=== PATIENT | female | born 1950 | race African-American/Black ===

== ENCOUNTER 2016-05-02 10:22 | Inpatient (IN) | payer MEDICARE, OTHER ==
[~2016-05-02] VITALS: Ht 172.7 cm; Wt 83.5 kg
[~2016-05-02 10:22] MED LIST: ACET160L15 PO; ACID1TAB12 GT; ALBU2.5V38 IH; AMIN30LI4 GT; ARGI1POW13 GT; ASCO500S2 GT; BLOO-140 IN; CITR15SO GT; CLON0.5T GT; DIPH25CA6 GT; DOCU50LI GT; ESCI5TAB GT; FERR220S2 GT; FOLI0.8T23 GT; HEPA500013 SQ; HYDR-4076 GT; INSU100V3 SQ; IPRA0.2S9 IH; LEVE100S GT; MERO500P IV; METO25TA6 GT; OMEP40CA37 GT; TRAM50TA2 GT; VALP250S14 GT; ZINC220C6 GT
[2016-05-02 10:40] VITALS: BP 150/59
[2016-05-02] MEDS ORDERED: IV SET PRIMARY PUMP SET 1 EA INFUS.SET MC ONE ×2 (10:42→12:20)
[2016-05-02] MEDS ORDERED: IV NS 0.9% 1,000 ML ONE (10:42)
[2016-05-02] MEDS ORDERED: IV NS 0.9% 1,000 ML BAG IV ONE ×3 (11:00→22:00)
[2016-05-02 11:06] LABS: BASOPHILS # (AUTO) 0.1 /CMM (0.0-0.2); BASOPHILS % (AUTO) 0.3 % (0.0-2.0); DIFF TOTAL % 100 %; EOSINOPHILS # (AUTO) 0.1 /CMM (0.0-0.7); EOSINOPHILS % (AUTO) 0.4 % (0.0-6.0); HEMATOCRIT 41 % (33-45); HEMOGLOBIN 12.6 g/dL (11.5-14.8); LYMPHOCYTES # (AUTO) 2.6 /CMM (0.8-4.8); MEAN CORPUSCULAR HEMOGLOBIN 32 PG (26.0-33.0); MEAN CORPUSCULAR HGB CONC 31 g/dl (31.0-36.0); MEAN CORPUSCULAR VOLUME 104 fL (82-100); MONOCYTES # (AUTO) 3.5 /CMM (0.1-1.30); NEUTROPHILS # (AUTO) 22.8 /CMM (1.8-8.9); NEUTROPHILS % (AUTO) 78.3 % (43.0-81.0); PLATELET COUNT (AUTO) 209 /CMM (150-450); RED BLOOD CELL COUNT(AUTO) 3.93 MIL/uL (4.0-5.2)
[2016-05-02 11:15] LABS: KETONES,URINE Negative (NEGATIVE); LEUKOCYTE ESTERASE ,URINE Large (NEGATIVE)
[2016-05-02] MEDS ORDERED: VALP250S14 GT ×2 (11:17)
[2016-05-02] MEDS ORDERED: LEVE100S GT (11:17)
[2016-05-02] MEDS ORDERED: ACET160S3 GT (11:17)
[2016-05-02] MEDS ORDERED: CLON0.1T GT (11:17)
[2016-05-02 11:18] LABS: CALCIUM, SERUM 9.4 mg/dL (8.5-10.1); CREATININE 4.8 mg/dL (0.6-1.3); POTASSIUM 3.4 mmol/L (3.5-5.1)
[2016-05-02 11:19] LABS: ADD UA MICROSCOPIC YES
[2016-05-02 11:21] LABS: INR 1.14 (0.87-1.13)
[2016-05-02 11:23] LABS: ALBUMIN 1.8 g/dL (3.4-5.0); BILIRUBIN,DIRECT 0.3 mg/dL (0.0-0.2); BILIRUBIN,TOTAL 0.5 mg/dL (0.2-1.0); INDIRECT BILIRUBIN 0.2 mg/dL (0.0-1.1); TOTAL PROTEIN, SERUM 8.2 g/dL (6.4-8.2)
[2016-05-02 11:25] LABS: ADD URINE CULTURE YES; WBC,URINE 21-50 /HPF (0-3)
[2016-05-02 11:32] LABS: LACTIC ACID 1.5 mmol/L (0.4-2.0)
[2016-05-02 11:38] LABS: TROPONIN I 0.021 ng/mL (0.00-0.056)
[2016-05-02 11:44] LABS: BAND % (MANUAL) 5 % (0.0-5.0); EOSINOPHILS % (MANUAL) 1 % (0-4); LYMPHOCYTES % (MANUAL) 10 % (16-48); PLATELET ESTIMATE ADEQUATE
[2016-05-02] MEDS ORDERED: LEVOFLOXACIN 750 MG /D5W 150ML 150 ML IV ONE ×2 (12:00→12:20)
[2016-05-02] MEDS ORDERED: IV NS 0.9% 1,000 ML IV PRN (12:03)
[2016-05-02] MEDS ORDERED: IV NS 0.9% 2,000 ML ONE (12:28)
[2016-05-02] MEDS ORDERED: IV NS 0.9% 500 ML IV ONE (12:28)
[2016-05-02] MEDS ORDERED: IV SET PRIMARY 1 EA INFUS.SET MC ONE (12:28)
[2016-05-02] MEDS ORDERED: SECONDARY IV SET 1 EA INFUS.SET MC ONE ×2 (12:29→15:56)
[2016-05-02] MEDS ORDERED: ACETAMINOPHEN 650 MG/SUPP.RECT RC PRN (12:30)
[2016-05-02] MEDS ORDERED: Z GUARD REMEDY 2 OZ OINT TP PRN (12:30)
[2016-05-02] MEDS ORDERED: ONDANSETRON HCL/PF 4 MG/2 ML VIAL IVP PRN (12:30)
[2016-05-02 12:47] VITALS: BP 103/48
[2016-05-02 13:20] VITALS: BP 150/74
[2016-05-02] MEDS: MEROPENEM 500 MG in IV NS 0.9% 50 ML IV SCH (15:45)
[2016-05-02 16:00] VITALS: BP 146/42
[2016-05-02] MEDS ORDERED: CLONIDINE HCL 0.1 MG TABLET GT PRN (17:00)
[2016-05-02] MEDS ORDERED: DEXTROSE 50%-WATER 50 ML DISP.SYRIN IV PRN (17:00)
[2016-05-02] MEDS ORDERED: INSULIN REGULAR, HUMAN 100 UNIT/ML 3 ML VIAL SQ PRN (17:00)
[2016-05-02] MEDS: BLOOD SUGAR DIAGNOSTIC 1 EACH STRIP IN SCH (17:47)
[2016-05-02] MEDS: FERROUS SULFATE UDC 300 MG/5 ML UDC PO SCH (17:49)
[2016-05-02] MEDS: VALPROIC ACID 250 MG/5 ML UDC GT SCH (17:49)
[2016-05-02 20:00] VITALS: BP 101/44
[2016-05-02] MEDS: ALBUTEROL FS 2.5 MG/3 ML VIAL.NEB IH SCH (20:31)
[2016-05-02] MEDS: IPRATROPIUM NEB FS 0.5 MG/2.5 ML AMPUL.NEB IH SCH (20:31)
[2016-05-02] MEDS: LEVETIRACETAM SOL (5 ML) 100 MG/ML UDC GT SCH (21:33)
[2016-05-02] MEDS: DOCUSATE SODIUM LIQ 100 MG/10 ML UDC GT SCH (21:33)
[2016-05-03] VITALS (7 sets, daily range): BP systolic 95–143; BP diastolic 39–62
[2016-05-03] MEDS: VALPROIC ACID 250 MG/5 ML UDC GT SCH ×3 (00:13→17:10)
[2016-05-03] MEDS: MEROPENEM 500 MG in IV NS 0.9% 50 ML IV SCH ×3 (00:14→21:32)
[2016-05-03] MEDS ORDERED: IV D5/ 0.9% NACL 1,000 ML IV ONE (01:10)
[2016-05-03] MEDS: IV D5/ 0.9% NACL 1,000 ML IV PRN ×2 (01:15→16:33)
[2016-05-03] MEDS: ALBUTEROL FS 2.5 MG/3 ML VIAL.NEB IH SCH ×4 (01:29→20:00)
[2016-05-03] MEDS: IPRATROPIUM NEB FS 0.5 MG/2.5 ML AMPUL.NEB IH SCH ×4 (01:29→20:00)
[2016-05-03] MEDS: BLOOD SUGAR DIAGNOSTIC 1 EACH STRIP IN SCH ×4 (05:49→17:10)
[2016-05-03 06:54] LABS: BASOPHILS # (AUTO) 0.1 /CMM (0.0-0.2); BASOPHILS % (AUTO) 0.2 % (0.0-2.0); DIFF TOTAL % 100 %; EOSINOPHILS % (AUTO) 0.1 % (0.0-6.0); HEMATOCRIT 33 % (33-45); HEMOGLOBIN 10.5 g/dL (11.5-14.8); LYMPHOCYTES # (AUTO) 2.1 /CMM (0.8-4.8); LYMPHOCYTES % (AUTO) 9.6 % (20.0-44.0); MEAN CORPUSCULAR HEMOGLOBIN 33 PG (26.0-33.0); MEAN CORPUSCULAR HGB CONC 32 g/dl (31.0-36.0); MEAN CORPUSCULAR VOLUME 103 fL (82-100); MONOCYTES # (AUTO) 3.3 /CMM (0.1-1.30); MONOCYTES % (AUTO) 14.6 % (2.0-12.0); NEUTROPHILS # (AUTO) 16.9 /CMM (1.8-8.9); NEUTROPHILS % (AUTO) 75.5 % (43.0-81.0); PLATELET COUNT (AUTO) 181 /CMM (150-450); RED BLOOD CELL COUNT(AUTO) 3.19 MIL/uL (4.0-5.2); WHITE BLOOD COUNT (AUTO) 22.3 K/uL (4.3-11.0)
[2016-05-03 07:14] LABS: CALCIUM, SERUM 8.4 mg/dL (8.5-10.1); CREATININE 5.1 mg/dL (0.6-1.3); PHOSPHORUS 3.6 mg/dL (2.5-4.9); POTASSIUM 3.2 mmol/L (3.5-5.1)
[2016-05-03] MEDS: DOCUSATE SODIUM LIQ 100 MG/10 ML UDC GT SCH ×2 (08:18→21:31)
[2016-05-03] MEDS: LEVETIRACETAM SOL (5 ML) 100 MG/ML UDC GT SCH ×2 (08:18→21:31)
[2016-05-03] MEDS: FERROUS SULFATE UDC 300 MG/5 ML UDC PO SCH ×3 (08:18→17:10)
[2016-05-03] MEDS: PANTOPRAZOLE 40 MG VIAL IV SCH (08:19)
[2016-05-03] MEDS: ACETAMINOPHEN 650 MG/20.3 ML UDC GT PRN (08:29)
[2016-05-04] VITALS: BP 143/59
[2016-05-04] MEDS: VALPROIC ACID 250 MG/5 ML UDC GT SCH ×4 (00:21→23:03)
[2016-05-04] MEDS: BLOOD SUGAR DIAGNOSTIC 1 EACH STRIP IN SCH ×5 (00:26→23:03)
[2016-05-04] MEDS: ALBUTEROL FS 2.5 MG/3 ML VIAL.NEB IH SCH ×4 (01:40→19:42)
[2016-05-04] MEDS: IPRATROPIUM NEB FS 0.5 MG/2.5 ML AMPUL.NEB IH SCH ×3 (01:40→19:42)
[2016-05-04 04:00] VITALS: BP 143/56
[2016-05-04] MEDS: ACETAMINOPHEN 650 MG/20.3 ML UDC GT PRN (04:43)
[2016-05-04] MEDS ORDERED: IV SET PRIMARY PUMP SET 1 EA INFUS.SET MC ONE (05:02)
[2016-05-04 06:17] LABS: BASOPHILS % (AUTO) 0.1 % (0.0-2.0); DIFF TOTAL % 100 %; EOSINOPHILS % (AUTO) 0.3 % (0.0-6.0); HEMATOCRIT 31 % (33-45); HEMOGLOBIN 10.2 g/dL (11.5-14.8); LYMPHOCYTES # (AUTO) 2.1 /CMM (0.8-4.8); LYMPHOCYTES % (AUTO) 12.3 % (20.0-44.0); MEAN CORPUSCULAR HEMOGLOBIN 33 PG (26.0-33.0); MEAN CORPUSCULAR HGB CONC 33 g/dl (31.0-36.0); MEAN CORPUSCULAR VOLUME 102 fL (82-100); MONOCYTES # (AUTO) 2.2 /CMM (0.1-1.30); MONOCYTES % (AUTO) 12.7 % (2.0-12.0); NEUTROPHILS # (AUTO) 12.8 /CMM (1.8-8.9); NEUTROPHILS % (AUTO) 74.6 % (43.0-81.0); PLATELET COUNT (AUTO) 182 /CMM (150-450); RED BLOOD CELL COUNT(AUTO) 3.06 MIL/uL (4.0-5.2); WHITE BLOOD COUNT (AUTO) 17.2 K/uL (4.3-11.0)
[2016-05-04 06:39] LABS: CALCIUM, SERUM 8.8 mg/dL (8.5-10.1); CREATININE 4.9 mg/dL (0.6-1.3); PHOSPHORUS 3.4 mg/dL (2.5-4.9); POTASSIUM 3.1 mmol/L (3.5-5.1)
[2016-05-04 08:00] VITALS: BP 116/47
[2016-05-04] MEDS: FERROUS SULFATE UDC 300 MG/5 ML UDC PO SCH ×3 (09:11→18:06)
[2016-05-04] MEDS: MEROPENEM 500 MG in IV NS 0.9% 50 ML IV SCH ×2 (09:11→20:18)
[2016-05-04] MEDS: DOCUSATE SODIUM LIQ 100 MG/10 ML UDC GT SCH ×2 (09:11→20:18)
[2016-05-04] MEDS: PANTOPRAZOLE 40 MG VIAL IV SCH (09:11)
[2016-05-04] MEDS: LEVETIRACETAM SOL (5 ML) 100 MG/ML UDC GT SCH ×2 (09:12→20:18)
[2016-05-04 12:00] VITALS: BP 148/61
[2016-05-04 16:00] VITALS: BP 120/47
[2016-05-04] MEDS ORDERED: SECONDARY IV SET 1 EA INFUS.SET MC ONE (16:06)
[2016-05-04] MEDS: ACETAMINOPHEN 325 MG TABLET PO PRN (16:11)
[2016-05-04] MEDS: Magnesium 1GM/D5W 100ML PREMIX 100 ML IV SCH ×2 (16:30→18:13)
[2016-05-04 20:00] VITALS: BP 119/65
[2016-05-04] MEDS: IV D5/ 0.9% NACL 1,000 ML IV PRN (20:18)
[2016-05-05] VITALS: BP 154/59
[2016-05-05] MEDS: IPRATROPIUM NEB FS 0.5 MG/2.5 ML AMPUL.NEB IH SCH ×4 (00:48→19:28)
[2016-05-05] MEDS: ALBUTEROL FS 2.5 MG/3 ML VIAL.NEB IH SCH ×4 (00:48→19:28)
[2016-05-05] MEDS ORDERED: POTASSIUM CHLORIDE 20 MEQ POWDER PACKET ONE (03:48)
[2016-05-05 04:00] VITALS: BP 157/66
[2016-05-05] MEDS ORDERED: POTASSIUM CHLORIDE 20 MEQ POWDER PACKET GT ONE (04:00)
[2016-05-05] MEDS: VALPROIC ACID 250 MG/5 ML UDC GT SCH ×2 (06:09→17:23)
[2016-05-05] MEDS: BLOOD SUGAR DIAGNOSTIC 1 EACH STRIP IN SCH ×3 (06:09→18:28)
[2016-05-05 08:00] VITALS: BP 166/63
[2016-05-05 08:17] LABS: BASOPHILS % (AUTO) 0.3 % (0.0-2.0); DIFF TOTAL % 100 %; EOSINOPHILS # (AUTO) 0.1 /CMM (0.0-0.7); EOSINOPHILS % (AUTO) 0.8 % (0.0-6.0); HEMATOCRIT 36 % (33-45); HEMOGLOBIN 11.6 g/dL (11.5-14.8); LYMPHOCYTES # (AUTO) 2.8 /CMM (0.8-4.8); MEAN CORPUSCULAR HEMOGLOBIN 33 PG (26.0-33.0); MEAN CORPUSCULAR HGB CONC 32 g/dl (31.0-36.0); MEAN CORPUSCULAR VOLUME 102 fL (82-100); MONOCYTES # (AUTO) 1.5 /CMM (0.1-1.30); MONOCYTES % (AUTO) 10.3 % (2.0-12.0); NEUTROPHILS # (AUTO) 10.1 /CMM (1.8-8.9); NEUTROPHILS % (AUTO) 69.6 % (43.0-81.0); PLATELET COUNT (AUTO) 181 /CMM (150-450); RED BLOOD CELL COUNT(AUTO) 3.51 MIL/uL (4.0-5.2); WHITE BLOOD COUNT (AUTO) 14.5 K/uL (4.3-11.0)
[2016-05-05 08:35] LABS: ALBUMIN 1.6 g/dL (3.4-5.0); BILIRUBIN,TOTAL 0.4 mg/dL (0.2-1.0); CALCIUM, SERUM 9.2 mg/dL (8.5-10.1); CREATININE 5.8 mg/dL (0.6-1.3); POTASSIUM 4.8 mmol/L (3.5-5.1); TOTAL PROTEIN, SERUM 7.8 g/dL (6.4-8.2)
[2016-05-05] MEDS: PANTOPRAZOLE 40 MG VIAL IV SCH (08:46)
[2016-05-05] MEDS: MEROPENEM 500 MG in IV NS 0.9% 50 ML IV SCH ×2 (08:46→21:36)
[2016-05-05] MEDS: LEVETIRACETAM SOL (5 ML) 100 MG/ML UDC GT SCH ×2 (08:46→21:36)
[2016-05-05] MEDS: FERROUS SULFATE UDC 300 MG/5 ML UDC PO SCH ×3 (08:46→18:24)
[2016-05-05] MEDS: DOCUSATE SODIUM LIQ 100 MG/10 ML UDC GT SCH ×2 (08:47→21:36)
[2016-05-05] MEDS ORDERED: HYDROGEL DRESSING 90 GM TUBE TP PRN (11:00)
[2016-05-05] MEDS ORDERED: GLYTROL 1,000 ML BAG GT PRN (11:30)
[2016-05-05 12:00] VITALS: BP 173/81
[2016-05-05] MEDS: HYDROGEL DRESSING 90 GM TUBE TP SCH (12:39)
[2016-05-05 16:00] VITALS: BP 114/54
[2016-05-05] MEDS: METRONIDAZOLE 500 MG TABLET GT SCH (17:23)
[2016-05-05] MEDS: RENAL NOVASOURCE 1,000 ML BOTTLE GT PRN (18:15)
[2016-05-05] MEDS: IV D5/ 0.9% NACL 1,000 ML IV PRN (18:15)
[2016-05-05 20:00] VITALS: BP 121/68
[2016-05-06] VITALS (7 sets, daily range): BP systolic 96–155; BP diastolic 34–89
[2016-05-06] MEDS: ALBUTEROL FS 2.5 MG/3 ML VIAL.NEB IH SCH ×4 (01:19→20:26)
[2016-05-06] MEDS: IPRATROPIUM NEB FS 0.5 MG/2.5 ML AMPUL.NEB IH SCH ×4 (01:20→20:26)
[2016-05-06] MEDS: BLOOD SUGAR DIAGNOSTIC 1 EACH STRIP IN SCH ×5 (01:44→23:27)
[2016-05-06] MEDS: VALPROIC ACID 250 MG/5 ML UDC GT SCH ×4 (01:45→23:25)
[2016-05-06] MEDS: RENAL NOVASOURCE 1,000 ML BOTTLE GT PRN (05:59)
[2016-05-06] MEDS ORDERED: ALTEPLASE CATHFLO 2 MG/VIAL XX ONE (08:30)
[2016-05-06] MEDS ORDERED: SECONDARY IV SET 1 EA INFUS.SET MC ONE (08:51)
[2016-05-06] MEDS: METRONIDAZOLE 500 MG TABLET GT SCH ×3 (08:57→16:38)
[2016-05-06] MEDS: FERROUS SULFATE UDC 300 MG/5 ML UDC PO SCH ×3 (08:57→17:16)
[2016-05-06] MEDS: DOCUSATE SODIUM LIQ 100 MG/10 ML UDC GT SCH ×2 (08:57→20:33)
[2016-05-06] MEDS: LEVETIRACETAM SOL (5 ML) 100 MG/ML UDC GT SCH ×2 (08:57→20:33)
[2016-05-06] MEDS: PANTOPRAZOLE 40 MG VIAL IV SCH (08:57)
[2016-05-06] MEDS: HYDROGEL DRESSING 90 GM TUBE TP SCH (08:58)
[2016-05-06] MEDS: MEROPENEM 500 MG in IV NS 0.9% 50 ML IV SCH ×2 (08:58→20:34)
[2016-05-06] MEDS: ACETAMINOPHEN 325 MG TABLET PO PRN (16:37)
[2016-05-06] MEDS: IV D5/ 0.9% NACL 1,000 ML IV PRN (23:27)
[2016-05-07] VITALS: BP 112/45
[2016-05-07] MEDS: IPRATROPIUM NEB FS 0.5 MG/2.5 ML AMPUL.NEB IH SCH ×4 (01:30→19:49)
[2016-05-07] MEDS: ALBUTEROL FS 2.5 MG/3 ML VIAL.NEB IH SCH ×4 (01:30→19:49)
[2016-05-07 04:00] VITALS: BP 150/60
[2016-05-07] MEDS: VALPROIC ACID 250 MG/5 ML UDC GT SCH ×3 (05:04→23:22)
[2016-05-07] MEDS: BLOOD SUGAR DIAGNOSTIC 1 EACH STRIP IN SCH ×4 (05:27→23:22)
[2016-05-07 08:00] VITALS: BP 160/64
[2016-05-07] MEDS: FERROUS SULFATE UDC 300 MG/5 ML UDC PO SCH ×3 (08:56→17:00)
[2016-05-07] MEDS: DOCUSATE SODIUM LIQ 100 MG/10 ML UDC GT SCH ×2 (09:28→20:53)
[2016-05-07] MEDS: PANTOPRAZOLE 40 MG VIAL IV SCH (09:29)
[2016-05-07] MEDS: LEVETIRACETAM SOL (5 ML) 100 MG/ML UDC GT SCH ×2 (09:29→20:53)
[2016-05-07] MEDS: METRONIDAZOLE 500 MG TABLET GT SCH ×3 (09:29→16:27)
[2016-05-07] MEDS: HYDROGEL DRESSING 90 GM TUBE TP SCH (09:29)
[2016-05-07] MEDS: MEROPENEM 500 MG in IV NS 0.9% 50 ML IV SCH ×2 (09:35→20:54)
[2016-05-07 12:00] VITALS: BP 143/55
[2016-05-07 13:14] LABS: BASOPHILS # (AUTO) 0.1 /CMM (0.0-0.2); BASOPHILS % (AUTO) 0.9 % (0.0-2.0); DIFF TOTAL % 100 %; EOSINOPHILS # (AUTO) 0.1 /CMM (0.0-0.7); EOSINOPHILS % (AUTO) 1.5 % (0.0-6.0); HEMATOCRIT 31 % (33-45); HEMOGLOBIN 9.9 g/dL (11.5-14.8); LYMPHOCYTES # (AUTO) 1.8 /CMM (0.8-4.8); LYMPHOCYTES % (AUTO) 20.6 % (20.0-44.0); MEAN CORPUSCULAR HEMOGLOBIN 32 PG (26.0-33.0); MEAN CORPUSCULAR HGB CONC 32 g/dl (31.0-36.0); MEAN CORPUSCULAR VOLUME 102 fL (82-100); MONOCYTES # (AUTO) 1.3 /CMM (0.1-1.30); MONOCYTES % (AUTO) 15.7 % (2.0-12.0); NEUTROPHILS # (AUTO) 5.2 /CMM (1.8-8.9); NEUTROPHILS % (AUTO) 61.3 % (43.0-81.0); PLATELET COUNT (AUTO) 147 /CMM (150-450); RED BLOOD CELL COUNT(AUTO) 3.08 MIL/uL (4.0-5.2); WHITE BLOOD COUNT (AUTO) 8.5 K/uL (4.3-11.0)
[2016-05-07 16:00] VITALS: BP 115/51
[2016-05-07] MEDS: ACETAMINOPHEN 325 MG TABLET PO PRN (16:27)
[2016-05-07] MEDS: IV D5/ 0.9% NACL 1,000 ML IV PRN (16:30)
[2016-05-07 20:00] VITALS: BP 122/53
[2016-05-07] MEDS: RENAL NOVASOURCE 1,000 ML BOTTLE GT PRN (23:22)
[2016-05-08] VITALS (8 sets, daily range): BP systolic 92–165; BP diastolic 46–79
[2016-05-08] MEDS: IPRATROPIUM NEB FS 0.5 MG/2.5 ML AMPUL.NEB IH SCH ×4 (01:21→19:38)
[2016-05-08] MEDS: ALBUTEROL FS 2.5 MG/3 ML VIAL.NEB IH SCH ×4 (01:21→19:38)
[2016-05-08] MEDS: VALPROIC ACID 250 MG/5 ML UDC GT SCH ×2 (05:07→17:15)
[2016-05-08] MEDS: BLOOD SUGAR DIAGNOSTIC 1 EACH STRIP IN SCH ×3 (05:07→18:48)
[2016-05-08] MEDS: IV D5/ 0.9% NACL 1,000 ML IV PRN (05:07)
[2016-05-08 07:44] LABS: CALCIUM, SERUM 8.5 mg/dL (8.5-10.1); CREATININE 5.5 mg/dL (0.6-1.3); PHOSPHORUS 2.5 mg/dL (2.5-4.9); POTASSIUM 3.2 mmol/L (3.5-5.1)
[2016-05-08] MEDS: DOCUSATE SODIUM LIQ 100 MG/10 ML UDC GT SCH ×2 (08:48→20:34)
[2016-05-08] MEDS: PANTOPRAZOLE 40 MG VIAL IV SCH (08:48)
[2016-05-08] MEDS: FERROUS SULFATE UDC 300 MG/5 ML UDC PO SCH ×3 (08:48→17:15)
[2016-05-08] MEDS: LEVETIRACETAM SOL (5 ML) 100 MG/ML UDC GT SCH ×2 (08:48→20:34)
[2016-05-08] MEDS: METRONIDAZOLE 500 MG TABLET GT SCH ×3 (08:49→17:16)
[2016-05-08] MEDS: HYDROGEL DRESSING 90 GM TUBE TP SCH (09:00)
[2016-05-08] MEDS: MEROPENEM 500 MG in IV NS 0.9% 50 ML IV SCH ×2 (09:41→20:34)
[2016-05-08] MEDS ORDERED: IV NS 0.9% 250 ML IV ONE (20:18)
[2016-05-08] MEDS: RENAL NOVASOURCE 1,000 ML BOTTLE GT PRN (20:39)
[2016-05-09] VITALS: BP 126/59
[2016-05-09] MEDS: BLOOD SUGAR DIAGNOSTIC 1 EACH STRIP IN SCH ×5 (00:36→23:58)
[2016-05-09] MEDS: MORPHINE SULFATE INJ 2 MG/ML DISP.SYRIN IV PRN ×3 (00:38→10:57)
[2016-05-09] MEDS: VALPROIC ACID 250 MG/5 ML UDC GT SCH ×3 (00:38→17:05)
[2016-05-09] MEDS: ALBUTEROL FS 2.5 MG/3 ML VIAL.NEB IH SCH ×4 (01:28→19:16)
[2016-05-09] MEDS: IPRATROPIUM NEB FS 0.5 MG/2.5 ML AMPUL.NEB IH SCH ×4 (01:28→19:16)
[2016-05-09 04:00] VITALS: BP 135/79
[2016-05-09 07:50] LABS: BASOPHILS % (AUTO) 0.4 % (0.0-2.0); DIFF TOTAL % 100 %; EOSINOPHILS # (AUTO) 0.1 /CMM (0.0-0.7); EOSINOPHILS % (AUTO) 1.6 % (0.0-6.0); HEMATOCRIT 32 % (33-45); HEMOGLOBIN 10.3 g/dL (11.5-14.8); LYMPHOCYTES # (AUTO) 2.2 /CMM (0.8-4.8); LYMPHOCYTES % (AUTO) 25.1 % (20.0-44.0); MEAN CORPUSCULAR HEMOGLOBIN 33 PG (26.0-33.0); MEAN CORPUSCULAR HGB CONC 32 g/dl (31.0-36.0); MEAN CORPUSCULAR VOLUME 102 fL (82-100); MONOCYTES # (AUTO) 1.1 /CMM (0.1-1.30); MONOCYTES % (AUTO) 12.5 % (2.0-12.0); NEUTROPHILS # (AUTO) 5.2 /CMM (1.8-8.9); NEUTROPHILS % (AUTO) 60.4 % (43.0-81.0); PLATELET COUNT (AUTO) 146 /CMM (150-450); RED BLOOD CELL COUNT(AUTO) 3.11 MIL/uL (4.0-5.2); WHITE BLOOD COUNT (AUTO) 8.6 K/uL (4.3-11.0)
[2016-05-09 07:52] LABS: CALCIUM, SERUM 8.8 mg/dL (8.5-10.1); CREATININE 6.2 mg/dL (0.6-1.3); POTASSIUM 3.4 mmol/L (3.5-5.1)
[2016-05-09 08:00] VITALS: BP 171/81
[2016-05-09] MEDS: MEROPENEM 500 MG in IV NS 0.9% 50 ML IV SCH ×2 (08:47→20:48)
[2016-05-09] MEDS: PANTOPRAZOLE 40 MG VIAL IV SCH (08:48)
[2016-05-09] MEDS: METRONIDAZOLE 500 MG TABLET GT SCH ×3 (08:48→16:43)
[2016-05-09] MEDS: LEVETIRACETAM SOL (5 ML) 100 MG/ML UDC GT SCH ×2 (08:48→20:47)
[2016-05-09] MEDS: FERROUS SULFATE UDC 300 MG/5 ML UDC PO SCH ×3 (08:48→17:04)
[2016-05-09] MEDS: DOCUSATE SODIUM LIQ 100 MG/10 ML UDC GT SCH ×2 (08:49→20:47)
[2016-05-09] MEDS: HYDROGEL DRESSING 90 GM TUBE TP SCH (08:49)
[2016-05-09 12:00] VITALS: BP 115/76
[2016-05-09 16:00] VITALS: BP 115/51
[2016-05-09] MEDS: LACTOBACILLUS RHAMNOSUS GG 1 EACH CAP.SPRINK GT SCH (17:00)
[2016-05-09 20:00] VITALS: BP 100/52
[2016-05-09] MEDS: RENAL NOVASOURCE 1,000 ML BOTTLE GT PRN (23:58)
[2016-05-10] VITALS: BP 119/50
[2016-05-10] MEDS: VALPROIC ACID 250 MG/5 ML UDC GT SCH ×3 (00:07→17:17)
[2016-05-10] MEDS: IPRATROPIUM NEB FS 0.5 MG/2.5 ML AMPUL.NEB IH SCH ×4 (03:09→19:20)
[2016-05-10] MEDS: ALBUTEROL FS 2.5 MG/3 ML VIAL.NEB IH SCH ×4 (03:09→19:20)
[2016-05-10] MEDS: MORPHINE SULFATE INJ 2 MG/ML DISP.SYRIN IV PRN (03:24)
[2016-05-10 04:00] VITALS: BP 93/51
[2016-05-10] MEDS: BLOOD SUGAR DIAGNOSTIC 1 EACH STRIP IN SCH ×3 (06:03→17:36)
[2016-05-10 06:41] LABS: BASOPHILS % (AUTO) 0.3 % (0.0-2.0); DIFF TOTAL % 100 %; EOSINOPHILS # (AUTO) 0.2 /CMM (0.0-0.7); EOSINOPHILS % (AUTO) 2.1 % (0.0-6.0); HEMATOCRIT 29 % (33-45); HEMOGLOBIN 9.5 g/dL (11.5-14.8); LYMPHOCYTES # (AUTO) 2.5 /CMM (0.8-4.8); LYMPHOCYTES % (AUTO) 25.6 % (20.0-44.0); MEAN CORPUSCULAR HEMOGLOBIN 34 PG (26.0-33.0); MEAN CORPUSCULAR HGB CONC 33 g/dl (31.0-36.0); MEAN CORPUSCULAR VOLUME 101 fL (82-100); MONOCYTES # (AUTO) 1.3 /CMM (0.1-1.30); MONOCYTES % (AUTO) 13.6 % (2.0-12.0); NEUTROPHILS # (AUTO) 5.7 /CMM (1.8-8.9); NEUTROPHILS % (AUTO) 58.4 % (43.0-81.0); PLATELET COUNT (AUTO) 172 /CMM (150-450); RED BLOOD CELL COUNT(AUTO) 2.84 MIL/uL (4.0-5.2); WHITE BLOOD COUNT (AUTO) 9.7 K/uL (4.3-11.0)
[2016-05-10 06:53] LABS: CALCIUM, SERUM 8.5 mg/dL (8.5-10.1); CREATININE 5.3 mg/dL (0.6-1.3); POTASSIUM 3.6 mmol/L (3.5-5.1)
[2016-05-10 08:00] VITALS: BP 155/118
[2016-05-10] MEDS: DOCUSATE SODIUM LIQ 100 MG/10 ML UDC GT SCH ×2 (09:00→21:11)
[2016-05-10] MEDS: MEROPENEM 500 MG in IV NS 0.9% 50 ML IV SCH ×2 (09:03→21:12)
[2016-05-10] MEDS: PANTOPRAZOLE 40 MG VIAL IV SCH (09:03)
[2016-05-10] MEDS: FERROUS SULFATE UDC 300 MG/5 ML UDC PO SCH ×3 (09:04→17:17)
[2016-05-10] MEDS: LACTOBACILLUS RHAMNOSUS GG 1 EACH CAP.SPRINK GT SCH ×2 (09:04→17:17)
[2016-05-10] MEDS: LEVETIRACETAM SOL (5 ML) 100 MG/ML UDC GT SCH ×2 (09:04→21:11)
[2016-05-10] MEDS: METRONIDAZOLE 500 MG TABLET GT SCH ×3 (09:04→17:17)
[2016-05-10] MEDS: HYDROGEL DRESSING 90 GM TUBE TP SCH (09:05)
[2016-05-10 12:00] VITALS: BP 148/65
[2016-05-10 16:00] VITALS: BP 125/57
[2016-05-10] MEDS: RENAL NOVASOURCE 1,000 ML BOTTLE GT PRN (18:53)
[2016-05-10 20:00] VITALS: BP 152/64
[2016-05-10] MEDS: ACETAMINOPHEN 325 MG TABLET PO PRN (21:11)
[2016-05-11] VITALS: BP 105/54
[2016-05-11] MEDS: BLOOD SUGAR DIAGNOSTIC 1 EACH STRIP IN SCH ×4 (00:31→17:29)
[2016-05-11] MEDS: VALPROIC ACID 250 MG/5 ML UDC GT SCH ×3 (00:32→17:20)
[2016-05-11] MEDS: ALBUTEROL FS 2.5 MG/3 ML VIAL.NEB IH SCH ×4 (01:40→19:11)
[2016-05-11] MEDS: IPRATROPIUM NEB FS 0.5 MG/2.5 ML AMPUL.NEB IH SCH ×4 (01:40→19:11)
[2016-05-11 04:00] VITALS: BP 149/60
[2016-05-11 07:28] LABS: BASOPHILS % (AUTO) 0.3 % (0.0-2.0); DIFF TOTAL % 100 %; EOSINOPHILS # (AUTO) 0.2 /CMM (0.0-0.7); EOSINOPHILS % (AUTO) 2.9 % (0.0-6.0); HEMATOCRIT 28 % (33-45); HEMOGLOBIN 9.2 g/dL (11.5-14.8); LYMPHOCYTES # (AUTO) 2.3 /CMM (0.8-4.8); LYMPHOCYTES % (AUTO) 27.5 % (20.0-44.0); MEAN CORPUSCULAR HEMOGLOBIN 33 PG (26.0-33.0); MEAN CORPUSCULAR HGB CONC 33 g/dl (31.0-36.0); MEAN CORPUSCULAR VOLUME 101 fL (82-100); MONOCYTES % (AUTO) 11.2 % (2.0-12.0); NEUTROPHILS # (AUTO) 4.9 /CMM (1.8-8.9); NEUTROPHILS % (AUTO) 58.1 % (43.0-81.0); PLATELET COUNT (AUTO) 164 /CMM (150-450); RED BLOOD CELL COUNT(AUTO) 2.78 MIL/uL (4.0-5.2); WHITE BLOOD COUNT (AUTO) 8.5 K/uL (4.3-11.0)
[2016-05-11 07:46] LABS: CALCIUM, SERUM 8.6 mg/dL (8.5-10.1); CREATININE 6.1 mg/dL (0.6-1.3); POTASSIUM 3.4 mmol/L (3.5-5.1)
[2016-05-11 08:00] VITALS: BP 142/70
[2016-05-11] MEDS: MEROPENEM 500 MG in IV NS 0.9% 50 ML IV SCH ×2 (08:54→20:09)
[2016-05-11] MEDS: LEVETIRACETAM SOL (5 ML) 100 MG/ML UDC GT SCH ×2 (08:55→20:09)
[2016-05-11] MEDS: DOCUSATE SODIUM LIQ 100 MG/10 ML UDC GT SCH ×2 (08:55→20:09)
[2016-05-11] MEDS: LACTOBACILLUS RHAMNOSUS GG 1 EACH CAP.SPRINK GT SCH ×2 (08:55→17:20)
[2016-05-11] MEDS: FERROUS SULFATE UDC 300 MG/5 ML UDC PO SCH ×3 (08:55→17:20)
[2016-05-11] MEDS: METRONIDAZOLE 500 MG TABLET GT SCH ×3 (08:55→17:20)
[2016-05-11] MEDS: PANTOPRAZOLE 40 MG VIAL IV SCH (08:55)
[2016-05-11] MEDS: HYDROGEL DRESSING 90 GM TUBE TP SCH (08:56)
[2016-05-11] MEDS ORDERED: IV SET PRIMARY PUMP SET 1 EA INFUS.SET MC ONE (09:04)
[2016-05-11 12:00] VITALS: BP 155/83
[2016-05-11 16:00] VITALS: BP 138/56
[2016-05-11] MEDS: RENAL NOVASOURCE 1,000 ML BOTTLE GT PRN (17:19)
[2016-05-11 20:00] VITALS: BP 138/56
[2016-05-12] VITALS: BP 149/74
[2016-05-12] MEDS: VALPROIC ACID 250 MG/5 ML UDC GT SCH ×3 (00:39→17:22)
[2016-05-12] MEDS: BLOOD SUGAR DIAGNOSTIC 1 EACH STRIP IN SCH ×4 (00:40→18:38)
[2016-05-12] MEDS: IPRATROPIUM NEB FS 0.5 MG/2.5 ML AMPUL.NEB IH SCH ×4 (02:03→19:20)
[2016-05-12] MEDS: ALBUTEROL FS 2.5 MG/3 ML VIAL.NEB IH SCH ×4 (02:03→19:20)
[2016-05-12 04:00] VITALS: BP 121/67
[2016-05-12] MEDS: MORPHINE SULFATE INJ 2 MG/ML DISP.SYRIN IV PRN ×2 (04:00→21:53)
[2016-05-12 06:38] LABS: BASOPHILS % (AUTO) 0.3 % (0.0-2.0); DIFF TOTAL % 100 %; EOSINOPHILS # (AUTO) 0.2 /CMM (0.0-0.7); HEMATOCRIT 30 % (33-45); HEMOGLOBIN 9.6 g/dL (11.5-14.8); LYMPHOCYTES # (AUTO) 2.2 /CMM (0.8-4.8); LYMPHOCYTES % (AUTO) 27.1 % (20.0-44.0); MEAN CORPUSCULAR HEMOGLOBIN 33 PG (26.0-33.0); MEAN CORPUSCULAR HGB CONC 33 g/dl (31.0-36.0); MEAN CORPUSCULAR VOLUME 102 fL (82-100); MONOCYTES # (AUTO) 0.8 /CMM (0.1-1.30); NEUTROPHILS # (AUTO) 4.9 /CMM (1.8-8.9); NEUTROPHILS % (AUTO) 60.6 % (43.0-81.0); PLATELET COUNT (AUTO) 171 /CMM (150-450); RED BLOOD CELL COUNT(AUTO) 2.89 MIL/uL (4.0-5.2); WHITE BLOOD COUNT (AUTO) 8.1 K/uL (4.3-11.0)
[2016-05-12 06:48] LABS: CALCIUM, SERUM 8.5 mg/dL (8.5-10.1); CREATININE 5.1 mg/dL (0.6-1.3); POTASSIUM 4.1 mmol/L (3.5-5.1)
[2016-05-12] MEDS: ACETAMINOPHEN 650 MG/20.3 ML UDC GT PRN (07:00)
[2016-05-12 08:00] VITALS: BP 138/78
[2016-05-12] MEDS: METRONIDAZOLE 500 MG TABLET GT SCH ×3 (08:17→17:28)
[2016-05-12] MEDS: LACTOBACILLUS RHAMNOSUS GG 1 EACH CAP.SPRINK GT SCH ×2 (08:17→17:22)
[2016-05-12] MEDS: LEVETIRACETAM SOL (5 ML) 100 MG/ML UDC GT SCH ×2 (08:17→21:52)
[2016-05-12] MEDS: DOCUSATE SODIUM LIQ 100 MG/10 ML UDC GT SCH (08:17)
[2016-05-12] MEDS: PANTOPRAZOLE 40 MG VIAL IV SCH (08:17)
[2016-05-12] MEDS: FERROUS SULFATE UDC 300 MG/5 ML UDC PO SCH ×3 (08:17→17:22)
[2016-05-12] MEDS: HYDROGEL DRESSING 90 GM TUBE TP SCH (08:18)
[2016-05-12] MEDS: MEROPENEM 500 MG in IV NS 0.9% 50 ML IV SCH ×2 (08:31→21:52)
[2016-05-12 12:00] VITALS: BP 138/70
[2016-05-12] MEDS ORDERED: DIATR MEGLU/DIATRIZOATE SODIUM 30 ML BOTTLE (GASTROGRAPHIN) ONE (13:03)
[2016-05-12 16:00] VITALS: BP 135/64
[2016-05-12 20:00] VITALS: BP_SYST 113; BP_DIAS 33; BP_DIAS 52
[2016-05-12] MEDS: BACITRACIN ZINC OINT (15 GM) 15 GM TUBE TP SCH (21:52)
[2016-05-13] VITALS (7 sets, daily range): BP systolic 149–196; BP diastolic 49–97
[2016-05-13] MEDS: VALPROIC ACID 250 MG/5 ML UDC GT SCH ×3 (00:20→17:33)
[2016-05-13] MEDS: IPRATROPIUM NEB FS 0.5 MG/2.5 ML AMPUL.NEB IH SCH ×4 (01:25→20:26)
[2016-05-13] MEDS: ALBUTEROL FS 2.5 MG/3 ML VIAL.NEB IH SCH ×4 (01:25→20:26)
[2016-05-13] MEDS: MORPHINE SULFATE INJ 2 MG/ML DISP.SYRIN IV PRN ×2 (05:26→10:14)
[2016-05-13] MEDS: BLOOD SUGAR DIAGNOSTIC 1 EACH STRIP IN SCH ×4 (05:39→17:34)
[2016-05-13] MEDS: RENAL NOVASOURCE 1,000 ML BOTTLE GT PRN ×2 (06:21→20:34)
[2016-05-13 07:10] LABS: CALCIUM, SERUM 8.5 mg/dL (8.5-10.1); CREATININE 5.8 mg/dL (0.6-1.3); POTASSIUM 3.6 mmol/L (3.5-5.1)
[2016-05-13 07:39] LABS: BASOPHILS # (AUTO) 0.1 /CMM (0.0-0.2); BASOPHILS % (AUTO) 0.5 % (0.0-2.0); DIFF TOTAL % 100 %; EOSINOPHILS # (AUTO) 0.2 /CMM (0.0-0.7); EOSINOPHILS % (AUTO) 2.1 % (0.0-6.0); HEMATOCRIT 28 % (33-45); HEMOGLOBIN 9.3 g/dL (11.5-14.8); LYMPHOCYTES # (AUTO) 2.8 /CMM (0.8-4.8); LYMPHOCYTES % (AUTO) 26.6 % (20.0-44.0); MEAN CORPUSCULAR HEMOGLOBIN 34 PG (26.0-33.0); MEAN CORPUSCULAR HGB CONC 33 g/dl (31.0-36.0); MEAN CORPUSCULAR VOLUME 103 fL (82-100); MONOCYTES % (AUTO) 9.2 % (2.0-12.0); NEUTROPHILS # (AUTO) 6.4 /CMM (1.8-8.9); NEUTROPHILS % (AUTO) 61.6 % (43.0-81.0); PLATELET COUNT (AUTO) 200 /CMM (150-450); RED BLOOD CELL COUNT(AUTO) 2.77 MIL/uL (4.0-5.2); WHITE BLOOD COUNT (AUTO) 10.4 K/uL (4.3-11.0)
[2016-05-13] MEDS: FERROUS SULFATE UDC 300 MG/5 ML UDC PO SCH ×3 (08:29→17:33)
[2016-05-13] MEDS: LACTOBACILLUS RHAMNOSUS GG 1 EACH CAP.SPRINK GT SCH ×2 (08:29→17:33)
[2016-05-13] MEDS: PANTOPRAZOLE 40 MG VIAL IV SCH (08:29)
[2016-05-13] MEDS: MEROPENEM 500 MG in IV NS 0.9% 50 ML IV SCH ×2 (08:29→21:34)
[2016-05-13] MEDS: LEVETIRACETAM SOL (5 ML) 100 MG/ML UDC GT SCH ×2 (08:30→21:34)
[2016-05-13] MEDS: METRONIDAZOLE 500 MG TABLET GT SCH ×3 (08:30→17:33)
[2016-05-13] MEDS: BACITRACIN ZINC OINT (15 GM) 15 GM TUBE TP SCH ×2 (08:30→17:34)
[2016-05-13] MEDS: HYDROGEL DRESSING 90 GM TUBE TP SCH (09:00)
[2016-05-14] VITALS (7 sets, daily range): BP systolic 113–160; BP diastolic 51–75
[2016-05-14] MEDS: VALPROIC ACID 250 MG/5 ML UDC GT SCH ×3 (00:02→17:01)
[2016-05-14] MEDS: BLOOD SUGAR DIAGNOSTIC 1 EACH STRIP IN SCH ×4 (00:02→17:01)
[2016-05-14] MEDS: ALBUTEROL FS 2.5 MG/3 ML VIAL.NEB IH SCH ×4 (01:30→19:58)
[2016-05-14] MEDS: IPRATROPIUM NEB FS 0.5 MG/2.5 ML AMPUL.NEB IH SCH ×4 (01:30→19:58)
[2016-05-14 07:16] LABS: BASOPHILS % (AUTO) 0.3 % (0.0-2.0); DIFF TOTAL % 100 %; EOSINOPHILS # (AUTO) 0.4 /CMM (0.0-0.7); EOSINOPHILS % (AUTO) 2.8 % (0.0-6.0); HEMATOCRIT 32 % (33-45); HEMOGLOBIN 10.2 g/dL (11.5-14.8); LYMPHOCYTES # (AUTO) 3.1 /CMM (0.8-4.8); LYMPHOCYTES % (AUTO) 21.6 % (20.0-44.0); MEAN CORPUSCULAR HEMOGLOBIN 33 PG (26.0-33.0); MEAN CORPUSCULAR HGB CONC 32 g/dl (31.0-36.0); MEAN CORPUSCULAR VOLUME 103 fL (82-100); MONOCYTES # (AUTO) 1.1 /CMM (0.1-1.30); MONOCYTES % (AUTO) 7.6 % (2.0-12.0); NEUTROPHILS # (AUTO) 9.6 /CMM (1.8-8.9); NEUTROPHILS % (AUTO) 67.7 % (43.0-81.0); PLATELET COUNT (AUTO) 199 /CMM (150-450); RED BLOOD CELL COUNT(AUTO) 3.07 MIL/uL (4.0-5.2); WHITE BLOOD COUNT (AUTO) 14.2 K/uL (4.3-11.0)
[2016-05-14 07:41] LABS: CREATININE 5.2 mg/dL (0.6-1.3); PHOSPHORUS 2.5 mg/dL (2.5-4.9); POTASSIUM 4.2 mmol/L (3.5-5.1)
[2016-05-14] MEDS: FERROUS SULFATE UDC 300 MG/5 ML UDC PO SCH ×3 (08:48→17:01)
[2016-05-14] MEDS: LACTOBACILLUS RHAMNOSUS GG 1 EACH CAP.SPRINK GT SCH ×2 (08:48→16:36)
[2016-05-14] MEDS: METRONIDAZOLE 500 MG TABLET GT SCH ×3 (08:48→16:38)
[2016-05-14] MEDS: LEVETIRACETAM SOL (5 ML) 100 MG/ML UDC GT SCH ×2 (08:48→21:33)
[2016-05-14] MEDS: MEROPENEM 500 MG in IV NS 0.9% 50 ML IV SCH ×2 (08:50→21:33)
[2016-05-14] MEDS: PANTOPRAZOLE 40 MG VIAL IV SCH (08:50)
[2016-05-14] MEDS: BACITRACIN ZINC OINT (15 GM) 15 GM TUBE TP SCH ×2 (09:56→16:39)
[2016-05-14] MEDS: HYDROGEL DRESSING 90 GM TUBE TP SCH (09:56)
[2016-05-14] MEDS ORDERED: METR500T GT (12:46)
[2016-05-14] MEDS: MORPHINE SULFATE INJ 2 MG/ML DISP.SYRIN IV PRN (21:38)
[2016-05-14] MEDS ORDERED: diphenhydrAMINE HCL 25 MG CAPSULE ONE (21:54)
[2016-05-14] MEDS ORDERED: diphenhydrAMINE HCL ELIX 25 MG/10 ML UDC GT PRN (22:00)
[2016-05-15] VITALS (9 sets, daily range): BP systolic 121–166; BP diastolic 51–92
[2016-05-15] MEDS: VALPROIC ACID 250 MG/5 ML UDC GT SCH ×3 (00:34→18:31)
[2016-05-15] MEDS: BLOOD SUGAR DIAGNOSTIC 1 EACH STRIP IN SCH ×4 (00:35→18:31)
[2016-05-15] MEDS: IPRATROPIUM NEB FS 0.5 MG/2.5 ML AMPUL.NEB IH SCH ×4 (01:52→19:50)
[2016-05-15] MEDS: ALBUTEROL FS 2.5 MG/3 ML VIAL.NEB IH SCH ×4 (01:53→19:50)
[2016-05-15] MEDS: RENAL NOVASOURCE 1,000 ML BOTTLE GT PRN (04:46)
[2016-05-15] MEDS: MEROPENEM 500 MG in IV NS 0.9% 50 ML IV SCH ×2 (09:08→21:37)
[2016-05-15] MEDS: LEVETIRACETAM SOL (5 ML) 100 MG/ML UDC GT SCH ×2 (09:13→21:37)
[2016-05-15] MEDS: FERROUS SULFATE UDC 300 MG/5 ML UDC PO SCH ×3 (09:13→18:31)
[2016-05-15] MEDS: PANTOPRAZOLE 40 MG VIAL IV SCH (09:13)
[2016-05-15] MEDS: HYDROGEL DRESSING 90 GM TUBE TP SCH (09:14)
[2016-05-15] MEDS: LACTOBACILLUS RHAMNOSUS GG 1 EACH CAP.SPRINK GT SCH ×2 (09:14→18:29)
[2016-05-15] MEDS: METRONIDAZOLE 500 MG TABLET GT SCH ×3 (09:15→18:29)
[2016-05-15] MEDS: BACITRACIN ZINC OINT (15 GM) 15 GM TUBE TP SCH ×2 (09:15→18:32)
[2016-05-15] MEDS ORDERED: IV SET PRIMARY PUMP SET 1 EA INFUS.SET MC ONE (18:54)
[2016-05-16] VITALS (10 sets, daily range): BP systolic 127–168; BP diastolic 48–92
[2016-05-16] MEDS: VALPROIC ACID 250 MG/5 ML UDC GT SCH ×4 (00:31→23:47)
[2016-05-16] MEDS: BLOOD SUGAR DIAGNOSTIC 1 EACH STRIP IN SCH ×5 (00:40→23:47)
[2016-05-16] MEDS: IPRATROPIUM NEB FS 0.5 MG/2.5 ML AMPUL.NEB IH SCH ×4 (01:14→19:50)
[2016-05-16] MEDS: ALBUTEROL FS 2.5 MG/3 ML VIAL.NEB IH SCH ×4 (01:14→19:50)
[2016-05-16] MEDS: MORPHINE SULFATE INJ 2 MG/ML DISP.SYRIN IV PRN (04:20)
[2016-05-16 07:15] LABS: BASOPHILS # (AUTO) 0.1 /CMM (0.0-0.2); BASOPHILS % (AUTO) 0.5 % (0.0-2.0); DIFF TOTAL % 100 %; EOSINOPHILS # (AUTO) 0.3 /CMM (0.0-0.7); EOSINOPHILS % (AUTO) 2.4 % (0.0-6.0); HEMATOCRIT 26 % (33-45); HEMOGLOBIN 8.2 g/dL (11.5-14.8); LYMPHOCYTES # (AUTO) 3.7 /CMM (0.8-4.8); LYMPHOCYTES % (AUTO) 29.4 % (20.0-44.0); MEAN CORPUSCULAR HEMOGLOBIN 34 PG (26.0-33.0); MEAN CORPUSCULAR HGB CONC 32 g/dl (31.0-36.0); MEAN CORPUSCULAR VOLUME 104 fL (82-100); MONOCYTES # (AUTO) 0.7 /CMM (0.1-1.30); MONOCYTES % (AUTO) 5.9 % (2.0-12.0); NEUTROPHILS # (AUTO) 7.8 /CMM (1.8-8.9); NEUTROPHILS % (AUTO) 61.8 % (43.0-81.0); PLATELET COUNT (AUTO) 196 /CMM (150-450); RED BLOOD CELL COUNT(AUTO) 2.44 MIL/uL (4.0-5.2); WHITE BLOOD COUNT (AUTO) 12.6 K/uL (4.3-11.0)
[2016-05-16 07:44] LABS: CALCIUM, SERUM 8.5 mg/dL (8.5-10.1); CREATININE 5.7 mg/dL (0.6-1.3); PHOSPHORUS 2.4 mg/dL (2.5-4.9); POTASSIUM 3.9 mmol/L (3.5-5.1)
[2016-05-16] MEDS: PANTOPRAZOLE 40 MG VIAL IV SCH (09:31)
[2016-05-16] MEDS: LEVETIRACETAM SOL (5 ML) 100 MG/ML UDC GT SCH ×2 (09:31→21:34)
[2016-05-16] MEDS: FERROUS SULFATE UDC 300 MG/5 ML UDC PO SCH ×3 (09:31→18:06)
[2016-05-16] MEDS: LACTOBACILLUS RHAMNOSUS GG 1 EACH CAP.SPRINK GT SCH ×2 (09:31→17:49)
[2016-05-16] MEDS: METRONIDAZOLE 500 MG TABLET GT SCH ×3 (09:32→18:06)
[2016-05-16] MEDS: HYDROGEL DRESSING 90 GM TUBE TP SCH (09:37)
[2016-05-16] MEDS: BACITRACIN ZINC OINT (15 GM) 15 GM TUBE TP SCH ×2 (09:38→18:06)
[2016-05-16] MEDS: MEROPENEM 500 MG in IV NS 0.9% 50 ML IV SCH ×2 (10:10→21:33)
[2016-05-16] MEDS: RENAL NOVASOURCE 1,000 ML BOTTLE GT PRN (12:22)
[2016-05-16] MEDS ORDERED: NEUTRA PHOS 1 POWD.PACKET NG ONE (16:30)
[2016-05-17] VITALS (8 sets, daily range): BP systolic 107–171; BP diastolic 26–87
[2016-05-17] MEDS: IPRATROPIUM NEB FS 0.5 MG/2.5 ML AMPUL.NEB IH SCH ×4 (01:16→19:45)
[2016-05-17] MEDS: ALBUTEROL FS 2.5 MG/3 ML VIAL.NEB IH SCH ×4 (01:17→19:45)
[2016-05-17] MEDS: RENAL NOVASOURCE 1,000 ML BOTTLE GT PRN (05:24)
[2016-05-17] MEDS: VALPROIC ACID 250 MG/5 ML UDC GT SCH ×2 (05:24→17:52)
[2016-05-17] MEDS: BLOOD SUGAR DIAGNOSTIC 1 EACH STRIP IN SCH ×3 (05:27→17:52)
[2016-05-17 07:39] LABS: CALCIUM, SERUM 8.6 mg/dL (8.5-10.1); CREATININE 6.3 mg/dL (0.6-1.3); PHOSPHORUS 2.6 mg/dL (2.5-4.9); POTASSIUM 4.5 mmol/L (3.5-5.1)
[2016-05-17] MEDS: HYDROGEL DRESSING 90 GM TUBE TP SCH (09:00)
[2016-05-17] MEDS: FERROUS SULFATE UDC 300 MG/5 ML UDC PO SCH ×3 (09:03→17:52)
[2016-05-17] MEDS: LEVETIRACETAM SOL (5 ML) 100 MG/ML UDC GT SCH ×2 (09:03→21:36)
[2016-05-17] MEDS: MEROPENEM 500 MG in IV NS 0.9% 50 ML IV SCH ×2 (09:03→21:36)
[2016-05-17] MEDS: METRONIDAZOLE 500 MG TABLET GT SCH ×3 (09:04→17:52)
[2016-05-17] MEDS: BACITRACIN ZINC OINT (15 GM) 15 GM TUBE TP SCH ×2 (09:04→17:52)
[2016-05-17] MEDS: LACTOBACILLUS RHAMNOSUS GG 1 EACH CAP.SPRINK GT SCH ×2 (09:04→17:52)
[2016-05-17] MEDS: PANTOPRAZOLE 40 MG VIAL IV SCH (09:04)
[2016-05-17] MEDS: ACETAMINOPHEN 650 MG/20.3 ML UDC GT PRN (09:06)
[2016-05-17] MEDS ORDERED: IV SET PRIMARY 1 EA INFUS.SET MC ONE (14:59)
[2016-05-17] MEDS ORDERED: IV SET PRIMARY PUMP SET 1 EA INFUS.SET MC ONE (21:47)
[2016-05-18] VITALS (7 sets, daily range): BP systolic 102–150; BP diastolic 61–94
[2016-05-18] MEDS: VALPROIC ACID 250 MG/5 ML UDC GT SCH ×3 (00:27→18:09)
[2016-05-18] MEDS: BLOOD SUGAR DIAGNOSTIC 1 EACH STRIP IN SCH ×4 (00:27→18:13)
[2016-05-18] MEDS: IPRATROPIUM NEB FS 0.5 MG/2.5 ML AMPUL.NEB IH SCH ×4 (01:24→19:26)
[2016-05-18] MEDS: ALBUTEROL FS 2.5 MG/3 ML VIAL.NEB IH SCH ×4 (01:24→19:26)
[2016-05-18] MEDS: PANTOPRAZOLE 40 MG VIAL IV SCH (09:18)
[2016-05-18] MEDS: LACTOBACILLUS RHAMNOSUS GG 1 EACH CAP.SPRINK GT SCH ×2 (09:19→18:10)
[2016-05-18] MEDS: METRONIDAZOLE 500 MG TABLET GT SCH ×3 (09:19→18:09)
[2016-05-18] MEDS: FERROUS SULFATE UDC 300 MG/5 ML UDC PO SCH ×3 (09:19→18:09)
[2016-05-18] MEDS: LEVETIRACETAM SOL (5 ML) 100 MG/ML UDC GT SCH ×2 (09:19→21:43)
[2016-05-18] MEDS: MEROPENEM 500 MG in IV NS 0.9% 50 ML IV SCH (09:20)
[2016-05-18] MEDS: BACITRACIN ZINC OINT (15 GM) 15 GM TUBE TP SCH ×2 (09:21→18:10)
[2016-05-18] MEDS: HYDROGEL DRESSING 90 GM TUBE TP SCH (09:21)
[2016-05-18 11:14] LABS: BASOPHILS # (AUTO) 0.1 /CMM (0.0-0.2); BASOPHILS % (AUTO) 0.5 % (0.0-2.0); DIFF TOTAL % 100 %; EOSINOPHILS # (AUTO) 0.4 /CMM (0.0-0.7); EOSINOPHILS % (AUTO) 2.1 % (0.0-6.0); HEMATOCRIT 24 % (33-45); HEMOGLOBIN 7.6 g/dL (11.5-14.8); LYMPHOCYTES # (AUTO) 5.4 /CMM (0.8-4.8); LYMPHOCYTES % (AUTO) 30.3 % (20.0-44.0); MEAN CORPUSCULAR HEMOGLOBIN 33 PG (26.0-33.0); MEAN CORPUSCULAR HGB CONC 32 g/dl (31.0-36.0); MEAN CORPUSCULAR VOLUME 103 fL (82-100); MONOCYTES # (AUTO) 1.2 /CMM (0.1-1.30); MONOCYTES % (AUTO) 6.6 % (2.0-12.0); NEUTROPHILS # (AUTO) 10.8 /CMM (1.8-8.9); NEUTROPHILS % (AUTO) 60.5 % (43.0-81.0); PLATELET COUNT (AUTO) 244 /CMM (150-450); RED BLOOD CELL COUNT(AUTO) 2.28 MIL/uL (4.0-5.2); WHITE BLOOD COUNT (AUTO) 17.9 K/uL (4.3-11.0)
[2016-05-18 11:28] LABS: CALCIUM, SERUM 8.7 mg/dL (8.5-10.1); CREATININE 5.6 mg/dL (0.6-1.3); PHOSPHORUS 2.8 mg/dL (2.5-4.9); POTASSIUM 4.2 mmol/L (3.5-5.1)
[2016-05-19] VITALS (14 sets, daily range): BP systolic 115–156; BP diastolic 54–67
[2016-05-19] MEDS: VALPROIC ACID 250 MG/5 ML UDC GT SCH ×4 (01:02→23:02)
[2016-05-19] MEDS: ACETAMINOPHEN 650 MG/20.3 ML UDC GT PRN ×2 (01:02→10:44)
[2016-05-19] MEDS: ALBUTEROL FS 2.5 MG/3 ML VIAL.NEB IH SCH ×4 (01:28→19:18)
[2016-05-19] MEDS: IPRATROPIUM NEB FS 0.5 MG/2.5 ML AMPUL.NEB IH SCH ×4 (01:28→19:17)
[2016-05-19] MEDS: BLOOD SUGAR DIAGNOSTIC 1 EACH STRIP IN SCH ×6 (05:14→23:02)
[2016-05-19 07:07] LABS: BASOPHILS % (AUTO) 0.3 % (0.0-2.0); DIFF TOTAL % 100 %; EOSINOPHILS # (AUTO) 0.3 /CMM (0.0-0.7); EOSINOPHILS % (AUTO) 3.5 % (0.0-6.0); HEMATOCRIT 21 % (33-45); LYMPHOCYTES # (AUTO) 2.7 /CMM (0.8-4.8); LYMPHOCYTES % (AUTO) 29.1 % (20.0-44.0); MEAN CORPUSCULAR HEMOGLOBIN 33 PG (26.0-33.0); MEAN CORPUSCULAR HGB CONC 32 g/dl (31.0-36.0); MEAN CORPUSCULAR VOLUME 103 fL (82-100); MONOCYTES # (AUTO) 0.6 /CMM (0.1-1.30); MONOCYTES % (AUTO) 6.7 % (2.0-12.0); NEUTROPHILS # (AUTO) 5.7 /CMM (1.8-8.9); NEUTROPHILS % (AUTO) 60.4 % (43.0-81.0); PLATELET COUNT (AUTO) 175 /CMM (150-450); WHITE BLOOD COUNT (AUTO) 9.4 K/uL (4.3-11.0)
[2016-05-19 07:21] LABS: RED BLOOD CELL COUNT(AUTO) 1.98 MIL/uL (4.0-5.2)
[2016-05-19 07:22] LABS: HEMOGLOBIN 6.6 g/dL (11.5-14.8)
[2016-05-19 07:31] LABS: CALCIUM, SERUM 8.6 mg/dL (8.5-10.1); CREATININE 6.3 mg/dL (0.6-1.3); PHOSPHORUS 3.1 mg/dL (2.5-4.9)
[2016-05-19] MEDS: LACTOBACILLUS RHAMNOSUS GG 1 EACH CAP.SPRINK GT SCH ×2 (08:24→17:36)
[2016-05-19] MEDS: METRONIDAZOLE 500 MG TABLET GT SCH ×3 (08:24→17:36)
[2016-05-19] MEDS: FERROUS SULFATE UDC 300 MG/5 ML UDC PO SCH ×3 (08:24→17:36)
[2016-05-19] MEDS: PANTOPRAZOLE 40 MG VIAL IV SCH (08:24)
[2016-05-19] MEDS: HYDROGEL DRESSING 90 GM TUBE TP SCH (08:24)
[2016-05-19] MEDS: LEVETIRACETAM SOL (5 ML) 100 MG/ML UDC GT SCH ×2 (08:24→21:13)
[2016-05-19] MEDS: BACITRACIN ZINC OINT (15 GM) 15 GM TUBE TP SCH ×2 (08:26→17:36)
[2016-05-19 09:03] LABS: LYMPHOCYTES % (MANUAL) 24 % (16-48); PLATELET ESTIMATE ADEQUATE
[2016-05-19] MEDS: MORPHINE SULFATE INJ 2 MG/ML DISP.SYRIN IV PRN (10:44)
[2016-05-19] MEDS ORDERED: BLOOD IV SET 1 EA INFUS.SET MC ONE (13:05)
[2016-05-19] MEDS ORDERED: IV NS 0.9% 250 ML IV ONE (13:06)
[2016-05-19] MEDS: RENAL NOVASOURCE 1,000 ML BOTTLE GT PRN (22:35)
[2016-05-20] VITALS: BP 156/86
[2016-05-20] MEDS: ALBUTEROL FS 2.5 MG/3 ML VIAL.NEB IH SCH ×4 (01:28→19:17)
[2016-05-20] MEDS: IPRATROPIUM NEB FS 0.5 MG/2.5 ML AMPUL.NEB IH SCH ×4 (01:29→19:17)
[2016-05-20 04:00] VITALS: BP_SYST 147; BP_SYST 175; BP_DIAS 56; BP_DIAS 72
[2016-05-20] MEDS: VALPROIC ACID 250 MG/5 ML UDC GT SCH ×2 (05:21→17:13)
[2016-05-20] MEDS: BLOOD SUGAR DIAGNOSTIC 1 EACH STRIP IN SCH ×3 (05:21→17:14)
[2016-05-20 07:04] LABS: CREATININE 5.3 mg/dL (0.6-1.3); PHOSPHORUS 2.9 mg/dL (2.5-4.9); POTASSIUM 4.1 mmol/L (3.5-5.1)
[2016-05-20 07:10] LABS: BASOPHILS % (AUTO) 0.3 % (0.0-2.0); DIFF TOTAL % 100 %; EOSINOPHILS # (AUTO) 0.5 /CMM (0.0-0.7); EOSINOPHILS % (AUTO) 4.4 % (0.0-6.0); HEMATOCRIT 29 % (33-45); HEMOGLOBIN 9.5 g/dL (11.5-14.8); LYMPHOCYTES # (AUTO) 3.1 /CMM (0.8-4.8); LYMPHOCYTES % (AUTO) 29.8 % (20.0-44.0); MEAN CORPUSCULAR HEMOGLOBIN 33 PG (26.0-33.0); MEAN CORPUSCULAR HGB CONC 33 g/dl (31.0-36.0); MEAN CORPUSCULAR VOLUME 100 fL (82-100); MONOCYTES # (AUTO) 0.8 /CMM (0.1-1.30); MONOCYTES % (AUTO) 7.9 % (2.0-12.0); NEUTROPHILS % (AUTO) 57.6 % (43.0-81.0); PLATELET COUNT (AUTO) 179 /CMM (150-450); RED BLOOD CELL COUNT(AUTO) 2.91 MIL/uL (4.0-5.2); WHITE BLOOD COUNT (AUTO) 10.4 K/uL (4.3-11.0)
[2016-05-20 08:00] VITALS: BP 162/60
[2016-05-20] MEDS: LACTOBACILLUS RHAMNOSUS GG 1 EACH CAP.SPRINK GT SCH ×2 (08:26→17:13)
[2016-05-20] MEDS: LEVETIRACETAM SOL (5 ML) 100 MG/ML UDC GT SCH ×2 (08:26→21:00)
[2016-05-20] MEDS: METRONIDAZOLE 500 MG TABLET GT SCH ×3 (08:27→17:13)
[2016-05-20] MEDS: PANTOPRAZOLE 40 MG VIAL IV SCH (08:27)
[2016-05-20] MEDS: FERROUS SULFATE UDC 300 MG/5 ML UDC PO SCH ×3 (08:42→17:13)
[2016-05-20] MEDS: BACITRACIN ZINC OINT (15 GM) 15 GM TUBE TP SCH ×2 (09:11→17:17)
[2016-05-20] MEDS: HYDROGEL DRESSING 90 GM TUBE TP SCH (09:12)
[2016-05-20] MEDS: MORPHINE SULFATE INJ 2 MG/ML DISP.SYRIN IV PRN ×2 (09:57→17:47)
[2016-05-20 12:00] VITALS: BP 165/63
[2016-05-20 16:00] VITALS: BP 168/78
[2016-05-20 20:00] VITALS: BP 134/57
== END 2016-05-20 21:33 | DRG 870 ==
LOC: ER 10:26 → TELE-TD 12:35 → TELE1 05-03 19:45
PROC: 5A1955Z Respiratory Ventilation, Greater than 96 Consecutive Hours (ICD-10-PCS; principal; 2016-05-02)
PROC: 05H633Z Insertion of Infusion Device into Left Subclavian Vein, Percutaneous Approach (ICD-10-PCS; 2016-05-02)
PROC: 5A1D60Z (ICD-10-PCS; 2016-05-03)
PROC: 0D20XUZ Change Feeding Device in Upper Intestinal Tract, External Approach (ICD-10-PCS; 2016-05-12)
PROC: 05H533Z Insertion of Infusion Device into Right Subclavian Vein, Percutaneous Approach (ICD-10-PCS; 2016-05-13)
PROC: 30233N1 Transfusion of Nonautologous Red Blood Cells into Peripheral Vein, Percutaneous Approach (ICD-10-PCS; 2016-05-19)
DX: A41.9 Sepsis, unspecified organism (principal); E43 Unspecified severe protein-calorie malnutrition; R53.2 Functional quadriplegia; N18.6 End stage renal disease; G92 Toxic encephalopathy; J18.9 Pneumonia, unspecified organism; I50.32 Chronic diastolic (congestive) heart failure; J96.11 Chronic respiratory failure with hypoxia; N39.0 Urinary tract infection, site not specified; A04.7 Enterocolitis due to Clostridium difficile; E87.1 Hypo-osmolality and hyponatremia; Z99.11 Dependence on respirator [ventilator] status; E66.2 Morbid (severe) obesity with alveolar hypoventilation; K94.22 Gastrostomy infection; I13.2 Hypertensive heart and chronic kidney disease with heart failure and with stage 5 chronic kidney disease, or end stage renal disease; B96.20 Unspecified Escherichia coli [E. coli] as the cause of diseases classified elsewhere; E87.6 Hypokalemia; E11.22 Type 2 diabetes mellitus with diabetic chronic kidney disease; G40.909 Epilepsy, unspecified, not intractable, without status epilepticus; I25.10 Atherosclerotic heart disease of native coronary artery without angina pectoris; Z87.440 Personal history of urinary (tract) infections; Z99.2 Dependence on renal dialysis; Z16.12 Extended spectrum beta lactamase (ESBL) resistance; D63.8 Anemia in other chronic diseases classified elsewhere; R13.10 Dysphagia, unspecified; J44.9 Chronic obstructive pulmonary disease, unspecified; Z68.28 Body mass index [BMI] 28.0-28.9, adult; E83.42 Hypomagnesemia; E83.9 Disorder of mineral metabolism, unspecified; Y83.9 Surgical procedure, unspecified as the cause of abnormal reaction of the patient, or of later complication, without mention of misadventure at the time of the procedure; Y92.89 Other specified places as the place of occurrence of the external cause; Z88.8 Allergy status to other drugs, medicaments and biological substances; G89.29 Other chronic pain; Z86.14 Personal history of Methicillin resistant Staphylococcus aureus infection; R65.20 Severe sepsis without septic shock
CPT/HCPCS: 31720; 36415; 71010-TC; 74000-TC; 80048-TC; 80053-TC; 80076-TC; 81000-TC; 82962-TC; 83605-TC; 83735-TC; 84100-TC; 84484-TC; 85025-TC; 85730-TC; 86850-TC; 86901; 86921-TC; 87040-TC; 87081-TC; 87086-TC; 87186-TC; 90935-TC; 92611-TC; 94003-TC; A4216; A4606; A6248; A6253; A6403; C9113; J1815; J1953; J1956; J2185; J2270; J2405; J2997; J3475; J7030; J7040; J7042; J7050; P9016-BL; Q0163; Q9963; Z7610

== ENCOUNTER 2016-07-11 16:29 | Inpatient (IN) | payer MEDICARE, OTHER ==
[~2016-07-11] VITALS: Ht 175.3 cm; Wt 114.3 kg
[~2016-07-11 16:29] MED LIST changes: -ACET160L15 PO; +ACET650S26 GT; -ARGI1POW13 GT; -ASCO500S2 GT; -CITR15SO GT; +CLON0.1T GT; -CLON0.5T GT; -DIPH25CA6 GT; -HYDR-4076 GT; -MERO500P IV; +METR500T GT; -ZINC220C6 GT
--- NOTE | 2016-07-11 16:45 | NUR ---
TORIE FROM [facility] FOR ALTERED MENTAL STATUS S/P DIALYSIS. BS ON SITE 110. VSS. PT AWAKE, NON-VERBAL. GTUBE CLAMPLED. SEEN BY MD FOR EVAL. SAFETY AND COMFORT MEASURES PROVIDED. WILL MONITOR.
--- NOTE | 2016-07-11 16:50 | NUR ---
IV ACCESS STARTED.
--- NOTE | 2016-07-11 17:59 | NUR ---
FLEXO PRESS OPERATOR AT FOR BLOOD DRAW.
[2016-07-11 18:02] LABS: BASOPHILS % (AUTO) 0.4 % (0.0-2.0); EOSINOPHILS # (AUTO) 0.2 /CMM (0.0-0.7); EOSINOPHILS % (AUTO) 1.4 % (0.0-6.0); HEMATOCRIT 28 % (33-45); HEMOGLOBIN 9.5 g/dL (11.5-14.8); LYMPHOCYTES # (AUTO) 2.2 /CMM (0.8-4.8); LYMPHOCYTES % (AUTO) 18.3 % (20.0-44.0); MEAN CORPUSCULAR HEMOGLOBIN 35 PG (26.0-33.0); MEAN CORPUSCULAR HGB CONC 33 g/dl (31.0-36.0); MEAN CORPUSCULAR VOLUME 104 fL (82-100); MONOCYTES # (AUTO) 1.6 /CMM (0.1-1.30); MONOCYTES % (AUTO) 13.3 % (2.0-12.0); NEUTROPHILS # (AUTO) 8.1 /CMM (1.8-8.9); NEUTROPHILS % (AUTO) 66.6 % (43.0-81.0); PLATELET COUNT (AUTO) 198 /CMM (150-450); RDW COEFFICIENT OF VARIATION 20.1 (11.5-15.0); RED BLOOD CELL COUNT(AUTO) 2.71 MIL/uL (4.0-5.2); WHITE BLOOD COUNT (AUTO) 12.1 K/uL (4.3-11.0)
[2016-07-11 18:03] LABS: CARBON DIOXIDE 29 mmol/L (21-32); CHLORIDE 102 mmol/L (98-107); CREATININE 2.1 mg/dL (0.6-1.3); GFR 28 mL/min (>60); GLUCOSE 92 mg/dL (74-106); POTASSIUM 4.9 mmol/L (3.5-5.1); SODIUM SERUM 133 mmol/L (136-145); UREA NITROGEN, BLOOD 34 mg/dL (7-18)
[2016-07-11 18:08] LABS: ALANINE AMINOTRANSFERASE 16 U/L (12-78); ALBUMIN 2.2 g/dL (3.4-5.0); ALKALINE PHOSPHATASE 237 U/L (46-116); ASPARTATE AMINOTRANSFERASE 34 U/L (15-37); BILIRUBIN,DIRECT 0.1 mg/dL (0.0-0.2); BILIRUBIN,TOTAL 0.4 mg/dL (0.2-1.0); INR 1.04 (0.87-1.13); PROTHROMBIN TIME 10.8 SECS (9.5-12.7); TOTAL PROTEIN, SERUM 9.5 g/dL (6.4-8.2)
[2016-07-11 18:10] LABS: TROPONIN I < 0.017 ng/mL (0.00-0.056)
[2016-07-11 18:41] LABS: SERUM AMMONIA 16 umol/L (11-32)
--- NOTE | 2016-07-11 19:24 | NUR ---
[facility] PAGED, LABEL STITCHER
--- NOTE | 2016-07-11 19:49 | NUR ---
[facility] REPAGED
--- NOTE | 2016-07-11 20:06 | NUR ---
er md spoke to dr. calderón regarding pt admission. will call for report.
--- NOTE | 2016-07-11 20:17 | NUR ---
report called to television equipment operator joy. will transport pt via acls protocol.
--- NOTE | 2016-07-11 20:29 | NUR ---
pt transported to radiology for ct head.
[2016-07-11] MEDS ORDERED: ALBUTEROL FS 2.5 MG/3 ML VIAL.NEB IH PRN (20:30)
[2016-07-11] MEDS ORDERED: IPRATROPIUM NEB FS 0.5 MG/2.5 ML AMPUL.NEB IH PRN (20:30)
[2016-07-11] MEDS ORDERED: INSULIN REGULAR, HUMAN 100 UNIT/ML 3 ML VIAL SQ PRN (20:30)
[2016-07-11] MEDS ORDERED: MAGNESIUM HYDROXIDE 30 ML UDC PO PRN (21:00)
[2016-07-11] MEDS ORDERED: IV NS 0.9% 1,000 ML IV ONE (21:00)
[2016-07-11] MEDS ORDERED: MAG HYDROX/AL HYDROX/SIMETH 30 ML UDC PO PRN (21:00)
[2016-07-11] MEDS ORDERED: ACETAMINOPHEN 325 MG TABLET PO PRN (21:00)
[2016-07-11] MEDS ORDERED: ZOLPIDEM TARTRATE 5 MG TABLET PO PRN (21:00)
[2016-07-11] MEDS ORDERED: DEXTROSE 50%-WATER 50 ML DISP.SYRIN IV PRN (21:00)
[2016-07-11 21:15] VITALS: BP 162/90
--- NOTE | 2016-07-11 21:15 | NUR ---
SALVAGE ENGINEER INITIAL NOTES RECEIVED PATIENT VIA GURNEY FROM ER, REPORT RECEIVED FROM ER NURSE ED. RECEIVED PATIENT AWAKE, LETHARGIC, FOLLOWS COMMANDS AND MOUTH WORDS. DENIES PAIN OR DISCOMFORT AT THIS TIME. PATIENT VENT DEPENDENT WITH VENT SETTINGS AC 16, VT 600, PEEP 5, FIO2 35%. TRACH C/D/I. PATIENT WITH GT PATENT AND INTACT. WITH RH 20G PATENT AND INTACT. BODY ASSESSMENT DONE. NO RESPIRATORY DISTRESS NOTED. SKIN WARM AND DRY TO TOUCH. WITH F/C DRAINING MINIMALLY WITH HEMATURIA NOTED. HOB KEPT ELEVATED. SIDE RAILS UP AND LOCKED. BED KEPT AT LOWEST POSITION. CALL LIGHT KEPT WITHIN EASY REACH. WILL CONTINUE TO MONITOR. Addendum: 07/12/16 at 0749 by GRAYSON GIBBS RN ON TELE MONITOR SINUS RHYTHM 80.
[2016-07-11] MEDS ORDERED: IV SET PRIMARY PUMP SET 1 EA INFUS.SET MC ONE (22:20)
--- NOTE | 2016-07-11 22:30 | NUR ---
PATIENT C/O SACRAL PAIN, ADMINISTERED NORCO 5-325 VIA GTUBE ORDERED. MEDICATION WAS SCANNED BUT NOT SAVED. WITNESSED BY PRECEPTOR GRAYSON ADMINISTERING MEDICATION. WILL CONTINUE TO MONITOR.
[2016-07-11] MEDS: LEVETIRACETAM SOL (5 ML) 100 MG/ML UDC GT SCH (22:43)
[2016-07-11] MEDS: HEPARIN SODIUM, PORCINE 5000 UNITS/1 ML VIAL SQ SCH (22:44)
[2016-07-11] MEDS: ACIDOPHILUS/BULGARICUS 1 EACH TAB.CHEW GT SCH (22:44)
[2016-07-11] MEDS: DOCUSATE SODIUM LIQ 100 MG/10 ML UDC GT SCH (22:44)
[2016-07-11] MEDS: BLOOD SUGAR DIAGNOSTIC 1 EACH STRIP IN SCH (23:00)
--- NOTE | 2016-07-11 23:05 | NUR ---
BLOOD SUGAR NOTED TO BE 58, GAVE D50. WILL CONTINUE TO MONITOR.
--- NOTE | 2016-07-11 23:18 | NUR ---
PER DR. LOPEZ CONTINUE TUBE FEEDING ORDER FROM FACILITY.
--- NOTE | 2016-07-11 23:31 | NUR ---
BLOOD SUGAR RECHECKED 132. WILL CONTINUE TO MONITOR.
[2016-07-11] MEDS: VALPROIC ACID 250 MG/5 ML UDC GT SCH (23:53)
[2016-07-12] VITALS: BP 153/60
[2016-07-12] MEDS ORDERED: RENAL NOVASOURCE 1,000 ML BOTTLE GT PRN
[2016-07-12] MEDS: IPRATROPIUM NEB FS 0.5 MG/2.5 ML AMPUL.NEB IH SCH ×4 (01:34→20:03)
[2016-07-12] MEDS: ALBUTEROL FS 2.5 MG/3 ML VIAL.NEB IH SCH ×4 (01:34→20:03)
[2016-07-12 03:34] LABS: APPEARANCE,URINE CLOUDY (CLEAR); BILIRUBIN,URINE 1+ (NEGATIVE); BLOOD, URINE 3+ Ery/uL (NEGATIVE); COLOR,URINE YELLOW (YELLOW); KETONES,URINE NEGATIVE (NEGATIVE); LEUKOCYTE ESTERASE ,URINE 3+ (NEGATIVE); NITRITE, URINE NEGATIVE (NEGATIVE); PROTEIN,URINE 3+ mg/dl (NEGATIVE); UGLUCOSE NEGATIVE (NEGATIVE); UROBILINOGEN,URINE 0.2 EU/dL (0.2)
[2016-07-12 03:48] LABS: ADD URINE CULTURE YES; BACTERIA,URINE 4+ /HPF (None Seen); RBC,URINE 40-50 /HPF (0-2); SQUAMOUS EPITHELIAL CELL,UR None Seen /HPF (None Seen); WBC,URINE 50-60 /HPF (0-3)
[2016-07-12 04:00] VITALS: BP_SYST 126; BP_SYST 138; BP_DIAS 53; BP_DIAS 58
[2016-07-12] MEDS: VALPROIC ACID 250 MG/5 ML UDC GT SCH ×2 (06:01→17:48)
[2016-07-12] MEDS: ACIDOPHILUS/BULGARICUS 1 EACH TAB.CHEW GT SCH ×3 (06:02→20:51)
[2016-07-12] MEDS: HYDROCODONE/APAP 5/325MG 1 EACH TABLET PO PRN ×3 (06:02→18:50)
[2016-07-12] MEDS: BLOOD SUGAR DIAGNOSTIC 1 EACH STRIP IN SCH ×3 (06:02→17:48)
[2016-07-12] MEDS ORDERED: Medication Not On Formulary EA (Omeprazole 40 MG) GT SCH (06:30)
[2016-07-12] MEDS ORDERED: Medication Not On Formulary EA (Blood Sugar Diagnostic, Drum (Accu-Chek Compact) 1 EACH) IN SCH (06:30)
--- NOTE | 2016-07-12 07:34 | NUR ---
RN CLOSING NOTE: NO SIGNIFICANT CHANGES. PT TOLERATED VENT SETTINGS. PT ABLE TO MOUTH NEEDS, PT TOLERATED TUBE FEEDINGS. PAIN MANAGED NEEDED. KEPT CLEAN AND DRY, TURNED AND REPOSITIONED Q2H AND PRN. HOB KEPT ELEVATED, SIDE RAILS UP AND LOCKED. BED KEPT AT LOWEST POSITION. CALL LIGHT WITHIN EASY REACH. JEIMY ENDORSED TO AM NURSE.
[2016-07-12 08:00] VITALS: BP 131/55
--- NOTE | 2016-07-12 08:00 | NUR ---
RN NOTE: RECEIVED PATIENT ALERT TO SELF, FOLLOWS COMMANDS, ALERT WITH PERIODS OF CONFUSION, ABLE TO MOUTH WORDS AND MAKE NEEDS KNOWN ON VENT NOTED WITH MARCK 8XLT ON VENT AC 16 TV 600 FIO2 35% PEEP OF 5, NO DISTRESS NOTED, SUCTIONED AND ORAL CARE PROVIDED. SR ON MONITOR. GT PATENT AND INTACT RUNNING NOVASOURCE AT 65ML/HR NO RESIDUAL NOTED. LEFT THUMB 18G PATENT AND INTACT. PATIENT NOTED WITH GENERALIZED EDEMA. SKIN WARM AND DRY TO TOUCH. MULTIPLE SKIN ISSUES NOTED WITH EXCORIATIONS AND SACRAL WOUND. WITH F/C DRAINING MINIMALLY WITH HEMATURIA NOTED. HOB KEPT ELEVATED. PATIENT TURNED AND REPOSITIONED AND EXTREMITIES OFFLAODED. SIDE RAILS UP AND LOCKED. BED KEPT AT LOWEST POSITION. CALL LIGHT KEPT WITHIN EASY REACH. WILL CONTINUE TO MONITOR.
[2016-07-12 08:26] LABS: BASOPHILS % (AUTO) 0.3 % (0.0-2.0); EOSINOPHILS # (AUTO) 0.2 /CMM (0.0-0.7); EOSINOPHILS % (AUTO) 1.7 % (0.0-6.0); HEMATOCRIT 27 % (33-45); HEMOGLOBIN 8.9 g/dL (11.5-14.8); LYMPHOCYTES # (AUTO) 2.6 /CMM (0.8-4.8); MEAN CORPUSCULAR HEMOGLOBIN 34 PG (26.0-33.0); MEAN CORPUSCULAR HGB CONC 32 g/dl (31.0-36.0); MEAN CORPUSCULAR VOLUME 105 fL (82-100); MONOCYTES # (AUTO) 1.6 /CMM (0.1-1.30); MONOCYTES % (AUTO) 14.5 % (2.0-12.0); NEUTROPHILS # (AUTO) 6.8 /CMM (1.8-8.9); NEUTROPHILS % (AUTO) 60.5 % (43.0-81.0); PLATELET COUNT (AUTO) 205 /CMM (150-450); RDW COEFFICIENT OF VARIATION 21.6 (11.5-15.0); WHITE BLOOD COUNT (AUTO) 11.2 K/uL (4.3-11.0)
[2016-07-12] MEDS: FERROUS SULFATE UDC 300 MG/5 ML UDC GT SCH ×3 (08:26→17:48)
[2016-07-12] MEDS: ESCITALOPRAM OXALATE (10 MG) 10 MG TABLET GT SCH (08:26)
[2016-07-12] MEDS: DOCUSATE SODIUM LIQ 100 MG/10 ML UDC GT SCH ×2 (08:26→20:51)
[2016-07-12] MEDS: PROSOURCE / PROSTAT (PYXIS) 30 ML UDC GT SCH ×3 (08:26→17:48)
[2016-07-12] MEDS: VIT B CMPLX 3/FA/VIT C/BIOTIN 1 TAB TABLET GT SCH (08:26)
[2016-07-12] MEDS: LEVETIRACETAM SOL (5 ML) 100 MG/ML UDC GT SCH ×2 (08:26→20:51)
[2016-07-12] MEDS: TRAMADOL HCL 50 MG TABLET GT SCH (08:27)
[2016-07-12] MEDS: PANTOPRAZOLE 40 MG/PACK PACK GT SCH ×2 (08:27→20:51)
[2016-07-12] MEDS: METOPROLOL TARTRATE 25 MG TABLET GT SCH (08:28)
[2016-07-12] MEDS: HEPARIN SODIUM, PORCINE 5000 UNITS/1 ML VIAL SQ SCH ×2 (08:29→20:52)
[2016-07-12 08:31] LABS: CALCIUM, SERUM 8.5 mg/dL (8.5-10.1); CREATININE 2.8 mg/dL (0.6-1.3); PHOSPHORUS 2.7 mg/dL (2.5-4.9); POTASSIUM 5.1 mmol/L (3.5-5.1)
[2016-07-12 12:00] VITALS: BP_SYST 130; BP_DIAS 61; BP_DIAS 69
--- NOTE | 2016-07-12 12:00 | NUR ---
RN NOTE: 1ST STEP MATTRESS PLACED. BED BATH GIVEN, WOUND CARE RENDERED. PATIENT TURNED ADN REPOSITIONED, EXTREMITIES OFFLOADED. PATIENT SUCTIONED AND ORAL CARE PROVIDED. SAFETY MEASURES OBSERVED. ONGOING MONITORING
[2016-07-12] MEDS ORDERED: EPOETIN ALFA (10,000 UNIT) 10,000 UNIT/ML VIAL SQ ONE (14:00)
[2016-07-12 16:00] VITALS: BP 168/65
--- NOTE | 2016-07-12 16:00 | NUR ---
SHAREPOINT SPECIALIST NOTE: HD COMPLETE 2L OUT, PATIENT TOLERATED WELL. SBP NOTED TO BE ELEVATED. CLOSE MONITORING.
[2016-07-12] MEDS ORDERED: POLYVINYL ALCOHOL 15 ML BOTTLE EACHEYE PRN (17:30)
[2016-07-12] MEDS: RENAL NOVASOURCE 1,000 ML BOTTLE GT PRN (18:10)
--- NOTE | 2016-07-12 18:45 | NUR ---
RN NOTE: PATIENT NOTED WITH ELEVATED BP; SBP> 160, C/O PAIN, CLONIDINE ADMINISTERED ORDERED AND NORCO ADMINISTERED FOR PAIN. ONGOING MONITORING.
[2016-07-12] MEDS: CLONIDINE HCL 0.1 MG TABLET GT PRN (18:50)
--- NOTE | 2016-07-12 19:04 | NUR ---
RN NOTE: PATIENT RESTING COMFORTABLY IN BED, PATIENT TURNED AND REPOSITIONED AND EXTREMITIES OFFLOADED, SKIN CARE RENDERED, ALL NEEDS, MET, ALL MEDS GIVEN ORDERED. WILL ENDORSE FOR CONTINUITY OF CARE.
--- NOTE | 2016-07-12 19:30 | NUR ---
ADJUSTER LEADER INITIAL NOTE RECEIVED REPORT FROM MARC BACON. PT IN BED. AWAKE AND ALERT. CHRONIC VENT TRACH, TOLERATING CURRENT VENT SETTINGS. LUNG SOUNDS CLEAR AT UPPER BASES AND DIMINISHED AT LOWER BASES. BOWEL SOUNDS PRESENT. GT PATENT AND INTACT WITH 20CC OF RESIDUAL. PULSES PRESENT IN ALL EXTREMITIES. IV WILL BE REINSERTED, CURRENT IV INFILTRATED. BED IN LOW LOCKED POSITION. WILL CONTINUE TO MONITOR.
[2016-07-12] MEDS ORDERED: SECONDARY IV SET 1 EA INFUS.SET MC ONE (20:38)
[2016-07-12] MEDS ORDERED: IV NS 0.9% 250 ML IV ONE (20:38)
[2016-07-12] MEDS ORDERED: IV SET PRIMARY PUMP SET 1 EA INFUS.SET MC ONE (20:38)
[2016-07-12] MEDS: CEFTRIAXONE 1 G in IV D5W 50 ML IV SCH (20:50)
[2016-07-12 22:29] VITALS: BP 158/50
[2016-07-13] VITALS: BP 151/97
[2016-07-13] MEDS: VALPROIC ACID 250 MG/5 ML UDC GT SCH ×4 (00:26→23:39)
[2016-07-13] MEDS: BLOOD SUGAR DIAGNOSTIC 1 EACH STRIP IN SCH ×5 (00:26→23:37)
[2016-07-13] MEDS: IPRATROPIUM NEB FS 0.5 MG/2.5 ML AMPUL.NEB IH SCH ×4 (00:41→20:26)
[2016-07-13] MEDS: ALBUTEROL FS 2.5 MG/3 ML VIAL.NEB IH SCH ×4 (00:41→20:26)
[2016-07-13 04:00] VITALS: BP 157/69
[2016-07-13] MEDS: ACIDOPHILUS/BULGARICUS 1 EACH TAB.CHEW GT SCH ×3 (05:21→20:13)
[2016-07-13] MEDS: INSULIN REGULAR, HUMAN 100 UNIT/ML 3 ML VIAL SQ PRN ×3 (05:25→23:40)
[2016-07-13 07:37] LABS: CALCIUM, SERUM 8.6 mg/dL (8.5-10.1); CREATININE 2.8 mg/dL (0.6-1.3); PHOSPHORUS 2.1 mg/dL (2.5-4.9); POTASSIUM 4.3 mmol/L (3.5-5.1)
[2016-07-13 07:40] LABS: BASOPHILS % (AUTO) 0.1 % (0.0-2.0); EOSINOPHILS # (AUTO) 0.3 /CMM (0.0-0.7); EOSINOPHILS % (AUTO) 2.1 % (0.0-6.0); HEMATOCRIT 31 % (33-45); HEMOGLOBIN 9.8 g/dL (11.5-14.8); LYMPHOCYTES # (AUTO) 3.5 /CMM (0.8-4.8); LYMPHOCYTES % (AUTO) 25.2 % (20.0-44.0); MEAN CORPUSCULAR HEMOGLOBIN 34 PG (26.0-33.0); MEAN CORPUSCULAR HGB CONC 32 g/dl (31.0-36.0); MEAN CORPUSCULAR VOLUME 105 fL (82-100); MONOCYTES # (AUTO) 1.9 /CMM (0.1-1.30); MONOCYTES % (AUTO) 13.4 % (2.0-12.0); NEUTROPHILS # (AUTO) 8.2 /CMM (1.8-8.9); NEUTROPHILS % (AUTO) 59.2 % (43.0-81.0); PLATELET COUNT (AUTO) 240 /CMM (150-450); RDW COEFFICIENT OF VARIATION 21.7 (11.5-15.0); RED BLOOD CELL COUNT(AUTO) 2.94 MIL/uL (4.0-5.2); WHITE BLOOD COUNT (AUTO) 13.9 K/uL (4.3-11.0)
--- NOTE | 2016-07-13 07:56 | NUR ---
QUALITY CONTROL AUDITOR NOTE PATIENT IN BED, SEEN BT RT , TRACH SUCTION DONE , ON TELE MONITOR ST 128, WITH TRACH TO VENT SETTING ORDERED , AMBU BAG AT HOB, WITH F\C TO GRAVITY WITH NIA CLOUDY COLOR,, ON G TUBE FEEDING ORDERED KEEP HOB ELEVATED AT ALL TIME, TOLERATED WELL , HL ON LT THUMB INTACT, NO S\S INFECTION NOTED ,ON [employer] MATRES WILL WILL CONT TO MONITOR CLOSELY . BED IN LOWEST AND LOCKED POSITION ,
[2016-07-13 08:00] VITALS: BP 207/84
[2016-07-13] MEDS: DOCUSATE SODIUM LIQ 100 MG/10 ML UDC GT SCH ×2 (09:00→20:13)
[2016-07-13] MEDS: PROSOURCE / PROSTAT (PYXIS) 30 ML UDC GT SCH ×3 (09:25→16:34)
[2016-07-13] MEDS: LEVETIRACETAM SOL (5 ML) 100 MG/ML UDC GT SCH ×2 (09:25→20:13)
[2016-07-13] MEDS: FERROUS SULFATE UDC 300 MG/5 ML UDC GT SCH ×3 (09:25→17:27)
[2016-07-13] MEDS: VIT B CMPLX 3/FA/VIT C/BIOTIN 1 TAB TABLET GT SCH (09:25)
[2016-07-13] MEDS: PANTOPRAZOLE 40 MG/PACK PACK GT SCH ×2 (09:25→20:13)
[2016-07-13] MEDS: CLONIDINE HCL 0.1 MG TABLET GT PRN (09:26)
[2016-07-13] MEDS: TRAMADOL HCL 50 MG TABLET GT SCH (09:26)
[2016-07-13] MEDS: ESCITALOPRAM OXALATE (10 MG) 10 MG TABLET GT SCH (09:27)
[2016-07-13] MEDS: METOPROLOL TARTRATE 25 MG TABLET GT SCH (09:27)
[2016-07-13] MEDS: HEPARIN SODIUM, PORCINE 5000 UNITS/1 ML VIAL SQ SCH ×2 (09:28→20:18)
[2016-07-13] MEDS: ONDANSETRON HCL/PF 4 MG/2 ML VIAL IVP PRN (09:42)
--- NOTE | 2016-07-13 11:51 | NUR ---
GAMING CAGE CASHIER NOTE REPORT GIVEN TO KING BACON
[2016-07-13 12:00] VITALS: BP_SYST 169; BP_SYST 172; BP_DIAS 81; BP_DIAS 86
[2016-07-13] MEDS: RENAL NOVASOURCE 1,000 ML BOTTLE GT PRN (13:49)
[2016-07-13] MEDS ORDERED: NEUTRA PHOS 1 POWD.PACKET NG ONE (15:00)
[2016-07-13 16:00] VITALS: BP 111/53
--- NOTE | 2016-07-13 16:05 | NUR ---
RN NOTES PT TEMP NOTED 100.2, TYLENOL PRN GIVEN, COOLING MEASURES APPLIED. ICE PACKS PROVIDED.
[2016-07-13] MEDS: ACETAMINOPHEN 650 MG/20.3 ML UDC GT PRN (16:33)
--- NOTE | 2016-07-13 16:52 | NUR ---
RN NOTES PT TEMP NOTED 99.1, ORALLY. COOLING MEASURES MAINTAINED
--- NOTE | 2016-07-13 19:17 | NUR ---
RN NOTES PATIENT IN BED, LAYING COMFORTABLY, NO ACUTE CHANGE IN CONDITION NOTED. DEVIN VENT SETTINGS WELL. KEPT COMFORTABLE, REPOSITIONED AND EXTREMITIES OFFLOADED, ALL MEDS GIVEN ORDERED. ENDORSED TO BRIANNE BACON FOR CONTINUITY OF CARE
--- NOTE | 2016-07-13 19:30 | NUR ---
RN INITIAL NOTES RECEIVED PT AWAKE ON BED, NON-VERBAL, OPENS EYES ONLY. ON VENT SHILEY 8XLT, AC 16, TV 600, 35% FIO2, PEEP 5, NO S/S RESP DISTRESS. CURRENTLY ST ON THE MONITOR, HR 100'S. VASQUEZ CATH NOTED. ON GTUBE FEEDING OF NOVASOURCE @ 65MLS/HR, NO RESIDUALS, TOLERATING WELL. LEFT THUMB 22G SL, FLUSHED AND PATENT, NO S/S OF INFILTRATION/INFECTION, DRESSING CDI. RIGHT CHEST WALL HD CATH INTACT. BED LOW AND LOCKED, SIDERAILS UP, BED ALARM ON. WILL MONITOR
[2016-07-13 20:00] VITALS: BP 107/48
[2016-07-13] MEDS: CEFTRIAXONE 1 G in IV D5W 50 ML IV SCH (20:13)
[2016-07-13] MEDS: MUPIROCIN OINT 2% 22 GM TUBE SCH (20:13)
[2016-07-14] VITALS (7 sets, daily range): BP systolic 119–178; BP diastolic 44–85
[2016-07-14] MEDS: IPRATROPIUM NEB FS 0.5 MG/2.5 ML AMPUL.NEB IH SCH ×4 (02:22→20:19)
[2016-07-14] MEDS: ALBUTEROL FS 2.5 MG/3 ML VIAL.NEB IH SCH ×4 (02:22→20:19)
[2016-07-14] MEDS: ACETAMINOPHEN 650 MG/20.3 ML UDC GT PRN (02:58)
[2016-07-14] MEDS: VALPROIC ACID 250 MG/5 ML UDC GT SCH ×2 (05:02→17:34)
[2016-07-14] MEDS: BLOOD SUGAR DIAGNOSTIC 1 EACH STRIP IN SCH ×3 (05:02→17:33)
[2016-07-14] MEDS: ACIDOPHILUS/BULGARICUS 1 EACH TAB.CHEW GT SCH ×3 (05:02→20:42)
[2016-07-14] MEDS: INSULIN REGULAR, HUMAN 100 UNIT/ML 3 ML VIAL SQ PRN (05:03)
--- NOTE | 2016-07-14 06:30 | NUR ---
RN CLOSING NOTES PT REMAINS STABLE OF THE MOMENT. ALL DUE MEDS GIVEN. AM CARE PROVIDED. WILL ENDORSE TO AM RN
[2016-07-14] MEDS: LEVETIRACETAM SOL (5 ML) 100 MG/ML UDC GT SCH ×2 (08:48→20:42)
[2016-07-14] MEDS: ESCITALOPRAM OXALATE (10 MG) 10 MG TABLET GT SCH (08:48)
[2016-07-14] MEDS: FERROUS SULFATE UDC 300 MG/5 ML UDC GT SCH ×3 (08:48→17:34)
[2016-07-14] MEDS: PROSOURCE / PROSTAT (PYXIS) 30 ML UDC GT SCH ×3 (08:48→16:06)
[2016-07-14] MEDS: DOCUSATE SODIUM LIQ 100 MG/10 ML UDC GT SCH ×2 (08:48→20:42)
[2016-07-14] MEDS: TRAMADOL HCL 50 MG TABLET GT SCH (08:48)
[2016-07-14] MEDS: PANTOPRAZOLE 40 MG/PACK PACK GT SCH ×2 (08:48→20:42)
[2016-07-14] MEDS: VIT B CMPLX 3/FA/VIT C/BIOTIN 1 TAB TABLET GT SCH (08:48)
[2016-07-14] MEDS: MUPIROCIN OINT 2% 22 GM TUBE SCH ×2 (08:49→22:01)
[2016-07-14] MEDS: METOPROLOL TARTRATE 25 MG TABLET GT SCH (08:49)
[2016-07-14] MEDS: HEPARIN SODIUM, PORCINE 5000 UNITS/1 ML VIAL SQ SCH ×2 (08:51→20:47)
[2016-07-14 10:37] LABS: BASOPHILS # (AUTO) 0.1 /CMM (0.0-0.2); BASOPHILS % (AUTO) 0.3 % (0.0-2.0); EOSINOPHILS # (AUTO) 0.2 /CMM (0.0-0.7); EOSINOPHILS % (AUTO) 1.5 % (0.0-6.0); HEMATOCRIT 29 % (33-45); HEMOGLOBIN 9.1 g/dL (11.5-14.8); LYMPHOCYTES # (AUTO) 2.3 /CMM (0.8-4.8); LYMPHOCYTES % (AUTO) 13.8 % (20.0-44.0); MEAN CORPUSCULAR HEMOGLOBIN 33 PG (26.0-33.0); MEAN CORPUSCULAR HGB CONC 32 g/dl (31.0-36.0); MEAN CORPUSCULAR VOLUME 105 fL (82-100); MONOCYTES # (AUTO) 1.7 /CMM (0.1-1.30); NEUTROPHILS # (AUTO) 12.4 /CMM (1.8-8.9); NEUTROPHILS % (AUTO) 74.4 % (43.0-81.0); PLATELET COUNT (AUTO) 202 /CMM (150-450); RDW COEFFICIENT OF VARIATION 20.3 (11.5-15.0); RED BLOOD CELL COUNT(AUTO) 2.76 MIL/uL (4.0-5.2); WHITE BLOOD COUNT (AUTO) 16.7 K/uL (4.3-11.0)
[2016-07-14 10:51] LABS: CALCIUM, SERUM 8.7 mg/dL (8.5-10.1); CREATININE 3.4 mg/dL (0.6-1.3); PHOSPHORUS 1.8 mg/dL (2.5-4.9); POTASSIUM 4.1 mmol/L (3.5-5.1)
--- NOTE | 2016-07-14 11:16 | NUR ---
WOUND CARE CONSULT: PT NOT SEEN YET FOR SKIN ASSESSMENT DUE TO PT HAVING DIALYSIS AT THIS TIME. PT ON FIRST STEP MATTRESS. RECOMMENDATIONS MADE BASED ON PHOTOS. WILL SEE PT PT CONDITION PERMITS. DISCUSSED WITH NURSING STAFF.
[2016-07-14] MEDS ORDERED: ZOLPIDEM TARTRATE 5 MG TABLET GT PRN (13:47)
[2016-07-14] MEDS ORDERED: NEUTRA PHOS 1 POWD.PACKET NG ONE (14:00)
[2016-07-14] MEDS ORDERED: hydrALAZINE HCL 10 MG TABLET PO PRN (15:30)
[2016-07-14] MEDS ORDERED: SECONDARY IV SET 1 EA INFUS.SET MC ONE (16:01)
[2016-07-14] MEDS: MEROPENEM 1 G in IV NS 0.9% 100 ML IV SCH ×2 (16:05→20:42)
[2016-07-14] MEDS: RENAL NOVASOURCE 1,000 ML BOTTLE GT PRN (16:07)
[2016-07-14] MEDS: UREA 10% -AHA 4% CREAM 57 GM TUBE TP SCH (16:30)
--- NOTE | 2016-07-14 19:26 | NUR ---
RN NOTE: PT RESTING COMFORTABLY IN BED, TOLERATING CURRENT VENT SETTINGS. FC TO GRAVITY, NO URINE OUTPUT NOTED. CARE ENDORSED TO PM RN FOR JEIMY.
--- NOTE | 2016-07-14 20:00 | NUR ---
TELE NOTES RECEIVED PT ON VENT PER TRACH W/ FI02 OF 35%,SAT OF 100%.SUCTIONED BY RT.OPENS EYES WHEN NAME CALLED,DOES NOT TRACK,DOES NOT FOLLOW COMMANDS.RECEIVING TUBE FEEDING OF NOVASOURCE VIA G-TUBE AT 40 ML/HR,NO RESIDUAL OBTAINED.
[2016-07-14] MEDS ORDERED: MUPIROCIN OINT 2% 22 GM TUBE ONE (21:33)
[2016-07-15] VITALS: BP 115/39
[2016-07-15] MEDS: INSULIN REGULAR, HUMAN 100 UNIT/ML 3 ML VIAL SQ PRN ×4 (00:11→17:03)
[2016-07-15] MEDS: BLOOD SUGAR DIAGNOSTIC 1 EACH STRIP IN SCH ×5 (00:12→23:55)
--- NOTE | 2016-07-15 01:04 | NUR ---
TELE NOTES VASQUEZ CHANGED ASEPTICALLY W/ FR#16 W/OUT DIFFICULTY VASQUEZ OUT W/ BALLOON STILL INFLATED.INCONTINENT OF LARGE STOOL X2 FROM BLACKISH TO GREENISH SOFT STOOL.CLEANSED AND BED BATH GIVEN.
[2016-07-15] MEDS: IPRATROPIUM NEB FS 0.5 MG/2.5 ML AMPUL.NEB IH SCH ×4 (02:01→20:25)
[2016-07-15] MEDS: ALBUTEROL FS 2.5 MG/3 ML VIAL.NEB IH SCH ×4 (02:01→20:25)
[2016-07-15] MEDS ORDERED: IV NS 0.9% 250 ML IV ONE (03:07)
[2016-07-15] MEDS: IV NS 0.9% 250 ML IV PRN (03:16)
[2016-07-15 04:00] VITALS: BP 153/57
[2016-07-15] MEDS: ACIDOPHILUS/BULGARICUS 1 EACH TAB.CHEW GT SCH ×3 (05:07→20:19)
[2016-07-15] MEDS: MEROPENEM 1 G in IV NS 0.9% 100 ML IV SCH (05:10)
[2016-07-15] MEDS: VALPROIC ACID 250 MG/5 ML UDC GT SCH ×4 (05:30→23:55)
[2016-07-15] MEDS: HYDROCODONE/APAP 5/325MG 1 EACH TABLET PO PRN ×4 (05:38→23:56)
--- NOTE | 2016-07-15 05:48 | NUR ---
END NOTES VITAL SIGNS STABLE.MONITOR SHOWS SINUS TACH W/OUT ECTOPICS.MEDICATED FOR BACK PAIN 11/03 PER PT'S REQUEST.CONTINUES TO TOLERATE TUBE FEEDING W/ O-10ML RESIDUAL.
--- NOTE | 2016-07-15 07:15 | NUR ---
RN INITIAL NOTES: REC'D PT ON BED, HOB ELEVATED, NOT IN ANY DISTRESS. PT ON MV VIA TRACHE W/ FF SETTINGS: SHILEY 8, AC 16, TV 600, FIO2 35%, PEEP 5, SATURATING AT 99%. ON TELEMONITOR, SR W/ HR 93. HAS PEG PATENT & INTACT, ON CONT GT FEEDING NOVASOURCE AT 40 CC/HR, W/ 5 CC RESIDUAL UPON CHECKING. PT HAS FC PATENT & INTACT DRAINING TO ADEQUATE YELLOW URINE OUTPUT. PT'S R ARM AVF, CLEAN, DRY & INTACT. HAS L THUMB G22 TKO, FLUSHED, PATENT, C/D/I, NO SIGNS OF INFECTION/ INFILTRATION NOTED. WILL TURN & REPOSITION, OFFLOAD HEELS PROTOCOL. PROVIDED COMFORT & SAFETY MEASURES. BED KEPT LOW & IN LOCKED POSITION. CL PLACED W/IN REACHED. WILL CONTINUE TO MONITOR.
[2016-07-15 08:00] VITALS: BP 115/46
[2016-07-15] MEDS: PROSOURCE / PROSTAT (PYXIS) 30 ML UDC GT SCH ×3 (08:12→16:54)
[2016-07-15] MEDS: FERROUS SULFATE UDC 300 MG/5 ML UDC GT SCH ×3 (08:12→17:02)
[2016-07-15] MEDS: LEVETIRACETAM SOL (5 ML) 100 MG/ML UDC GT SCH ×2 (08:12→20:18)
[2016-07-15] MEDS: DOCUSATE SODIUM LIQ 100 MG/10 ML UDC GT SCH ×2 (08:12→20:18)
[2016-07-15] MEDS: PANTOPRAZOLE 40 MG/PACK PACK GT SCH ×2 (08:12→20:18)
[2016-07-15] MEDS: VIT B CMPLX 3/FA/VIT C/BIOTIN 1 TAB TABLET GT SCH (08:12)
[2016-07-15] MEDS: ESCITALOPRAM OXALATE (10 MG) 10 MG TABLET GT SCH (08:12)
[2016-07-15] MEDS: METOPROLOL TARTRATE 25 MG TABLET GT SCH (08:13)
[2016-07-15] MEDS: UREA 10% -AHA 4% CREAM 57 GM TUBE TP SCH (08:14)
[2016-07-15] MEDS: Z GUARD REMEDY 2 OZ OINT TP PRN (08:15)
[2016-07-15] MEDS: HYDROGEL DRESSING 90 GM TUBE TP PRN (08:15)
[2016-07-15] MEDS: MUPIROCIN OINT 2% 22 GM TUBE SCH ×2 (08:15→20:20)
[2016-07-15 08:16] LABS: EOSINOPHILS # (AUTO) 0.2 /CMM (0.0-0.7); EOSINOPHILS % (AUTO) 0.7 % (0.0-6.0); HEMATOCRIT 28 % (33-45); HEMOGLOBIN 9.1 g/dL (11.5-14.8); LYMPHOCYTES # (AUTO) 2.5 /CMM (0.8-4.8); LYMPHOCYTES % (AUTO) 11.1 % (20.0-44.0); MEAN CORPUSCULAR HEMOGLOBIN 33 PG (26.0-33.0); MEAN CORPUSCULAR HGB CONC 32 g/dl (31.0-36.0); MEAN CORPUSCULAR VOLUME 103 fL (82-100); MONOCYTES # (AUTO) 2.4 /CMM (0.1-1.30); MONOCYTES % (AUTO) 10.9 % (2.0-12.0); NEUTROPHILS # (AUTO) 17.2 /CMM (1.8-8.9); NEUTROPHILS % (AUTO) 77.3 % (43.0-81.0); PLATELET COUNT (AUTO) 211 /CMM (150-450); RDW COEFFICIENT OF VARIATION 19.2 (11.5-15.0); RED BLOOD CELL COUNT(AUTO) 2.75 MIL/uL (4.0-5.2); WHITE BLOOD COUNT (AUTO) 22.3 K/uL (4.3-11.0)
[2016-07-15 08:24] LABS: CALCIUM, SERUM 8.7 mg/dL (8.5-10.1); CREATININE 3.6 mg/dL (0.6-1.3); POTASSIUM 4.5 mmol/L (3.5-5.1)
[2016-07-15] MEDS: HEPARIN SODIUM, PORCINE 5000 UNITS/1 ML VIAL SQ SCH ×2 (08:27→20:20)
--- NOTE | 2016-07-15 09:55 | NUR ---
WOUND CARE CONSULT: PT REFUSED TO BE TURNED FOR SKIN ASSESSMENT. PT NOTED TO HAVE RASH/REDNESS TO AREA UNDER BREASTS AND TO ABDOMINAL FOLDS. RECOMMENDATIONS MADE AND DISCUSSED WITH NURSING STAFF. WILL SEE PT FOR FULL SKIN ASSESSMENT PT CONDITION PERMITS. MD IN AGREEMENT WITH PLAN OF CARE.
--- NOTE | 2016-07-15 10:21 | NUR ---
WOUND CARE CONSULT: PT ALLOWED SKIN/WOUND ASSESSMENT. PT NOTED TO HAVE STAGE III ULCER TO SACRAL AREA, PRESENT ON ADMISSION. ALL SKIN AND WOUND RECOMMENDATIONS DISCUSSED WITH NURSING STAFF. PT FOLLOWED BY DR GARCES AND DR VALDIVIA. WILL SEE PRIngrid RIDLEY IN AGREEMENT WITH PLAN OF CARE.
[2016-07-15] MEDS: CLOTRIMAZOLE 1% 15 GM TUBE TP SCH ×2 (11:44→16:56)
[2016-07-15 12:00] VITALS: BP 89/55
[2016-07-15 16:00] VITALS: BP 145/76
[2016-07-15] MEDS: MEROPENEM 500 MG in IV NS 0.9% 50 ML IV SCH (16:55)
--- NOTE | 2016-07-15 18:40 | NUR ---
RN CLOSING NOTES: NO ACUTE CHANGES NOTED W/IN SHIFT. TOLERATED MV SETTINGS PRESCRIBED, SATURATING AT 97%, SUCTIONED SECRETIONS. GT PATENT & INTACT, CONT GT FEEDING TOLERATED WELL, NO RESIDUAL. L THUMB G22, SL, PATENT & INTACT. R ARM AVF & R CW PERMACATH, C/D/I. WOUND CARE DONE. TURNED & REPOSITIONED, OFFLOADING OF HEELS DONE. ISOLATION PRECAUTION OBSERVED. SAFETY MAINTAINED. WILL ENDORSE TO PM RN FOR JEIMY.
--- NOTE | 2016-07-15 19:30 | NUR ---
RN INITIAL NOTES RECEIVED PT AWAKE ON BED, A/O X1, ABLE TO MOUTH WORDS. ON VENT SHILEY 8XLT, AC 16, TV 600, 35% FIO2, PEEP 5, NO S/S RESP DISTRESS. CURRENTLY SR ON THE MONITOR, HR 80'S. VASQUEZ CATH NOTED. ON GTUBE FEEDING OF NOVASOURCE @ 40MLS/HR, NO RESIDUALS, TOLERATING WELL. LEFT THUMB 22G SL, FLUSHED AND PATENT, NO S/S OF INFILTRATION/INFECTION, DRESSING CDI. RIGHT CHEST WALL HD CATH INTACT. BED LOW AND LOCKED, SIDERAILS UP, BED ALARM ON. WILL MONITOR
[2016-07-15 20:00] VITALS: BP 93/42
--- NOTE | 2016-07-15 21:47 | NUR ---
PT TRACH ON VENT. NO RESP DISTRESS NOTED. PT IS AWAKE AND ORIENTED AND TOLERATING VENT SETTINGS. SX'D FOR MOD AMT OF THICK PALE SECRETIONS. B/S RH COARSE BILAT. VENT ALARMS SET AND AUDIBLE. AMBU BAG AT [facility]. VENT PLUGGED INTO RED OUTLET. WILL CONTINUE TO MONITOR. Addendum: 07/15/16 at 2145 by ELADIO VALDOVINOS RT Amended: Links added.
[2016-07-16] VITALS: BP 109/43
[2016-07-16] MEDS: RENAL NOVASOURCE 1,000 ML BOTTLE GT PRN (00:30)
[2016-07-16] MEDS: ALBUTEROL FS 2.5 MG/3 ML VIAL.NEB IH SCH ×4 (01:29→19:45)
[2016-07-16] MEDS: IPRATROPIUM NEB FS 0.5 MG/2.5 ML AMPUL.NEB IH SCH ×4 (01:29→19:45)
[2016-07-16 04:00] VITALS: BP 130/72
[2016-07-16] MEDS: BLOOD SUGAR DIAGNOSTIC 1 EACH STRIP IN SCH ×3 (05:21→17:24)
[2016-07-16] MEDS: MEROPENEM 500 MG in IV NS 0.9% 50 ML IV SCH ×2 (05:22→16:01)
[2016-07-16] MEDS: ACIDOPHILUS/BULGARICUS 1 EACH TAB.CHEW GT SCH ×3 (05:22→20:45)
[2016-07-16] MEDS: VALPROIC ACID 250 MG/5 ML UDC GT SCH ×2 (05:22→17:21)
--- NOTE | 2016-07-16 06:30 | NUR ---
RN CLOSING NOTES PT REMAINS STABLE OF THE MOMENT. ALL DUE MEDS GIVEN, AM CARE PROVIDED. WILL ENDORSE CONTINUITY OF CARE TO AM RN
--- NOTE | 2016-07-16 07:00 | NUR ---
RN NOTES RECEIVED PT ON BED , A/Ox1. MOUTH WORDS. VENT DEPENDENT , TRACH CARE DONE, CODYLEY 8XLT, AC 16, TV 600, 35% FIO2, PEEP 5, TOLERATING CURRENT SETTING WELL, NO RESPIRATORY DISTRESS NOTED, ON TELE, HR IN 80'S. VASQUEZ CATH DARNING TO GRAVITY . G TUBE FEEDING OF NOVASOURCE @ 40MLS/HR, NO RESIDUALS, LEFT THUMB 22G SL SITE CDI, FLUSHED AND PATENT, RIGHT CHEST WALL HD CATH INTACT. PT CURRENTLY RECEIVING HD , BED LOW AND IN LOW POSITION , SIDE RAILS UP x3 , BED ALARM ON , CALL LIGHT WITHIN EASY REACH ,WILL CONTINUE TO MONITOR PT CLOSELY AND NOTIFY MD OR ANY SINGFINCAT CHANGES
[2016-07-16 07:35] LABS: BASOPHILS % (AUTO) 0.1 % (0.0-2.0); EOSINOPHILS # (AUTO) 0.4 /CMM (0.0-0.7); EOSINOPHILS % (AUTO) 2.5 % (0.0-6.0); HEMATOCRIT 25 % (33-45); HEMOGLOBIN 8.2 g/dL (11.5-14.8); LYMPHOCYTES # (AUTO) 2.3 /CMM (0.8-4.8); LYMPHOCYTES % (AUTO) 15.9 % (20.0-44.0); MEAN CORPUSCULAR HEMOGLOBIN 33 PG (26.0-33.0); MEAN CORPUSCULAR HGB CONC 32 g/dl (31.0-36.0); MEAN CORPUSCULAR VOLUME 103 fL (82-100); MONOCYTES # (AUTO) 1.4 /CMM (0.1-1.30); MONOCYTES % (AUTO) 9.9 % (2.0-12.0); NEUTROPHILS # (AUTO) 10.3 /CMM (1.8-8.9); NEUTROPHILS % (AUTO) 71.6 % (43.0-81.0); PLATELET COUNT (AUTO) 211 /CMM (150-450); RDW COEFFICIENT OF VARIATION 18.9 (11.5-15.0); RED BLOOD CELL COUNT(AUTO) 2.47 MIL/uL (4.0-5.2); WHITE BLOOD COUNT (AUTO) 14.4 K/uL (4.3-11.0)
[2016-07-16 07:57] LABS: CALCIUM, SERUM 8.9 mg/dL (8.5-10.1); CREATININE 4.5 mg/dL (0.6-1.3); POTASSIUM 4.4 mmol/L (3.5-5.1)
[2016-07-16 08:00] VITALS: BP 109/91
[2016-07-16] MEDS: PROSOURCE / PROSTAT (PYXIS) 30 ML UDC GT SCH ×3 (08:43→16:28)
[2016-07-16] MEDS: LEVETIRACETAM SOL (5 ML) 100 MG/ML UDC GT SCH ×2 (08:43→20:46)
[2016-07-16] MEDS: DOCUSATE SODIUM LIQ 100 MG/10 ML UDC GT SCH ×2 (08:43→20:45)
[2016-07-16] MEDS: VIT B CMPLX 3/FA/VIT C/BIOTIN 1 TAB TABLET GT SCH (08:43)
[2016-07-16] MEDS: FERROUS SULFATE UDC 300 MG/5 ML UDC GT SCH ×3 (08:43→17:21)
[2016-07-16] MEDS: PANTOPRAZOLE 40 MG/PACK PACK GT SCH ×2 (08:44→20:45)
[2016-07-16] MEDS: ESCITALOPRAM OXALATE (10 MG) 10 MG TABLET GT SCH (08:44)
[2016-07-16] MEDS: METOPROLOL TARTRATE 25 MG TABLET GT SCH (08:45)
[2016-07-16] MEDS: HEPARIN SODIUM, PORCINE 5000 UNITS/1 ML VIAL SQ SCH ×2 (08:46→20:48)
[2016-07-16] MEDS: UREA 10% -AHA 4% CREAM 57 GM TUBE TP SCH (08:49)
[2016-07-16] MEDS: HYDROGEL DRESSING 90 GM TUBE TP PRN (08:49)
[2016-07-16] MEDS: Z GUARD REMEDY 2 OZ OINT TP PRN (08:50)
[2016-07-16] MEDS: MUPIROCIN OINT 2% 22 GM TUBE SCH ×2 (08:51→20:49)
[2016-07-16] MEDS: CLOTRIMAZOLE 1% 15 GM TUBE TP SCH ×2 (08:52→16:28)
[2016-07-16] MEDS: HYDROCODONE/APAP 5/325MG 1 EACH TABLET PO PRN ×3 (09:05→20:45)
--- NOTE | 2016-07-16 10:52 | NUR ---
RN NOTES PT ENDORSED TO HORTENSIA BACON FOR CONTINUITY OF CARE .
[2016-07-16 12:00] VITALS: BP 105/51
--- NOTE | 2016-07-16 12:00 | NUR ---
CARPET CLEANING TECHNICIAN NOTE S/E by Rody ORR, will review patient's status. No significant changes noted at this time. made ENTRY LEVEL CIVIL ENGINEER aware HD done today with 1L out.
[2016-07-16] MEDS: INSULIN REGULAR, HUMAN 100 UNIT/ML 3 ML VIAL SQ PRN (12:16)
--- NOTE | 2016-07-16 15:18 | NUR ---
RT WAS NOT ABLE TO GIVE TX DUE TO CODE BLUE FOR ANOTHER PATIENT. WILL GIVE NEXT SCHEDULED DOSE.
--- NOTE | 2016-07-16 15:18 | NUR ---
RN NOTES PT RECEIVED FROM HORTENSIA BACON IN STABLE CONDITION , CONTINUE TO MONITOR PT CLOSELY .
[2016-07-16 16:00] VITALS: BP 98/51
--- NOTE | 2016-07-16 18:14 | NUR ---
RN NOTES TRACH CARE DONE , LEFT THUMB IV SITE INFILTRATED , IV SITE D/DICK , NURSING MICROBIOLOGY TEACHER NOTIFIED REGARDING MIDLINE INSERTION , PT STABLE, MEDICATED PER MD ORDER . TOLERATING TF WELL, NO RESIDUAL NOTED , SR UP x3, CALL LIGHT WITHIN EASY REACH , NO SIGNIFICANT CHANGES NOTED ON THIS SHIFT.
--- NOTE | 2016-07-16 19:30 | NUR ---
REFRACTORY WORKER: RECEIVED PT ALERT AND AWAKE, WATCHING TV. ABLE TO MOUTH WORDS. ON MECH VENT VIA TRACH WT NO ACUTE DISTRESS. C/O SACRAL WOUND PAIN (3/10). RELAXATION TECHNIQUE RENDERED AND REPOSITIONED FOR COMFORT WT GOOD EFFECT. WILL GIVE PAIN MED NEEDED. SR ON TELE MONITOR. TOLERATING GTF WT NO RESIDUAL. F/C PATENT AND INTACT DRAINING YELLOW URINE TO GRAVITY. SAFETY PRECAUTION NOTED. CALL LIGHT WITHIN REACH. WILL CONTINUE TO MONITOR.
[2016-07-16 20:00] VITALS: BP 152/69
--- NOTE | 2016-07-16 20:15 | NUR ---
CHEMISTRY PROFESSOR: GUERDA MID-LINE IV GAUGE #18 INSERTED BY ARLEEN ZACARIAS AND TOLERATED WELL. NO BLOOD RETURN NOTED.
[2016-07-16] MEDS ORDERED: IV SET PRIMARY PUMP SET 1 EA INFUS.SET MC ONE (21:18)
[2016-07-16] MEDS: IV NS 0.9% 250 ML IV PRN (21:27)
--- NOTE | 2016-07-16 22:41 | NUR ---
PT TRACH ON VENT. NO RESP DISTRESS NOTED. PT IS AWAKE AND ORIENTED AND TOLERATING VENT SETTINGS. SX'D FOR MOD AMT OF THICK PALE SECRETIONS. B/S RH COARSE BILAT. VENT ALARMS SET AND AUDIBLE. AMBU BAG AT [facility]. VENT PLUGGED INTO RED OUTLET. WILL CONTINUE TO MONITOR. Addendum: 07/16/16 at 2242 by ELADIO VALDOVINOS RT Amended: Links added.
[2016-07-17] VITALS: BP 151/76
[2016-07-17] MEDS: RENAL NOVASOURCE 1,000 ML BOTTLE GT PRN (00:17)
[2016-07-17] MEDS: VALPROIC ACID 250 MG/5 ML UDC GT SCH ×3 (00:18→17:02)
[2016-07-17] MEDS: BLOOD SUGAR DIAGNOSTIC 1 EACH STRIP IN SCH ×4 (00:21→17:04)
[2016-07-17] MEDS: ALBUTEROL FS 2.5 MG/3 ML VIAL.NEB IH SCH ×4 (01:20→20:32)
[2016-07-17] MEDS: IPRATROPIUM NEB FS 0.5 MG/2.5 ML AMPUL.NEB IH SCH ×4 (01:20→20:33)
--- NOTE | 2016-07-17 01:30 | NUR ---
MISSILE INSPECTOR: HAD MODERATE AMT. OF BROWNISH YELLOW LIQUID/MUCOID STOOL WT FOUL ODOR. STOOL FOR C. DIFF WAS AUTO-CANCELLED DUE TO NON-COLLECTION. REORDERED AND WILL SEND STOOL SAMPLE. BED BATH GIVEN AND TOLERATED FAIRLY.
[2016-07-17] MEDS: HYDROCODONE/APAP 5/325MG 1 EACH TABLET PO PRN ×3 (03:10→13:31)
[2016-07-17 04:00] VITALS: BP 138/59
[2016-07-17] MEDS: ACIDOPHILUS/BULGARICUS 1 EACH TAB.CHEW GT SCH ×3 (04:55→21:49)
[2016-07-17] MEDS: MEROPENEM 500 MG in IV NS 0.9% 50 ML IV SCH ×2 (04:55→16:40)
--- NOTE | 2016-07-17 06:00 | NUR ---
INTERLACER: UNABLE TO OBTAIN WEIGHT AT THIS TIME D/T BED SCALE IS NOT FUNCTIONING. Addendum: 07/17/16 at 0606 by EVGENY FRASER RN Amended: Links added.
--- NOTE | 2016-07-17 06:15 | NUR ---
GUEST SERVICE REPRESENTATIVE: REMAINED A/O X 2-3. SR ON TELE MONITOR. HAD TWO EPISODES OF MODERATE AMT. OF LOOSE/MUCOID YELLOW BROWN STOOLS WT SLIGHTLY FOUL ODOR. GOOD JAVY CARE RENDERED. VS WITHIN HER BASELINE.
--- NOTE | 2016-07-17 07:30 | NUR ---
RT PATIENT REC'D TRACHED ON [facility] VENT WITH SETTINGS SET PER MD DEVIN SIGALA. VENT ALARMS CHECKED + AUDIBLE. TRACH SECURE + IN PROPER POSITION. SX'D WITH MOD AMT PALE SEMITHICK SECRETIONS. PATIENT APPEARS COMFORTABLE AND IN NO DISTRESS. AMBU BAG AT HOB. Addendum: 07/17/16 at 1356 by KOLE COOK RT Amended: Links added.
[2016-07-17 07:35] LABS: CALCIUM, SERUM 8.9 mg/dL (8.5-10.1); CREATININE 3.9 mg/dL (0.6-1.3); POTASSIUM 4.4 mmol/L (3.5-5.1)
[2016-07-17 08:00] VITALS: BP 119/44
[2016-07-17] MEDS: VIT B CMPLX 3/FA/VIT C/BIOTIN 1 TAB TABLET GT SCH (09:00)
[2016-07-17] MEDS: ESCITALOPRAM OXALATE (10 MG) 10 MG TABLET GT SCH (09:00)
[2016-07-17] MEDS: DOCUSATE SODIUM LIQ 100 MG/10 ML UDC GT SCH ×2 (09:00→21:00)
[2016-07-17] MEDS: METOPROLOL TARTRATE 25 MG TABLET GT SCH (09:00)
[2016-07-17] MEDS: FERROUS SULFATE UDC 300 MG/5 ML UDC GT SCH ×3 (09:00→17:02)
[2016-07-17] MEDS: PROSOURCE / PROSTAT (PYXIS) 30 ML UDC GT SCH ×3 (09:00→16:44)
[2016-07-17] MEDS: PANTOPRAZOLE 40 MG/PACK PACK GT SCH ×2 (09:00→21:49)
[2016-07-17] MEDS: LEVETIRACETAM SOL (5 ML) 100 MG/ML UDC GT SCH ×2 (09:01→21:49)
[2016-07-17] MEDS: Z GUARD REMEDY 2 OZ OINT TP PRN (09:02)
[2016-07-17] MEDS: UREA 10% -AHA 4% CREAM 57 GM TUBE TP SCH (09:03)
[2016-07-17] MEDS: MUPIROCIN OINT 2% 22 GM TUBE SCH ×2 (09:03→21:50)
[2016-07-17] MEDS: CLOTRIMAZOLE 1% 15 GM TUBE TP SCH ×2 (09:03→17:03)
[2016-07-17] MEDS: HYDROGEL DRESSING 90 GM TUBE TP PRN (09:04)
[2016-07-17] MEDS: HEPARIN SODIUM, PORCINE 5000 UNITS/1 ML VIAL SQ SCH ×2 (09:21→21:51)
[2016-07-17 12:00] VITALS: BP 126/54
[2016-07-17] MEDS: INSULIN REGULAR, HUMAN 100 UNIT/ML 3 ML VIAL SQ PRN (13:36)
[2016-07-17 16:00] VITALS: BP 123/63
[2016-07-17] MEDS ORDERED: IV NS 0.9% 250 ML IV ONE (16:23)
[2016-07-17] MEDS: HYDROMORPHONE 1 MG/1 ML DISP.SYRIN IV PRN (16:31)
--- NOTE | 2016-07-17 18:47 | NUR ---
RN NOTE DC VASQUEZ CATHETER PER [facility].
--- NOTE | 2016-07-17 19:28 | NUR ---
RN ENDING NOTE PT A/O X2-3. PT STABLE THROUGHOUT SHIFT. PAIN 9/10 WELL CONTROLLED WITH NEW ORDER OD DILAUDID. IV R ARM AVF AND RCW PERMACATH, GUERDA MIDLINE 18G FLUSH AND PATENT. TOLERATING G-TUBE NO RESIDUAL AND PLACEMENT CK THROUGHOUT SHIFT.TELE SR 90'S. SAFETY MEASURES IN PLACE, ORDERS CARRIED OUT ALL MEDICATIONS GIVEN. PT KEPT WARM AND DRY. GONZALO VASQUEZ PER ORDER. GAVE REPORT TO PM NURSE FOR JEIMY
[2016-07-17 20:00] VITALS: BP 137/45
[2016-07-17] MEDS: IV NS 0.9% 250 ML IV PRN (22:09)
[2016-07-18] VITALS: BP 158/46
[2016-07-18] MEDS: VALPROIC ACID 250 MG/5 ML UDC GT SCH ×3 (00:46→17:50)
[2016-07-18] MEDS: RENAL NOVASOURCE 1,000 ML BOTTLE GT PRN ×2 (00:48→16:32)
[2016-07-18] MEDS: BLOOD SUGAR DIAGNOSTIC 1 EACH STRIP IN SCH ×4 (00:57→17:52)
[2016-07-18] MEDS: ALBUTEROL FS 2.5 MG/3 ML VIAL.NEB IH SCH ×4 (00:58→19:38)
[2016-07-18] MEDS: IPRATROPIUM NEB FS 0.5 MG/2.5 ML AMPUL.NEB IH SCH ×4 (00:58→19:38)
[2016-07-18 04:00] VITALS: BP_SYST 116; BP_DIAS 34; BP_DIAS 50
[2016-07-18] MEDS: ACIDOPHILUS/BULGARICUS 1 EACH TAB.CHEW GT SCH ×3 (05:10→20:16)
[2016-07-18] MEDS: MEROPENEM 500 MG in IV NS 0.9% 50 ML IV SCH ×2 (05:11→16:33)
--- NOTE | 2016-07-18 06:30 | NUR ---
EXTRACTOR TENDER RAW STOCK: REMAINED ALERT AND ORIENTED X 2-3. TOLERATING VENT SETTINGS ORDERED WT NO ACUTE DISTRESS. C/O OF SACRAL WOUND DISCOMFORT BUT NO MED WAS GIVEN DURING THE SHIFT SINCE REPOSITIONING, RELAXATION/DISTRACTION TECHNIQUE RENDERED AND WAS EFFECTIVE. NO EVIDENCE OF DISCOMFORT NOTED. GOOD SKIN CARE RENDERED. VS WITHIN HER BASELINE. SAFETY PRECAUTION NOTED.
--- NOTE | 2016-07-18 07:10 | NUR ---
RN INITIAL NOTES RECEIVED PT ASLEEP, EASILY AROUSABLE. ON MECH VENT. TRACH IN PLACE. NO RESPIRATORY DISTRESS NOTED. HOB ELEVATED. NO SIGNS OF PAIN NOTED. RIGHT CHESTWALL PERMACATH AND GUERDA MIDLINE IN PLACE. HAS RIGHT ARM AV FISTULA, BRUIT AND THRILL PRESENT. GT IN PLACE. TOLERATING GTF WELL. NO RESIDUAL NOTED. BLE ELEVATED. CALL LIGHT WITHIN REACH. WILL CONTINUE TO MONITOR.
[2016-07-18 07:28] LABS: BASOPHILS % (AUTO) 0.3 % (0.0-2.0); EOSINOPHILS # (AUTO) 0.3 /CMM (0.0-0.7); EOSINOPHILS % (AUTO) 3.4 % (0.0-6.0); HEMATOCRIT 27 % (33-45); HEMOGLOBIN 8.8 g/dL (11.5-14.8); LYMPHOCYTES % (AUTO) 29.8 % (20.0-44.0); MEAN CORPUSCULAR HEMOGLOBIN 34 PG (26.0-33.0); MEAN CORPUSCULAR HGB CONC 33 g/dl (31.0-36.0); MEAN CORPUSCULAR VOLUME 103 fL (82-100); MONOCYTES # (AUTO) 1.1 /CMM (0.1-1.30); MONOCYTES % (AUTO) 10.9 % (2.0-12.0); NEUTROPHILS # (AUTO) 5.6 /CMM (1.8-8.9); NEUTROPHILS % (AUTO) 55.6 % (43.0-81.0); PLATELET COUNT (AUTO) 202 /CMM (150-450); RED BLOOD CELL COUNT(AUTO) 2.61 MIL/uL (4.0-5.2); WHITE BLOOD COUNT (AUTO) 10.1 K/uL (4.3-11.0)
[2016-07-18 07:29] LABS: CALCIUM, SERUM 9.1 mg/dL (8.5-10.1); CREATININE 4.8 mg/dL (0.6-1.3); MAGNESIUM 2.3 mg/dL (1.8-2.4); PHOSPHORUS 4.1 mg/dL (2.5-4.9); POTASSIUM 4.2 mmol/L (3.5-5.1)
--- NOTE | 2016-07-18 07:34 | NUR ---
Received female alayna pt on mechanical vent. Pt alayna is secure. Vent is plugged into a red outlet, alarms are set and audible. BVM at bedside. Addendum: 07/18/16 at 0949 by SYLVIA AMBROCIO RT Amended: Links added.
[2016-07-18 08:00] VITALS: BP 152/64
[2016-07-18] MEDS: PROSOURCE / PROSTAT (PYXIS) 30 ML UDC GT SCH ×3 (08:15→16:33)
[2016-07-18] MEDS: METOPROLOL TARTRATE 25 MG TABLET GT SCH (08:15)
[2016-07-18] MEDS: ESCITALOPRAM OXALATE (10 MG) 10 MG TABLET GT SCH (08:15)
[2016-07-18] MEDS: VIT B CMPLX 3/FA/VIT C/BIOTIN 1 TAB TABLET GT SCH (08:15)
[2016-07-18] MEDS: DOCUSATE SODIUM LIQ 100 MG/10 ML UDC GT SCH ×2 (08:15→20:16)
[2016-07-18] MEDS: PANTOPRAZOLE 40 MG/PACK PACK GT SCH ×2 (08:15→20:53)
[2016-07-18] MEDS: FERROUS SULFATE UDC 300 MG/5 ML UDC GT SCH ×3 (08:15→17:49)
[2016-07-18] MEDS: LEVETIRACETAM SOL (5 ML) 100 MG/ML UDC GT SCH ×2 (08:15→20:16)
[2016-07-18] MEDS: CLOTRIMAZOLE 1% 15 GM TUBE TP SCH ×2 (08:16→16:33)
[2016-07-18] MEDS: MUPIROCIN OINT 2% 22 GM TUBE SCH ×2 (08:16→20:17)
[2016-07-18] MEDS: HEPARIN SODIUM, PORCINE 5000 UNITS/1 ML VIAL SQ SCH ×2 (08:24→20:12)
--- NOTE | 2016-07-18 08:30 | NUR ---
RN NOTES SEEN AND EXAMINED BY DR. FOSTER. AWARE OF CURRENT LAB RESULTS. ORDERED HD TODAY. NOTED AND CARRIED OUT.
[2016-07-18] MEDS: UREA 10% -AHA 4% CREAM 57 GM TUBE TP SCH (09:08)
[2016-07-18 12:00] VITALS: BP_SYST 111; BP_SYST 149; BP_DIAS 62; BP_DIAS 75
--- NOTE | 2016-07-18 13:35 | NUR ---
RN NOTES DIALYSIS STARTED. NO RESPIRATORY DISTRESS NOTED. NO SOB NOTED. NO SIGNS OF PAIN NOTED. WILL MONITOR.
--- NOTE | 2016-07-18 15:30 | NUR ---
RN NOTES DIALYSIS DONE. REMOVED 2L. NO RESPIRATORY DISTRESS NOTED. NO SOB NOTED. NO SIGNS OF PAIN NOTED. TOLERATED WELL. WILL CONTINUE TO MONITOR
[2016-07-18 16:00] VITALS: BP 112/53
[2016-07-18] MEDS: HYDROMORPHONE 1 MG/1 ML DISP.SYRIN IV PRN (16:34)
--- NOTE | 2016-07-18 18:43 | NUR ---
RN CLOSING NOTES PT REMAINS STABLE. NO RESPIRATORY DISTRESS NOTED. NO SOB NOTED. KEPT HOB ELEVATED. KEPT COMFORTABLE. TOLERATING GTF WELL. TX PROVIDED ORDERED. KEPT CLEAN AND DRY. REPOSITIONED Q2. KEPT BLE ELEVATED. NO SIGNIFICANT CHANGE NOTED. CALL LIGHT WITHIN REACH. WILL ENDORSE FOR CONTINUITY OF CARE.
--- NOTE | 2016-07-18 19:51 | NUR ---
RN- RECEIVED PATIENT AWAKE, ORIENTED X2-3, ABLE TO EXPRESS HER NEEDS. SUCTIONED THICK BARRETO SECRETIONS FROM ET MODERATED IN [place], VENT SETTINGS AC 16 TV 600 FIO2 35% AND PEEP 5. WITH NOVOSOURCE PER GT RUNNING AT 40 MLS/HR WITH 5 CC WITH 0 RESIDUAL. TEMP 98.3 HR 92 RR 16 O2 SAT 100% BP 145/52
[2016-07-18 20:00] VITALS: BP 145/52
[2016-07-18] MEDS: HYDROCODONE/APAP 5/325MG 1 EACH TABLET PO PRN (20:15)
--- NOTE | 2016-07-18 20:24 | NUR ---
RN - VERBALIZED PAIN IN THE BACK RATING AT 7, POSITION CHANGED, PRN MED NORCO GIVEN PER GT
--- NOTE | 2016-07-18 22:04 | NUR ---
plan to dc back to [facility] [phone], HD @ [address] [phone] every MWF . Addendum: 07/18/16 at 2205 by UNIQUE MENSAH RN Amended: Links added.
[2016-07-19] VITALS: BP_SYST 116; BP_DIAS 32; BP_DIAS 52
[2016-07-19] MEDS: VALPROIC ACID 250 MG/5 ML UDC GT SCH ×3 (00:37→17:42)
[2016-07-19] MEDS: BLOOD SUGAR DIAGNOSTIC 1 EACH STRIP IN SCH ×4 (00:50→18:09)
[2016-07-19] MEDS: HYDROMORPHONE 1 MG/1 ML DISP.SYRIN IV PRN ×4 (01:02→23:20)
--- NOTE | 2016-07-19 01:06 | NUR ---
RN-- VERBALIZED PAIN AT SACRAL AND BACK, RATING AT 9, PRN DILAUDID 1 MG ADMINISTERED
[2016-07-19] MEDS ORDERED: IV NS 0.9% 250 ML IV ONE (01:20)
[2016-07-19] MEDS: ALBUTEROL FS 2.5 MG/3 ML VIAL.NEB IH SCH ×4 (01:53→20:12)
[2016-07-19] MEDS: IPRATROPIUM NEB FS 0.5 MG/2.5 ML AMPUL.NEB IH SCH ×4 (01:53→20:12)
[2016-07-19] MEDS: HYDROGEL DRESSING 90 GM TUBE TP PRN (02:54)
[2016-07-19 04:00] VITALS: BP_SYST 120; BP_SYST 90; BP_DIAS 43; BP_DIAS 48; BP_DIAS 73
[2016-07-19] MEDS ORDERED: SECONDARY IV SET 1 EA INFUS.SET MC ONE (04:02)
[2016-07-19] MEDS: MEROPENEM 500 MG in IV NS 0.9% 50 ML IV SCH ×2 (04:08→16:28)
[2016-07-19] MEDS: ACIDOPHILUS/BULGARICUS 1 EACH TAB.CHEW GT SCH ×3 (04:12→21:26)
--- NOTE | 2016-07-19 06:29 | NUR ---
RN- FREQUENT SUCTIONING DONE DURING SHIFT/ LARGE BARRETO SECRETIONS FROM ORAL AND TRACH, EPISODES OF COUGHING
--- NOTE | 2016-07-19 06:51 | NUR ---
RN- NO BLOOD RETURN FROM MIDLINE. REFUSED BLOOD DRAW BY LAB .BECKY OF LAB SAID HE WILL COME BACK TO DRAW.
[2016-07-19 08:00] VITALS: BP 161/69
[2016-07-19] MEDS: LEVETIRACETAM SOL (5 ML) 100 MG/ML UDC GT SCH ×2 (08:16→21:26)
[2016-07-19] MEDS: PANTOPRAZOLE 40 MG/PACK PACK GT SCH ×2 (08:16→21:26)
[2016-07-19] MEDS: PROSOURCE / PROSTAT (PYXIS) 30 ML UDC GT SCH ×3 (08:16→16:27)
[2016-07-19] MEDS: VIT B CMPLX 3/FA/VIT C/BIOTIN 1 TAB TABLET GT SCH (08:16)
[2016-07-19] MEDS: FERROUS SULFATE UDC 300 MG/5 ML UDC GT SCH ×3 (08:16→17:42)
[2016-07-19] MEDS: CLONIDINE HCL 0.1 MG TABLET GT PRN (08:17)
[2016-07-19] MEDS: ESCITALOPRAM OXALATE (10 MG) 10 MG TABLET GT SCH (08:17)
[2016-07-19] MEDS: DOCUSATE SODIUM LIQ 100 MG/10 ML UDC GT SCH ×2 (08:17→21:26)
[2016-07-19] MEDS: METOPROLOL TARTRATE 25 MG TABLET GT SCH (08:17)
[2016-07-19] MEDS: UREA 10% -AHA 4% CREAM 57 GM TUBE TP SCH (08:30)
[2016-07-19] MEDS: CLOTRIMAZOLE 1% 15 GM TUBE TP SCH ×2 (08:30→16:24)
[2016-07-19] MEDS: MUPIROCIN OINT 2% 22 GM TUBE SCH ×2 (08:30→21:26)
[2016-07-19 08:42] LABS: BASOPHILS % (AUTO) 0.1 % (0.0-2.0); EOSINOPHILS # (AUTO) 0.3 /CMM (0.0-0.7); EOSINOPHILS % (AUTO) 2.7 % (0.0-6.0); HEMATOCRIT 24 % (33-45); HEMOGLOBIN 7.9 g/dL (11.5-14.8); LYMPHOCYTES # (AUTO) 2.6 /CMM (0.8-4.8); LYMPHOCYTES % (AUTO) 22.2 % (20.0-44.0); MEAN CORPUSCULAR HEMOGLOBIN 34 PG (26.0-33.0); MEAN CORPUSCULAR HGB CONC 33 g/dl (31.0-36.0); MEAN CORPUSCULAR VOLUME 103 fL (82-100); MONOCYTES # (AUTO) 1.1 /CMM (0.1-1.30); MONOCYTES % (AUTO) 9.9 % (2.0-12.0); NEUTROPHILS # (AUTO) 7.5 /CMM (1.8-8.9); NEUTROPHILS % (AUTO) 65.1 % (43.0-81.0); PLATELET COUNT (AUTO) 226 /CMM (150-450); RDW COEFFICIENT OF VARIATION 18.6 (11.5-15.0); RED BLOOD CELL COUNT(AUTO) 2.34 MIL/uL (4.0-5.2); WHITE BLOOD COUNT (AUTO) 11.5 K/uL (4.3-11.0)
--- NOTE | 2016-07-19 09:00 | NUR ---
TIE MAN NOTE Pt resting in bed, AOx3. On tele monitoring. Tolerating vent settings, suction PRN. BP 161/69, gave PRN catapres. Pt reports pain in butt, IV dilaudid given. Gtube running at 40ml/hr, no residuals. GUERDA midline patent. All needs met, will cont to monitor.
[2016-07-19 09:04] LABS: CALCIUM, SERUM 8.7 mg/dL (8.5-10.1)
[2016-07-19] MEDS: HYDROCODONE/APAP 5/325MG 1 EACH TABLET PO PRN ×2 (11:58→19:48)
[2016-07-19 12:00] VITALS: BP 134/42
[2016-07-19 16:00] VITALS: BP 157/61
--- NOTE | 2016-07-19 18:53 | NUR ---
VIGOUREUX PRINTER NOTE All needs met, no s/s distress. Liquid BM x3, no flexiseal per SEAFOOD PROCESSOR, cont to monitor. Stool OB collected, lab to collect. IV dilaudid and norco given for pain. Will endorse to next RN.
--- NOTE | 2016-07-19 19:40 | NUR ---
RN INITIAL NOTE RECEIVED PT IN NO ACUTE DISTRESS IN BED. PT IS A/O X 3 AND ABLE TO MAKE NEEDS KNOWN BY MOUTHING WORDS. PT IS ON MECHANICAL VENT VIA TRACH. TRACH SITE IS CLEAN DRY AND INTACT. PT TOLERATING VENT SETTING WELL. PT IS ON TELE WITH SR ON THE MONITOR. PT HAS GUERDA MIDLINE THAT IS CLEAN DRY INTACT AND PATENT WITH SALINE FLUSH. BED IN LOW LOCK POSITION WITH RAILS UP X 2. CALL LIGHT WITHIN REACH AND ALL SAFETY MEASURES ENSURED AND CARRIED OUT. WILL CONTINUE TO MONITOR PT.
[2016-07-19 20:00] VITALS: BP 182/67
[2016-07-20] VITALS (12 sets, daily range): BP systolic 90–165; BP diastolic 31–93
[2016-07-20] MEDS: VALPROIC ACID 250 MG/5 ML UDC GT SCH ×4 (00:54→23:51)
[2016-07-20] MEDS: BLOOD SUGAR DIAGNOSTIC 1 EACH STRIP IN SCH ×5 (00:54→23:51)
[2016-07-20] MEDS: IPRATROPIUM NEB FS 0.5 MG/2.5 ML AMPUL.NEB IH SCH ×4 (01:43→20:23)
[2016-07-20] MEDS: ALBUTEROL FS 2.5 MG/3 ML VIAL.NEB IH SCH ×4 (01:43→20:23)
[2016-07-20] MEDS: ACIDOPHILUS/BULGARICUS 1 EACH TAB.CHEW GT SCH ×3 (05:58→20:14)
[2016-07-20] MEDS: MEROPENEM 500 MG in IV NS 0.9% 50 ML IV SCH ×2 (05:58→16:53)
--- NOTE | 2016-07-20 07:30 | NUR ---
RN NOTES RECEIVED PATIENT IN BED, ON [facility] VENT WITH BREATHING NORMAL, EVEN AND UNLABORED. NO SOB NOTED. SATURATING WELL. VENT SETTING REVIEWED AND VERIFIED. TOLERATED WELL. NO ACUTE DISTRESS NOTED. NO PAIN, NO DISCOMFORT NOTED. IV IS PATENT AND INTACT, NO INFILTRATION NOTED. BOWEL SOUNDS PRESENT. ON GT FEED , TOLERATED WELL. ASPIRATION PRECAUTION TAKEN. PULSES PRESENT. SAFETY MEASURE OBSERVED. ALL NEEDS ATTENDED. CALL LIGHT WITH IN REACH. WILL CONT TO MONITOR.
[2016-07-20 08:02] LABS: BASOPHILS % (AUTO) 0.2 % (0.0-2.0); EOSINOPHILS # (AUTO) 0.4 /CMM (0.0-0.7); EOSINOPHILS % (AUTO) 3.8 % (0.0-6.0); HEMATOCRIT 23 % (33-45); HEMOGLOBIN 7.6 g/dL (11.5-14.8); LYMPHOCYTES # (AUTO) 2.9 /CMM (0.8-4.8); LYMPHOCYTES % (AUTO) 25.7 % (20.0-44.0); MEAN CORPUSCULAR HEMOGLOBIN 35 PG (26.0-33.0); MEAN CORPUSCULAR HGB CONC 33 g/dl (31.0-36.0); MEAN CORPUSCULAR VOLUME 105 fL (82-100); MONOCYTES # (AUTO) 0.9 /CMM (0.1-1.30); NEUTROPHILS # (AUTO) 6.9 /CMM (1.8-8.9); NEUTROPHILS % (AUTO) 62.3 % (43.0-81.0); PLATELET COUNT (AUTO) 218 /CMM (150-450); RDW COEFFICIENT OF VARIATION 18.8 (11.5-15.0); RED BLOOD CELL COUNT(AUTO) 2.18 MIL/uL (4.0-5.2); WHITE BLOOD COUNT (AUTO) 11.1 K/uL (4.3-11.0)
--- NOTE | 2016-07-20 08:09 | NUR ---
RT PATIENT REC'D TRACHED ON [facility] VENT WITH SETTINGS SET PER MD TOLERATED WELL. VENT ALARMS CHECKED + AUDIBLE. VENT PLUGGED INTO RED OUTLET. PATIENT APPEARS COMFORTABLE AND NO DISTRESS. TRACH SECURE AND IN PROPER POSITION. PATIENT SUCTIONED WITH SMALL AMT PALE SEMITHICK SECRETIONS. BS DIM COARSE. AMBU BAG AT [facility]. CONT CURRENT PLAN OF CARE. Addendum: 07/20/16 at 1225 by KOLE COOK RT Amended: Links added.
[2016-07-20] MEDS: PANTOPRAZOLE 40 MG/PACK PACK GT SCH ×2 (08:50→20:14)
[2016-07-20] MEDS: ESCITALOPRAM OXALATE (10 MG) 10 MG TABLET GT SCH (08:51)
[2016-07-20] MEDS: PROSOURCE / PROSTAT (PYXIS) 30 ML UDC GT SCH ×3 (08:51→16:59)
[2016-07-20] MEDS: FERROUS SULFATE UDC 300 MG/5 ML UDC GT SCH ×3 (08:51→17:00)
[2016-07-20] MEDS: DOCUSATE SODIUM LIQ 100 MG/10 ML UDC GT SCH ×2 (08:51→20:08)
[2016-07-20] MEDS: LEVETIRACETAM SOL (5 ML) 100 MG/ML UDC GT SCH ×2 (08:51→20:14)
[2016-07-20] MEDS: VIT B CMPLX 3/FA/VIT C/BIOTIN 1 TAB TABLET GT SCH (08:51)
[2016-07-20] MEDS: METOPROLOL TARTRATE 25 MG TABLET GT SCH (08:52)
[2016-07-20] MEDS: UREA 10% -AHA 4% CREAM 57 GM TUBE TP SCH (08:53)
[2016-07-20] MEDS: CLOTRIMAZOLE 1% 15 GM TUBE TP SCH ×2 (08:54→16:53)
[2016-07-20] MEDS: MUPIROCIN OINT 2% 22 GM TUBE SCH ×2 (08:54→20:15)
[2016-07-20 09:02] LABS: CALCIUM, SERUM 8.7 mg/dL (8.5-10.1); CREATININE 4.7 mg/dL (0.6-1.3); POTASSIUM 4.2 mmol/L (3.5-5.1)
[2016-07-20] MEDS ORDERED: ALBUMIN 25% 25 GM in PREMIX 1 EA IV ONE (11:00)
[2016-07-20] MEDS ORDERED: SECONDARY IV SET 1 EA INFUS.SET MC ONE (11:39)
[2016-07-20] MEDS ORDERED: BLOOD IV SET 1 EA INFUS.SET MC ONE (16:29)
[2016-07-20] MEDS: IV NS 0.9% 250 ML IV PRN (16:54)
[2016-07-20] MEDS: ACETAMINOPHEN 650 MG/20.3 ML UDC GT PRN (16:59)
--- NOTE | 2016-07-20 17:23 | NUR ---
RN NOTES PATIENT STARTED ON 1 UNIT PRBC. NO ADVERSE REACTION NOTED. NO SOB NOTED. VITAL SIGN STABLE AND NOTED. WILL CONT TO MONITOR.
--- NOTE | 2016-07-20 19:30 | NUR ---
RN NOTES PATIENT ENDORSED TO NEXT SHIFT IN STABLE CONDITION WITH BREATHING NORMAL, EVEN AND UNLABORED. NO SOB NOTED. NO ACUTE DISTRESS NOTED. CONT ON BLOOD TRANSFUSION. ENDORSED TO NEXT SHIFT TO F/U. KEPT CLEAN, DRY AND COMFORTABLE. ALL NEEDS ATTENDED. CALL LIGHT WITH IN REACH. SAFETY MEASURE OBSERVED. WILL CONT TO MONITOR.
--- NOTE | 2016-07-20 20:31 | NUR ---
pt received on vent via trach, settings as charted ambu bag at bedside alarms set and audible. disconnect alarms checked suctioned a small amount of thick yellow secretions breath sounds equal bilateral coarse pt receiving albuterol and atrovent q6 Addendum: 07/20/16 at 2030 by YEE ARRIAGA RT Amended: Links added.
--- NOTE | 2016-07-20 20:45 | NUR ---
1U PRBC GIVEN, ALL INFUSED, NO S/S OF REACTION, BP WNL, PT AWAKE ALERT
[2016-07-20] MEDS: HYDROMORPHONE 1 MG/1 ML DISP.SYRIN IV PRN (20:50)
[2016-07-20] MEDS: HYDROCODONE/APAP 5/325MG 1 EACH TABLET PO PRN (22:18)
[2016-07-21] VITALS: BP 94/29
[2016-07-21] MEDS: IPRATROPIUM NEB FS 0.5 MG/2.5 ML AMPUL.NEB IH SCH ×4 (02:04→19:00)
[2016-07-21] MEDS: ALBUTEROL FS 2.5 MG/3 ML VIAL.NEB IH SCH ×4 (02:04→19:00)
[2016-07-21] MEDS: HYDROMORPHONE 1 MG/1 ML DISP.SYRIN IV PRN ×3 (02:58→21:17)
[2016-07-21] MEDS: ONDANSETRON HCL/PF 4 MG/2 ML VIAL IVP PRN (03:23)
[2016-07-21] MEDS: HYDROCODONE/APAP 5/325MG 1 EACH TABLET PO PRN ×2 (03:40→16:14)
[2016-07-21 04:00] VITALS: BP 107/39
[2016-07-21] MEDS: MEROPENEM 500 MG in IV NS 0.9% 50 ML IV SCH ×2 (05:23→16:13)
[2016-07-21] MEDS: VALPROIC ACID 250 MG/5 ML UDC GT SCH ×3 (05:23→23:24)
[2016-07-21] MEDS: ACIDOPHILUS/BULGARICUS 1 EACH TAB.CHEW GT SCH ×3 (05:23→21:15)
[2016-07-21] MEDS: RENAL NOVASOURCE 1,000 ML BOTTLE GT PRN (05:49)
[2016-07-21] MEDS: IV NS 0.9% 250 ML IV PRN (05:50)
[2016-07-21] MEDS: BLOOD SUGAR DIAGNOSTIC 1 EACH STRIP IN SCH ×4 (06:52→23:24)
--- NOTE | 2016-07-21 07:00 | NUR ---
RN NOTES RECEIVED PATIENT ON BED , ALERT , ABLE TO MOUTH WORDS , VENT DEPENDENT, TRACH CAR DONE, TOLERATING CURRENT SETTING WELL, IN BED, ON MECH VENT WITH BREATHING NORMAL, EVEN AND UNLABORED. NO SOB NOTED. LEFT UPPER ARM MIDLINE CDI, NOVASOURCE AT 40CC/ HR RUNNING VIA GT , NO RESIDUAL NOTED, BOWEL SOUNDS PRESENT. ON ASPIRATION PRECAUTION, SAFETY MEASURE OBSERVED. SR UP x3. CALL LIGHT WITHIN REACH. WILL CONT TO MONITOR PT CLOSELY AND NOTIFY MD FOR ANY SIGNIFICANT CHANGES
[2016-07-21 07:50] LABS: CALCIUM, SERUM 7.7 mg/dL (8.5-10.1); CREATININE 3.6 mg/dL (0.6-1.3); POTASSIUM 4.1 mmol/L (3.5-5.1)
[2016-07-21 08:00] VITALS: BP 141/69
[2016-07-21 08:27] LABS: BASOPHILS % (AUTO) 0.4 % (0.0-2.0); EOSINOPHILS # (AUTO) 0.3 /CMM (0.0-0.7); HEMATOCRIT 26 % (33-45); HEMOGLOBIN 8.6 g/dL (11.5-14.8); LYMPHOCYTES # (AUTO) 2.6 /CMM (0.8-4.8); LYMPHOCYTES % (AUTO) 29.3 % (20.0-44.0); MEAN CORPUSCULAR HEMOGLOBIN 33 PG (26.0-33.0); MEAN CORPUSCULAR HGB CONC 33 g/dl (31.0-36.0); MEAN CORPUSCULAR VOLUME 99 fL (82-100); MONOCYTES # (AUTO) 0.8 /CMM (0.1-1.30); MONOCYTES % (AUTO) 9.4 % (2.0-12.0); NEUTROPHILS # (AUTO) 5.1 /CMM (1.8-8.9); NEUTROPHILS % (AUTO) 57.9 % (43.0-81.0); PLATELET COUNT (AUTO) 182 /CMM (150-450); RDW COEFFICIENT OF VARIATION 21.8 (11.5-15.0); RED BLOOD CELL COUNT(AUTO) 2.64 MIL/uL (4.0-5.2); WHITE BLOOD COUNT (AUTO) 8.9 K/uL (4.3-11.0)
[2016-07-21] MEDS: UREA 10% -AHA 4% CREAM 57 GM TUBE TP SCH (08:46)
[2016-07-21] MEDS: MUPIROCIN OINT 2% 22 GM TUBE SCH ×2 (08:46→21:15)
[2016-07-21] MEDS: FERROUS SULFATE UDC 300 MG/5 ML UDC GT SCH ×3 (08:48→17:32)
[2016-07-21] MEDS: DOCUSATE SODIUM LIQ 100 MG/10 ML UDC GT SCH ×2 (08:48→21:14)
[2016-07-21] MEDS: VIT B CMPLX 3/FA/VIT C/BIOTIN 1 TAB TABLET GT SCH (08:48)
[2016-07-21] MEDS: LEVETIRACETAM SOL (5 ML) 100 MG/ML UDC GT SCH ×2 (08:48→21:14)
[2016-07-21] MEDS: CLOTRIMAZOLE 1% 15 GM TUBE TP SCH ×2 (08:48→16:18)
[2016-07-21] MEDS: PROSOURCE / PROSTAT (PYXIS) 30 ML UDC GT SCH ×3 (08:48→16:16)
[2016-07-21] MEDS: METOPROLOL TARTRATE 25 MG TABLET GT SCH (08:49)
[2016-07-21] MEDS: ESCITALOPRAM OXALATE (10 MG) 10 MG TABLET GT SCH (08:49)
[2016-07-21] MEDS: PANTOPRAZOLE 40 MG/PACK PACK GT SCH ×2 (08:49→21:14)
[2016-07-21 12:00] VITALS: BP 162/63
[2016-07-21 16:00] VITALS: BP 182/82
[2016-07-21] MEDS: CLONIDINE HCL 0.1 MG TABLET GT PRN (16:45)
--- NOTE | 2016-07-21 16:45 | NUR ---
RN NOTES CK=890/82 HR =82 . CATAPRES .1 MG GIVE PER MD ORDER, CONTINUE TO MONITOR PT .
--- NOTE | 2016-07-21 18:12 | NUR ---
RN NOTES LD=898/74 , PT STABLE , TRACH CARE DONE , L UPPER ARM MIDLINE CDI, TOLERATING TF WELL, NO RESIDUAL NOTED, MEDICATED PER MD ORDER , NO SIGNIFICANT CHANGES NOTED ON THIS SHIFT .
[2016-07-21 20:00] VITALS: BP 124/53
[2016-07-21] MEDS: INSULIN REGULAR, HUMAN 100 UNIT/ML 3 ML VIAL SQ PRN (23:23)
[2016-07-22] VITALS (7 sets, daily range): BP systolic 93–145; BP diastolic 27–79
[2016-07-22] MEDS: ALBUTEROL FS 2.5 MG/3 ML VIAL.NEB IH SCH ×4 (01:39→19:41)
[2016-07-22] MEDS: IPRATROPIUM NEB FS 0.5 MG/2.5 ML AMPUL.NEB IH SCH ×4 (01:40→19:41)
[2016-07-22] MEDS: HYDROCODONE/APAP 5/325MG 1 EACH TABLET PO PRN (02:09)
[2016-07-22] MEDS: ACIDOPHILUS/BULGARICUS 1 EACH TAB.CHEW GT SCH ×3 (04:37→20:34)
[2016-07-22] MEDS: VALPROIC ACID 250 MG/5 ML UDC GT SCH ×2 (04:38→17:45)
[2016-07-22] MEDS: MEROPENEM 500 MG in IV NS 0.9% 50 ML IV SCH ×2 (04:38→16:31)
[2016-07-22] MEDS: HYDROMORPHONE 1 MG/1 ML DISP.SYRIN IV PRN ×2 (04:39→15:36)
[2016-07-22] MEDS: IV NS 0.9% 250 ML IV PRN (04:52)
[2016-07-22] MEDS: INSULIN REGULAR, HUMAN 100 UNIT/ML 3 ML VIAL SQ PRN (05:05)
[2016-07-22] MEDS: BLOOD SUGAR DIAGNOSTIC 1 EACH STRIP IN SCH ×3 (05:06→17:46)
[2016-07-22] MEDS: RENAL NOVASOURCE 1,000 ML BOTTLE GT PRN (05:13)
--- NOTE | 2016-07-22 06:25 | NUR ---
PENS AND PENCILS REPAIRER - REC'D PT. A&O X 2. PT.IS ABLE TO COMMUNICATE ORALLY, EVENT W/TRACH. AC-16, TV-600, 35% & PEEP 5. PT.NEEDS FREQUENT SXING ORALLY,TRACHEAL & NASALLY. REINALDO/INGRIS GAVE PT. 2 BEDBATHS LAST NIGHT DUE TO [employer]. PT.IS DIAPERED. PT. REC'D DILAUDID ONE MG IVP X 2 LAST NIGHT AT PT'S REQUEST. PT. ALSO REC'D NORCO ONE TAB AT 2:09 AM FOR SACRAL/BACK PAIN. WOUND CARE GIVEN BY RN. VSS. PT.IS STABLE AT PRESENT. WILL ENDORSE REPORT TO GINA BACON. CONT. POC.
[2016-07-22 07:30] LABS: BASOPHILS % (AUTO) 0.4 % (0.0-2.0); EOSINOPHILS # (AUTO) 0.3 /CMM (0.0-0.7); EOSINOPHILS % (AUTO) 3.6 % (0.0-6.0); HEMATOCRIT 27 % (33-45); HEMOGLOBIN 8.9 g/dL (11.5-14.8); LYMPHOCYTES # (AUTO) 2.5 /CMM (0.8-4.8); LYMPHOCYTES % (AUTO) 27.4 % (20.0-44.0); MEAN CORPUSCULAR HEMOGLOBIN 33 PG (26.0-33.0); MEAN CORPUSCULAR HGB CONC 33 g/dl (31.0-36.0); MEAN CORPUSCULAR VOLUME 100 fL (82-100); MONOCYTES # (AUTO) 0.8 /CMM (0.1-1.30); MONOCYTES % (AUTO) 8.9 % (2.0-12.0); NEUTROPHILS # (AUTO) 5.4 /CMM (1.8-8.9); NEUTROPHILS % (AUTO) 59.7 % (43.0-81.0); PLATELET COUNT (AUTO) 194 /CMM (150-450); RDW COEFFICIENT OF VARIATION 21.8 (11.5-15.0); RED BLOOD CELL COUNT(AUTO) 2.66 MIL/uL (4.0-5.2); WHITE BLOOD COUNT (AUTO) 9.1 K/uL (4.3-11.0)
--- NOTE | 2016-07-22 07:30 | NUR ---
RN NOTES RECEIVED PT RESTING IN BED, PT IS A/O X 3 AND ABLE TO MAKE NEEDS KNOWN BY MOUTHING WORDS. PT IS ON MECHANICAL VENT VIA TRACH. SUCTIONED FOR AIRWAY CLEARANCE. PT TOLERATING VENT SETTING WELL. SR ON TELE MONITOR. NOTED WITH GUERDA MIDLINE, CDI. BED IN LOW LOCK POSITION WITH RAILS UP X 2. REPOSITIONED FOR COMFORT. ISOLATION PREC OBSERVED, CALL LIGHT WITHIN REACH AND ALL SAFETY MEASURES ENSURED AND CARRIED OUT. WILL CONTINUE TO MONITOR PT.
[2016-07-22 07:50] LABS: CALCIUM, SERUM 8.6 mg/dL (8.5-10.1); CREATININE 4.6 mg/dL (0.6-1.3)
[2016-07-22] MEDS: METOPROLOL TARTRATE 25 MG TABLET GT SCH (09:00)
[2016-07-22] MEDS: VIT B CMPLX 3/FA/VIT C/BIOTIN 1 TAB TABLET GT SCH (09:00)
[2016-07-22] MEDS: ESCITALOPRAM OXALATE (10 MG) 10 MG TABLET GT SCH (09:00)
[2016-07-22] MEDS: DOCUSATE SODIUM LIQ 100 MG/10 ML UDC GT SCH ×2 (09:00→20:34)
[2016-07-22] MEDS: PANTOPRAZOLE 40 MG/PACK PACK GT SCH ×2 (09:01→20:34)
[2016-07-22] MEDS: FERROUS SULFATE UDC 300 MG/5 ML UDC GT SCH ×3 (09:01→17:45)
[2016-07-22] MEDS: PROSOURCE / PROSTAT (PYXIS) 30 ML UDC GT SCH ×3 (09:01→17:50)
[2016-07-22] MEDS: LEVETIRACETAM SOL (5 ML) 100 MG/ML UDC GT SCH ×2 (09:01→20:34)
[2016-07-22] MEDS: UREA 10% -AHA 4% CREAM 57 GM TUBE TP SCH (09:02)
[2016-07-22] MEDS: CLOTRIMAZOLE 1% 15 GM TUBE TP SCH ×2 (09:03→16:31)
[2016-07-22] MEDS: MUPIROCIN OINT 2% 22 GM TUBE SCH ×2 (09:03→20:34)
--- NOTE | 2016-07-22 19:00 | NUR ---
RN CLOSING NOTES PT IS IN BED, SIDERAILS UP, HOB ELEVATED 35 DEGREES, NO SI/SX OF DISTRESS NOTED, NO RESPIRATORY DISTRESS. IV SITES PATENT, NO S/SX OF INFECTION/INFILTRATION NOTED. ALL MEDS GIVEN ORDERED, PT TOLERATED WELL, ALL MD ORDERS CARRIED OUT. SAFETY MEASURES MAINTAINED, CALL LIGHTS WITHIN REACH. ALL NEEDS MET
[2016-07-23] VITALS: BP_SYST 150; BP_SYST 153; BP_DIAS 61
[2016-07-23] MEDS: BLOOD SUGAR DIAGNOSTIC 1 EACH STRIP IN SCH ×3 (00:22→11:27)
[2016-07-23] MEDS: VALPROIC ACID 250 MG/5 ML UDC GT SCH ×2 (00:22→05:21)
[2016-07-23] MEDS: HYDROMORPHONE 1 MG/1 ML DISP.SYRIN IV PRN ×2 (00:22→09:53)
[2016-07-23] MEDS: ALBUTEROL FS 2.5 MG/3 ML VIAL.NEB IH SCH ×3 (00:52→13:27)
[2016-07-23] MEDS: IPRATROPIUM NEB FS 0.5 MG/2.5 ML AMPUL.NEB IH SCH ×3 (00:53→13:27)
[2016-07-23 04:00] VITALS: BP 170/64
[2016-07-23] MEDS: MEROPENEM 500 MG in IV NS 0.9% 50 ML IV SCH (05:21)
[2016-07-23] MEDS: CLONIDINE HCL 0.1 MG TABLET GT PRN (05:21)
[2016-07-23] MEDS: ACIDOPHILUS/BULGARICUS 1 EACH TAB.CHEW GT SCH ×2 (05:21→12:30)
[2016-07-23] MEDS: RENAL NOVASOURCE 1,000 ML BOTTLE GT PRN (05:22)
--- NOTE | 2016-07-23 07:00 | NUR ---
INTIAL RN NOTE RECEIVED PT FROM PM NURSE PT A/OX3 CALM AND RESTING NO C/O PAIN. TOLERATING VENT SHILEY #8, AC16, TV600, FI02 35%, PEEP 5 AND NO ACUTE C/O SOB. GT NOVASOURCE @ 40 TOLERATING WELL CK PLACEMENT AND NO RESIDUAL NOTED. IV R CHEST WALL HD CATH AND LFA 22 G FLUSHED AND PATENT. REPOSITIONED FOR SAFETY AND COMFORT. PT KEPT WARM AND DRY. ALL SAFELY MEASURES IN PLACE WILL CONTINUE TO MONITOR CLOSELY.
[2016-07-23 08:00] VITALS: BP 115/36
[2016-07-23] MEDS: PANTOPRAZOLE 40 MG/PACK PACK GT SCH (08:24)
[2016-07-23] MEDS: ESCITALOPRAM OXALATE (10 MG) 10 MG TABLET GT SCH (08:24)
[2016-07-23] MEDS: VIT B CMPLX 3/FA/VIT C/BIOTIN 1 TAB TABLET GT SCH (08:25)
[2016-07-23] MEDS: FERROUS SULFATE UDC 300 MG/5 ML UDC GT SCH ×2 (08:25→12:30)
[2016-07-23] MEDS: LEVETIRACETAM SOL (5 ML) 100 MG/ML UDC GT SCH (08:25)
[2016-07-23] MEDS: CLOTRIMAZOLE 1% 15 GM TUBE TP SCH (08:26)
[2016-07-23] MEDS: MUPIROCIN OINT 2% 22 GM TUBE SCH (08:26)
[2016-07-23] MEDS: DOCUSATE SODIUM LIQ 100 MG/10 ML UDC GT SCH (08:27)
[2016-07-23] MEDS: UREA 10% -AHA 4% CREAM 57 GM TUBE TP SCH (08:27)
[2016-07-23] MEDS: PROSOURCE / PROSTAT (PYXIS) 30 ML UDC GT SCH ×2 (08:28→12:30)
[2016-07-23] MEDS: METOPROLOL TARTRATE 25 MG TABLET GT SCH (08:28)
[2016-07-23] MEDS: HYDROCODONE/APAP 5/325MG 1 EACH TABLET PO PRN ×2 (11:27→16:36)
[2016-07-23] MEDS: Z GUARD REMEDY 2 OZ OINT TP PRN (11:28)
[2016-07-23 12:00] VITALS: BP 134/62
[2016-07-23 16:00] VITALS: BP 151/72
--- NOTE | 2016-07-23 17:00 | NUR ---
ELECTRICAL MAINTENANCE WORKER NOTE PT DC TO [facility] REPORT GIVEN TO CRISTINA RN WORK CHECKER. PT TRANSFERRED VIA AMBULANCE REPORT GIVEN TO JORGE EMT. IV REMOVED, ID BAND REMOVED, ALL DISCHARGE INSTRUCTIONS GIVEN, ALL QUESTIONS ANSWERED AND BELONGINGS LIST SIGNED AND TAKEN. PHOTOS TAKEN AND PUT IN CHART. PT KEPT CLEAN AND DRY. WOUND TX CARRIED OUT. ALL MD ORDERS CARRIED OUT.
== END 2016-07-23 17:19 | DRG 870 ==
LOC: ER 16:37 → TELE1 20:23
PROVIDERS: ADMIT Family Medicine; ATTEND Family Medicine
PROC: 5A1955Z Respiratory Ventilation, Greater than 96 Consecutive Hours (ICD-10-PCS; principal; 2016-07-11)
PROC: 5A1D60Z (ICD-10-PCS; 2016-07-14)
PROC: 05H633Z Insertion of Infusion Device into Left Subclavian Vein, Percutaneous Approach (ICD-10-PCS; 2016-07-16)
PROC: 30233N1 Transfusion of Nonautologous Red Blood Cells into Peripheral Vein, Percutaneous Approach (ICD-10-PCS; 2016-07-20)
DX: A41.9 Sepsis, unspecified organism (principal); E43 Unspecified severe protein-calorie malnutrition; N18.6 End stage renal disease; R53.2 Functional quadriplegia; G93.40 Encephalopathy, unspecified; L89.153 Pressure ulcer of sacral region, stage 3; N39.0 Urinary tract infection, site not specified; E87.1 Hypo-osmolality and hyponatremia; I12.0 Hypertensive chronic kidney disease with stage 5 chronic kidney disease or end stage renal disease; J96.11 Chronic respiratory failure with hypoxia; Z99.11 Dependence on respirator [ventilator] status; N17.9 Acute kidney failure, unspecified; Z99.2 Dependence on renal dialysis; Z93.0 Tracheostomy status; D63.8 Anemia in other chronic diseases classified elsewhere; E11.22 Type 2 diabetes mellitus with diabetic chronic kidney disease; G40.909 Epilepsy, unspecified, not intractable, without status epilepticus; I25.10 Atherosclerotic heart disease of native coronary artery without angina pectoris; Z79.4 Long term (current) use of insulin; K21.9 Gastro-esophageal reflux disease without esophagitis; J44.9 Chronic obstructive pulmonary disease, unspecified; F32.9 Major depressive disorder, single episode, unspecified; E66.01 Morbid (severe) obesity due to excess calories; G89.29 Other chronic pain; M54.5 Low back pain; B96.20 Unspecified Escherichia coli [E. coli] as the cause of diseases classified elsewhere; D53.9 Nutritional anemia, unspecified; M20.40 Other hammer toe(s) (acquired), unspecified foot; R13.10 Dysphagia, unspecified; Z87.440 Personal history of urinary (tract) infections
CPT/HCPCS: 31720; 36415; 70450-TC; 71010-TC; 74000-TC; 80048-TC; 80061-TC; 80076-TC; 80164-TC; 81000-TC; 82140-TC; 82272-TC; 82746; 82962-TC; 82977-TC; 83735-TC; 84100-TC; 84484-TC; 85025-TC; 85730-TC; 86850-TC; 86921-TC; 87040-TC; 87081-TC; 87086-TC; 87186-TC; 94003-TC; 94760-TC; A4216; A4606; A6248; A6253; A6402; J0696; J0885; J1170; J1644; J1815; J1953; J2185; J2405; J7030; J7050; J7060; P9016-BL; P9047; Z7610

== ENCOUNTER 2016-09-15 12:43 | Inpatient (IN) | payer MEDICARE, OTHER ==
[~2016-09-15] VITALS: Ht 167.6 cm; Wt 102.1 kg
--- NOTE | 2016-09-15 12:57 | NUR ---
PT BIBRA TO ER BED 09. PER REPORT, MORE ALTERED THAN USUAL POST DIALYSIS TODAY. PT IS VENT DEPENDENT W/ CURRENT SETTINGS AC 16 TV 600 FIO2 35% PEEP 5. PLACED ON MONITOR. TACHY BUT AFEBRILE NUMERICAL ANALYSIS GROUP MANAGER. AWAITING MD RODRIGUES.
--- NOTE | 2016-09-15 13:06 | NUR ---
DR PERSON AT BEDSIDE FOR EVAL.
[2016-09-15 13:15] VITALS: BP 104/50
--- NOTE | 2016-09-15 13:15 | NUR ---
PT. PLACED ON [facility] VENT VIA TRACH SIZE 8 XLT PROXIMAL. VENT PARAMETERS BELLOW SET PER RT TRANSPORTER: AC 16 VT 600 FIO2 35% PEEP +5 B/S CLEAR BILATERAL AMBU BAG@ BEDSIDE Addendum: 09/15/16 at 1348 by DANTE NEGRETE RT Amended: Links added.
--- NOTE | 2016-09-15 13:41 | NUR ---
RADIOLOGY AT BEDSIDE FOR CHEST XRAY.
[2016-09-15 13:46] LABS: BASOPHILS % (AUTO) 0.4 % (0.0-2.0); EOSINOPHILS # (AUTO) 0.1 /CMM (0.0-0.7); EOSINOPHILS % (AUTO) 1.1 % (0.0-6.0); HEMATOCRIT 49 % (33-45); HEMOGLOBIN 9.4 g/dL (11.5-14.8); LYMPHOCYTES # (AUTO) 1.4 /CMM (0.8-4.8); LYMPHOCYTES % (AUTO) 16.4 % (20.0-44.0); MEAN CORPUSCULAR HEMOGLOBIN 20 PG (26.0-33.0); MEAN CORPUSCULAR HGB CONC 19 g/dl (31.0-36.0); MEAN CORPUSCULAR VOLUME 103 fL (82-100); MONOCYTES # (AUTO) 0.9 /CMM (0.1-1.30); MONOCYTES % (AUTO) 10.1 % (2.0-12.0); NEUTROPHILS # (AUTO) 6.2 /CMM (1.8-8.9); PLATELET COUNT (AUTO) 371 /CMM (150-450); RDW COEFFICIENT OF VARIATION 16.5 (11.5-15.0); RED BLOOD CELL COUNT(AUTO) 4.73 MIL/uL (4.0-5.2); WHITE BLOOD COUNT (AUTO) 8.6 K/uL (4.3-11.0)
[2016-09-15 13:54] LABS: CALCIUM, SERUM 9.1 mg/dL (8.5-10.1); CARBON DIOXIDE 25 mmol/L (21-32); CHLORIDE 101 mmol/L (98-107); CREATININE 2.9 mg/dL (0.6-1.3); GLUCOSE 91 mg/dL (74-106); POTASSIUM 4.1 mmol/L (3.5-5.1); SODIUM SERUM 133 mmol/L (136-145); UREA NITROGEN, BLOOD 70 mg/dL (7-18)
[2016-09-15 13:58] LABS: INR 1.07 (0.87-1.13); PROTHROMBIN TIME 11.1 SECS (9.5-12.7)
[2016-09-15 14:00] LABS: ALANINE AMINOTRANSFERASE 16 U/L (12-78); ALCOHOL, BLOOD < 3 mg/dL (0-0); ALKALINE PHOSPHATASE 247 U/L (46-116); ASPARTATE AMINOTRANSFERASE 35 U/L (15-37); BILIRUBIN,DIRECT 0.2 mg/dL (0.0-0.2); BILIRUBIN,TOTAL 0.5 mg/dL (0.2-1.0); TOTAL PROTEIN, SERUM 9.1 g/dL (6.4-8.2)
[2016-09-15 14:02] LABS: TROPONIN I 0.076 ng/mL (0.00-0.056)
[2016-09-15 14:16] LABS: SERUM AMMONIA 38 umol/L (11-32)
[2016-09-15 14:29] LABS: THYROID STIMULATING HORMONE 4.487 uIU/mL (0.358-3.74)
[2016-09-15] MEDS ORDERED: DULO30CA2 GT (15:02)
[2016-09-15] MEDS ORDERED: HYDR-552 GT (15:02)
[2016-09-15] MEDS ORDERED: HYDR-4075 GT (15:02)
[2016-09-15] MEDS ORDERED: ACET650S26 GT (15:02)
[2016-09-15] MEDS ORDERED: NUT.237L67 GT (15:02)
--- NOTE | 2016-09-15 15:03 | NUR ---
PT TO RADIOLOGY FOR HEAD CT SCAN VIA [facility].
--- NOTE | 2016-09-15 15:50 | NUR ---
PAGED FORM STRIPPER PANEL
[2016-09-15] MEDS ORDERED: ASPIRIN 325 MG TABLET GT ONE (16:00)
[2016-09-15] MEDS ORDERED: ASPIRIN 325 MG TABLET ONE (16:12)
--- NOTE | 2016-09-15 16:49 | NUR ---
REPORT GIVEN TO ANABELLE. PT AWAITING TRANSFER TO FLOOR.
[2016-09-15] MEDS ORDERED: Z GUARD REMEDY 2 OZ OINT TP PRN (17:00)
[2016-09-15] MEDS ORDERED: ONDANSETRON HCL/PF 4 MG/2 ML VIAL IVP PRN (17:00)
[2016-09-15] MEDS ORDERED: MAG HYDROX/AL HYDROX/SIMETH 30 ML UDC PO PRN (17:00)
[2016-09-15] MEDS ORDERED: MAGNESIUM HYDROXIDE 30 ML UDC PO PRN (17:00)
[2016-09-15] MEDS ORDERED: IPRATROPIUM NEB FS 0.5 MG/2.5 ML AMPUL.NEB IH PRN (17:00)
[2016-09-15] MEDS ORDERED: ALBUTEROL FS 2.5 MG/3 ML VIAL.NEB IH PRN (17:00)
[2016-09-15] MEDS ORDERED: NEPRO VAN 237 ML CAN GT SCH (17:00)
--- NOTE | 2016-09-15 17:56 | NUR ---
TRANSFERRED FROM ER#9 TO 318. PT. USED SAME [facility] VENT, PLUGGED INTO RED OUTLET WITH ALARMS ON & FUNCTIONING. Addendum: 09/15/16 at 1800 by DANTE NEGRETE RT Amended: Links added.
[2016-09-15 18:00] VITALS: BP 145/66
[2016-09-15] MEDS: VALPROIC ACID 250 MG/5 ML UDC GT SCH (18:40)
--- NOTE | 2016-09-15 19:01 | NUR ---
RN ADMITTING NOTES RECEIVED REPORT FROM ER NURSE. PATIENT ARRIVED TO UNIT IN A GURNEY WITH A RESPIRATORY THERAPIST AND A REGISTERED NURSE. PATIENT WAS CLEANED AND DRIED. PICTURES WERE TAKEN AND PLACED IN THE CHART. VITAL SIGNS ARE STABLE AND DOCUMENTED IN THE FLOWCHART. PATIENT CAME FROM [facility] FOR ALTERED MENTAL STATUS. GT TUBE PLACEMENT CHECKED WITH NO RESIDUAL, MEDICATION GIVEN, FLUSHED WITH WATER. HEAD OF THE BED IS ELEVATED FOR ASPIRATION PRECAUTION. SKIN CARE PROVIDED. MECHANICAL VENTILATION SETTING WAS CONFIRMED AND ALARMS CHECKED. WILL ENDORSE TO DELIVERY ANALYST NURSE
--- NOTE | 2016-09-15 19:25 | NUR ---
REPORT GAVE TO AIX ARCHITECT NURSE
--- NOTE | 2016-09-15 19:40 | NUR ---
GENETICS PHYSICIAN NOTE: PATIENT RESTING IN BED, NO ACUTE DISTRESS NOTED. BREATHING EVEN AND UNLABORED, NO SOB NOTED. VENT SETTINGS IN PLACE ORDERED. G-TUBE IN PLACE, WITH NO RESIDUAL. IV TO RIGHT BREAST IN PLACE. HD SITE TO RIGHT CHEST WALL IN PLACE. PATIENT WITH HISTORY OF MRSA NARES AND ESBL URINE, ISOLATION PRECAUTIONS OBSERVED. BED LOCKED AND IN LOWEST POSITION, CALL LIGHT IN REACH. WILL CONTINUE TO MONITOR.
[2016-09-15 20:00] VITALS: BP 141/77
[2016-09-15] MEDS ORDERED: RENAL NOVASOURCE 1,000 ML BOTTLE GT PRN (20:00)
[2016-09-15] MEDS: LEVETIRACETAM SOL (5 ML) 100 MG/ML UDC GT SCH (20:58)
[2016-09-15] MEDS: PROSOURCE / PROSTAT (PYXIS) 30 ML UDC GT SCH (20:58)
[2016-09-15] MEDS: DOCUSATE SODIUM LIQ 100 MG/10 ML UDC GT SCH (20:58)
[2016-09-15] MEDS: ACIDOPHILUS/BULGARICUS 1 EACH TAB.CHEW GT SCH (20:59)
[2016-09-15] MEDS: hydrALAZINE HCL 10 MG TABLET GT SCH (20:59)
[2016-09-16] VITALS (7 sets, daily range): BP systolic 131–166; BP diastolic 56–79
[2016-09-16] MEDS: VALPROIC ACID 250 MG/5 ML UDC GT SCH ×3 (01:04→18:39)
--- NOTE | 2016-09-16 02:00 | NUR ---
PHOTORESIST CONTACT PRINTER NOTE: PATIENT SLEEPING IN BED, NO ACUTE DISTRESS NOTED. VENT SETTINGS IN PLACE. BED LOCKED AND IN LOWEST POSITION, CALL LIGHT IN REACH. WILL CONTINUE TO MONITOR.
[2016-09-16] MEDS: hydrALAZINE HCL 10 MG TABLET GT SCH ×3 (05:41→20:40)
[2016-09-16] MEDS: ACIDOPHILUS/BULGARICUS 1 EACH TAB.CHEW GT SCH ×3 (05:41→20:40)
--- NOTE | 2016-09-16 06:00 | NUR ---
SCHOOL YEAR NANNY NOTE: PATIENT RESTING IN BED, NO ACUTE DISTRESS NOTED. BREATHING EVEN AND UNLABORED, NO SOB NOTED. VENT SETTINGS IN PLACE ORDERED. G-TUBE IN PLACE, WITH NO RESIDUAL. IV TO RIGHT BREAST IN PLACE. HD SITE TO RIGHT CHEST WALL IN PLACE, NO BLEEDING NOTED. TELE READING SR 88.ISOLATION PRECAUTIONS OBSERVED. BED LOCKED AND IN LOWEST POSITION, CALL LIGHT IN REACH. WILL ENDORSE TO DAY NURSE TO CONTINUE WITH PLAN OF CARE.
--- NOTE | 2016-09-16 08:00 | NUR ---
RN MS NOTES PATIENT IN BED, IN NO APPARENT DISTRESS, NO SOB NOTES, NO FACIAL GRIMACING NOTED.VENT SETTINGS ORDERED, G TUBE PATENT. NO BLEEDING NOTED. ALL NEEDS MET, KEPT CLEAN AND DRY.
[2016-09-16 08:32] LABS: BASOPHILS % (AUTO) 0.2 % (0.0-2.0); EOSINOPHILS # (AUTO) 0.1 /CMM (0.0-0.7); EOSINOPHILS % (AUTO) 1.4 % (0.0-6.0); HEMATOCRIT 37 % (33-45); HEMOGLOBIN 11.8 g/dL (11.5-14.8); LYMPHOCYTES # (AUTO) 2.3 /CMM (0.8-4.8); LYMPHOCYTES % (AUTO) 23.5 % (20.0-44.0); MEAN CORPUSCULAR HEMOGLOBIN 33 PG (26.0-33.0); MEAN CORPUSCULAR HGB CONC 32 g/dl (31.0-36.0); MEAN CORPUSCULAR VOLUME 102 fL (82-100); MONOCYTES # (AUTO) 1.4 /CMM (0.1-1.30); MONOCYTES % (AUTO) 14.1 % (2.0-12.0); NEUTROPHILS # (AUTO) 5.9 /CMM (1.8-8.9); NEUTROPHILS % (AUTO) 60.8 % (43.0-81.0); PLATELET COUNT (AUTO) 234 /CMM (150-450); RDW COEFFICIENT OF VARIATION 17.5 (11.5-15.0); RED BLOOD CELL COUNT(AUTO) 3.56 MIL/uL (4.0-5.2); WHITE BLOOD COUNT (AUTO) 9.7 K/uL (4.3-11.0)
[2016-09-16 09:16] LABS: CALCIUM, SERUM 9.2 mg/dL (8.5-10.1); CREATININE 3.8 mg/dL (0.6-1.3); MAGNESIUM 2.6 mg/dL (1.8-2.4); PHOSPHORUS 3.5 mg/dL (2.5-4.9); POTASSIUM 5.2 mmol/L (3.5-5.1)
[2016-09-16] MEDS: LEVETIRACETAM SOL (5 ML) 100 MG/ML UDC GT SCH ×2 (10:33→20:39)
[2016-09-16] MEDS: PANTOPRAZOLE 40 MG TABLET.DR PO SCH (10:33)
[2016-09-16] MEDS: DOCUSATE SODIUM LIQ 100 MG/10 ML UDC GT SCH ×2 (10:33→20:39)
[2016-09-16] MEDS: FERROUS SULFATE (325 MG) 325 MG/TAB TABLET PO SCH ×3 (10:34→18:39)
[2016-09-16] MEDS: VIT B CMPLX 3/FA/VIT C/BIOTIN 1 TAB TABLET GT SCH (10:34)
[2016-09-16] MEDS: DULOXETINE HCL 30 MG CAPSULE.DR GT SCH (10:35)
[2016-09-16] MEDS: PROSOURCE / PROSTAT (PYXIS) 30 ML UDC GT SCH ×4 (10:35→20:40)
[2016-09-16] MEDS: METOPROLOL TARTRATE 25 MG TABLET GT SCH (10:35)
--- NOTE | 2016-09-16 11:11 | NUR ---
WOUND CARE CONSULT: PT PRESENTS WITH MULTIPLE SKIN ISSUES INCLUDING STAGE III ULCER TO SACRUM, PRESENT ON ADMISSION AND EXCORIATION TO SKIN FOLDS. PT INCONTINENT OF GREENISH/BLACK LOOSE STOOL. RECOMMEND BARIMAX BED WITH ETS AIR TO ACCOMODATE WEIGHT AND GIRTH. ALL SKIN AND WOUND RECOMMENDATIONS DISCUSSED WITH NURSING STAFF. SURGICAL CONSULT RECOMMENDED. PT TO BE TURNED AND REPOSITIONED EVERY 2 HRS PT CONDITION PERMITS, HEELS FLOATED. MD IN AGREEMENT WITH PLAN OF CARE. Addendum: 09/16/16 at 1115 by KERI DRAKE WNDNU Amended: Links added.
--- NOTE | 2016-09-16 15:04 | NUR ---
RN MS NOTES PATIENT IN BED IN NO APPARENT DISTRESS, NO SOB, NO FACIAL GRIMACING NOTED. PATIENT HAD CT OF THE ABDOMEN WITHOUT CONTRAST, TOLERATED WELL. SEEN AND EVALUATED BY DR. CARMEN ALVARENGA WITH NEW ORDERS TO RESUME FEEDING AND MEDS. PER MD NO ENDOSCOPY NEEDED AT THIS TIME, BLACK STOOLS MAY BE ATTRIBUTED TO IRON INTAKE CONTINUE TO MONITOR FOR S/S OF BLEEDING. INFORMED DR BURGOS OF POTASSIUM LEVEL OF 5.2 AND BUN 101, MD ORDERED FOR PATIENT TO BE DIALYZED. ALL NEEDS MET, KEPT CLEAN AND DRY. Addendum: 09/16/16 at 1513 by BOSSMAN DAVENPORT RN HYDRALAZINE HELD DUE TO PATIENT SCHEDULED TO RECEIVE DIALYSIS.
[2016-09-16] MEDS: ACETYLCYSTEINE 10% SOLN 400 MG/4 ML VIAL NEB SCH ×2 (15:17→23:58)
[2016-09-16] MEDS: RENAL NOVASOURCE 1,000 ML BOTTLE GT PRN (16:28)
--- NOTE | 2016-09-16 18:34 | NUR ---
SCHOOL LABORATORY TECHNICIAN NOTES PT IN BED, AWAKE, NO FACIAL GRIMACING, NOT IN DISTRESS, VENT IN PLACE, GT FEEDING INFUSING WELL, TOLERATING WELL, ON BARIMAXX BED, NO BLOODY STOOL NOTED, TURNED AND REPOSITIONED Q2 HRS, PM CARE RENDERED, SUCTIONED SECRETIONS NEEDED, ALL NEEDS ATTENDED.
--- NOTE | 2016-09-16 19:10 | NUR ---
RN NOT RECEIVED REPORT. PT NON-VERBAL, EYE OPENING. TRACE-VENT PATIENT, SETTINGS ACCURATE. NO S/S OF DISTRESS AT THIS TIME. IV INTACT AND PATENT, HD CATH INTACT. TELE SHOWS SR IN 80'S. G TUBE FEEDING INFUSING WELL. SAFETY AND COMFORT MEASURES RENDERED, WILL CONT TO MONITOR.
[2016-09-16] MEDS: ALBUTEROL FS 2.5 MG/3 ML VIAL.NEB IH SCH ×2 (20:09→23:59)
[2016-09-16] MEDS: IPRATROPIUM NEB FS 0.5 MG/2.5 ML AMPUL.NEB IH SCH ×2 (20:10→23:59)
[2016-09-16] MEDS ORDERED: SECONDARY IV SET 1 EA INFUS.SET MC ONE (23:34)
[2016-09-17] VITALS: BP 131/67
[2016-09-17] MEDS: VALPROIC ACID 250 MG/5 ML UDC GT SCH ×3 (00:24→17:17)
[2016-09-17] MEDS: ALBUTEROL FS 2.5 MG/3 ML VIAL.NEB IH SCH ×6 (03:34→23:23)
[2016-09-17] MEDS: IPRATROPIUM NEB FS 0.5 MG/2.5 ML AMPUL.NEB IH SCH ×6 (03:34→23:23)
--- NOTE | 2016-09-17 03:45 | NUR ---
Pt was received on appropriate settings. Vent is plugged into the red oulet, ambubag by bedside, no extra trache in the room. Pt obtundent, with no distress. Pt received medication and suctioning on time. Dejan DUBONP Addendum: 09/17/16 at 0346 by KYLEE FERNANDEZ RT Amended: Links added.
[2016-09-17 04:00] VITALS: BP 127/56
[2016-09-17] MEDS: ACIDOPHILUS/BULGARICUS 1 EACH TAB.CHEW GT SCH ×3 (05:43→21:21)
[2016-09-17] MEDS: hydrALAZINE HCL 10 MG TABLET GT SCH ×3 (05:43→21:20)
--- NOTE | 2016-09-17 06:36 | NUR ---
RN NOTE NO SIGNIFICANT CHANGES OVERNIGHT. PT NON-VERBAL, EYE OPENING. NO S/S OF ANY DISTRESS AT THIS TIME, VENT SETTINGS ACCURATE. TELE SHOWS SR. WOUND CARE PROVIDED, SUCTIONED PRN, REPOSITIONED Q2HS, KEPT CLEAN AND DRY. IV'S INTACT AND PATENT. TOLERATING GTF WELL. WILL F/U WITH DAY SHIFT FOR JEIMY. FOR ECHO TODAY.
[2016-09-17 07:34] LABS: BASOPHILS % (AUTO) 0.2 % (0.0-2.0); EOSINOPHILS # (AUTO) 0.1 /CMM (0.0-0.7); HEMATOCRIT 36 % (33-45); HEMOGLOBIN 11.8 g/dL (11.5-14.8); LYMPHOCYTES # (AUTO) 2.4 /CMM (0.8-4.8); LYMPHOCYTES % (AUTO) 24.8 % (20.0-44.0); MEAN CORPUSCULAR HEMOGLOBIN 34 PG (26.0-33.0); MEAN CORPUSCULAR HGB CONC 33 g/dl (31.0-36.0); MEAN CORPUSCULAR VOLUME 103 fL (82-100); MONOCYTES # (AUTO) 1.4 /CMM (0.1-1.30); MONOCYTES % (AUTO) 14.7 % (2.0-12.0); NEUTROPHILS # (AUTO) 5.7 /CMM (1.8-8.9); NEUTROPHILS % (AUTO) 59.3 % (43.0-81.0); PLATELET COUNT (AUTO) 218 /CMM (150-450); RDW COEFFICIENT OF VARIATION 17.8 (11.5-15.0); WHITE BLOOD COUNT (AUTO) 9.6 K/uL (4.3-11.0)
[2016-09-17 07:44] LABS: CALCIUM, SERUM 8.9 mg/dL (8.5-10.1); CREATININE 3.7 mg/dL (0.6-1.3); MAGNESIUM 2.4 mg/dL (1.8-2.4); PHOSPHORUS 3.8 mg/dL (2.5-4.9); POTASSIUM 4.3 mmol/L (3.5-5.1)
--- NOTE | 2016-09-17 07:54 | NUR ---
RN MS NOTES PATIENT IN BED, SLEEPING COMFORTABLY, IN NO APPARENT DISTRESS, NO FACIAL GRIMACING NOTED. RESPIRATIONS EVEN AND UNLABORED, NO S/S OF RESPIRATORY DISTRESS NOTED. VENT SETTINGS CORRECT. ALL NEEDS MET, KEPT CLEAN AND DRY.
[2016-09-17 08:00] VITALS: BP 153/66
[2016-09-17 08:05] VITALS: BP 153/66
[2016-09-17] MEDS: PROSOURCE / PROSTAT (PYXIS) 30 ML UDC GT SCH ×4 (08:33→21:21)
[2016-09-17] MEDS: DULOXETINE HCL 30 MG CAPSULE.DR GT SCH (08:33)
[2016-09-17] MEDS: DOCUSATE SODIUM LIQ 100 MG/10 ML UDC GT SCH ×2 (08:33→21:20)
[2016-09-17] MEDS: LEVETIRACETAM SOL (5 ML) 100 MG/ML UDC GT SCH ×2 (08:33→21:21)
[2016-09-17] MEDS: VIT B CMPLX 3/FA/VIT C/BIOTIN 1 TAB TABLET GT SCH (08:34)
[2016-09-17] MEDS: FERROUS SULFATE (325 MG) 325 MG/TAB TABLET PO SCH ×3 (08:34→17:17)
[2016-09-17] MEDS: METOPROLOL TARTRATE 25 MG TABLET GT SCH (08:34)
[2016-09-17] MEDS: PANTOPRAZOLE 40 MG TABLET.DR PO SCH (08:35)
[2016-09-17] MEDS: ACETYLCYSTEINE 10% SOLN 400 MG/4 ML VIAL NEB SCH ×3 (08:49→23:23)
--- NOTE | 2016-09-17 13:20 | NUR ---
PUBLIC TRANSPORTATION INSPECTOR NOTES HYDRALAZINE HELD DUE TO PATIENT BEING SCHEDULED FOR DIALYSIS TODAY.
--- NOTE | 2016-09-17 15:30 | NUR ---
PATIENT IN BED, IN NO APPARENT DISTRESS, NO SOB NOTED, NO FACIAL GRIMACING NOTED.ALL NEEDS MET, KEPT CLEAN AND DRY.
[2016-09-17 16:13] VITALS: BP 115/54
--- NOTE | 2016-09-17 18:51 | NUR ---
PRODUCTION POSTING CLERK NOTES PATIENT IN BED IN NO APPARENT DISTRESS, NO SOB NOTED, NO FACIAL GRIMACING NOTED. VENT SETTING ORDERED. PATIENT HAD DIALYSIS TODAY, 2 LITERS OUT, TOLERATED WELL. ALL DUE MEDS GIVEN, ALL NEEDS MET, KEPT CLEAN AND DRY.
[2016-09-17 20:00] VITALS: BP 142/63
--- NOTE | 2016-09-17 20:20 | NUR ---
RN NOTE RECEIVED REPORT. PT NON-VERBAL, EYE OPENING. TRACE-VENT PATIENT, SETTINGS ACCURATE. NO S/S OF DISTRESS AT THIS TIME. IV INTACT AND PATENT, HD CATH INTACT. TELE SHOWS ST IN 100'S. G TUBE FEEDING INFUSING WELL. SAFETY AND COMFORT MEASURES RENDERED, WILL CONT TO MONITOR.
[2016-09-17] MEDS: TRAMADOL HCL 50 MG TABLET GT PRN (21:21)
[2016-09-17] MEDS: RENAL NOVASOURCE 1,000 ML BOTTLE GT PRN (21:21)
[2016-09-18] VITALS (7 sets, daily range): BP systolic 68–168; BP diastolic 49–83
[2016-09-18] MEDS: VALPROIC ACID 250 MG/5 ML UDC GT SCH ×3 (01:01→17:32)
[2016-09-18] MEDS: ALBUTEROL FS 2.5 MG/3 ML VIAL.NEB IH SCH ×6 (03:25→23:55)
[2016-09-18] MEDS: IPRATROPIUM NEB FS 0.5 MG/2.5 ML AMPUL.NEB IH SCH ×6 (03:25→23:55)
[2016-09-18] MEDS ORDERED: HYDROMORPHONE INJ 2 MG/ML DISP.SYRIN ONE (03:36)
--- NOTE | 2016-09-18 03:45 | NUR ---
RN NOTE PT APPEARS TO BE IN DISTRESS, COUGHING, AND CRYING,. TELE SHOWS ST IN 130'S. RT AT BEDSIDE. SUCTIONING, VENT-TRACEH CARE PROVIDED. MD CHAMBERS MADE AWARE OF SITUATION, ORDERED DILAUDID 2MG IV PUSH ONCE. WILL MONITOR FOR EFFECTIVENESS.
--- NOTE | 2016-09-18 03:55 | NUR ---
CALLED BY RN TO ASSESS THE PATIENT. PT WAS HAVING COUGHING SPASMS INCREASING THE PRESSURES TO >90. SUCTIONED SMALL AMOUNT OF THICK YELLOW SECRETIONS. SAT 99% HR >120. RN SPOKE TO MD AND PAIN MEDS ARE BEING GIVEN. WILL CONT TO MONITOR PATIENT.
[2016-09-18] MEDS ORDERED: HYDROMORPHONE INJ 2 MG/ML DISP.SYRIN IV ONE (04:00)
[2016-09-18] MEDS: hydrALAZINE HCL 10 MG TABLET GT SCH ×3 (05:00→21:57)
--- NOTE | 2016-09-18 05:00 | NUR ---
RN NOTE HELD MED APRESOLINE D/T LOW BP.
[2016-09-18] MEDS: ACIDOPHILUS/BULGARICUS 1 EACH TAB.CHEW GT SCH ×3 (05:20→21:56)
--- NOTE | 2016-09-18 06:23 | NUR ---
RN NOTE PT APPEARS CALM, NO FACIAL GRIMACING NOTED, NO CRYING. PRN EFFECTIVE. TELE SHOWS ST IN 100'S. VENT SETTINGS ACCURATE. PT SUCTIONED PRN AND REPOSITIONED Q2HRS T/O SHIFT. IV INTACT AND PATENT S/L. G TUBE FEEDING TOLERATING WELL. NO DISTRESS NOTED AT THIS TIME. WILL F/U WITH DAY SHIFT FOR JEIMY.
--- NOTE | 2016-09-18 07:00 | NUR ---
ALLEY WORKER INITIAL NOTE REPORT RECEIVED AT THE BEDSIDE. PATIENT IS RESTING COMFORTABLY IN BED. NO SOB OR DISTRESS NOTED AT THIS TIME. PATIENT DOES NOT APPEAR TO BE IN PAIN, NO FACIAL GRIMACE NOTED. VENT SETTINGS CHECKED AND VERIFIED. HEART RATE ST IN THE LOW 100S. TUBE FEEDING RUNNING. BED IN A LOW POSITION, CALL LIGHT WITHIN PATIENT REACH. WILL CONTINUE TO MONITOR.
[2016-09-18 07:14] LABS: BASOPHILS % (AUTO) 0.2 % (0.0-2.0); EOSINOPHILS # (AUTO) 0.1 /CMM (0.0-0.7); EOSINOPHILS % (AUTO) 0.6 % (0.0-6.0); HEMATOCRIT 34 % (33-45); HEMOGLOBIN 11.4 g/dL (11.5-14.8); LYMPHOCYTES # (AUTO) 2.1 /CMM (0.8-4.8); LYMPHOCYTES % (AUTO) 18.5 % (20.0-44.0); MEAN CORPUSCULAR HEMOGLOBIN 34 PG (26.0-33.0); MEAN CORPUSCULAR HGB CONC 33 g/dl (31.0-36.0); MEAN CORPUSCULAR VOLUME 103 fL (82-100); MONOCYTES # (AUTO) 1.4 /CMM (0.1-1.30); MONOCYTES % (AUTO) 12.1 % (2.0-12.0); NEUTROPHILS # (AUTO) 7.9 /CMM (1.8-8.9); NEUTROPHILS % (AUTO) 68.6 % (43.0-81.0); PLATELET COUNT (AUTO) 222 /CMM (150-450); RDW COEFFICIENT OF VARIATION 17.2 (11.5-15.0); RED BLOOD CELL COUNT(AUTO) 3.33 MIL/uL (4.0-5.2); WHITE BLOOD COUNT (AUTO) 11.5 K/uL (4.3-11.0)
[2016-09-18 07:27] LABS: CALCIUM, SERUM 8.9 mg/dL (8.5-10.1); CREATININE 3.9 mg/dL (0.6-1.3)
[2016-09-18] MEDS: PANTOPRAZOLE 40 MG TABLET.DR PO SCH (08:22)
[2016-09-18] MEDS: DOCUSATE SODIUM LIQ 100 MG/10 ML UDC GT SCH ×2 (08:22→21:00)
[2016-09-18] MEDS: FERROUS SULFATE (325 MG) 325 MG/TAB TABLET PO SCH ×3 (08:22→17:32)
[2016-09-18] MEDS: METOPROLOL TARTRATE 25 MG TABLET GT SCH (08:22)
[2016-09-18] MEDS: DULOXETINE HCL 30 MG CAPSULE.DR GT SCH (08:22)
[2016-09-18] MEDS: LEVETIRACETAM SOL (5 ML) 100 MG/ML UDC GT SCH ×2 (08:22→21:56)
[2016-09-18] MEDS: PROSOURCE / PROSTAT (PYXIS) 30 ML UDC GT SCH ×4 (08:22→21:56)
[2016-09-18] MEDS: VIT B CMPLX 3/FA/VIT C/BIOTIN 1 TAB TABLET GT SCH (08:22)
[2016-09-18] MEDS: ACETYLCYSTEINE 10% SOLN 400 MG/4 ML VIAL NEB SCH ×3 (08:27→23:55)
[2016-09-18] MEDS: HYDROCODONE/APAP 5/325MG 1 EACH TABLET GT PRN ×2 (15:59→21:56)
--- NOTE | 2016-09-18 16:40 | NUR ---
SURGICAL ASSISTANT CERTIFIED NOTE HEART RATE UP TO 130. CALLED STEFANI WHO ORDERED DILAUDID 0.5MG ONCE.
[2016-09-18] MEDS ORDERED: HYDROMORPHONE 1 MG/1 ML DISP.SYRIN IV ONE (17:00)
[2016-09-18] MEDS ORDERED: HYDROMORPHONE 1 MG/1 ML DISP.SYRIN IV PRN (17:00)
[2016-09-18] MEDS: CLONIDINE HCL 0.1 MG TABLET GT PRN (17:31)
--- NOTE | 2016-09-18 19:23 | NUR ---
GLIDING PILOT INSTRUCTOR CLOSING NOTES CHANGES IN PATIENT CONDITION NOTED THROUGHOUT THE SHIFT. NO SOB OR DISTRESS NOTED. PATIENT DOES NOT APPEAR TO BE IN PAIN. HEART RATE ST 115. WILL ENDORSE FOR JEIMY.
[2016-09-18] MEDS: RENAL NOVASOURCE 1,000 ML BOTTLE GT PRN (19:54)
--- NOTE | 2016-09-18 20:00 | NUR ---
RECEIVED PATIENT IN BED, NON-VERBAL, TRACH, VENTILATOR DEPENDENT, WITH EPISODES OF COUGHING, SUCTIONED, NOTED ELEVATED HEART RATE OF 120 BPM, PEG TUBE AUSCULTATED, ZERO RESIDUAL, FEEDING TOLERATED WELL AT 40 CC/HR. KEPT HOB ELEVATED, KEPT SAFE AND COMFORTABLE, CALL LIGHT WITHIN REACH.
--- NOTE | 2016-09-18 22:21 | NUR ---
PLACED A CALL TO KIRBY CHAMBERS REGARDING ELEVATED TEMPERATURE OF 101.4 F TAKEN ORALLY, SUSTAINED ELEVATED HEART RATE OF 130s. COOLING MEASURES INITIATED, AWAITING CALL BACK.
--- NOTE | 2016-09-18 22:33 | NUR ---
KIRBY CHAMBERS CALLED BACK, MADE AWARE OF SUSTAINED ELEVATED HEART RATE, NEW ORDER OF SPUTUM CULTURE AND BLOOD CULTURE X2, ORDERS NOTED AND CARRIED OUT.
[2016-09-19] VITALS (36 sets, daily range): BP systolic 52–171; BP diastolic 34–98
[2016-09-19] MEDS: VALPROIC ACID 250 MG/5 ML UDC GT SCH ×3 (00:13→18:00)
[2016-09-19] MEDS: ACETAMINOPHEN 325 MG TABLET PO PRN ×3 (00:48→21:56)
[2016-09-19] MEDS: CLONIDINE HCL 0.1 MG TABLET GT PRN (00:56)
--- NOTE | 2016-09-19 01:36 | NUR ---
SEEN BY KIRBY CHAMBERS, NEW ORDER OF EKG, GIVEN ICE BATH AND PERFORMED WOUND CARE
[2016-09-19] MEDS ORDERED: METOPROLOL TARTRATE INJ 5 MG/5 ML AMPUL IVP ONE (02:00)
[2016-09-19] MEDS ORDERED: METOPROLOL TARTRATE INJ 5 MG/5 ML AMPUL ONE ×2 (02:02→02:07)
--- NOTE | 2016-09-19 02:16 | NUR ---
NEW ORDER OF METOPROLOL 10 MG IVP, ORDER NOTED AND CARRIED OUT.
[2016-09-19] MEDS: IPRATROPIUM NEB FS 0.5 MG/2.5 ML AMPUL.NEB IH SCH ×6 (03:17→23:11)
[2016-09-19] MEDS: ALBUTEROL FS 2.5 MG/3 ML VIAL.NEB IH SCH ×6 (03:17→23:11)
--- NOTE | 2016-09-19 03:17 | NUR ---
RT 0330 TX HELD. PT HAS ELEVATED HR MORE THAN USUAL. NURSE AWARE.
[2016-09-19] MEDS: HYDROCODONE/APAP 5/325MG 1 EACH TABLET GT PRN (05:16)
[2016-09-19] MEDS: ACIDOPHILUS/BULGARICUS 1 EACH TAB.CHEW GT SCH ×3 (05:16→21:56)
[2016-09-19] MEDS: hydrALAZINE HCL 10 MG TABLET GT SCH (05:17)
--- NOTE | 2016-09-19 06:38 | NUR ---
PATIENT IS AROUSEABLE BY VOICE AND TOUCH, NON-VERBAL, NO RESPIRATORY DISTRESS, VENTILATOR IN GOOD WORKING CONDITION, NOTED ELEVATED TEMPERATURE, COOLING MEASURE PERFORMED, GIVEN TYLENOL AND NORCO, HAS NEW ORDERS OF SPUTUM AND BLOOD CULTURE, HAS SUSTAINED ELEVATED HR OF 120 TO 150s, GIVEN METOPROLOL 10 MG IVP, MADE THE HR WENT DOWN FOR AN HOUR AND BACK TO HR OF 130s. SUCTIONED PERFORMED PRN, PROVIDED GOOD PERINEAL CARE, ALL DUE MEDICATIONS GIVEN, CALL LIGHT WITHIN REACH.
[2016-09-19] MEDS: PANTOPRAZOLE 40 MG TABLET.DR PO SCH (08:49)
[2016-09-19] MEDS: VIT B CMPLX 3/FA/VIT C/BIOTIN 1 TAB TABLET GT SCH (08:50)
[2016-09-19] MEDS: METOPROLOL TARTRATE 25 MG TABLET GT SCH (08:54)
[2016-09-19] MEDS: FERROUS SULFATE (325 MG) 325 MG/TAB TABLET PO SCH ×3 (08:56→17:00)
[2016-09-19] MEDS: DULOXETINE HCL 30 MG CAPSULE.DR GT SCH (08:56)
[2016-09-19] MEDS: LEVETIRACETAM SOL (5 ML) 100 MG/ML UDC GT SCH ×2 (08:57→21:55)
[2016-09-19] MEDS: DOCUSATE SODIUM LIQ 100 MG/10 ML UDC GT SCH ×3 (09:00→21:56)
[2016-09-19] MEDS: PROSOURCE / PROSTAT (PYXIS) 30 ML UDC GT SCH ×4 (09:05→21:56)
[2016-09-19 12:06] LABS: EOSINOPHILS % (AUTO) 0.1 % (0.0-6.0); HEMATOCRIT 36 % (33-45); HEMOGLOBIN 11.8 g/dL (11.5-14.8); LYMPHOCYTES # (AUTO) 1.2 /CMM (0.8-4.8); LYMPHOCYTES % (AUTO) 6.2 % (20.0-44.0); MEAN CORPUSCULAR HEMOGLOBIN 34 PG (26.0-33.0); MEAN CORPUSCULAR HGB CONC 33 g/dl (31.0-36.0); MEAN CORPUSCULAR VOLUME 104 fL (82-100); MONOCYTES # (AUTO) 3.1 /CMM (0.1-1.30); MONOCYTES % (AUTO) 15.7 % (2.0-12.0); NEUTROPHILS # (AUTO) 15.5 /CMM (1.8-8.9); PLATELET COUNT (AUTO) 199 /CMM (150-450); RDW COEFFICIENT OF VARIATION 16.8 (11.5-15.0); RED BLOOD CELL COUNT(AUTO) 3.52 MIL/uL (4.0-5.2); WHITE BLOOD COUNT (AUTO) 19.9 K/uL (4.3-11.0)
[2016-09-19 12:25] LABS: CALCIUM, SERUM 8.8 mg/dL (8.5-10.1); CREATININE 4.7 mg/dL (0.6-1.3)
[2016-09-19] MEDS ORDERED: IV NS 0.9% 500 ML BAG IV ONE ×2 (12:30→17:00)
[2016-09-19] MEDS ORDERED: IV NS 0.9% 500 ML IV ONE (12:30)
--- NOTE | 2016-09-19 12:30 | NUR ---
ATTEMPTED TO COLLECT URINE VIA IN AND OUT CATHETER BUT TO NO AVAIL-PT IS ANURIC.STEFANI DAVENPORT NP AWARE.SENT STOOL FOR C.DIFF.
[2016-09-19] MEDS: ACETYLCYSTEINE 10% SOLN 400 MG/4 ML VIAL NEB SCH ×3 (12:52→23:11)
[2016-09-19 13:13] LABS: BAND % (MANUAL) 8 % (0.0-5.0); LYMPHOCYTES % (MANUAL) 16 % (16-48); MONOCYTES % (MANUAL) 13 % (0-11.0); NEUTROPHILS % (MANUAL) 63 (42-76)
[2016-09-19] MEDS ORDERED: IV SET PRIMARY PUMP SET 1 EA INFUS.SET MC ONE ×4 (13:20→19:23)
[2016-09-19] MEDS ORDERED: VANCOMYCIN 1 GM in IV D5W 250 ML IV ONE (14:00)
[2016-09-19] MEDS ORDERED: MEROPENEM 500 MG in IV NS 0.9% 50 ML IV SCH (14:30)
[2016-09-19] MEDS ORDERED: LEVOFLOXACIN 750 MG /D5W 150ML 750 MG in PREMIX 1 EA IV ONE (15:00)
--- NOTE | 2016-09-19 16:00 | NUR ---
PT'S HR 150'S AND O2 SAT DROPPING TO 72% AND GOES UP TO 99%TEMP 98.7 ORAL AND 101.6 VIA AXILLA.PT STILL ALERT BUT NON VERBAL AND OBTUNDED.STEFANI DAVENPORT NP MADE AWARE WITH ORDERS TO TRANSFER PT TO [facility].TRANSFERRED PT TO ICU ROOM 263 AND GAVE REPORT TO ARLEEN ADORNO INCLUDING MEDS AND GT FEEDINGS.
[2016-09-19] MEDS: TRAMADOL HCL 50 MG TABLET GT PRN (16:06)
--- NOTE | 2016-09-19 16:30 | NUR ---
POWERHOUSE ELECTRICIAN APPRENTICE; TRANSFER IN RECEIVED PT FROM TELE. PT VENTED VIA TRACH, AC 16, TV 600 35% PEEP 5. PT OBTUNDED DOES NOT OPEN EYES OR FOLLOW COMMANDS. PLACED PT ON SKOOG MACHINE OPERATOR NOTED SINUS TACH 160'S. N. ETHEL OFFICE CLERK ASSISTANT NOTIFIED. WILL REVIEW ORDERS. PT HAS ONE IV ACCESS TO RIGHT RIGHT 22 G. WITH GOOD BLOOD RETURN. NEW LINE PLACED 20G HAND. ORDERS GIVEN FOR PICC LINE INSERTION. NURSING SUP MADE AWARE. PT ANURIC WITH HD ACCESS TO RIGHT CHEST WALL. WILL CONTINUE WITH POC. AND REVIEW ORDERS.
[2016-09-19 16:49] LABS: BILIRUBIN,DIRECT 0.4 mg/dL (0.0-0.2)
[2016-09-19] MEDS ORDERED: SECONDARY IV SET 1 EA INFUS.SET MC ONE (16:57)
--- NOTE | 2016-09-19 17:00 | NUR ---
SALES EXECUTIVE INSURANCE; MD AD DAVENPORT HEALTHCARE ANALYST AT BEDSIDE UPDATE WAS GIVEN. DISCUSSED DIFFICULTY OF PICC INSERTION. AND ELEVATED HR. NEW ORDERS GIVEN FOR IV NORMAL SALINE BOLUS, EKG. WILL GIVEN ONCE IV LINE AVAILABLE.
[2016-09-19] MEDS: METRONIDAZOLE 500MG/ NS 100ML 500 MG in PREMIX 1 EA IV SCH ×2 (17:09→21:55)
[2016-09-19] MEDS ORDERED: MORPHINE SULFATE INJ 2 MG/ML DISP.SYRIN IV PRN (18:30)
[2016-09-19] MEDS ORDERED: NOREPINEPHRINE 16 MG in IV D5W 500 ML IV PRN (18:30)
[2016-09-19] MEDS: LORAZEPAM INJ 2 MG/ML VIAL IV PRN (18:50)
--- NOTE | 2016-09-19 19:18 | NUR ---
PT RCVD ON MECH VENT WITH NOTED SETTINGS. SUCTIONED MODERATE AMOUNT OF YELLOWISH THICK SECRETIONS, BILATERAL BS NOTED. VENT PLUGGED INTO RED OUTLET, VENT ALARMED AND WORKING. AMBU BAG AT BEDSIDE. NO RESPIRATORY DISTRESS AT THIS TIME. WILL CONTINUE TO MONITOR.
[2016-09-19] MEDS ORDERED: AMIODARONE 150 MG in IV D5W 100 ML IV ONE (19:30)
--- NOTE | 2016-09-19 19:30 | NUR ---
SULFIDE HEAD OPERATOR: RECEIVED VENT DEPENDENT PT OBTUNDED. WT GAG REFLEX WHEN SUCTIONED & WT SMALL AMT. OF YELLOWISH SECRETIONS. TOLERATING VENT SETTINGS ORDERED. SVT WT HR IN THE 150s. TMGX=424.9. COOLING MEASURES RENDERED. WILL CONTINUE TO HOLD GTF AT THIS TIME. STEFANI ADVERTISING CAMPAIGN MANAGER ON THE FLOOR AND WT NEW ORDERS FOR AMIODARONE BOLUS AND DRIP PER PROTOCOL. WT AWAITING FOR PHARMACY TO DELIVER AMIODARONE AND LEVOPHED. SAFETY PRECAUTION NOTED. WILL CONTINUE TO MONITOR.
[2016-09-19] MEDS: AMIODARONE 900 MG in IV D5W 482 ML IV PRN (20:18)
--- NOTE | 2016-09-19 20:30 | NUR ---
TEST HOLE DRILLER: CALLED AND NOTIFIED CORDELL CHAMBERS NP THAT PT IS CURRENTLY ON AMIO. DRIP AND STILL SVT ON DIAL MOUNTER WT HR IN THE 130s AND ON LEVOPHED. RECOMMENDED TO CHANGE VASOPRESSOR TO NEOSYNEPHRINE. MANAGER ACTION AGREED WT NEW ORDER.
[2016-09-19] MEDS: LINEZOLID 600 MG TABLET PO SCH (21:56)
[2016-09-19] MEDS: PHENYLEPHRINE 80 MG in IV D5W 250 ML IV PRN (22:02)
--- NOTE | 2016-09-19 22:05 | NUR ---
MILITARY EXCHANGE WIRELESS MANAGER: PHENYLEPHRINE STARTED AT 100MCG/MIN. FOR LOW BP=55/35, GX=430. WILL TITRATE NEEDED.
--- NOTE | 2016-09-19 22:28 | NUR ---
BOILER OUT: CONVERTED TO ST ON FLASH DRIER OPERATOR WT HR BELOW 120.
--- NOTE | 2016-09-19 23:00 | NUR ---
INBOUND CUSTOMER SERVICE REPRESENTATIVE: REASSESS AFTER GIVEN TYLENOL FOR ORAL BNRG=530 WT NO EFFECT. STILL WT CORE TEMP= 101.3. WILL CONTINUE COOLING MEASURES WT COOLING BLANKET.
[2016-09-20] VITALS (107 sets, daily range): BP systolic 61–170; BP diastolic 26–95
[2016-09-20] MEDS ORDERED: SECONDARY IV SET 1 EA INFUS.SET MC ONE ×2 (00:23→08:39)
[2016-09-20] MEDS: VALPROIC ACID 250 MG/5 ML UDC GT SCH ×3 (00:29→17:10)
[2016-09-20] MEDS: RENAL NOVASOURCE 1,000 ML BOTTLE GT PRN (00:29)
--- NOTE | 2016-09-20 02:18 | NUR ---
RHEUMATOLOGIST: AMIODARONE DRIP DECREASED TO 0.5MG/MIN ORDERED. NOW SR WT OCCASIONAL PACs (HR=97) ON CHECK INSPECTOR. PT MORE RESPONSIVE TO LIGHT TOUCH.
[2016-09-20] MEDS: IPRATROPIUM NEB FS 0.5 MG/2.5 ML AMPUL.NEB IH SCH ×5 (04:03→20:23)
[2016-09-20] MEDS: ALBUTEROL FS 2.5 MG/3 ML VIAL.NEB IH SCH ×5 (04:03→20:22)
[2016-09-20 05:13] LABS: HEMATOCRIT 38 % (33-45); HEMOGLOBIN 12.3 g/dL (11.5-14.8); LYMPHOCYTES # (AUTO) 2.1 /CMM (0.8-4.8); LYMPHOCYTES % (AUTO) 5.3 % (20.0-44.0); MEAN CORPUSCULAR HEMOGLOBIN 34 PG (26.0-33.0); MEAN CORPUSCULAR HGB CONC 33 g/dl (31.0-36.0); MEAN CORPUSCULAR VOLUME 104 fL (82-100); MONOCYTES # (AUTO) 4.3 /CMM (0.1-1.30); MONOCYTES % (AUTO) 10.7 % (2.0-12.0); NEUTROPHILS # (AUTO) 33.8 /CMM (1.8-8.9); PLATELET COUNT (AUTO) 178 /CMM (150-450); RDW COEFFICIENT OF VARIATION 16.2 (11.5-15.0); RED BLOOD CELL COUNT(AUTO) 3.62 MIL/uL (4.0-5.2)
[2016-09-20 05:19] LABS: WHITE BLOOD COUNT (AUTO) 40.3 K/uL (4.3-11.0)
[2016-09-20 05:20] LABS: CALCIUM, SERUM 9.1 mg/dL (8.5-10.1); CREATININE 5.4 mg/dL (0.6-1.3); MAGNESIUM 1.8 mg/dL (1.8-2.4); POTASSIUM 4.5 mmol/L (3.5-5.1)
[2016-09-20] MEDS: ACIDOPHILUS/BULGARICUS 1 EACH TAB.CHEW GT SCH ×3 (05:27→21:28)
[2016-09-20] MEDS: METRONIDAZOLE 500MG/ NS 100ML 500 MG in PREMIX 1 EA IV SCH ×3 (05:28→21:26)
[2016-09-20 06:00] LABS: BAND % (MANUAL) 48 % (0.0-5.0); LYMPHOCYTES % (MANUAL) 6 % (16-48); METAMYELOCYTES % 1 % (0-0); MONOCYTES % (MANUAL) 12 % (0-11.0); NEUTROPHILS % (MANUAL) 33 (42-76)
--- NOTE | 2016-09-20 06:45 | NUR ---
LEAD JAVASCRIPT DEVELOPER: SR-ST WT HR NO MORE THAN 110; TEMP=99.8 (CORE). TOLERATING GTF WT NO RESIDUAL. STILL ON AMIO. DRIP AT 0.5MG/MIN AND PHENYLEPHRINE AT 80MCG/MIN. HAD 2 EPISODES OF MODERATE AMT. OF BLACKISH-GREEN LIQUID STOOL WT FOUL ODOR. GOOD SKIN CARE RENDERED. ALL NEEDS MET. WILL ENDORSE TO DAY SHIFT FOR CONTINUITY OF CARE.
--- NOTE | 2016-09-20 07:15 | NUR ---
BI SPECIALIST: DR. MCCARTHY CALLED AND UPDATED PT STATUS. HE SAID HE PLACED NEW ORDERS AND OK TO GIVE VANCO. VIA GT. IS AWARE THAT PT IS ALLERGIC TO VANCO. ENDORSED TO DAY SHIFT RN.
[2016-09-20] MEDS ORDERED: DOSE PER PHARMACY (MD SPECIFY MEDICATION) 1 EA XX STA (07:17)
[2016-09-20] MEDS ORDERED: [UNRECOGNIZED DRUG - OTHER] XX PRN (07:30)
[2016-09-20] MEDS ORDERED: DOSING PER PHARMACY-AMIKACI IV XX PRN (07:30)
[2016-09-20] MEDS ORDERED: PHARMACY TO ADJUST ALL MEDS FOR RENAL FUNCT XX PRN (07:30)
[2016-09-20] MEDS ORDERED: DOSE PER PHARMACY MICAFUNGIN 1 EA XX PRN (07:30)
[2016-09-20] MEDS ORDERED: MICAFUNGIN SODIUM 100 MG in IV NS 0.9% 100 ML IV SCH (08:00)
--- NOTE | 2016-09-20 08:00 | NUR ---
ESTIMATOR BINDING; ASSESSMENT RECEIVED PT VENTED VIA TRACH. SEE FLOW SHEET FOR VENT SETTINGS. PT ON LEEANNA-SYNEPHRINE AT 80MCG/MIN, AMIODARONE DRIP AT 0.5MG/MIN INFUSING INTO RIGHT AC MIDLINE. PT OBTUNDED. DOES NOT FOLLOW COMMANDS, RESPONSE TO TACTILE STIMULI. PT ANURIC WITH HD ACCESS TO RIGHT CHEST WALL. PT SCHEDULED FOR HD TODAY. WILL MONITOR HR AND BP CLOSELY
[2016-09-20] MEDS: ACETYLCYSTEINE 10% SOLN 400 MG/4 ML VIAL NEB SCH ×2 (08:28→15:30)
--- NOTE | 2016-09-20 08:45 | NUR ---
PAY AGENT; CARDIO NOTED PT HEAR RATE ELEVATED APPEARS TO BE IN AND OUT OF ST AND AFIB. DR. ZURITA ACCOUNTS RECEIVABLE REPRESENTATIVE AT BEDSIDE NOTIFIED PT OF DYSRHYTHMIAS AND IV DRIPS. PT CURRENTLY RECEIVING HD. HD NURSE AWARE OF HR. SEE HD NOTED.
[2016-09-20] MEDS: ALBUMIN 25% 25 GM in PREMIX 1 EA IV PRN (08:55)
[2016-09-20] MEDS ORDERED: MEROPENEM 1 G in IV NS 0.9% 100 ML IV SCH (09:00)
[2016-09-20] MEDS: DOCUSATE SODIUM LIQ 100 MG/10 ML UDC GT SCH ×2 (09:00→21:00)
[2016-09-20] MEDS: PHENYLEPHRINE 80 MG in IV D5W 250 ML IV PRN ×2 (09:12→17:12)
[2016-09-20] MEDS: VIT B CMPLX 3/FA/VIT C/BIOTIN 1 TAB TABLET GT SCH (09:12)
[2016-09-20] MEDS: LEVETIRACETAM SOL (5 ML) 100 MG/ML UDC GT SCH ×2 (09:12→21:27)
[2016-09-20] MEDS: FERROUS SULFATE (325 MG) 325 MG/TAB TABLET PO SCH ×3 (09:13→17:11)
[2016-09-20] MEDS: LINEZOLID 600 MG TABLET PO SCH (09:13)
[2016-09-20] MEDS: PANTOPRAZOLE 40 MG TABLET.DR PO SCH (09:13)
--- NOTE | 2016-09-20 09:19 | NUR ---
BENCH CARPENTER;CARDIO NOTED PT NOW BACK TO SINUS RYTHM. DR. ZURITA AT [facility] UPDATE GIVEN. DISCUSSED TO D/C EKG ORDERS. ORDERS GIVEN IF PT BECOMES RAPID AFIB TO INCREASE AMIODARONE DRIP TO 1MG/MIN BUT IF PT REMAINS SINUS TO CONTINUE THE AMIODARONE DRIP EVEN AFTER 2030 TONIGHT, KEEP IT A CONTINUOS DRIP.
[2016-09-20] MEDS ORDERED: FEE PK DOSING 1 MIN EA MC ONE (11:06)
[2016-09-20] MEDS: ACETAMINOPHEN 325 MG TABLET PO PRN (11:15)
[2016-09-20] MEDS: PROSOURCE / PROSTAT (PYXIS) 30 ML UDC GT SCH ×4 (11:15→21:27)
[2016-09-20] MEDS: VANCOMYCIN HCL 125 MG/2.5 ML ORAL.SUSP PO SCH ×4 (11:15→21:28)
[2016-09-20] MEDS: LORAZEPAM INJ 2 MG/ML VIAL IV PRN (11:43)
[2016-09-20] MEDS ORDERED: AMIKACIN 750 MG in IV D5W 100 ML IV ONE (12:00)
[2016-09-20] MEDS ORDERED: FIDAXOMICIN 200 MG TABLET PO ONE (13:30)
--- NOTE | 2016-09-20 14:30 | NUR ---
HOSPITAL RECEIVING CLERK; GI PT HAVING FREQUENT LARGE LIQUID STOOL, APPEARS GREENISH-BROWN IN COLOR. PT POSITIVE FOR C-DIFF FLEXISEAL PLACED.
[2016-09-20 15:17] LABS: ABG BASE EXCESS -0.9 mmol/L; ABG OXYGEN SATURATION 97.8 % (92.0-98.5); ABG PCO2 42.6 mmHg (35.0-45.0); ABG PH 7.375 (7.350-7.450); ABG PO2 111.4 mmHg (75.0-100.0); AaDO2 88.6 mmHg; COHb 2.1 % (0.5-1.5); MetHb 0.7 % (0.0-1.5); O2Hb 95.1 % (94.0-97.0); PEEP,BG 5 cm H2O; SITE, ABG Left Radial; VT, ABG 600 mL
--- NOTE | 2016-09-20 15:17 | NUR ---
FIBROUS PLASTERER; CARDIO PTS HEART RATE SUSTAINING IN THE 130'S APPEARS TO BE AFIB. Dolly POLLACK MADE AWARE AND STATES "IF HR SUSTAINS IN ANOTHER 30MIN TO INCREASE AMIODARONE DRIP TO 1MG AND KEEP IT AT A CONTINUOS RATE.
[2016-09-20] MEDS: AMIODARONE 900 MG in IV D5W 482 ML IV PRN (17:11)
[2016-09-20] MEDS ORDERED: DAPTOMYCIN 500 MG in IV NS 0.9% 50 ML IV ONE (18:00)
[2016-09-20] MEDS ORDERED: DAPTOMYCIN 500 MG in IV NS 0.9% 50 ML IV SCH ×4 (18:00)
--- NOTE | 2016-09-20 18:24 | NUR ---
RT END OF THE SHIFT REPORT, PT. 66 Y OLD FEMALE REMAIN TRACH ON VENT WITH NOTE SETTINGS, ALARMS ARE SET AND FUNCTIONAL, TACHYCARDIA NOTED T/O SHIFT AND TX'S SKIP AND RN NOTIFIED, EQUAL CHEST RISE NOTED AND BILATERALLY RHONCHI, SUX FOR MOD. YELLOW SECRETIONS, CHANGE MANAGER, HME CHANGED AND CONTINUE FOR MONITORED T/O SHIFT. AMBU BAG REMAIN AT THE BEDSIDE. REPORT WILL BE PASS TO PM SHIFT Addendum: 09/20/16 at 1828 by ABIEL KELSEY RT Amended: Links added.
--- NOTE | 2016-09-20 19:30 | NUR ---
PIT INSPECTOR: RECEIVED VENT DEPENDENT PT VIA TRACH AND TOLERATING VENT SETTINGS ORDERED. REMAINED OBTUNDED, RESPONSIVE TO LIGHT TOUCH. SR ON MONITOR WT HR IN THE 80s. CONTINUE ON AMIODARONE DRIP AT 0.5MG/MIN TFO PER VERBAL REPORT. ON PHENYLEPHRINE AT 60MCG/MIN TO KEEP SBP ABOVE 90. CORE TEMP.= 99.7 WT CONTINUOUS COOLING MEASURES.TOLERATING GTF WT 10CC RESIDUAL. FLEXI SEAL IN PLACE DRAINING DARK RAMIREZ-GREENISH LIQUID STOOL. HOB ELEVATED. SAFETY PRECAUTION NOTED. WILL CONTINUE TO MONITOR. Addendum: 09/20/16 at 2242 by EVGENY FRASER RN CORRECTION: THE ABOVE NOTE AND ALL OTHER FLOW CHART/DOCUMENTATION STARTING 1899 & ABOVE UNDER TILA MCNEIL RN WAS ACTUALLY DONE BY ME, EVGENY FRASER.
[2016-09-21] VITALS (83 sets, daily range): BP systolic 91–136; BP diastolic 37–84
[2016-09-21] MEDS: RENAL NOVASOURCE 1,000 ML BOTTLE GT PRN (00:07)
[2016-09-21] MEDS: VALPROIC ACID 250 MG/5 ML UDC GT SCH ×4 (00:07→23:20)
[2016-09-21] MEDS: ALBUTEROL FS 2.5 MG/3 ML VIAL.NEB IH SCH ×7 (00:28→23:09)
[2016-09-21] MEDS: ACETYLCYSTEINE 10% SOLN 400 MG/4 ML VIAL NEB SCH ×4 (00:28→23:09)
[2016-09-21] MEDS: IPRATROPIUM NEB FS 0.5 MG/2.5 ML AMPUL.NEB IH SCH ×7 (00:28→23:09)
[2016-09-21] MEDS ORDERED: IV SET PRIMARY PUMP SET 1 EA INFUS.SET MC ONE (01:56)
[2016-09-21] MEDS: METRONIDAZOLE 500MG/ NS 100ML 500 MG in PREMIX 1 EA IV SCH ×3 (05:31→20:40)
[2016-09-21] MEDS: ACIDOPHILUS/BULGARICUS 1 EACH TAB.CHEW GT SCH ×3 (05:32→20:38)
[2016-09-21] MEDS ORDERED: AMIKACIN 500 MG in IV D5W 100 ML IV PRN (06:00)
--- NOTE | 2016-09-21 06:35 | NUR ---
ZMT OPERATOR: NO SIGNIFICANT JEIMY DURING THE SHIFT. REMAINED OBTUNDED AND RESPONSIVE TO TACTILE STIMULI. TOLERATING VENT SETTINGS ORDERED WT NO DISTRESS. NO EVIDENCE OF DISCOMFORT. REMAINED SR WT OCCASIONAL PVCs. MAX. CORE TEMP DURING THE SHIFT 99.7 WT CONTINUOUS COOLING MEASURES. TOLERATING GTF WT 10CC RESIDUAL. CONTINUE ON AMIO. DRIP AT 0.5MG/MIN AND LEEANNA-SYNEPHRINE AT 60MCG/MIN. TO KEEP SBP ABOVE 90. KEPT CLEAN AND DRY. HOB ELEVATED AT ALL TIMES. WILL ENDORSE TO DAY SHIFT FOR CONTINUITY OF CARE.
--- NOTE | 2016-09-21 08:00 | NUR ---
DISC PAD PLATE FILLER; ASSESSMENT RECEIVED PT VENTED VIA TRACH, SEE FLOW SHEET FOR VENT SETTINGS. PT IS OBTUNDED UNABLE TO FOLLOW COMMAND. RESPONSE TO TACTILE STIMULI. PT ON LEEANNA-SYNEPHRINE AT 60MCG/MIN INFUSING INTO RIGHT AC MIDLINE, WILL TITRATE ACCORDINGLY TO KEEP SBP GREATER OR EQUAL THAN 90. ON A CONTINUOUS DRIP OF AMIODARONE AT 0.5MG/MIN FOR HEART RATE CONTROL. PT ANURIC WITH HD ACCESS TO RIGHT CHEST. PT CONTINUES TO HAVE LIQUID STOOLS FLEXISEAL INTACT. WILL CONTINUE WITH POC
[2016-09-21 08:15] LABS: BASOPHILS % (AUTO) 0.1 % (0.0-2.0); EOSINOPHILS # (AUTO) 0.1 /CMM (0.0-0.7); EOSINOPHILS % (AUTO) 0.6 % (0.0-6.0); HEMATOCRIT 30 % (33-45); HEMOGLOBIN 9.5 g/dL (11.5-14.8); LYMPHOCYTES # (AUTO) 1.8 /CMM (0.8-4.8); LYMPHOCYTES % (AUTO) 8.4 % (20.0-44.0); MEAN CORPUSCULAR HEMOGLOBIN 33 PG (26.0-33.0); MEAN CORPUSCULAR HGB CONC 32 g/dl (31.0-36.0); MEAN CORPUSCULAR VOLUME 104 fL (82-100); MONOCYTES # (AUTO) 3.2 /CMM (0.1-1.30); MONOCYTES % (AUTO) 15.4 % (2.0-12.0); NEUTROPHILS # (AUTO) 15.9 /CMM (1.8-8.9); NEUTROPHILS % (AUTO) 75.5 % (43.0-81.0); PLATELET COUNT (AUTO) 144 /CMM (150-450); RDW COEFFICIENT OF VARIATION 16.3 (11.5-15.0); RED BLOOD CELL COUNT(AUTO) 2.85 MIL/uL (4.0-5.2)
[2016-09-21 08:30] LABS: CALCIUM, SERUM 9.1 mg/dL (8.5-10.1); CREATININE 4.5 mg/dL (0.6-1.3); POTASSIUM 3.3 mmol/L (3.5-5.1)
[2016-09-21] MEDS: LEVETIRACETAM SOL (5 ML) 100 MG/ML UDC GT SCH ×2 (08:49→20:38)
[2016-09-21] MEDS: VANCOMYCIN HCL 125 MG/2.5 ML ORAL.SUSP PO SCH ×4 (08:49→20:40)
[2016-09-21] MEDS: PROSOURCE / PROSTAT (PYXIS) 30 ML UDC GT SCH ×4 (08:49→20:38)
[2016-09-21] MEDS: VIT B CMPLX 3/FA/VIT C/BIOTIN 1 TAB TABLET GT SCH (08:49)
[2016-09-21] MEDS: FERROUS SULFATE (325 MG) 325 MG/TAB TABLET PO SCH ×3 (08:49→17:14)
[2016-09-21] MEDS: PANTOPRAZOLE 40 MG/PACK PACK GT SCH (08:50)
[2016-09-21] MEDS: DOCUSATE SODIUM LIQ 100 MG/10 ML UDC GT SCH (08:50)
[2016-09-21 10:27] LABS: BAND % (MANUAL) 5 % (0.0-5.0); LYMPHOCYTES % (MANUAL) 5 % (16-48); MONOCYTES % (MANUAL) 19 % (0-11.0); NEUTROPHILS % (MANUAL) 71 (42-76)
[2016-09-21] MEDS ORDERED: DOSE PER PHARMACY (MD SPECIFY MEDICATION) 1 EA XX PRN (12:00)
[2016-09-21] MEDS: FIDAXOMICIN 200 MG TABLET PO SCH ×2 (12:20→21:00)
[2016-09-21] MEDS ORDERED: LEVOFLOXACIN 500 MG /D5W 100ML 500 MG in PREMIX 1 EA IV SCH (15:00)
[2016-09-21] MEDS: AMIODARONE 900 MG in IV D5W 482 ML IV PRN (17:26)
--- NOTE | 2016-09-21 22:24 | NUR ---
FIDAXOMICIN MED NOT AVAILABLE, MULTIPLE CALLS TO GROUNDWATER PROGRAMS DIRECTOR, GROUNDWATER PROGRAMS DIRECTOR CHECKED EVERY PYXIS UNABLE TO OBTAIN MED, PHARMACY DID NOT LEAVE ANYTHING IN PT MED CASSETTE, I WAS UNABLE TO GIVE MED, NOT LIFE THREATENING MED, WILL FOLLOW UP IN AM.
[2016-09-22] VITALS (50 sets, daily range): BP systolic 72–149; BP diastolic 47–90
[2016-09-22] MEDS: ALBUTEROL FS 2.5 MG/3 ML VIAL.NEB IH SCH ×5 (02:42→20:04)
[2016-09-22] MEDS: IPRATROPIUM NEB FS 0.5 MG/2.5 ML AMPUL.NEB IH SCH ×5 (02:42→20:04)
[2016-09-22 05:09] LABS: BASOPHILS % (AUTO) 0.3 % (0.0-2.0); EOSINOPHILS # (AUTO) 0.2 /CMM (0.0-0.7); EOSINOPHILS % (AUTO) 1.5 % (0.0-6.0); HEMATOCRIT 27 % (33-45); HEMOGLOBIN 8.7 g/dL (11.5-14.8); LYMPHOCYTES # (AUTO) 1.6 /CMM (0.8-4.8); LYMPHOCYTES % (AUTO) 11.9 % (20.0-44.0); MEAN CORPUSCULAR HEMOGLOBIN 34 PG (26.0-33.0); MEAN CORPUSCULAR HGB CONC 33 g/dl (31.0-36.0); MEAN CORPUSCULAR VOLUME 104 fL (82-100); MONOCYTES % (AUTO) 14.5 % (2.0-12.0); NEUTROPHILS # (AUTO) 9.9 /CMM (1.8-8.9); NEUTROPHILS % (AUTO) 71.8 % (43.0-81.0); PLATELET COUNT (AUTO) 130 /CMM (150-450); RDW COEFFICIENT OF VARIATION 16.4 (11.5-15.0); RED BLOOD CELL COUNT(AUTO) 2.58 MIL/uL (4.0-5.2); WHITE BLOOD COUNT (AUTO) 13.8 K/uL (4.3-11.0)
[2016-09-22 05:26] LABS: CREATININE 5.1 mg/dL (0.6-1.3); POTASSIUM 3.3 mmol/L (3.5-5.1)
[2016-09-22] MEDS: METRONIDAZOLE 500MG/ NS 100ML 500 MG in PREMIX 1 EA IV SCH ×3 (05:35→21:28)
[2016-09-22] MEDS: VALPROIC ACID 250 MG/5 ML UDC GT SCH ×2 (05:35→17:21)
[2016-09-22] MEDS: ACIDOPHILUS/BULGARICUS 1 EACH TAB.CHEW GT SCH ×3 (05:36→21:27)
[2016-09-22] MEDS: RENAL NOVASOURCE 1,000 ML BOTTLE GT PRN (05:52)
[2016-09-22 05:56] LABS: BAND % (MANUAL) 3 % (0.0-5.0); EOSINOPHILS % (MANUAL) 2 % (0-4); LYMPHOCYTES % (MANUAL) 6 % (16-48); MONOCYTES % (MANUAL) 15 % (0-11.0); NEUTROPHILS % (MANUAL) 74 (42-76)
[2016-09-22] MEDS: ACETYLCYSTEINE 10% SOLN 400 MG/4 ML VIAL NEB SCH ×2 (07:19→15:27)
[2016-09-22] MEDS: VANCOMYCIN HCL 125 MG/2.5 ML ORAL.SUSP PO SCH ×4 (08:16→21:28)
[2016-09-22] MEDS: VIT B CMPLX 3/FA/VIT C/BIOTIN 1 TAB TABLET GT SCH (08:17)
[2016-09-22] MEDS: FERROUS SULFATE (325 MG) 325 MG/TAB TABLET PO SCH ×3 (08:17→17:21)
[2016-09-22] MEDS: LEVETIRACETAM SOL (5 ML) 100 MG/ML UDC GT SCH ×2 (08:17→21:27)
[2016-09-22] MEDS: PANTOPRAZOLE 40 MG/PACK PACK GT SCH (08:17)
[2016-09-22] MEDS: PROSOURCE / PROSTAT (PYXIS) 30 ML UDC GT SCH ×4 (08:17→21:30)
[2016-09-22] MEDS ORDERED: Z GUARD REMEDY 2 OZ OINT TP SCH (09:00)
[2016-09-22] MEDS ORDERED: ALTEPLASE CATHFLO 2 MG/VIAL XX ONE (09:30)
[2016-09-22] MEDS: AMIODARONE HCL 200 MG TABLET PO SCH ×2 (09:44→21:27)
[2016-09-22] MEDS ORDERED: SECONDARY IV SET 1 EA INFUS.SET MC ONE (10:02)
[2016-09-22] MEDS: ALBUMIN 25% 25 GM in PREMIX 1 EA IV PRN (10:06)
[2016-09-22] MEDS ORDERED: IV SET PRIMARY PUMP SET 1 EA INFUS.SET MC ONE (10:12)
[2016-09-22] MEDS: FIDAXOMICIN 200 MG TABLET PO SCH ×2 (10:27→17:20)
--- NOTE | 2016-09-22 11:30 | NUR ---
COMMISSIONING EDITOR; RENAL MD DR. GREEN AT BEDSIDE UPDATE WAS GIVEN. DISCUSSED REGARDING PTS POSITIVE BLOOD CULTURES. HD CATH REMOVED BY DR. GREEN. PRESSURE DRESSING APPLIED. WILL MONITOR CLOSELY FOR S/S OF BLEEDING
[2016-09-22] MEDS: IV NS 0.9% 250 ML IV PRN (17:22)
[2016-09-22] MEDS: DAPTOMYCIN 500 MG in IV NS 0.9% 50 ML IV SCH (18:35)
[2016-09-23] VITALS (38 sets, daily range): BP systolic 97–153; BP diastolic 53–84
[2016-09-23] MEDS: ACETYLCYSTEINE 10% SOLN 400 MG/4 ML VIAL NEB SCH ×4 (00:01→23:24)
[2016-09-23] MEDS: IPRATROPIUM NEB FS 0.5 MG/2.5 ML AMPUL.NEB IH SCH ×7 (00:01→23:24)
[2016-09-23] MEDS: ALBUTEROL FS 2.5 MG/3 ML VIAL.NEB IH SCH ×7 (00:01→23:24)
[2016-09-23] MEDS: VALPROIC ACID 250 MG/5 ML UDC GT SCH ×3 (00:12→17:04)
[2016-09-23] MEDS: METRONIDAZOLE 500MG/ NS 100ML 500 MG in PREMIX 1 EA IV SCH ×3 (05:49→21:00)
[2016-09-23] MEDS: ACIDOPHILUS/BULGARICUS 1 EACH TAB.CHEW GT SCH ×3 (05:50→20:48)
[2016-09-23] MEDS: RENAL NOVASOURCE 1,000 ML BOTTLE GT PRN (05:51)
--- NOTE | 2016-09-23 07:24 | NUR ---
RT PT RECEIVED TRACHED WITH A SHILEY 8 XLT ON VENT WITH NOTED SETTINGS. PT DOES NOT FOLLOW COMMANDS AT THIS TIME. VENT ALARMS ARE SET AND AUDIBLE WITH BVM BY BEDSIDE. ASSOCIATE JAVA DEVELOPER CUFF PRESSURE NOTED. VENT IS PLUGGED INTO RED OUTLET. SX SMALL YELLOW THIN SECRETIONS. NO RESPIRATORY DISTRESS NOTED AT THIS TIME, WILL CONTINUE TO MONITOR. Addendum: 09/23/16 at 0918 by ERNST KOVACS RT Amended: Links added.
--- NOTE | 2016-09-23 07:45 | NUR ---
MANAGER GARDEN NOTE PATIENT IN BED , ALL NEEDS ATTENDED WITH TRACH TO VENT SETTING ORDERED , AMBU BAG AT HOB, ON TELE MONITOR SR WITH FLEXI SEAL RECTAL TUBE IN PLACE WITH BROWN DARK COLOR STOOL NOTED , RT HAND AND RT UPPER ARM MID LINE IN PLACE NO S\S INFECTION NOTED , ON MARCIAL MAX BED FOR SKIN MANAGEMENT , BED IN ,LOWEST AND LOCKED POSITION ,WILL CONT TO MONITOR CLOSELY, NOT IN DISTRESS
[2016-09-23] MEDS: PROSOURCE / PROSTAT (PYXIS) 30 ML UDC GT SCH ×4 (08:33→20:59)
[2016-09-23] MEDS: VANCOMYCIN HCL 125 MG/2.5 ML ORAL.SUSP PO SCH ×4 (08:34→20:59)
[2016-09-23] MEDS: FERROUS SULFATE (325 MG) 325 MG/TAB TABLET PO SCH ×3 (08:34→17:04)
[2016-09-23] MEDS: VIT B CMPLX 3/FA/VIT C/BIOTIN 1 TAB TABLET GT SCH (08:34)
[2016-09-23] MEDS: LEVETIRACETAM SOL (5 ML) 100 MG/ML UDC GT SCH ×2 (08:34→20:48)
[2016-09-23] MEDS: AMIODARONE HCL 200 MG TABLET PO SCH ×2 (08:35→20:51)
[2016-09-23] MEDS: PANTOPRAZOLE 40 MG/PACK PACK GT SCH (08:35)
[2016-09-23] MEDS: FIDAXOMICIN 200 MG TABLET PO SCH ×2 (09:19→17:04)
--- NOTE | 2016-09-23 10:00 | NUR ---
STOCK BROKER NOTE SEEN BY RAGHU BACON WEED BURNER AWARE THAT EARLIER T99.6 BUN YESTERDAY 126 ,WILL ORDER LABS FOR TOMORROW
[2016-09-23 10:04] LABS: BASOPHILS % (AUTO) 0.3 % (0.0-2.0); EOSINOPHILS # (AUTO) 0.1 /CMM (0.0-0.7); EOSINOPHILS % (AUTO) 1.1 % (0.0-6.0); HEMATOCRIT 25 % (33-45); HEMOGLOBIN 8.2 g/dL (11.5-14.8); LYMPHOCYTES # (AUTO) 1.7 /CMM (0.8-4.8); LYMPHOCYTES % (AUTO) 12.1 % (20.0-44.0); MEAN CORPUSCULAR HEMOGLOBIN 34 PG (26.0-33.0); MEAN CORPUSCULAR HGB CONC 33 g/dl (31.0-36.0); MEAN CORPUSCULAR VOLUME 103 fL (82-100); MONOCYTES # (AUTO) 1.8 /CMM (0.1-1.30); NEUTROPHILS # (AUTO) 10.1 /CMM (1.8-8.9); NEUTROPHILS % (AUTO) 73.5 % (43.0-81.0); PLATELET COUNT (AUTO) 118 /CMM (150-450); RDW COEFFICIENT OF VARIATION 15.7 (11.5-15.0); WHITE BLOOD COUNT (AUTO) 13.8 K/uL (4.3-11.0)
--- NOTE | 2016-09-23 10:05 | NUR ---
SECURITY FLEX OFFICER NOTE NOTIFIED TO RAGHU BACON IV TECHNICIAN THAT EARLIER PATIENT WAS SHAKING ,T 99.6
[2016-09-23 10:20] LABS: CALCIUM, SERUM 8.4 mg/dL (8.5-10.1); CREATININE 4.8 mg/dL (0.6-1.3); POTASSIUM 3.5 mmol/L (3.5-5.1)
[2016-09-23 10:27] LABS: BAND % (MANUAL) 2 % (0.0-5.0); EOSINOPHILS % (MANUAL) 4 % (0-4); LYMPHOCYTES % (MANUAL) 9 % (16-48); MONOCYTES % (MANUAL) 14 % (0-11.0); NEUTROPHILS % (MANUAL) 71 (42-76)
--- NOTE | 2016-09-23 10:39 | NUR ---
PHARMACY SERVICES DIRECTOR NOTE 2D ECHO DONE ORDERED
--- NOTE | 2016-09-23 11:58 | NUR ---
DRIVER SALES NOTE PER DR BURGOS ORDERED BLOOD CX, AWARE THAT WAS DONE YESTERDAY STATED THAT WANT TO REPEAT CX , ORDER CARRIED OUT
[2016-09-23] MEDS: ACETAMINOPHEN 325 MG TABLET PO PRN (14:14)
--- NOTE | 2016-09-23 14:22 | NUR ---
FUNDRAISING CONSULTANT NOTE T 100.6 TYLENOL VIA G TUBE GIVEN ORDERED , KEEP CLEAN DRY , WILL CONT TO MONITOR CLOSELY
--- NOTE | 2016-09-23 15:30 | NUR ---
SUPERVISOR ROSE GRADING NOTE COOLING BLANKET APPLIED T 100.6, WILL CONT TO MONITOR
[2016-09-23] MEDS: LORAZEPAM INJ 2 MG/ML VIAL IV PRN (15:34)
--- NOTE | 2016-09-23 15:38 | NUR ---
manager agricultural note agitated rr 33 Ativan 0.5 mg ivp given as ordered ,will cont to monitor closely
--- NOTE | 2016-09-23 16:32 | NUR ---
icu registered nurse note report given to Prudencio rn , hr 106 rr 16
[2016-09-23] MEDS ORDERED: IV NS 0.9% 250 ML IV ONE (17:13)
--- NOTE | 2016-09-23 18:06 | NUR ---
MANAGER SURGERY PATIENT IS IN BED. RESTING COMFORTABLY. NO ACUTE DISTRESS. EVEN NON LABORED BREATHING PATTERN. TURNED AND REPOSITIONED FOR COMFORT AND WOUND PREVENTION. WILL CONTINUE TO MONITOR AND PROVIDE CARE.
--- NOTE | 2016-09-23 20:16 | NUR ---
PT RECEIVED TRACH ON VENT. NO RESP DISTRESS NOTED. PT TOLERATING VENT SETTINGS. SX'D FOR SML AMT OF WHITE SECRETIONS. VENT ALARMS SET AND AUDIBLE. AMBU BAG AT BEDSIDE. VENT PLUGGED INTO RED OUTLET. WILL CONTINUE TO MONITOR. Addendum: 09/23/16 at 2018 by ELADIO VALDOVINOS RT Amended: Links added.
[2016-09-23] MEDS: METOPROLOL TARTRATE 25 MG TABLET GT SCH (20:51)
[2016-09-23] MEDS ORDERED: SECONDARY IV SET 1 EA INFUS.SET MC ONE (20:52)
[2016-09-23] MEDS ORDERED: IV SET PRIMARY PUMP SET 1 EA INFUS.SET MC ONE (20:52)
[2016-09-24] VITALS (34 sets, daily range): BP systolic 103–150; BP diastolic 57–90
[2016-09-24] MEDS: VALPROIC ACID 250 MG/5 ML UDC GT SCH ×4 (00:13→21:13)
[2016-09-24] MEDS: ALBUTEROL FS 2.5 MG/3 ML VIAL.NEB IH SCH ×6 (01:25→23:24)
[2016-09-24] MEDS: IPRATROPIUM NEB FS 0.5 MG/2.5 ML AMPUL.NEB IH SCH ×6 (01:25→23:24)
[2016-09-24] MEDS: ACIDOPHILUS/BULGARICUS 1 EACH TAB.CHEW GT SCH ×3 (05:00→21:10)
[2016-09-24] MEDS: METRONIDAZOLE 500MG/ NS 100ML 500 MG in PREMIX 1 EA IV SCH ×3 (05:00→21:12)
[2016-09-24 05:30] LABS: CALCIUM, SERUM 8.8 mg/dL (8.5-10.1); CREATININE 5.4 mg/dL (0.6-1.3); MAGNESIUM 2.2 mg/dL (1.8-2.4); PHOSPHORUS 1.5 mg/dL (2.5-4.9); POTASSIUM 3.8 mmol/L (3.5-5.1)
[2016-09-24 05:48] LABS: BASOPHILS % (AUTO) 0.2 % (0.0-2.0); EOSINOPHILS # (AUTO) 0.2 /CMM (0.0-0.7); EOSINOPHILS % (AUTO) 1.2 % (0.0-6.0); HEMATOCRIT 25 % (33-45); LYMPHOCYTES # (AUTO) 2.4 /CMM (0.8-4.8); LYMPHOCYTES % (AUTO) 15.8 % (20.0-44.0); MEAN CORPUSCULAR HEMOGLOBIN 34 PG (26.0-33.0); MEAN CORPUSCULAR HGB CONC 32 g/dl (31.0-36.0); MEAN CORPUSCULAR VOLUME 104 fL (82-100); MONOCYTES # (AUTO) 2.1 /CMM (0.1-1.30); MONOCYTES % (AUTO) 14.3 % (2.0-12.0); NEUTROPHILS # (AUTO) 10.3 /CMM (1.8-8.9); NEUTROPHILS % (AUTO) 68.5 % (43.0-81.0); PLATELET COUNT (AUTO) 122 /CMM (150-450); RDW COEFFICIENT OF VARIATION 15.2 (11.5-15.0); RED BLOOD CELL COUNT(AUTO) 2.38 MIL/uL (4.0-5.2)
--- NOTE | 2016-09-24 06:55 | NUR ---
PROVISIONING SPECIALIST PT TOLERATED AM CARE WELL. PICC LINE DRESSING CHANGED
--- NOTE | 2016-09-24 06:59 | NUR ---
DIRECTOR OF CORPORATE REAL ESTATE: TEMP ELEVATED , COOLING MEASURES DONE .
--- NOTE | 2016-09-24 07:42 | NUR ---
PHYTOPATHOLOGIST RECEIVED PATIENT FROM THE PREVIOUS SHIFT. PATIENT IS IN BED. RESTING COMFORTABLY. NO ACUTE DISTRESS NOTED. EVEN AND NON LABORED BREATHING PATTERN. GOOD GT FEED TOLERANCE. TURNED AND REPOSITIONED FOR COMFORT AND WOUND PREVENTION. RN ATTEMPTED TO CONTACT CHOCO JOHN AT [phone] TO UPDATED ABOUT PATIENT STATUS AND TO INFORM ABOUT THE POSSIBILITY OF DIALYSIS CATH PLACEMENT. UNABLE TO REACH. UNABLE TO PLACE A VOICE MESSAGE ON THE PHONE. WILL INFORM STUDENT ASSISTANT. WILL CONTINUE TO MONITOR AND PROVIDE CARE.
[2016-09-24] MEDS: PROSOURCE / PROSTAT (PYXIS) 30 ML UDC GT SCH ×4 (07:59→21:12)
[2016-09-24] MEDS: LEVETIRACETAM SOL (5 ML) 100 MG/ML UDC GT SCH ×2 (07:59→21:10)
[2016-09-24] MEDS: METOPROLOL TARTRATE 25 MG TABLET GT SCH ×2 (08:00→21:11)
[2016-09-24] MEDS: AMIODARONE HCL 200 MG TABLET PO SCH (08:00)
[2016-09-24] MEDS: FERROUS SULFATE (325 MG) 325 MG/TAB TABLET PO SCH ×3 (08:00→17:33)
[2016-09-24] MEDS: PANTOPRAZOLE 40 MG/PACK PACK GT SCH (08:00)
[2016-09-24] MEDS: VIT B CMPLX 3/FA/VIT C/BIOTIN 1 TAB TABLET GT SCH (08:00)
[2016-09-24] MEDS: VANCOMYCIN HCL 125 MG/2.5 ML ORAL.SUSP PO SCH ×4 (08:10→21:15)
[2016-09-24] MEDS: FIDAXOMICIN 200 MG TABLET PO SCH ×2 (08:22→17:33)
[2016-09-24] MEDS: ACETYLCYSTEINE 10% SOLN 400 MG/4 ML VIAL NEB SCH ×3 (08:44→23:24)
[2016-09-24] MEDS ORDERED: Sodium Phosphate 15 MMOL in IV D5W 250 ML IV ONE (10:00)
[2016-09-24] MEDS ORDERED: IV SET PRIMARY PUMP SET 1 EA INFUS.SET MC ONE (10:29)
[2016-09-24] MEDS: RENAL NOVASOURCE 1,000 ML BOTTLE GT PRN (14:07)
[2016-09-24] MEDS: DAPTOMYCIN 500 MG in IV NS 0.9% 50 ML IV SCH (18:49)
[2016-09-25] VITALS (35 sets, daily range): BP systolic 112–178; BP diastolic 65–92
--- NOTE | 2016-09-25 03:21 | NUR ---
CLAM SHUCKING MACHINE TENDER - REC'D PT. OBTUNDED, W/EYES OPEN. SBP'S IN THE 120-150'S. SR/BBB. PT.IS TRACHED W/A MARCK XLT #8, AC-16,TV-600,FIO2=35% & PEEP OF 5. PT.NEEDS SX'D FREQUENTLY. THICK YELLOW SX'S NOTED. PT.IS IN ISOLATION FOR MRSA & CDIFF. PT.IS ON A BARIMAXX BED. COMP.BEDBATH DONE AT 02:30. WOUND CARE PROVIDED, ESPECIALLY TO SACRAL/BUTTOCKS AREA. DRSG TO RT.UPPER C/W IS CDI. PEGGED W/NOVASOURCE INFUSING AT 40CC/HR VIA PUMP. NO RESIDUALS NOTED. ANURIC. FLEXISEAL TO GRAVITY. ALL PULSES PALPABLE X 4 EXT./WEAK. TRACH & PEG CARE RENDERED. CONT. POC.
[2016-09-25] MEDS: ALBUTEROL FS 2.5 MG/3 ML VIAL.NEB IH SCH ×6 (03:31→23:48)
[2016-09-25] MEDS: IPRATROPIUM NEB FS 0.5 MG/2.5 ML AMPUL.NEB IH SCH ×6 (03:31→23:48)
[2016-09-25] MEDS: ACIDOPHILUS/BULGARICUS 1 EACH TAB.CHEW GT SCH ×3 (04:35→20:56)
[2016-09-25] MEDS: METRONIDAZOLE 500MG/ NS 100ML 500 MG in PREMIX 1 EA IV SCH ×3 (04:35→20:56)
[2016-09-25 04:59] LABS: BASOPHILS % (AUTO) 0.1 % (0.0-2.0); EOSINOPHILS # (AUTO) 0.2 /CMM (0.0-0.7); EOSINOPHILS % (AUTO) 1.3 % (0.0-6.0); HEMATOCRIT 25 % (33-45); HEMOGLOBIN 8.2 g/dL (11.5-14.8); LYMPHOCYTES # (AUTO) 2.6 /CMM (0.8-4.8); LYMPHOCYTES % (AUTO) 15.3 % (20.0-44.0); MEAN CORPUSCULAR HEMOGLOBIN 34 PG (26.0-33.0); MEAN CORPUSCULAR HGB CONC 33 g/dl (31.0-36.0); MEAN CORPUSCULAR VOLUME 102 fL (82-100); MONOCYTES % (AUTO) 11.9 % (2.0-12.0); NEUTROPHILS # (AUTO) 12.3 /CMM (1.8-8.9); NEUTROPHILS % (AUTO) 71.4 % (43.0-81.0); PLATELET COUNT (AUTO) 136 /CMM (150-450); RDW COEFFICIENT OF VARIATION 15.1 (11.5-15.0); RED BLOOD CELL COUNT(AUTO) 2.42 MIL/uL (4.0-5.2); WHITE BLOOD COUNT (AUTO) 17.2 K/uL (4.3-11.0)
[2016-09-25 05:11] LABS: INR 1.11 (0.87-1.13)
[2016-09-25 05:29] LABS: CALCIUM, SERUM 9.1 mg/dL (8.5-10.1); CREATININE 6.1 mg/dL (0.6-1.3); MAGNESIUM 2.2 mg/dL (1.8-2.4); PHOSPHORUS 3.3 mg/dL (2.5-4.9)
[2016-09-25] MEDS: VALPROIC ACID 250 MG/5 ML UDC GT SCH ×2 (05:35→17:35)
--- NOTE | 2016-09-25 07:10 | NUR ---
RN INITIAL NOTES RECEIVED PT OBTUNDED. [facility] WITH FF SETTINGS: AC16, TV600, FI02 35%, PEEP +5. TRACH IN PLACE. HOB ELEVATED. NO RESPIRATORY DISTRESS NOTED. NO SOB NOTED. NO SIGNS OF PAIN NOTED. YADIRA PICC LINE AND RH #[address] FLUSHED WITH NS. GT IN PLACE. TOLERATING GTF WELL. NO RESIDUAL NOTED. FLEXISEAL IN PLACE. PT COMFORTABLE. BLE ELEVATED. WILL MONITOR.
[2016-09-25] MEDS: FERROUS SULFATE (325 MG) 325 MG/TAB TABLET PO SCH ×3 (08:15→16:28)
[2016-09-25] MEDS: VANCOMYCIN HCL 125 MG/2.5 ML ORAL.SUSP PO SCH ×4 (08:15→20:57)
[2016-09-25] MEDS: METOPROLOL TARTRATE 25 MG TABLET GT SCH ×2 (08:15→20:56)
[2016-09-25] MEDS: LEVETIRACETAM SOL (5 ML) 100 MG/ML UDC GT SCH ×2 (08:15→20:56)
[2016-09-25] MEDS: PANTOPRAZOLE 40 MG/PACK PACK GT SCH (08:15)
[2016-09-25] MEDS: FIDAXOMICIN 200 MG TABLET PO SCH ×2 (08:15→16:28)
[2016-09-25] MEDS: VIT B CMPLX 3/FA/VIT C/BIOTIN 1 TAB TABLET GT SCH (08:15)
[2016-09-25] MEDS: PROSOURCE / PROSTAT (PYXIS) 30 ML UDC GT SCH ×2 (08:16→12:01)
[2016-09-25] MEDS: ACETYLCYSTEINE 10% SOLN 400 MG/4 ML VIAL NEB SCH ×3 (08:22→23:49)
--- NOTE | 2016-09-25 09:40 | NUR ---
RN NOTES SEEN AND EXAMINED BY DR. WADE BURGOS. AWARE OF CURRENT LAB VALUES. ORDERED HD TODAY AND LABS IN AM. PT HAS NO HD LINE. DR. CAN NOTIFIED FOR HD LINE INSERTION. WILL GET CONSENT FOR RESPONSIBLE LIBERTARIAN. CALLED JOHN WILHELM #[phone]. LEFT A MESSAGE. AWAITING CALL BACK.
--- NOTE | 2016-09-25 09:45 | NUR ---
RN NOTES SEEN AND EXAMINED BY DR. DICKSON. AWARE OF CURRENT LAB VALUES. TOLERATING VENT WELL. NO RESPIRATORY DISTRESS NOTED. FOR HD LINE INSERTION TODAY BY DR. CAN. ORDERED CXR IN AM. NOTED AND CARRIED OUT.
[2016-09-25] MEDS: RENAL NOVASOURCE 1,000 ML BOTTLE GT PRN (16:28)
[2016-09-25] MEDS ORDERED: IV NS 0.9% 250 ML IV ONE (16:39)
--- NOTE | 2016-09-25 17:02 | NUR ---
RN NOTES DR. CAN INSERTED HD CATH ON LEFT CHESTWALL AT BEDSIDE. MINIMAL BLEEDING NOTED. PT TOLERATED PROCEDURE WELL. ORDERED STAT CXR. WILL MONITOR.
--- NOTE | 2016-09-25 18:30 | NUR ---
RN NOTES DIALYSIS STARTED. NO RESPIRATORY DISTRESS NOTED. NO SOB NOTED. NO SIGNS OF PAIN NOTED. WILL MONITOR.
--- NOTE | 2016-09-25 18:41 | NUR ---
RN CLOSING NOTES PT REMAINS STABLE. TOLERATING VENT WELL. NO RESPIRATORY DISTRESS NOTED. NO SOB NOTED. KEPT HOB ELEVATED. GT IN PLACE. TOLERATING GTF WELL. NO RESIDUAL NOTED. PICC LINE IN PLACE. LCW HD CATH IN PLACE. DIALYSIS ONGOING. FLEXISEAL IN PLACE. KEPT CLEAN AND DRY. REPOSITIONED Q2. TX PROVIDED ORDERED. KEPT COMFORTABLE. WILL ENDORSE FOR CONTINUITY OF CARE.
--- NOTE | 2016-09-25 19:43 | NUR ---
AEROSPACE PROJECT MANAGER. INITIAL ASSESSMENT. RECEIVED THE PT REST ON THE BED.TRACH TO VENT CONNECTED, PT IS OBTUNDED. SHILEY XLT#8,AC 16,TV 600,FIO2 35%, PEEP 5. SAT 98%. NO ACUTE DISTRESS NOTED. RELOCATION SPECIALIST SHOWING S TACH RATE IS 105. IV RT UPPER ARM PICC LINE. LT CHEST WALL HD CATH. FLEXA SEAL INTACT. ACCORDING TO THE HD NURSE NEW HD CATH MAL FUNCTION. HD STOPPED AT 1910.DR GREEN AWARE. GT INTACT. NOVA SOURCE 40ML/H. HOB ELEVATED. TURN AND REPOSITION Q2H. WILL CONTINUE TO MONITOR VITALS.
[2016-09-26] VITALS (54 sets, daily range): BP systolic 68–152; BP diastolic 41–89
[2016-09-26] MEDS: VALPROIC ACID 250 MG/5 ML UDC GT SCH ×4 (00:09→23:46)
--- NOTE | 2016-09-26 03:30 | NUR ---
UX INFORMATION ARCHITECT. AM CARE, ORAL CARE, BED BATH GIVEN. LINEN CHANGED REMAINING SAME VENT SETTINGS TOLERATED WELL. TRAP SETTER SHOWING NSR.LT UPPER CHEST HD CATH SITE BLEEDING NOTED. AFEBRILE. GT FEEDING TOLERATED WELL. AFEBRILE. HOB ELEVATED. TURN AND REPOSITION Q2H. . IV RT UPPER ARM PICC LINE. TKO RUNNING. RT HAND 4+EDEMA NOTED. RT HAND ELEVATED WITH PILLOW.WILL CONTINUE TO MONITOR VITALS.
[2016-09-26] MEDS: IPRATROPIUM NEB FS 0.5 MG/2.5 ML AMPUL.NEB IH SCH ×5 (03:50→20:43)
[2016-09-26] MEDS: ALBUTEROL FS 2.5 MG/3 ML VIAL.NEB IH SCH ×5 (03:50→20:43)
[2016-09-26 04:50] LABS: BASOPHILS # (AUTO) 0.1 /CMM (0.0-0.2); BASOPHILS % (AUTO) 0.3 % (0.0-2.0); EOSINOPHILS # (AUTO) 0.2 /CMM (0.0-0.7); EOSINOPHILS % (AUTO) 1.1 % (0.0-6.0); HEMATOCRIT 24 % (33-45); HEMOGLOBIN 8.1 g/dL (11.5-14.8); LYMPHOCYTES # (AUTO) 2.5 /CMM (0.8-4.8); LYMPHOCYTES % (AUTO) 14.7 % (20.0-44.0); MEAN CORPUSCULAR HEMOGLOBIN 34 PG (26.0-33.0); MEAN CORPUSCULAR HGB CONC 33 g/dl (31.0-36.0); MEAN CORPUSCULAR VOLUME 103 fL (82-100); MONOCYTES # (AUTO) 1.8 /CMM (0.1-1.30); MONOCYTES % (AUTO) 10.6 % (2.0-12.0); NEUTROPHILS # (AUTO) 12.6 /CMM (1.8-8.9); NEUTROPHILS % (AUTO) 73.3 % (43.0-81.0); PLATELET COUNT (AUTO) 179 /CMM (150-450); RDW COEFFICIENT OF VARIATION 15.1 (11.5-15.0); RED BLOOD CELL COUNT(AUTO) 2.37 MIL/uL (4.0-5.2); WHITE BLOOD COUNT (AUTO) 17.2 K/uL (4.3-11.0)
[2016-09-26 05:15] LABS: CREATININE 6.7 mg/dL (0.6-1.3); MAGNESIUM 2.2 mg/dL (1.8-2.4); PHOSPHORUS 4.2 mg/dL (2.5-4.9); POTASSIUM 4.2 mmol/L (3.5-5.1)
[2016-09-26] MEDS: ACIDOPHILUS/BULGARICUS 1 EACH TAB.CHEW GT SCH ×3 (05:26→21:39)
[2016-09-26] MEDS: METRONIDAZOLE 500MG/ NS 100ML 500 MG in PREMIX 1 EA IV SCH ×3 (05:26→21:41)
--- NOTE | 2016-09-26 07:45 | NUR ---
ICU/RN PT HAS TRACH ON THE VENT AC MODE,FIO2-35%.SAT O2-100%.BP LOW 75/40.D/C PEEP AND REPOSITION PT.PT HAS ESRD ON HD,NEW LEFT SUBCLAVIAN HD WITH BLOODY SECRETION NOTED.RIGHT UPPER ARM PICC LINE .RIGHT ARM SWOLLEN AND HOT.G-TUBE INFUSING WITH NEPRO AT 45 ML/HR.NO RESIDUAL NOTED.PT IS ANURIC. C-DIFF POSITIVE.RECTAL TUBE DRAINING WITH BROWN LIQUID STOOL.WOUND COVERED WITH DRESSING.SUCTION PROVIDED.REPOSITION FOR COMFORT.
[2016-09-26] MEDS: ACETYLCYSTEINE 10% SOLN 400 MG/4 ML VIAL NEB SCH ×2 (07:58→15:47)
[2016-09-26] MEDS: METOPROLOL TARTRATE 25 MG TABLET GT SCH ×2 (08:18→21:00)
[2016-09-26] MEDS: FERROUS SULFATE (325 MG) 325 MG/TAB TABLET PO SCH ×3 (08:18→17:19)
[2016-09-26] MEDS: LEVETIRACETAM SOL (5 ML) 100 MG/ML UDC GT SCH ×2 (08:18→21:39)
[2016-09-26] MEDS: PANTOPRAZOLE 40 MG/PACK PACK GT SCH (08:18)
[2016-09-26] MEDS: FIDAXOMICIN 200 MG TABLET PO SCH ×2 (08:18→17:19)
[2016-09-26] MEDS: VIT B CMPLX 3/FA/VIT C/BIOTIN 1 TAB TABLET GT SCH (08:18)
[2016-09-26] MEDS: HYDROGEL DRESSING 90 GM TUBE TP PRN (08:19)
[2016-09-26] MEDS: Z GUARD REMEDY 4 OZ OINT TP PRN (08:20)
[2016-09-26] MEDS: PROSOURCE / PROSTAT (PYXIS) 30 ML UDC GT SCH (08:20)
--- NOTE | 2016-09-26 09:00 | NUR ---
ICU/RN DUE MEDS ARE GIVEN ORDERED.LABS REVIEW.MD NOTIFIED.
[2016-09-26] MEDS: VANCOMYCIN HCL 125 MG/2.5 ML ORAL.SUSP PO SCH ×4 (10:32→21:39)
[2016-09-26] MEDS: ACETAMINOPHEN 325 MG TABLET PO PRN ×2 (12:02→23:46)
[2016-09-26] MEDS: IV NS 0.9% 250 ML IV PRN (12:02)
--- NOTE | 2016-09-26 14:00 | NUR ---
ICU/RN PM CARE PROVIDED.PT HAS EXCORIATIONS AND WOUNDS ON THE LOWER BACK AND JAVY AREA.REDNESS AROUND G-TUBE,UNDER BILATERAL BREASTS AND ABDOMINAL FOLDERS. WOUND DRESSING DONE ORDERED.SUCTION PROVIDED.REPOSITION FOR COMFORT.
[2016-09-26] MEDS: ALBUMIN 25% 25 GM in PREMIX 1 EA IV PRN (15:06)
[2016-09-26] MEDS: DAPTOMYCIN 500 MG in IV NS 0.9% 50 ML IV SCH (17:19)
--- NOTE | 2016-09-26 17:20 | NUR ---
ICU/RN HD IS OVER.1 L OUT.ALBUMIN WAS GIVEN DURING HD TO SUPPORT BP.PT TOLERATED WELL.T-99 F.DUE MEDS ARE GIVEN ORDERED.
[2016-09-26] MEDS ORDERED: SECONDARY IV SET 1 EA INFUS.SET MC ONE (17:38)
--- NOTE | 2016-09-26 19:49 | NUR ---
RADIOLOGY AIDE. INITIAL ASSESSMENT. RECEIVED THE PT REST ON THE BED, TRACH TO VENT CONNECTED. SHILEY XLT#8, AC 16, TV 600, FIO2 35%.SAT 98%. COOKER HELPER SHOWING NSR, IV RT UPPER ARM PICC LINE. GT FEEDING TOLERATED WELL. HOB ELEVATED. TURN AND REPOSITION Q2H. WILL CONTINUE TO MONITOR VITALS.
[2016-09-27] VITALS (46 sets, daily range): BP systolic 65–160; BP diastolic 33–88
[2016-09-27] MEDS: ALBUTEROL FS 2.5 MG/3 ML VIAL.NEB IH SCH ×7 (00:19→23:28)
[2016-09-27] MEDS: ACETYLCYSTEINE 10% SOLN 400 MG/4 ML VIAL NEB SCH ×4 (00:19→23:28)
[2016-09-27] MEDS: IPRATROPIUM NEB FS 0.5 MG/2.5 ML AMPUL.NEB IH SCH ×7 (00:19→23:28)
--- NOTE | 2016-09-27 04:12 | NUR ---
MARKETING INSTRUCTOR. AM CARE, ORAL CARE, BED BATH GIVEN. LINEN CHANGED, REMAINING SAME VENT SETTING TOLERATED WELL. SAT 98%, NO ACUTE DISTRESS NOTED. A P SUPERVISOR SHOWING NSR. IV RT HAND PICC LINE. TKO@ 5ML/H. FLEXA SEAL INTACT, HOB ELEVATED, GT FEEDING TOLERATED WELL. TEMPERATURE 100. TURN AND REPOSITION Q2H, WILL CONTINUE TO MONITOR VITALS,
[2016-09-27] MEDS: METRONIDAZOLE 500MG/ NS 100ML 500 MG in PREMIX 1 EA IV SCH ×3 (05:06→21:00)
[2016-09-27] MEDS: ACIDOPHILUS/BULGARICUS 1 EACH TAB.CHEW GT SCH ×3 (05:07→21:01)
[2016-09-27] MEDS: VALPROIC ACID 250 MG/5 ML UDC GT SCH ×2 (05:07→17:48)
[2016-09-27] MEDS: METOPROLOL TARTRATE 25 MG TABLET GT SCH ×3 (09:00→20:41)
[2016-09-27] MEDS: VANCOMYCIN HCL 125 MG/2.5 ML ORAL.SUSP PO SCH ×4 (09:06→21:01)
[2016-09-27] MEDS: LEVETIRACETAM SOL (5 ML) 100 MG/ML UDC GT SCH ×2 (09:06→21:00)
[2016-09-27] MEDS: PANTOPRAZOLE 40 MG/PACK PACK GT SCH (09:07)
[2016-09-27] MEDS: FERROUS SULFATE (325 MG) 325 MG/TAB TABLET PO SCH ×3 (09:08→17:48)
[2016-09-27] MEDS: VIT B CMPLX 3/FA/VIT C/BIOTIN 1 TAB TABLET GT SCH (09:08)
[2016-09-27] MEDS: PROSOURCE / PROSTAT (PYXIS) 30 ML UDC GT SCH (09:15)
[2016-09-27] MEDS: FIDAXOMICIN 200 MG TABLET PO SCH ×2 (09:23→17:48)
[2016-09-27 10:46] LABS: BASOPHILS % (AUTO) 0.1 % (0.0-2.0); EOSINOPHILS # (AUTO) 0.1 /CMM (0.0-0.7); EOSINOPHILS % (AUTO) 0.7 % (0.0-6.0); HEMATOCRIT 24 % (33-45); HEMOGLOBIN 8.2 g/dL (11.5-14.8); LYMPHOCYTES # (AUTO) 1.6 /CMM (0.8-4.8); LYMPHOCYTES % (AUTO) 8.6 % (20.0-44.0); MEAN CORPUSCULAR HEMOGLOBIN 35 PG (26.0-33.0); MEAN CORPUSCULAR HGB CONC 34 g/dl (31.0-36.0); MEAN CORPUSCULAR VOLUME 103 fL (82-100); MONOCYTES % (AUTO) 11.1 % (2.0-12.0); NEUTROPHILS # (AUTO) 14.4 /CMM (1.8-8.9); NEUTROPHILS % (AUTO) 79.5 % (43.0-81.0); PLATELET COUNT (AUTO) 206 /CMM (150-450); RDW COEFFICIENT OF VARIATION 15.3 (11.5-15.0); RED BLOOD CELL COUNT(AUTO) 2.37 MIL/uL (4.0-5.2); WHITE BLOOD COUNT (AUTO) 18.1 K/uL (4.3-11.0)
[2016-09-27 11:04] LABS: CALCIUM, SERUM 8.6 mg/dL (8.5-10.1); CREATININE 4.2 mg/dL (0.6-1.3); POTASSIUM 3.9 mmol/L (3.5-5.1)
[2016-09-27 11:10] LABS: BAND % (MANUAL) 5 % (0.0-5.0); EOSINOPHILS % (MANUAL) 1 % (0-4); LYMPHOCYTES % (MANUAL) 5 % (16-48); MONOCYTES % (MANUAL) 15 % (0-11.0); NEUTROPHILS % (MANUAL) 74 (42-76)
[2016-09-27] MEDS: IV NS 0.9% 250 ML IV PRN (13:07)
[2016-09-27] MEDS: ACETAMINOPHEN 325 MG TABLET PO PRN ×2 (13:07→21:01)
[2016-09-27] MEDS ORDERED: SECONDARY IV SET 1 EA INFUS.SET MC ONE (15:23)
[2016-09-27] MEDS: MEROPENEM 500 MG in IV NS 0.9% 50 ML IV SCH (15:35)
[2016-09-27] MEDS: RENAL NOVASOURCE 1,000 ML BOTTLE GT PRN (15:46)
--- NOTE | 2016-09-27 17:00 | NUR ---
ICU/RN PM CARE PROVIDED.DUE MEDS ARE GIVEN ORDERED.WOUND DRESSING DONE ,V/S STABLE .T-100.8.TYLENOL VIA G-TUBE GIVEN ORDERED.SUCTION PROVIDED.CONTINUE MONITORING.
[2016-09-27] MEDS ORDERED: IV SET PRIMARY PUMP SET 1 EA INFUS.SET MC ONE (18:11)
--- NOTE | 2016-09-27 19:39 | NUR ---
CATTLE FEEDER. INITIAL ASSESSMENT. RECEIVED THE PT REST ON THE BED. TRACH TO VENT CONNECTED. SHILEY XLT#8, AC 16,TV600, UGC363%. SAT 98%. MINE ENGINEERING SUPERVISOR SHOWING S TACH. GT FEEDING TOLERATED WELL. FLEXA SEAL INTACT, RT UPPER ARM PICC LINE. TKO RUNNING. HOB ELEVATED. TURN AND REPOSITION Q2H. WILL CONTINUE TO MONITOR VITALS.
[2016-09-27] MEDS: PHENYLEPHRINE 80 MG in IV D5W 250 ML IV PRN (21:00)
--- NOTE | 2016-09-27 21:44 | NUR ---
PRECISION LENS CENTERER AND EDGER. FRESH BLOOD COMING FROM TRACH. RT SUCTION THE PT. WILL CONTINUE TO MONITOR. BP WENT DOWN. 75./35. LEEANNA STARTED.WILL CONTINUE TO MONITOR.
[2016-09-28] VITALS (45 sets, daily range): BP systolic 67–151; BP diastolic 50–85
[2016-09-28] MEDS: VALPROIC ACID 250 MG/5 ML UDC GT SCH ×3 (00:24→17:03)
[2016-09-28] MEDS: ALBUTEROL FS 2.5 MG/3 ML VIAL.NEB IH SCH ×5 (01:31→20:24)
[2016-09-28] MEDS: IPRATROPIUM NEB FS 0.5 MG/2.5 ML AMPUL.NEB IH SCH ×5 (01:31→20:24)
[2016-09-28 05:06] LABS: BASOPHILS % (AUTO) 0.2 % (0.0-2.0); EOSINOPHILS # (AUTO) 0.4 /CMM (0.0-0.7); EOSINOPHILS % (AUTO) 1.8 % (0.0-6.0); HEMATOCRIT 21 % (33-45); LYMPHOCYTES # (AUTO) 4.1 /CMM (0.8-4.8); MEAN CORPUSCULAR HEMOGLOBIN 34 PG (26.0-33.0); MEAN CORPUSCULAR HGB CONC 33 g/dl (31.0-36.0); MEAN CORPUSCULAR VOLUME 103 fL (82-100); MONOCYTES # (AUTO) 2.6 /CMM (0.1-1.30); MONOCYTES % (AUTO) 12.2 % (2.0-12.0); NEUTROPHILS # (AUTO) 14.3 /CMM (1.8-8.9); NEUTROPHILS % (AUTO) 66.8 % (43.0-81.0); PLATELET COUNT (AUTO) 252 /CMM (150-450); RDW COEFFICIENT OF VARIATION 14.9 (11.5-15.0); RED BLOOD CELL COUNT(AUTO) 2.03 MIL/uL (4.0-5.2); WHITE BLOOD COUNT (AUTO) 21.4 K/uL (4.3-11.0)
[2016-09-28] MEDS: ACIDOPHILUS/BULGARICUS 1 EACH TAB.CHEW GT SCH ×3 (05:42→21:30)
[2016-09-28] MEDS: METRONIDAZOLE 500MG/ NS 100ML 500 MG in PREMIX 1 EA IV SCH ×3 (05:42→21:30)
[2016-09-28 06:37] LABS: LYMPHOCYTES % (MANUAL) 26 % (16-48); MONOCYTES % (MANUAL) 13 % (0-11.0); NEUTROPHILS % (MANUAL) 61 (42-76)
[2016-09-28] MEDS: ACETYLCYSTEINE 10% SOLN 400 MG/4 ML VIAL NEB SCH ×3 (08:05→23:30)
--- NOTE | 2016-09-28 08:06 | NUR ---
RT PT RECEIVED TRACHED WITH A SHILEY 8 XLT ON VENT WITH NOTED SETTINGS. PT DOES NOT FOLLOW COMMANDS AT THIS TIME. VENT ALARMS ARE SET AND AUDIBLE WITH BVM BY BEDSIDE. SUPERVISOR TWISTING DEPARTMENT CUFF PRESSURE NOTED. VENT IS PLUGGED INTO RED OUTLET. SX SMALL YELLOW THIN SECRETIONS. NO RESPIRATORY DISTRESS NOTED AT THIS TIME, WILL CONTINUE TO MONITOR. Addendum: 09/28/16 at 1651 by ERNST KOVACS RT Amended: Links added.
[2016-09-28] MEDS: VIT B CMPLX 3/FA/VIT C/BIOTIN 1 TAB TABLET GT SCH (08:20)
[2016-09-28] MEDS: LEVETIRACETAM SOL (5 ML) 100 MG/ML UDC GT SCH ×2 (08:20→21:30)
[2016-09-28] MEDS: VANCOMYCIN HCL 125 MG/2.5 ML ORAL.SUSP PO SCH ×4 (08:21→21:30)
[2016-09-28] MEDS: PANTOPRAZOLE 40 MG/PACK PACK GT SCH (08:21)
[2016-09-28] MEDS: FERROUS SULFATE (325 MG) 325 MG/TAB TABLET PO SCH ×3 (08:21→16:44)
[2016-09-28] MEDS: FIDAXOMICIN 200 MG TABLET PO SCH ×2 (08:22→16:44)
[2016-09-28] MEDS: METOPROLOL TARTRATE 25 MG TABLET GT SCH ×2 (08:23→21:31)
[2016-09-28] MEDS: PROSOURCE / PROSTAT (PYXIS) 30 ML UDC GT SCH (09:26)
[2016-09-28] MEDS: IV NS 0.9% 250 ML IV PRN (09:29)
--- NOTE | 2016-09-28 09:29 | NUR ---
YOUTH DIRECTOR. BLOOD PRESSURE 140/70. LEEANNA OFF
[2016-09-28 10:09] LABS: ABG BASE EXCESS -2.6 mmol/L; ABG OXYGEN SATURATION 97.2 % (92.0-98.5); ABG PCO2 37.4 mmHg (35.0-45.0); ABG PH 7.389 (7.350-7.450); ABG PO2 108.1 mmHg (75.0-100.0); AaDO2 134.1 mmHg; COHb 1.8 % (0.5-1.5); MetHb 0.8 % (0.0-1.5); O2Hb 94.7 % (94.0-97.0); PEEP,BG 0 cm H2O; SITE, ABG Left Radial; VT, ABG 600 mL
[2016-09-28 10:57] LABS: CALCIUM, SERUM 8.9 mg/dL (8.5-10.1); PHOSPHORUS 4.5 mg/dL (2.5-4.9); POTASSIUM 3.6 mmol/L (3.5-5.1)
[2016-09-28 11:15] LABS: INR 1.17 (0.87-1.13); PROTHROMBIN TIME 12.7 SECS (9.5-12.7)
[2016-09-28 11:16] LABS: D-DIMER 3.01 mg/L(FEU (0.17-0.50)
[2016-09-28] MEDS ORDERED: BLOOD IV SET 1 EA INFUS.SET MC ONE (11:54)
--- NOTE | 2016-09-28 13:10 | NUR ---
CLIENT RELATION SPECIALIST. PM CARE. ORAL CARE, BED BATH GIVN. REMAINING SAME VENT STTING TOLERATED WELL. SAT 99%. NO ACUTE DISTRESS NOTED. AERIAL PHOTOGRAPHER SHOWING S TACH. TEMPERATURE 99. GT FEEDING TOLERATED WELL. HOB ELEVATED. FLEXA SEAL INTACT. TURN AND REPOSITION Q2H . WILL CONT INUE TO MONITOR VITALS.REPORT GIVEN TO AYAN BACON.
--- NOTE | 2016-09-28 13:15 | NUR ---
CONDENSER OPERATOR NOTE: RECEIVED PATIENT IN BED SINUS TACHY ON MONITOR HR 103, ON VENT TOLERATING SETTINGS WELL. GTUBE RUNNING NOVASOURCE AT 40ML/HR NO RESIDUAL NOTED. RECTAL TUBE IN PLACE. PATIENT ON ISOLATION, ISOLATION PRECAUTIONS OBSERVED. PATIENT NOTED WITH MULTIPLE SKIN ISSUES. DRESSINGS CLEAN DRY AND INTACT. YADIRA PICC IN PLACED TKO RUNNING. L CW HD CATH IN PLACED. AFEBRILE. VS WITHIN NORMAL LIMITS OFF LEEANNA SINCE 8AM. SAFETY MAINTAINED ONGOING MONITORING.
--- NOTE | 2016-09-28 15:00 | NUR ---
DIRECTOR PACKAGING NOTES: INFECTIOUS DISEASE, WHIT AT BEDSIDE REQUESTING BLOOD CULTURE WITH HD IN AM, ORDER RECEIVED AND WILL ENDORSE. ONGOING MONITORING
[2016-09-28] MEDS: MEROPENEM 500 MG in IV NS 0.9% 50 ML IV SCH (15:28)
[2016-09-28] MEDS: RENAL NOVASOURCE 1,000 ML BOTTLE GT PRN (15:45)
[2016-09-28] MEDS ORDERED: DOSE PER PHARMACY MICAFUNGIN 1 EA XX PRN (16:30)
[2016-09-28] MEDS ORDERED: DOSING PER PHARMACY-AMIKACI IV XX PRN (16:30)
[2016-09-28] MEDS ORDERED: FEE PK DOSING 1 MIN EA MC ONE (16:42)
[2016-09-28] MEDS ORDERED: AMIKACIN 500 MG in IV D5W 100 ML IV PRN (17:00)
--- NOTE | 2016-09-28 17:00 | NUR ---
WAGE ADJUSTER NOTE: MULTIPLE CALLS MADE TO PATIENTS FAMILY MR. LOPEZ HOWEVER NO RESPONSE, 3 VOICEMAILS LEFT FOR REQUEST FOR BLOOD TRANSFUSION. THEN UPON RESEARCH CONSTANTINO ROBERTSON CONTACT WAS FOUND FROM PREVIOUS ADMISSION CALL WAS MADE AND CONSENT WAS OBTAINED WITH TWO NURSES VIA TELEPHONE. BLOOD TRANSFUSION STARTED FOR 1 U OF PRBC. ONGOING MONITORING.
[2016-09-28] MEDS: DAPTOMYCIN 500 MG in IV NS 0.9% 50 ML IV SCH (17:03)
[2016-09-28] MEDS: MICAFUNGIN SODIUM 100 MG in IV NS 0.9% 100 ML IV SCH (17:03)
[2016-09-28] MEDS ORDERED: AMIKACIN 750 MG in IV D5W 100 ML IV ONE (18:00)
--- NOTE | 2016-09-28 19:07 | NUR ---
BAR ROLLER NOTE: PATIENT RESTING COMFORTABLY IN BED. NO DISTRESS NOTED. 1 U PRBC RUNNING NO TRANSFUSION REACTION NOTED. VS STABLE. PATIENT KEPT CLEAN AND DRY, WOUND CARE RENDERED. DRESSINGS CLEAN AND DRY. MEDICATIONS ADMINISTERED ORDERED. ISOLATION OBSERVED. SAFETY MAINTAINED. PATIENT ENDORSED FOR CONTINUITY OF CARE.
--- NOTE | 2016-09-28 19:20 | NUR ---
CONVEYOR ATTENDANT PRBC TRANSFUSION COMPLETE. NO IMMEDIATE S/O ADVERSE REACTIONS. VS WNL. CONTINUE TO MONITOR.
[2016-09-29] VITALS (66 sets, daily range): BP systolic 81–183; BP diastolic 32–99
[2016-09-29] MEDS: ALBUTEROL FS 2.5 MG/3 ML VIAL.NEB IH SCH ×7 (00:07→23:46)
[2016-09-29] MEDS: IPRATROPIUM NEB FS 0.5 MG/2.5 ML AMPUL.NEB IH SCH ×6 (00:07→23:46)
[2016-09-29] MEDS: VALPROIC ACID 250 MG/5 ML UDC GT SCH ×3 (00:16→17:03)
[2016-09-29] MEDS: ACETYLCYSTEINE 10% SOLN 400 MG/4 ML VIAL NEB SCH ×4 (01:32→23:46)
[2016-09-29 04:54] LABS: BASOPHILS # (AUTO) 0.1 /CMM (0.0-0.2); BASOPHILS % (AUTO) 0.3 % (0.0-2.0); EOSINOPHILS # (AUTO) 0.3 /CMM (0.0-0.7); EOSINOPHILS % (AUTO) 1.3 % (0.0-6.0); HEMATOCRIT 27 % (33-45); HEMOGLOBIN 8.8 g/dL (11.5-14.8); LYMPHOCYTES # (AUTO) 2.6 /CMM (0.8-4.8); LYMPHOCYTES % (AUTO) 11.8 % (20.0-44.0); MEAN CORPUSCULAR HEMOGLOBIN 33 PG (26.0-33.0); MEAN CORPUSCULAR HGB CONC 33 g/dl (31.0-36.0); MEAN CORPUSCULAR VOLUME 101 fL (82-100); MONOCYTES # (AUTO) 1.7 /CMM (0.1-1.30); MONOCYTES % (AUTO) 7.6 % (2.0-12.0); NEUTROPHILS # (AUTO) 17.7 /CMM (1.8-8.9); PLATELET COUNT (AUTO) 310 /CMM (150-450); RDW COEFFICIENT OF VARIATION 17.7 (11.5-15.0); RED BLOOD CELL COUNT(AUTO) 2.62 MIL/uL (4.0-5.2); WHITE BLOOD COUNT (AUTO) 22.4 K/uL (4.3-11.0)
[2016-09-29 05:08] LABS: CALCIUM, SERUM 9.1 mg/dL (8.5-10.1); CREATININE 5.7 mg/dL (0.6-1.3); MAGNESIUM 1.9 mg/dL (1.8-2.4); PHOSPHORUS 5.3 mg/dL (2.5-4.9); POTASSIUM 3.7 mmol/L (3.5-5.1)
[2016-09-29] MEDS: ACIDOPHILUS/BULGARICUS 1 EACH TAB.CHEW GT SCH ×3 (05:31→20:31)
[2016-09-29] MEDS: METRONIDAZOLE 500MG/ NS 100ML 500 MG in PREMIX 1 EA IV SCH ×3 (05:31→20:30)
[2016-09-29 05:47] LABS: EOSINOPHILS % (MANUAL) 2 % (0-4); LYMPHOCYTES % (MANUAL) 8 % (16-48); MONOCYTES % (MANUAL) 7 % (0-11.0); NEUTROPHILS % (MANUAL) 83 (42-76)
--- NOTE | 2016-09-29 08:10 | NUR ---
HD NURSE IN FOR TREATMENT
--- NOTE | 2016-09-29 08:12 | NUR ---
RT PATIENT REC'D TRACHED ON [facility] VENT WITH ORDERS SET PER MD TOLERATED WELL. VENT ALARMS CHECKED + AUDIBLE. VENT PLUGGED INTO RED OUTLET. CUFF PRESSURE CHECKED VOCAL TEACHER. TRACH SECURE + IN PROPER POSITION. PATIENT SUCTIONED WITH MOD AMT PALE SEMI-THICK SECRETIONS. B/S DIM COARSE. PATIENT APPEARS COMFORTABLE AND IN NO RESP DISTRESS AT THIS TIME. AMBU BAG AT HOB. CONT CURRENT PLAN OF RESPIRATORY CARE Addendum: 09/29/16 at 0812 by KOLE COOK RT Amended: Links added.
[2016-09-29] MEDS ORDERED: IV SET PRIMARY PUMP SET 1 EA INFUS.SET MC ONE (09:12)
[2016-09-29] MEDS ORDERED: SECONDARY IV SET 1 EA INFUS.SET MC ONE ×2 (09:12→16:07)
[2016-09-29] MEDS: FIDAXOMICIN 200 MG TABLET PO SCH ×2 (09:29→16:13)
[2016-09-29] MEDS: LEVETIRACETAM SOL (5 ML) 100 MG/ML UDC GT SCH ×2 (09:29→20:30)
[2016-09-29] MEDS: FERROUS SULFATE (325 MG) 325 MG/TAB TABLET PO SCH ×3 (09:29→16:13)
[2016-09-29] MEDS: VIT B CMPLX 3/FA/VIT C/BIOTIN 1 TAB TABLET GT SCH (09:29)
[2016-09-29] MEDS: PANTOPRAZOLE 40 MG/PACK PACK GT SCH (09:29)
[2016-09-29] MEDS: ALBUMIN 25% 25 GM in PREMIX 1 EA IV PRN (09:30)
[2016-09-29] MEDS: METOPROLOL TARTRATE 25 MG TABLET GT SCH ×2 (09:40→20:31)
[2016-09-29] MEDS ORDERED: EPOETIN ALFA (10,000 UNIT) 10,000 UNIT/ML VIAL SQ ONE (10:00)
[2016-09-29] MEDS: VANCOMYCIN HCL 125 MG/2.5 ML ORAL.SUSP PO SCH ×4 (10:12→20:30)
--- NOTE | 2016-09-29 10:51 | NUR ---
AMIKACIN LEVEL 23.3, WILL HOLD PRN HD AMIKACIN DOSE.
[2016-09-29] MEDS: PROSOURCE / PROSTAT (PYXIS) 30 ML UDC GT SCH (11:09)
--- NOTE | 2016-09-29 11:28 | NUR ---
DR. OSBORN ON THE UNIT, NOTIFIED HIM OF DR. MURPHY'S RECOMMENDATION TO DC THE PICC, BUT TO CHECK WITH HOSPITALIST FIRST. THE HD CATH DOES HAVE A PIGTAIL ON IT THAT CAN BE USED FOR PRESSORS AND ATBX. DR. OSBORN ORDERS TO DC THE PICC. ASKED IF I CAN REINSERT A MIDLINE, HE STATES NO BECAUSE IT IS CAUSE FOR FURTHER INFECTION, HE STATES TO JUST USE THE PIGTAIL AND SPACE OUT THE ATBX. ORDERS FUFILLED, PICC DISCONTINUED.
--- NOTE | 2016-09-29 14:00 | NUR ---
NEW BARIMATRIX BED BROUGHT TO UNIT, BED BATH PERFORMED, WOUND CARE RENDERED, PT SWITCHED TO NEW BED.
[2016-09-29] MEDS: MEROPENEM 500 MG in IV NS 0.9% 50 ML IV SCH (14:47)
[2016-09-29] MEDS: MICAFUNGIN SODIUM 100 MG in IV NS 0.9% 100 ML IV SCH (16:13)
[2016-09-29] MEDS: RENAL NOVASOURCE 1,000 ML BOTTLE GT PRN (16:56)
[2016-09-29] MEDS: CLONIDINE HCL 0.1 MG TABLET GT PRN (18:20)
[2016-09-30] VITALS (23 sets, daily range): BP systolic 108–166; BP diastolic 50–82
[2016-09-30] MEDS: VALPROIC ACID 250 MG/5 ML UDC GT SCH ×3 (00:30→17:47)
[2016-09-30] MEDS: ALBUTEROL FS 2.5 MG/3 ML VIAL.NEB IH SCH ×6 (03:08→22:58)
[2016-09-30] MEDS: IPRATROPIUM NEB FS 0.5 MG/2.5 ML AMPUL.NEB IH SCH ×6 (03:08→22:58)
[2016-09-30] MEDS: METRONIDAZOLE 500MG/ NS 100ML 500 MG in PREMIX 1 EA IV SCH ×3 (05:00→20:40)
[2016-09-30] MEDS: IV NS 0.9% 250 ML IV PRN (05:00)
[2016-09-30] MEDS: ACIDOPHILUS/BULGARICUS 1 EACH TAB.CHEW GT SCH ×3 (05:00→20:42)
[2016-09-30 05:17] LABS: EOSINOPHILS # (AUTO) 0.3 /CMM (0.0-0.7); EOSINOPHILS % (AUTO) 1.3 % (0.0-6.0); HEMATOCRIT 22 % (33-45); HEMOGLOBIN 7.3 g/dL (11.5-14.8); LYMPHOCYTES # (AUTO) 2.6 /CMM (0.8-4.8); LYMPHOCYTES % (AUTO) 12.5 % (20.0-44.0); MEAN CORPUSCULAR HEMOGLOBIN 34 PG (26.0-33.0); MEAN CORPUSCULAR HGB CONC 34 g/dl (31.0-36.0); MEAN CORPUSCULAR VOLUME 100 fL (82-100); MONOCYTES # (AUTO) 1.6 /CMM (0.1-1.30); MONOCYTES % (AUTO) 7.7 % (2.0-12.0); NEUTROPHILS # (AUTO) 16.6 /CMM (1.8-8.9); NEUTROPHILS % (AUTO) 78.5 % (43.0-81.0); PLATELET COUNT (AUTO) 258 /CMM (150-450); RED BLOOD CELL COUNT(AUTO) 2.15 MIL/uL (4.0-5.2); WHITE BLOOD COUNT (AUTO) 21.1 K/uL (4.3-11.0)
[2016-09-30 05:21] LABS: CALCIUM, SERUM 8.5 mg/dL (8.5-10.1); CREATININE 5.1 mg/dL (0.6-1.3); MAGNESIUM 1.8 mg/dL (1.8-2.4); PHOSPHORUS 4.8 mg/dL (2.5-4.9); POTASSIUM 3.4 mmol/L (3.5-5.1)
--- NOTE | 2016-09-30 07:05 | NUR ---
MANAGER PERFORMANCE- INITIAL NOTE RECEIVED PT RESTING IN BED, UNABLE TO FOLLOW COMMANDS. ON MECHANICAL VENT, SETTINGS ORDERED, RESPIRATIONS EVEN AND UNLABORED, NO SOB OR DISTRESS NOTED. BEDSIDE MONITOR REVEALS SINUS RHYTHM. LEFT CHEST WALL HD CATH INTACT. G-TUBE PRESENT RUNNING NOVASOURCE @ 40 MLS/HR. RECTAL TUBE IN PLACE, MINIMAL OUTPUT NOTED. SAFETY MEASURES TAKEN: BED LOCKED AND IN LOW POSITION, SIDE RAILS UP X2, BED ALARM ON, WILL CONTINUE TO MONITOR.
[2016-09-30] MEDS: ACETYLCYSTEINE 10% SOLN 400 MG/4 ML VIAL NEB SCH (07:09)
[2016-09-30] MEDS: FIDAXOMICIN 200 MG TABLET PO SCH (08:02)
[2016-09-30] MEDS: METOPROLOL TARTRATE 25 MG TABLET GT SCH ×2 (08:03→20:42)
[2016-09-30] MEDS: VIT B CMPLX 3/FA/VIT C/BIOTIN 1 TAB TABLET GT SCH (08:03)
[2016-09-30] MEDS: PANTOPRAZOLE 40 MG/PACK PACK GT SCH (08:03)
[2016-09-30] MEDS: FERROUS SULFATE (325 MG) 325 MG/TAB TABLET PO SCH ×3 (08:03→17:53)
[2016-09-30] MEDS: LEVETIRACETAM SOL (5 ML) 100 MG/ML UDC GT SCH ×2 (08:03→20:41)
[2016-09-30] MEDS: VANCOMYCIN HCL 125 MG/2.5 ML ORAL.SUSP PO SCH ×4 (08:03→20:41)
[2016-09-30] MEDS: PROSOURCE / PROSTAT (PYXIS) 30 ML UDC GT SCH ×2 (10:10→17:46)
[2016-09-30] MEDS ORDERED: FEE PK DOSING 1 MIN EA MC ONE (14:26)
[2016-09-30] MEDS ORDERED: GENTAMICIN 80 MG in IV D5W 50 ML IV PRN (14:30)
[2016-09-30] MEDS ORDERED: GENTAMICIN 200 MG in IV D5W 100 ML IV ONE (15:00)
--- NOTE | 2016-09-30 15:45 | NUR ---
GRADES 9 THROUGH 12 TEACHER- PT TRANSFERRED TO OLIN[facility] ROOM 115-1. PT IN NO ACUTE DISTRESS. REPORT GIVEN TO CHAD BACON.
[2016-09-30] MEDS: MEROPENEM 500 MG in IV NS 0.9% 50 ML IV SCH (15:51)
--- NOTE | 2016-09-30 16:19 | NUR ---
SOCIAL WELFARE CLERK- INITIAL NOTE RECEIVED PT FROM ICU PT CURRENTLY RESTING IN BED, UNABLE TO FOLLOW COMMANDS. ON MECHANICAL VENT, SETTINGS ORDERED, RESPIRATIONS EVEN AND UNLABORED, NO SOB OR DISTRESS NOTED. BEDSIDE TELE MONITOR. LEFT CHEST WALL HD CATH INTACT. G-TUBE PRESENT RUNNING NOVASOURCE @ 40 MLS/HR. RECTAL TUBE IN PLACE, MINIMAL OUTPUT NOTED. SAFETY MEASURES TAKEN: BED LOCKED AND IN LOW POSITION, SIDE RAILS UP X2, BED ALARM ON, WILL CONTINUE TO MONITOR.
--- NOTE | 2016-09-30 17:30 | NUR ---
CT MANAGER NOTE PHARMACY NOTIFIED X 2 IN REGARDS TO PATIENT MEDICATIONS NOT BEING AVAILABLE ON THE UNIT FOR SCHEDULED ADMINISTRATION . PHARMACY STATES THAT THEY ARE BACKED UP AND WILL DISPENSED THE MEDICATION SOON IT IS AVAILABLE. NURSING STAFF WILL CONTINUE TO FOLLOW UP
--- NOTE | 2016-09-30 18:08 | NUR ---
MOBILE ARCHITECT-CLOSING NOTE PT CURRENTLY RESTING IN BED, UNABLE TO FOLLOW COMMANDS. ON MECHANICAL VENT, SETTINGS ORDERED, RESPIRATIONS EVEN AND UNLABORED, NO SOB OR DISTRESS NOTED. BEDSIDE TELE MONITOR. LEFT CHEST WALL HD CATH INTACT IVF KVO. G-TUBE PRESENT RUNNING NOVASOURCE @ 35 MLS/HR. RECTAL TUBE IN PLACE, MINIMAL OUTPUT NOTED. SAFETY MEASURES TAKEN: BED LOCKED AND IN LOW POSITION, SIDE RAILS UP X2, BED ALARM ON, WILL CONTINUE TO MONITOR WILL ENDORSE TO PM NURSE IN REGARDS TO THE NEED FOR C-DIFF CULTURE .
--- NOTE | 2016-09-30 19:04 | NUR ---
RN NOTES CALLED [facility], FOLLOWED UP WITH DANIEL REGARDING GENTAMICIN AND VANCOCIN. PER DANIEL GENTAMISIN TO BE GIVEN POST HD. PT DIDN'T HAVE HD TODAY. PER DANIEL THEY WILL SEND VANCOCIN
[2016-09-30] MEDS: DAPTOMYCIN 500 MG in IV NS 0.9% 50 ML IV SCH (19:08)
[2016-09-30] MEDS: HYDROCODONE/APAP 5/325MG 1 EACH TABLET GT PRN (20:43)
[2016-10-01] VITALS: BP 161/74
[2016-10-01] MEDS: CLONIDINE HCL 0.1 MG TABLET GT PRN (00:57)
[2016-10-01] MEDS: VALPROIC ACID 250 MG/5 ML UDC GT SCH ×4 (00:57→23:43)
[2016-10-01] MEDS: HYDROCODONE/APAP 5/325MG 1 EACH TABLET GT PRN ×2 (00:58→05:21)
[2016-10-01] MEDS: IPRATROPIUM NEB FS 0.5 MG/2.5 ML AMPUL.NEB IH SCH ×5 (03:00→19:14)
[2016-10-01] MEDS: ALBUTEROL FS 2.5 MG/3 ML VIAL.NEB IH SCH ×5 (03:00→19:14)
[2016-10-01 04:00] VITALS: BP 146/67
[2016-10-01] MEDS: METRONIDAZOLE 500MG/ NS 100ML 500 MG in PREMIX 1 EA IV SCH ×3 (05:18→20:00)
[2016-10-01] MEDS: ACIDOPHILUS/BULGARICUS 1 EACH TAB.CHEW GT SCH ×3 (05:20→20:00)
[2016-10-01] MEDS: IV NS 0.9% 250 ML IV PRN (05:20)
[2016-10-01] MEDS: RENAL NOVASOURCE 1,000 ML BOTTLE GT PRN (05:20)
[2016-10-01 07:24] LABS: BASOPHILS # (AUTO) 0.1 /CMM (0.0-0.2); BASOPHILS % (AUTO) 0.3 % (0.0-2.0); EOSINOPHILS # (AUTO) 0.3 /CMM (0.0-0.7); EOSINOPHILS % (AUTO) 1.4 % (0.0-6.0); HEMATOCRIT 24 % (33-45); HEMOGLOBIN 7.8 g/dL (11.5-14.8); LYMPHOCYTES # (AUTO) 2.6 /CMM (0.8-4.8); LYMPHOCYTES % (AUTO) 12.3 % (20.0-44.0); MEAN CORPUSCULAR HEMOGLOBIN 34 PG (26.0-33.0); MEAN CORPUSCULAR HGB CONC 33 g/dl (31.0-36.0); MEAN CORPUSCULAR VOLUME 102 fL (82-100); MONOCYTES # (AUTO) 1.3 /CMM (0.1-1.30); MONOCYTES % (AUTO) 6.3 % (2.0-12.0); NEUTROPHILS # (AUTO) 16.7 /CMM (1.8-8.9); NEUTROPHILS % (AUTO) 79.7 % (43.0-81.0); PLATELET COUNT (AUTO) 280 /CMM (150-450); RDW COEFFICIENT OF VARIATION 16.6 (11.5-15.0); RED BLOOD CELL COUNT(AUTO) 2.31 MIL/uL (4.0-5.2)
[2016-10-01 07:44] LABS: CALCIUM, SERUM 8.7 mg/dL (8.5-10.1); CREATININE 5.8 mg/dL (0.6-1.3); MAGNESIUM 1.9 mg/dL (1.8-2.4); PHOSPHORUS 6.3 mg/dL (2.5-4.9); POTASSIUM 3.8 mmol/L (3.5-5.1)
[2016-10-01 08:00] VITALS: BP 151/51
[2016-10-01] MEDS: PROSOURCE / PROSTAT (PYXIS) 30 ML UDC GT SCH ×3 (09:16→17:01)
[2016-10-01] MEDS: VANCOMYCIN HCL 125 MG/2.5 ML ORAL.SUSP PO SCH ×4 (09:16→20:01)
[2016-10-01] MEDS: FERROUS SULFATE (325 MG) 325 MG/TAB TABLET PO SCH ×3 (09:16→17:01)
[2016-10-01] MEDS: METOPROLOL TARTRATE 25 MG TABLET GT SCH ×2 (09:16→20:00)
[2016-10-01] MEDS: LEVETIRACETAM SOL (5 ML) 100 MG/ML UDC GT SCH ×2 (09:16→20:00)
[2016-10-01] MEDS: PANTOPRAZOLE 40 MG/PACK PACK GT SCH (09:16)
[2016-10-01] MEDS: VIT B CMPLX 3/FA/VIT C/BIOTIN 1 TAB TABLET GT SCH (09:16)
[2016-10-01] MEDS: HYDROGEL DRESSING 90 GM TUBE TP PRN (09:17)
[2016-10-01] MEDS: Z GUARD REMEDY 4 OZ OINT TP PRN (09:17)
--- NOTE | 2016-10-01 11:07 | NUR ---
PT TRACH CHANGED DUE TO CUFF BLOWN. PER DR. DICKSON SAME TRACH SIZE ACCEPTABLE. NO RESP. DISTRESS NOTED. MINIMAL BLEEDING AROUND TRACH SITE. BILAT. BS AUSCULTATED. SPO2 100%.
[2016-10-01 12:00] VITALS: BP 162/68
[2016-10-01] MEDS ORDERED: EPOETIN ALFA (10,000 UNIT) 10,000 UNIT/ML VIAL SQ ONE (12:00)
[2016-10-01] MEDS ORDERED: SECONDARY IV SET 1 EA INFUS.SET MC ONE ×2 (14:47→15:33)
--- NOTE | 2016-10-01 14:55 | NUR ---
Tele/RN - Notes Hemodialysis completed with 1 L output. Vital signs stable. Medications given at this time.
[2016-10-01 16:00] VITALS: BP 104/67
[2016-10-01] MEDS ORDERED: GENTAMICIN 200 MG in IV D5W 100 ML IV ONE (16:00)
--- NOTE | 2016-10-01 19:30 | NUR ---
RECEIVED PATIENT IN BED, OBTUNDED, VENT DEPENDENT NO DISTRESS NOTED. PATIENT TURNED AND REPOSITIONED. SAFETY PRECAUTIONS IMPLEMENTED. CONTINUE TO MONITOR
[2016-10-01 20:00] VITALS: BP 155/57
[2016-10-02] VITALS: BP 156/79
[2016-10-02] MEDS: IPRATROPIUM NEB FS 0.5 MG/2.5 ML AMPUL.NEB IH SCH ×7 (00:12→23:51)
[2016-10-02] MEDS: ALBUTEROL FS 2.5 MG/3 ML VIAL.NEB IH SCH ×7 (00:12→23:51)
[2016-10-02 04:00] VITALS: BP 151/55
[2016-10-02] MEDS: METRONIDAZOLE 500MG/ NS 100ML 500 MG in PREMIX 1 EA IV SCH ×3 (04:36→21:00)
[2016-10-02] MEDS: VALPROIC ACID 250 MG/5 ML UDC GT SCH ×2 (04:37→16:55)
[2016-10-02] MEDS: ACIDOPHILUS/BULGARICUS 1 EACH TAB.CHEW GT SCH ×3 (04:37→20:59)
[2016-10-02] MEDS: RENAL NOVASOURCE 1,000 ML BOTTLE GT PRN (04:38)
[2016-10-02 07:46] LABS: BASOPHILS # (AUTO) 0.1 /CMM (0.0-0.2); BASOPHILS % (AUTO) 0.3 % (0.0-2.0); EOSINOPHILS # (AUTO) 0.4 /CMM (0.0-0.7); EOSINOPHILS % (AUTO) 1.8 % (0.0-6.0); HEMATOCRIT 28 % (33-45); HEMOGLOBIN 9.5 g/dL (11.5-14.8); LYMPHOCYTES % (AUTO) 13.8 % (20.0-44.0); MEAN CORPUSCULAR HEMOGLOBIN 35 PG (26.0-33.0); MEAN CORPUSCULAR HGB CONC 34 g/dl (31.0-36.0); MEAN CORPUSCULAR VOLUME 101 fL (82-100); MONOCYTES # (AUTO) 1.5 /CMM (0.1-1.30); NEUTROPHILS # (AUTO) 16.6 /CMM (1.8-8.9); NEUTROPHILS % (AUTO) 77.1 % (43.0-81.0); PLATELET COUNT (AUTO) 280 /CMM (150-450); RDW COEFFICIENT OF VARIATION 16.4 (11.5-15.0); RED BLOOD CELL COUNT(AUTO) 2.74 MIL/uL (4.0-5.2); WHITE BLOOD COUNT (AUTO) 21.6 K/uL (4.3-11.0)
[2016-10-02 07:49] LABS: CALCIUM, SERUM 8.3 mg/dL (8.5-10.1); CREATININE 4.1 mg/dL (0.6-1.3); POTASSIUM 3.8 mmol/L (3.5-5.1)
[2016-10-02 08:00] VITALS: BP 148/62
[2016-10-02 08:39] LABS: EOSINOPHILS % (MANUAL) 1 % (0-4); LYMPHOCYTES % (MANUAL) 8 % (16-48); MONOCYTES % (MANUAL) 5 % (0-11.0); NEUTROPHILS % (MANUAL) 86 (42-76)
[2016-10-02] MEDS: LEVETIRACETAM SOL (5 ML) 100 MG/ML UDC GT SCH ×2 (09:16→20:59)
[2016-10-02] MEDS: METOPROLOL TARTRATE 25 MG TABLET GT SCH ×2 (09:16→20:59)
[2016-10-02] MEDS: VIT B CMPLX 3/FA/VIT C/BIOTIN 1 TAB TABLET GT SCH (09:16)
[2016-10-02] MEDS: FERROUS SULFATE (325 MG) 325 MG/TAB TABLET PO SCH ×3 (09:16→16:55)
[2016-10-02] MEDS: PANTOPRAZOLE 40 MG/PACK PACK GT SCH (09:16)
[2016-10-02] MEDS: VANCOMYCIN HCL 125 MG/2.5 ML ORAL.SUSP PO SCH ×4 (09:18→20:59)
[2016-10-02] MEDS: PROSOURCE / PROSTAT (PYXIS) 30 ML UDC GT SCH ×3 (09:18→16:55)
[2016-10-02 12:00] VITALS: BP 146/64
--- NOTE | 2016-10-02 12:32 | NUR ---
SKID MAN NOTE 0720: Received patient, obtunded. With trache to vent, tolerated settings well. No any respiratory distress noted at this time. With LCW HD cath with pigtail, intact. With GT intact, feeding tolerated well. No residuals noted. With flexiseal intact, still noted with loose stool. On Isolation precaution for CDiff and MRSA blood, maintained and observed. 1130: S/E byB Dr. Cabrera, with labs ordered in am. 1200: S/E by Dr. Salas, no new order at this time.
[2016-10-02 16:00] VITALS: BP 137/45
[2016-10-02] MEDS: DAPTOMYCIN 500 MG in IV NS 0.9% 50 ML IV SCH (18:02)
--- NOTE | 2016-10-02 19:40 | NUR ---
REGIONAL VICE PRESIDENT LIFE SALES INITIAL NOTE RECEIVED PT IN BED. OBTUNDED. ON MECH VENT WITH SETTINGS WELL TOLERATED. HD CATH L CHEST WALL W PIGTAIL CLEAN, PATENT AND INTACT. GTUBE SITE CLEAN AND DRY. GTUBE FEEDING WELL TOLERATED WITHOUT RESIDUAL AT THIS TIME. FLEXI SEAL IN PLACE AND DRAINING LOOSE STOOL. ISOLATION PRECAUTIONS FOR C-DIFF OBSERVED. WILL CONTINUE TO MONITOR.
[2016-10-02 20:00] VITALS: BP 165/81
[2016-10-02] MEDS ORDERED: IV SET PRIMARY PUMP SET 1 EA INFUS.SET MC ONE (23:49)
[2016-10-02] MEDS ORDERED: IV NS 0.9% 250 ML IV ONE (23:49)
[2016-10-03] VITALS: BP 162/77
[2016-10-03 04:00] VITALS: BP 167/91
[2016-10-03] MEDS: IPRATROPIUM NEB FS 0.5 MG/2.5 ML AMPUL.NEB IH SCH ×6 (04:10→23:17)
[2016-10-03] MEDS: ALBUTEROL FS 2.5 MG/3 ML VIAL.NEB IH SCH ×6 (04:10→23:17)
[2016-10-03] MEDS: RENAL NOVASOURCE 1,000 ML BOTTLE GT PRN (05:03)
[2016-10-03] MEDS: VALPROIC ACID 250 MG/5 ML UDC GT SCH ×3 (05:03→18:17)
[2016-10-03] MEDS: ACIDOPHILUS/BULGARICUS 1 EACH TAB.CHEW GT SCH ×3 (05:03→21:07)
[2016-10-03] MEDS: METRONIDAZOLE 500MG/ NS 100ML 500 MG in PREMIX 1 EA IV SCH ×3 (05:03→21:07)
--- NOTE | 2016-10-03 06:59 | NUR ---
BIOMEDICAL ANALYTICAL SCIENTIST CLOSING NOTE NO ACUTE DISTRESS NOTED. NO SIGNIFICANT CHANGES AT THIS TIME. VENT SETTINGS WELL TOLERATED. HD CATH INTACT AND PATENT. GTUBE FEEDING WELL TOLERATED WITH NO RESIDUAL NOTED. ISOLATION PRECAUTIONS OBSERVED. WILL ENDORSE TO NEXT SHIFT FOR JEIMY.
--- NOTE | 2016-10-03 07:30 | NUR ---
INITIAL NOTE RECEIVED PATIENT RESTING IN BED. OPENS EYES, FOLLOWS STIMULUS WITH EYES. DOES NOT FOLLOW COMMAND. NON-VERBAL. BREATHING STABLE WITH PATENT TRACH AND VENT. GT WNL, 10 ML RESIDUAL. FLEXISEAL PATENT, NO LEAKING. PT ON CDIFF ISOLATION. IV NO COMPLICATIONS- GOOD BLOOD RETURN. GENERALIZED EDEMA. PULSES PALPABLE IN ALL EXTREMITIES. SKIN DRY, SLIGHTLY COOL, APPLIED WARM BLANKET, TEMP 96.8. DISCUSSED PLAN OF CARE. CALL LIGHT IN REACH.
[2016-10-03 07:48] LABS: BASOPHILS % (AUTO) 0.2 % (0.0-2.0); EOSINOPHILS # (AUTO) 0.3 /CMM (0.0-0.7); EOSINOPHILS % (AUTO) 1.6 % (0.0-6.0); HEMATOCRIT 26 % (33-45); HEMOGLOBIN 8.7 g/dL (11.5-14.8); LYMPHOCYTES # (AUTO) 2.4 /CMM (0.8-4.8); LYMPHOCYTES % (AUTO) 14.5 % (20.0-44.0); MEAN CORPUSCULAR HEMOGLOBIN 35 PG (26.0-33.0); MEAN CORPUSCULAR HGB CONC 33 g/dl (31.0-36.0); MEAN CORPUSCULAR VOLUME 104 fL (82-100); MONOCYTES # (AUTO) 1.1 /CMM (0.1-1.30); MONOCYTES % (AUTO) 6.8 % (2.0-12.0); NEUTROPHILS # (AUTO) 12.8 /CMM (1.8-8.9); NEUTROPHILS % (AUTO) 76.9 % (43.0-81.0); PLATELET COUNT (AUTO) 280 /CMM (150-450); RDW COEFFICIENT OF VARIATION 15.9 (11.5-15.0); RED BLOOD CELL COUNT(AUTO) 2.51 MIL/uL (4.0-5.2); WHITE BLOOD COUNT (AUTO) 16.6 K/uL (4.3-11.0)
[2016-10-03 07:57] LABS: CALCIUM, SERUM 8.8 mg/dL (8.5-10.1); CREATININE 4.8 mg/dL (0.6-1.3); POTASSIUM 4.2 mmol/L (3.5-5.1)
[2016-10-03 08:00] VITALS: BP 117/37
[2016-10-03] MEDS: PANTOPRAZOLE 40 MG/PACK PACK GT SCH (08:34)
[2016-10-03] MEDS: FERROUS SULFATE (325 MG) 325 MG/TAB TABLET PO SCH ×3 (08:34→16:17)
[2016-10-03] MEDS: LEVETIRACETAM SOL (5 ML) 100 MG/ML UDC GT SCH ×2 (08:34→21:07)
[2016-10-03] MEDS: PROSOURCE / PROSTAT (PYXIS) 30 ML UDC GT SCH ×3 (08:34→16:17)
[2016-10-03] MEDS: VANCOMYCIN HCL 125 MG/2.5 ML ORAL.SUSP PO SCH ×4 (08:34→21:07)
[2016-10-03] MEDS: VIT B CMPLX 3/FA/VIT C/BIOTIN 1 TAB TABLET GT SCH (08:34)
[2016-10-03] MEDS: METOPROLOL TARTRATE 25 MG TABLET GT SCH ×2 (08:35→21:08)
[2016-10-03 12:00] VITALS: BP 151/66
[2016-10-03 16:00] VITALS: BP 154/88
[2016-10-03] MEDS ORDERED: SECONDARY IV SET 1 EA INFUS.SET MC ONE (16:10)
[2016-10-03] MEDS: GENTAMICIN 100 MG in IV D5W 50 ML IV PRN (16:17)
[2016-10-03] MEDS: TRAMADOL HCL 50 MG TABLET GT PRN (18:19)
--- NOTE | 2016-10-03 18:46 | NUR ---
end of shift patient is in unchanged condition. provided extensive wound care, skin care and repositioning q2hr. flexiseal changed this shift d/t leaking after ADL care- MD aware. breathing stable with mechanical ventilator, no respiratory distress this shift. LOC unchanged. patient appeared to have pain based on facial grimacing, administered pain medication. no visitors or family calls this shift. no significant GT residuals. pharmacist Gustavo gave verbal orders to admin gentamicin. will inform night nurse of dx, symptoms, and full assessment.
--- NOTE | 2016-10-03 19:30 | NUR ---
SHELL TRIM OPERATOR INITIAL NOTE PT RECEIVED IN BED. OBTUNDED. ON MECH VENT WITH SETTINGS WELL TOLERATED. LEFT CHEST HD CATH INTACT, PATENT AND CLEAN. GTUBE FEEDING WELL TOLERATED WITH NO RESIDUAL NOTED. GTUBE SITE CLEAN. FLEXI SEAL INTACT, IN PLACE AND DRAINING BY GRAVITY. ISOLATION PRECAUTIONS FOR C-DIFF OBSERVED. WILL CONTINUE TO MONITOR.
[2016-10-03 20:00] VITALS: BP 156/61
[2016-10-03] MEDS: ACETAMINOPHEN 325 MG TABLET PO PRN (20:28)
[2016-10-04] VITALS: BP 163/80
[2016-10-04] MEDS: VALPROIC ACID 250 MG/5 ML UDC GT SCH ×3 (00:04→17:29)
[2016-10-04] MEDS: HYDROCODONE/APAP 5/325MG 1 EACH TABLET GT PRN ×2 (01:52→12:20)
[2016-10-04] MEDS: ALBUTEROL FS 2.5 MG/3 ML VIAL.NEB IH SCH ×6 (03:15→23:34)
[2016-10-04] MEDS: IPRATROPIUM NEB FS 0.5 MG/2.5 ML AMPUL.NEB IH SCH ×6 (03:15→23:34)
[2016-10-04 04:00] VITALS: BP_SYST 157; BP_SYST 159; BP_DIAS 97
[2016-10-04] MEDS: RENAL NOVASOURCE 1,000 ML BOTTLE GT PRN (04:16)
[2016-10-04] MEDS: ACIDOPHILUS/BULGARICUS 1 EACH TAB.CHEW GT SCH ×3 (04:16→20:51)
[2016-10-04] MEDS: METRONIDAZOLE 500MG/ NS 100ML 500 MG in PREMIX 1 EA IV SCH ×3 (04:16→21:52)
[2016-10-04 07:01] LABS: BASOPHILS # (AUTO) 0.1 /CMM (0.0-0.2); BASOPHILS % (AUTO) 0.3 % (0.0-2.0); EOSINOPHILS # (AUTO) 0.4 /CMM (0.0-0.7); EOSINOPHILS % (AUTO) 2.1 % (0.0-6.0); HEMATOCRIT 27 % (33-45); HEMOGLOBIN 9.1 g/dL (11.5-14.8); LYMPHOCYTES # (AUTO) 3.3 /CMM (0.8-4.8); LYMPHOCYTES % (AUTO) 17.8 % (20.0-44.0); MEAN CORPUSCULAR HEMOGLOBIN 34 PG (26.0-33.0); MEAN CORPUSCULAR HGB CONC 33 g/dl (31.0-36.0); MEAN CORPUSCULAR VOLUME 102 fL (82-100); MONOCYTES # (AUTO) 1.7 /CMM (0.1-1.30); MONOCYTES % (AUTO) 9.4 % (2.0-12.0); NEUTROPHILS % (AUTO) 70.4 % (43.0-81.0); PLATELET COUNT (AUTO) 298 /CMM (150-450); RDW COEFFICIENT OF VARIATION 15.9 (11.5-15.0); RED BLOOD CELL COUNT(AUTO) 2.67 MIL/uL (4.0-5.2); WHITE BLOOD COUNT (AUTO) 18.5 K/uL (4.3-11.0)
--- NOTE | 2016-10-04 07:21 | NUR ---
MENTAL HEALTH ADVANCED PRACTICE NURSE CLOSING NOTE NO ACUTE DISTRESS NOTED. NO SIGNIFICANT CHANGES AT THIS TIME. VENT SETTINGS WELL TOLERATED. HD CATH INTACT AND PATENT. GTUBE FEEDING WELL TOLERATED WITH NO RESIDUAL NOTED. ISOLATION PRECAUTIONS OBSERVED. WILL ENDORSE TO NEXT SHIFT FOR JEIMY
[2016-10-04 07:27] LABS: CALCIUM, SERUM 8.9 mg/dL (8.5-10.1); CREATININE 4.1 mg/dL (0.6-1.3); POTASSIUM 3.5 mmol/L (3.5-5.1)
[2016-10-04 08:00] VITALS: BP 168/93
[2016-10-04] MEDS: VIT B CMPLX 3/FA/VIT C/BIOTIN 1 TAB TABLET GT SCH (08:20)
[2016-10-04] MEDS: PANTOPRAZOLE 40 MG/PACK PACK GT SCH (08:20)
[2016-10-04] MEDS: FERROUS SULFATE (325 MG) 325 MG/TAB TABLET PO SCH ×3 (08:20→17:30)
[2016-10-04] MEDS: VANCOMYCIN HCL 125 MG/2.5 ML ORAL.SUSP PO SCH ×4 (08:20→20:50)
[2016-10-04] MEDS: LEVETIRACETAM SOL (5 ML) 100 MG/ML UDC GT SCH ×2 (08:21→20:50)
[2016-10-04] MEDS: METOPROLOL TARTRATE 25 MG TABLET GT SCH ×2 (08:21→20:51)
[2016-10-04] MEDS: TRAMADOL HCL 50 MG TABLET GT PRN (08:23)
[2016-10-04] MEDS: PROSOURCE / PROSTAT (PYXIS) 30 ML UDC GT SCH ×3 (08:23→17:32)
[2016-10-04 12:00] VITALS: BP 159/84
--- NOTE | 2016-10-04 12:09 | NUR ---
REVIEWED PLAN OF CARE WITH DR. LOPEZ. PERFORMED SKIN ASSESSMENT WITH AND GAVE VERBAL ORDERS FOR AN ADDITIONAL WOUND CARE CONSULT BY WOUND CARE NURSE WITH ORDERS FOR ADDITIONAL RECOMMENDATION FOR SKIN CARE BECAUSE Z GUARD INEFFECTIVE.
--- NOTE | 2016-10-04 12:12 | NUR ---
DR. BURGOS IS AWARE OF BP TRENDS SBP 150S-160S OVER DBP 80S-100S.
[2016-10-04 16:00] VITALS: BP_SYST 139; BP_DIAS 63; BP_DIAS 68
--- NOTE | 2016-10-04 19:38 | NUR ---
SOLE INKER INITIAL NOTE PT RECEIVED IN BED. OBTUNDED. ON MECH VENT WITH SETTINGS WELL TOLERATED. LEFT CHEST HD CATH INTACT, PATENT AND CLEAN. GTUBE FEEDING WELL TOLERATED WITH NO RESIDUAL NOTED. GTUBE SITE CLEAN. FLEXI SEAL INTACT, IN PLACE AND DRAINING BY GRAVITY. ISOLATION PRECAUTIONS FOR C-DIFF OBSERVED. WILL CONTINUE TO MONITOR.
[2016-10-04 20:00] VITALS: BP_SYST 148; BP_SYST 175; BP_DIAS 75; BP_DIAS 90
[2016-10-04] MEDS ORDERED: IV NS 0.9% 250 ML IV ONE (20:43)
[2016-10-04] MEDS: DAPTOMYCIN 500 MG in IV NS 0.9% 50 ML IV SCH (20:51)
[2016-10-04] MEDS ORDERED: SECONDARY IV SET 1 EA INFUS.SET MC ONE (20:53)
[2016-10-05] VITALS: BP 170/71
[2016-10-05] MEDS: VALPROIC ACID 250 MG/5 ML UDC GT SCH ×3 (00:20→17:48)
[2016-10-05] MEDS: CLONIDINE HCL 0.1 MG TABLET GT PRN ×2 (00:33→20:35)
[2016-10-05] MEDS: RENAL NOVASOURCE 1,000 ML BOTTLE GT PRN (03:53)
[2016-10-05 04:00] VITALS: BP 146/50
[2016-10-05] MEDS: ALBUTEROL FS 2.5 MG/3 ML VIAL.NEB IH SCH ×8 (04:19→23:41)
[2016-10-05] MEDS: IPRATROPIUM NEB FS 0.5 MG/2.5 ML AMPUL.NEB IH SCH ×8 (04:19→23:41)
[2016-10-05] MEDS: METRONIDAZOLE 500MG/ NS 100ML 500 MG in PREMIX 1 EA IV SCH ×3 (04:42→20:39)
[2016-10-05] MEDS: ACIDOPHILUS/BULGARICUS 1 EACH TAB.CHEW GT SCH ×3 (04:42→20:35)
[2016-10-05] MEDS: HYDROCODONE/APAP 5/325MG 1 EACH TABLET GT PRN ×2 (05:00→20:36)
--- NOTE | 2016-10-05 06:58 | NUR ---
CUSTOMER SERVICE ATTENDANT CLOSING NOTE NO ACUTE DISTRESS NOTED. NO SIGNIFICANT CHANGES AT THIS TIME. VENT SETTINGS WELL TOLERATED. HD CATH INTACT AND PATENT. GTUBE FEEDING WELL TOLERATED WITH NO RESIDUAL NOTED. PT REPOSITIONED Q2H AND WOUND CARE DONE. ISOLATION PRECAUTIONS OBSERVED. WILL ENDORSE TO NEXT SHIFT FOR JEIMY
[2016-10-05 07:22] LABS: BASOPHILS # (AUTO) 0.1 /CMM (0.0-0.2); BASOPHILS % (AUTO) 0.4 % (0.0-2.0); EOSINOPHILS # (AUTO) 0.3 /CMM (0.0-0.7); EOSINOPHILS % (AUTO) 2.4 % (0.0-6.0); HEMATOCRIT 25 % (33-45); HEMOGLOBIN 8.4 g/dL (11.5-14.8); LYMPHOCYTES # (AUTO) 2.7 /CMM (0.8-4.8); LYMPHOCYTES % (AUTO) 19.6 % (20.0-44.0); MEAN CORPUSCULAR HEMOGLOBIN 34 PG (26.0-33.0); MEAN CORPUSCULAR HGB CONC 34 g/dl (31.0-36.0); MEAN CORPUSCULAR VOLUME 102 fL (82-100); MONOCYTES # (AUTO) 1.3 /CMM (0.1-1.30); MONOCYTES % (AUTO) 9.5 % (2.0-12.0); NEUTROPHILS # (AUTO) 9.5 /CMM (1.8-8.9); NEUTROPHILS % (AUTO) 68.1 % (43.0-81.0); PLATELET COUNT (AUTO) 300 /CMM (150-450); RDW COEFFICIENT OF VARIATION 15.2 (11.5-15.0); RED BLOOD CELL COUNT(AUTO) 2.46 MIL/uL (4.0-5.2); WHITE BLOOD COUNT (AUTO) 13.9 K/uL (4.3-11.0)
--- NOTE | 2016-10-05 07:30 | NUR ---
PERSONAL ASSISTANT INITIAL NOTE PT RECEIVED IN BED. OBTUNDED. ON MECH VENT WITH SETTINGS WELL TOLERATED. LEFT CHEST HD CATH INTACT, PATENT AND CLEAN. GTUBE FEEDING WELL TOLERATED WITH NO RESIDUAL NOTED. GTUBE SITE CLEAN. FLEXI SEAL INTACT, IN PLACE AND DRAINING BY GRAVITY. ISOLATION PRECAUTIONS FOR C-DIFF OBSERVED. WILL CONTINUE TO MONITOR.
[2016-10-05 07:44] LABS: CALCIUM, SERUM 8.7 mg/dL (8.5-10.1); MAGNESIUM 1.7 mg/dL (1.8-2.4); PHOSPHORUS 4.8 mg/dL (2.5-4.9); POTASSIUM 3.4 mmol/L (3.5-5.1)
[2016-10-05 08:00] VITALS: BP 116/40
[2016-10-05] MEDS: VIT B CMPLX 3/FA/VIT C/BIOTIN 1 TAB TABLET GT SCH (08:37)
[2016-10-05] MEDS: FERROUS SULFATE (325 MG) 325 MG/TAB TABLET PO SCH ×3 (08:37→17:48)
[2016-10-05] MEDS: LEVETIRACETAM SOL (5 ML) 100 MG/ML UDC GT SCH ×2 (08:37→20:35)
[2016-10-05] MEDS: METOPROLOL TARTRATE 25 MG TABLET GT SCH ×2 (08:37→20:35)
[2016-10-05] MEDS: PROSOURCE / PROSTAT (PYXIS) 30 ML UDC GT SCH ×3 (08:38→17:48)
[2016-10-05] MEDS: PANTOPRAZOLE 40 MG/PACK PACK GT SCH (08:38)
[2016-10-05] MEDS: VANCOMYCIN HCL 125 MG/2.5 ML ORAL.SUSP PO SCH ×4 (08:39→20:34)
[2016-10-05 12:00] VITALS: BP 121/49
[2016-10-05 16:00] VITALS: BP 95/71
[2016-10-05] MEDS ORDERED: SECONDARY IV SET 1 EA INFUS.SET MC ONE (16:04)
[2016-10-05] MEDS: GENTAMICIN 100 MG in IV D5W 50 ML IV PRN (16:12)
[2016-10-05 20:00] VITALS: BP 198/68
[2016-10-05] MEDS: IV NS 0.9% 250 ML IV PRN (22:17)
[2016-10-06] VITALS: BP 111/54
[2016-10-06] MEDS: VALPROIC ACID 250 MG/5 ML UDC GT SCH ×3 (00:35→16:28)
[2016-10-06] MEDS: ACETAMINOPHEN 325 MG TABLET PO PRN (00:42)
[2016-10-06] MEDS: ALBUTEROL FS 2.5 MG/3 ML VIAL.NEB IH SCH ×6 (03:40→23:54)
[2016-10-06] MEDS: IPRATROPIUM NEB FS 0.5 MG/2.5 ML AMPUL.NEB IH SCH ×6 (03:40→23:54)
[2016-10-06 04:00] VITALS: BP 127/52
[2016-10-06] MEDS: RENAL NOVASOURCE 1,000 ML BOTTLE GT PRN (05:18)
[2016-10-06] MEDS: ACIDOPHILUS/BULGARICUS 1 EACH TAB.CHEW GT SCH ×3 (05:19→21:49)
[2016-10-06] MEDS: HYDROCODONE/APAP 5/325MG 1 EACH TABLET GT PRN (05:19)
[2016-10-06] MEDS: METRONIDAZOLE 500MG/ NS 100ML 500 MG in PREMIX 1 EA IV SCH ×3 (05:33→21:50)
[2016-10-06 07:12] LABS: BASOPHILS # (AUTO) 0.1 /CMM (0.0-0.2); BASOPHILS % (AUTO) 0.4 % (0.0-2.0); EOSINOPHILS # (AUTO) 0.2 /CMM (0.0-0.7); EOSINOPHILS % (AUTO) 1.1 % (0.0-6.0); HEMATOCRIT 26 % (33-45); HEMOGLOBIN 8.5 g/dL (11.5-14.8); LYMPHOCYTES # (AUTO) 3.2 /CMM (0.8-4.8); LYMPHOCYTES % (AUTO) 21.4 % (20.0-44.0); MEAN CORPUSCULAR HEMOGLOBIN 35 PG (26.0-33.0); MEAN CORPUSCULAR HGB CONC 33 g/dl (31.0-36.0); MEAN CORPUSCULAR VOLUME 104 fL (82-100); MONOCYTES % (AUTO) 13.1 % (2.0-12.0); NEUTROPHILS # (AUTO) 9.6 /CMM (1.8-8.9); PLATELET COUNT (AUTO) 262 /CMM (150-450); RDW COEFFICIENT OF VARIATION 16.4 (11.5-15.0); RED BLOOD CELL COUNT(AUTO) 2.47 MIL/uL (4.0-5.2); WHITE BLOOD COUNT (AUTO) 14.9 K/uL (4.3-11.0)
[2016-10-06 07:28] LABS: CALCIUM, SERUM 8.6 mg/dL (8.5-10.1); CREATININE 3.9 mg/dL (0.6-1.3); POTASSIUM 3.9 mmol/L (3.5-5.1)
--- NOTE | 2016-10-06 07:30 | NUR ---
VESSEL CREW MEMBER INITIAL NOTE PT RECEIVED IN BED. OBTUNDED. ON MECH VENT WITH SETTINGS WELL TOLERATED. LEFT CHEST HD CATH INTACT, PATENT AND CLEAN. GTUBE FEEDING WELL TOLERATED WITH NO RESIDUAL NOTED. GTUBE SITE CLEAN. FLEXI SEAL INTACT, IN PLACE AND DRAINING BY GRAVITY. ISOLATION PRECAUTIONS FOR C-DIFF OBSERVED. WILL CONTINUE TO MONITOR
[2016-10-06 08:00] VITALS: BP 115/39
[2016-10-06] MEDS: LEVETIRACETAM SOL (5 ML) 100 MG/ML UDC GT SCH ×2 (08:04→21:49)
[2016-10-06] MEDS: VIT B CMPLX 3/FA/VIT C/BIOTIN 1 TAB TABLET GT SCH (08:05)
[2016-10-06] MEDS: PANTOPRAZOLE 40 MG/PACK PACK GT SCH (08:06)
[2016-10-06] MEDS: METOPROLOL TARTRATE 25 MG TABLET GT SCH ×2 (08:06→21:49)
[2016-10-06] MEDS: FERROUS SULFATE (325 MG) 325 MG/TAB TABLET PO SCH ×3 (08:06→16:28)
[2016-10-06] MEDS: VANCOMYCIN HCL 125 MG/2.5 ML ORAL.SUSP PO SCH ×4 (08:11→21:49)
[2016-10-06] MEDS: PROSOURCE / PROSTAT (PYXIS) 30 ML UDC GT SCH ×3 (08:11→16:39)
[2016-10-06 10:23] LABS: LYMPHOCYTES % (MANUAL) 9 % (16-48); MONOCYTES % (MANUAL) 9 % (0-11.0); NEUTROPHILS % (MANUAL) 82 (42-76)
--- NOTE | 2016-10-06 10:35 | NUR ---
WOUND CARE CONSULT: PT SEEN FOR EXCORIATED AREAS TO ABDOMINAL FOLDS, GROIN AREAS, PERIANAL, BUTTOCKS, ANTERIOR PUBIS. SOME IMPROVEMENT NOTED. SOME PEELING OF SKIN NOTED. PT HAS HIGH MOISTURE AREAS TO GROIN/ANTERIOR PUBIC AREAS WITH PERSPIRATION NOTED. PT HAS RECTAL TUBE. RECOMMEND CONTINUE PRESENT TREATMENT. KEEP SKIN CLEAN AND DRY. SLIGHT LEAKAGE AT TIMES AROUND RECTAL TUBE. DISCUSSED WITH NURSING STAFF. PT ON BARIMAX ETS AIR BED. 4+ PITTING EDEMA NOTED TO RT UPPER EXTREMITY. WILL SEE PRN. IN AGREEMENT WITH PLAN OF CARE.
[2016-10-06 12:00] VITALS: BP 116/48
[2016-10-06 16:00] VITALS: BP 138/45
[2016-10-06] MEDS ORDERED: SECONDARY IV SET 1 EA INFUS.SET MC ONE (19:39)
[2016-10-06 20:00] VITALS: BP 152/58
[2016-10-06] MEDS: DAPTOMYCIN 500 MG in IV NS 0.9% 50 ML IV SCH (20:02)
[2016-10-07] VITALS: BP 139/61
[2016-10-07] MEDS: VALPROIC ACID 250 MG/5 ML UDC GT SCH ×4 (00:04→23:19)
[2016-10-07] MEDS: IPRATROPIUM NEB FS 0.5 MG/2.5 ML AMPUL.NEB IH SCH ×6 (03:23→23:12)
[2016-10-07] MEDS: ALBUTEROL FS 2.5 MG/3 ML VIAL.NEB IH SCH ×6 (03:23→23:12)
[2016-10-07 04:00] VITALS: BP 133/61
[2016-10-07] MEDS: METRONIDAZOLE 500MG/ NS 100ML 500 MG in PREMIX 1 EA IV SCH ×3 (05:07→21:34)
[2016-10-07] MEDS: ACIDOPHILUS/BULGARICUS 1 EACH TAB.CHEW GT SCH ×3 (05:07→21:34)
[2016-10-07] MEDS ORDERED: IV NS 0.9% 250 ML IV ONE (05:25)
--- NOTE | 2016-10-07 06:44 | NUR ---
RN CLOSING NOTE PT REMAINS IN NO ACUTE DISTRESS IN BED. PT DID NOT HAVE ANY SIGNIFICANT CHANGE IN CONDITION DURING SHIFT. ALL NEEDS MET, ALL ORDERS CARRIED OUT. PT TOLERATED VENT SETTING WELL WITH O2 SAT @ 100%. WILL ENDORSE TO AM RN FOR CONTINUITY OF CARE.
[2016-10-07 08:00] VITALS: BP 145/45
[2016-10-07] MEDS: FERROUS SULFATE (325 MG) 325 MG/TAB TABLET PO SCH ×3 (08:06→18:16)
[2016-10-07] MEDS: PANTOPRAZOLE 40 MG/PACK PACK GT SCH (08:06)
[2016-10-07] MEDS: LEVETIRACETAM SOL (5 ML) 100 MG/ML UDC GT SCH ×2 (08:06→21:34)
[2016-10-07] MEDS: VIT B CMPLX 3/FA/VIT C/BIOTIN 1 TAB TABLET GT SCH (08:06)
[2016-10-07] MEDS: VANCOMYCIN HCL 125 MG/2.5 ML ORAL.SUSP PO SCH ×4 (08:07→21:34)
[2016-10-07] MEDS: METOPROLOL TARTRATE 25 MG TABLET GT SCH ×2 (08:07→21:35)
[2016-10-07] MEDS: PROSOURCE / PROSTAT (PYXIS) 30 ML UDC GT SCH ×3 (08:08→18:17)
[2016-10-07 12:00] VITALS: BP 138/68
[2016-10-07 16:00] VITALS: BP 154/82
--- NOTE | 2016-10-07 19:45 | NUR ---
RN INITIAL NOTE RECEIVED PT IN NO ACUTE DISTRESS IN BED. PT IS OBTUNDED BUT OPENS EYES. PT IS ON MECHANICAL VENT VIA TRACH. TRACH SITE IS CLEAN DRY AND INTACT. PT TOLERATING VENT SETTING WELL. PT HAS GTUBE THAT IS CLEAN DRY INTACT AND PATENT WITH 0 RESIDUAL. PT NOT SHOWING ANY S/S OF SOB, DIFFICULTY BREATHING, OR PAIN AT THIS TIME. BED IN LOW LOCK POSITION WITH RAILS UP X 2. CALL LIGHT WITHIN REACH AND ALL SAFETY MEASURES ENSURED AND CARRIED OUT.
[2016-10-07 20:00] VITALS: BP 143/65
--- NOTE | 2016-10-07 20:45 | NUR ---
RN NOTE ENDORSE REPORT TO OLINDA RN GRAYSON FOR CONTINUITY OF CARE.
--- NOTE | 2016-10-07 20:45 | NUR ---
FREELANCE TRANSLATOR INITIAL NOTES RECEIVED CONTINUITY OF CARE FROM LILI. NO RESPIRATORY DISTRESS NOTED, TOLERATING CURRENT VENT SETTINGS. TOLERATING GTF, NO RESIDUAL NOTED. ON MONITOR SINUS TACH 103. WITH RCW HD CATH IN PLACE. WITH FLEXISEAL IN PLACE. HOB ELEVATED. SIDE RAILS UP AND LOCKED. BED KEPT AT LOWEST POSITION; ISOLATION PRECAUTIONS OBSERVED. WILL CONTINUE TO MONITOR.
--- NOTE | 2016-10-07 21:31 | NUR ---
DIALYSIS NURSE AT BEDSIDE
--- NOTE | 2016-10-07 21:40 | NUR ---
BP MEDICATION HELD AT THIS TIME DUE TO PATIENT RECEIVING DIALYSIS WITH BP 102/43. WILL CHECK BP AFTER DIALYSIS.
--- NOTE | 2016-10-07 22:59 | NUR ---
NOTED WITH HEART INCREASING TO 143, DIALYSIS STOPPED EARLY, 1.2L OUT. WILL CONTINUE TO MONITOR.
--- NOTE | 2016-10-07 23:10 | NUR ---
VS RECHECKED WITH BP 156/74, PULSE 121. WILL GIVE METOPROLOL AT THIS TIME. WILL CONTINUE TO MONITOR. Addendum: 10/07/16 at 2315 by GRAYSON GIBBS RN PREVIOUS METOPROLOL WAS WASTED, FELL ON THE FLOOR.
[2016-10-08] VITALS: BP 143/71
[2016-10-08] MEDS ORDERED: IV SET PRIMARY PUMP SET 1 EA INFUS.SET MC ONE (02:47)
[2016-10-08] MEDS: HYDROCODONE/APAP 5/325MG 1 EACH TABLET GT PRN (02:54)
[2016-10-08] MEDS: IV NS 0.9% 250 ML IV PRN (02:55)
[2016-10-08] MEDS: RENAL NOVASOURCE 1,000 ML BOTTLE GT PRN (02:55)
[2016-10-08] MEDS: ALBUTEROL FS 2.5 MG/3 ML VIAL.NEB IH SCH ×6 (03:36→23:30)
[2016-10-08] MEDS: IPRATROPIUM NEB FS 0.5 MG/2.5 ML AMPUL.NEB IH SCH ×6 (03:36→23:30)
[2016-10-08 04:00] VITALS: BP 141/84
[2016-10-08] MEDS: ACIDOPHILUS/BULGARICUS 1 EACH TAB.CHEW GT SCH ×3 (05:34→20:33)
[2016-10-08] MEDS: METRONIDAZOLE 500MG/ NS 100ML 500 MG in PREMIX 1 EA IV SCH ×3 (05:34→20:32)
[2016-10-08] MEDS: VALPROIC ACID 250 MG/5 ML UDC GT SCH ×2 (05:34→17:33)
--- NOTE | 2016-10-08 06:48 | NUR ---
HEAVY EQUIPMENT RENTAL ASSOCIATE CLOSING NOTES NO SIGNIFICANT CHANGES OVERNIGHT. ALL NEEDS ANTICIPATED AND MET. NO RESPIRATORY DISTRESS NOTED, TOLERATING VENT SETTINGS, SPO2 100%. SKIN WARM AND DRY TO TOUCH. TOLERATING GTF, NO RESIDUAL NOTED. PATIENT KEPT CLEAN AND DRY. TURNED AND REPOSITIONED Q2 AND PRN. SUCTIONED NEEDED. TRACH CARE DONE. TRACH TIE CHANGED. ALL WOUND TREATMENT DONE ORDERED. ISOLATION PRECAUTIONS OBSERVED. FLEXISEAL IN PLACE. HOB ELEVATED. SIDE RAILS UP AND LOCKED. BED KEPT AT LOWEST POSITION. WILL ENDORSE CONTINUITY OF CARE TO AM NURSE.
[2016-10-08 07:06] LABS: BASOPHILS # (AUTO) 0.1 /CMM (0.0-0.2); BASOPHILS % (AUTO) 0.4 % (0.0-2.0); EOSINOPHILS # (AUTO) 0.3 /CMM (0.0-0.7); EOSINOPHILS % (AUTO) 1.5 % (0.0-6.0); HEMATOCRIT 26 % (33-45); HEMOGLOBIN 8.7 g/dL (11.5-14.8); LYMPHOCYTES # (AUTO) 2.8 /CMM (0.8-4.8); LYMPHOCYTES % (AUTO) 15.7 % (20.0-44.0); MEAN CORPUSCULAR HEMOGLOBIN 35 PG (26.0-33.0); MEAN CORPUSCULAR HGB CONC 33 g/dl (31.0-36.0); MEAN CORPUSCULAR VOLUME 103 fL (82-100); MONOCYTES # (AUTO) 1.6 /CMM (0.1-1.30); MONOCYTES % (AUTO) 9.1 % (2.0-12.0); NEUTROPHILS # (AUTO) 13.1 /CMM (1.8-8.9); NEUTROPHILS % (AUTO) 73.3 % (43.0-81.0); PLATELET COUNT (AUTO) 268 /CMM (150-450); RDW COEFFICIENT OF VARIATION 15.8 (11.5-15.0); RED BLOOD CELL COUNT(AUTO) 2.53 MIL/uL (4.0-5.2); WHITE BLOOD COUNT (AUTO) 17.8 K/uL (4.3-11.0)
[2016-10-08 07:20] LABS: ALBUMIN 1.8 g/dL (3.4-5.0); BILIRUBIN,TOTAL 0.6 mg/dL (0.2-1.0); CALCIUM, SERUM 8.8 mg/dL (8.5-10.1); CREATININE 4.4 mg/dL (0.6-1.3); MAGNESIUM 1.8 mg/dL (1.8-2.4); TOTAL PROTEIN, SERUM 8.4 g/dL (6.4-8.2)
[2016-10-08 08:00] VITALS: BP 172/87
[2016-10-08] MEDS: PANTOPRAZOLE 40 MG/PACK PACK GT SCH (09:00)
[2016-10-08] MEDS: METOPROLOL TARTRATE 25 MG TABLET GT SCH ×2 (09:00→20:33)
[2016-10-08] MEDS: FERROUS SULFATE (325 MG) 325 MG/TAB TABLET PO SCH ×3 (09:00→17:33)
[2016-10-08] MEDS: PROSOURCE / PROSTAT (PYXIS) 30 ML UDC GT SCH ×3 (09:00→17:34)
[2016-10-08] MEDS: VANCOMYCIN HCL 125 MG/2.5 ML ORAL.SUSP PO SCH ×4 (09:01→20:57)
[2016-10-08] MEDS: LEVETIRACETAM SOL (5 ML) 100 MG/ML UDC GT SCH ×2 (09:01→20:33)
[2016-10-08] MEDS: VIT B CMPLX 3/FA/VIT C/BIOTIN 1 TAB TABLET GT SCH (09:01)
[2016-10-08] MEDS: hydrALAZINE HCL 25 MG TABLET PO PRN ×2 (09:02→17:39)
[2016-10-08 12:00] VITALS: BP 149/80
[2016-10-08 16:00] VITALS: BP 165/83
--- NOTE | 2016-10-08 19:30 | NUR ---
RN NOTES RECEIVED PT. AWAKE, OBTUNDED, VENT DEPENDENT, OBESE, ST ON TELE MONITOR,HR- 125, ON GTUBE FEEDING, NOVASOURCE @ 35ML/HR, NOT IN DISTRESS, FLEXI SEAL IN PLACE,SIDERAILS YUPX2 CONTINUE TO MONITOR
[2016-10-08 20:00] VITALS: BP 176/89
--- NOTE | 2016-10-08 20:00 | NUR ---
RN NOTES NOTICED FLEXISEAL IS LEAKING , SMALL AMOUNT, DAYSHIFT NURSE STATED THAT THEY ALREADY FIXED IT BUT THE FLEXISEAL STILL LEAKING- MD AWARE
[2016-10-08] MEDS: ACETAMINOPHEN 325 MG TABLET PO PRN (20:33)
--- NOTE | 2016-10-08 21:00 | NUR ---
RN NOTES PT. HAS TEMP OF 100, TYLENOL 650MG GT GIVEN ORDERED
--- NOTE | 2016-10-08 23:00 | NUR ---
RN NOTES AFTER GIVING TYLENOL, TEMP WENT DOWN TO 98.9
[2016-10-09] VITALS (7 sets, daily range): BP systolic 111–206; BP diastolic 35–129
[2016-10-09] MEDS: VALPROIC ACID 250 MG/5 ML UDC GT SCH ×4 (00:24→23:58)
[2016-10-09] MEDS: ALBUTEROL FS 2.5 MG/3 ML VIAL.NEB IH SCH ×5 (03:38→20:18)
[2016-10-09] MEDS: IPRATROPIUM NEB FS 0.5 MG/2.5 ML AMPUL.NEB IH SCH ×5 (03:38→20:18)
[2016-10-09] MEDS: METRONIDAZOLE 500MG/ NS 100ML 500 MG in PREMIX 1 EA IV SCH (04:12)
[2016-10-09] MEDS: hydrALAZINE HCL 25 MG TABLET PO PRN ×2 (04:12→20:47)
[2016-10-09] MEDS: ACIDOPHILUS/BULGARICUS 1 EACH TAB.CHEW GT SCH ×3 (04:12→20:47)
--- NOTE | 2016-10-09 04:15 | NUR ---
RN NOTES PT BLOOD PRESSURE WENT UP TO 206/129, HYDRALAZINE 25 MG GT GIVEN ORDERED
[2016-10-09] MEDS: RENAL NOVASOURCE 1,000 ML BOTTLE GT PRN (05:25)
--- NOTE | 2016-10-09 06:25 | NUR ---
RN NOTES AWAKE NOT IN DISTRESS, G-TUBE FEEDING RUNNING,, NO RESIDUAL NOTED, MORNING CARE RENDERED, PT NEEDS ATTENDED. ENDORSED TO DAYSHIFT NURSE FOR CONTINUITY OF CARE
[2016-10-09 07:20] LABS: BASOPHILS % (AUTO) 0.3 % (0.0-2.0); EOSINOPHILS # (AUTO) 0.2 /CMM (0.0-0.7); EOSINOPHILS % (AUTO) 1.8 % (0.0-6.0); HEMATOCRIT 27 % (33-45); HEMOGLOBIN 8.9 g/dL (11.5-14.8); LYMPHOCYTES # (AUTO) 2.2 /CMM (0.8-4.8); LYMPHOCYTES % (AUTO) 15.7 % (20.0-44.0); MEAN CORPUSCULAR HEMOGLOBIN 34 PG (26.0-33.0); MEAN CORPUSCULAR HGB CONC 33 g/dl (31.0-36.0); MEAN CORPUSCULAR VOLUME 104 fL (82-100); MONOCYTES # (AUTO) 1.1 /CMM (0.1-1.30); MONOCYTES % (AUTO) 7.9 % (2.0-12.0); NEUTROPHILS # (AUTO) 10.5 /CMM (1.8-8.9); NEUTROPHILS % (AUTO) 74.3 % (43.0-81.0); PLATELET COUNT (AUTO) 238 /CMM (150-450); RDW COEFFICIENT OF VARIATION 15.9 (11.5-15.0); RED BLOOD CELL COUNT(AUTO) 2.59 MIL/uL (4.0-5.2); WHITE BLOOD COUNT (AUTO) 14.1 K/uL (4.3-11.0)
--- NOTE | 2016-10-09 07:36 | NUR ---
DRUG ABUSE COUNSELOR OPEN NOTES RECEIVED REPORT FROM HAND ROLLER NURSE. PATIENT IS IN BED, ALTERED MENTAL STATUS AND NON VERBAL UPON ASSESSMENT (OBTUNDED). LAST DIALYSIS PN 10/07, WILL FOLLOW UP WITH DIALYSIS IF THEY ARE PLANING ON DIALYZE TODAY. PATIENT IS VENT DEPENDENT AC 18, TV 600, FiO2 30%, NO PEEP. WILL CONTINUE TO MONITOR AND ASSESS PATIENT
--- NOTE | 2016-10-09 08:25 | NUR ---
RN NOTES / BP CALLED DIALYSIS NURSE TO CHECK IF THE PATIENT IS GOINF TO GET DIALYSIS TODAY. DIALYSIS NURSE MADE BIANCHI OF HIGH BLOOD PRESSURE AND REQUESTED NOT TO GIVE ANY BLOOD PRESSURE MEDS AND HE WILL BE HERE SHORTLY.
[2016-10-09] MEDS: LEVETIRACETAM SOL (5 ML) 100 MG/ML UDC GT SCH ×2 (09:00→20:42)
[2016-10-09] MEDS: PANTOPRAZOLE 40 MG/PACK PACK GT SCH (09:00)
[2016-10-09] MEDS: PROSOURCE / PROSTAT (PYXIS) 30 ML UDC GT SCH ×3 (09:00→16:19)
[2016-10-09] MEDS: VIT B CMPLX 3/FA/VIT C/BIOTIN 1 TAB TABLET GT SCH (09:00)
[2016-10-09] MEDS: VANCOMYCIN HCL 125 MG/2.5 ML ORAL.SUSP PO SCH (09:00)
[2016-10-09] MEDS: FERROUS SULFATE (325 MG) 325 MG/TAB TABLET PO SCH ×3 (09:00→16:19)
[2016-10-09] MEDS: METOPROLOL TARTRATE 25 MG TABLET GT SCH ×2 (09:00→20:48)
--- NOTE | 2016-10-09 09:25 | NUR ---
0900 MEDS HELD DUE TO DIALYSIS. MEDS WILL RESUME AFTER DIALYSIS COMPLETED
--- NOTE | 2016-10-09 11:02 | NUR ---
DIALYSIS AT BEDSIDE TO START DIALYSIS
--- NOTE | 2016-10-09 11:42 | NUR ---
BLOOD PRESSURE NOW IS 96/88
--- NOTE | 2016-10-09 12:37 | NUR ---
DIALYSIS COMPLETED. 1L REMOVED. BLOOD PRESSURE 95/30 HEART RATE 115
[2016-10-09] MEDS: VANCOMYCIN HCL 125 MG/2.5 ML ORAL.SUSP GT SCH ×2 (12:41→20:47)
--- NOTE | 2016-10-09 18:44 | NUR ---
SOIL SAMPLER CLOSING NOTES PATIENT IS IN BED, NON VERBAL AND OBTUNDED. BED IS IN LOW POSITION, LOCKED, AND TWO SIDE RAILS ARE UP. NO SIGNS AND SYMPTOMS OF DISTRESS. DIALYSIS COMPLETED TODAY. PATIENT KEPT CLEAN AND DRY. ALL NEEDS ANTICIPATED. WILL ENDORSE TO NUCLEAR DESIGN ENGINEER NURSE.
[2016-10-10] VITALS (8 sets, daily range): BP systolic 119–157; BP diastolic 44–78
[2016-10-10] MEDS: IPRATROPIUM NEB FS 0.5 MG/2.5 ML AMPUL.NEB IH SCH ×7 (00:04→23:44)
[2016-10-10] MEDS: ALBUTEROL FS 2.5 MG/3 ML VIAL.NEB IH SCH ×8 (00:04→23:44)
[2016-10-10] MEDS: RENAL NOVASOURCE 1,000 ML BOTTLE GT PRN (05:12)
[2016-10-10] MEDS: VALPROIC ACID 250 MG/5 ML UDC GT SCH ×2 (05:13→18:16)
[2016-10-10] MEDS: ACIDOPHILUS/BULGARICUS 1 EACH TAB.CHEW GT SCH ×3 (05:13→21:11)
[2016-10-10] MEDS: VANCOMYCIN HCL 125 MG/2.5 ML ORAL.SUSP GT SCH ×3 (05:13→21:11)
--- NOTE | 2016-10-10 05:53 | NUR ---
PT ASLEEP MOST OF THE NIGHT ,HAD BEDBATH ,CLEANED SKIN AND CREAM APPLIED TO ALL REDNESS ,SKIN FLAPS EXCORIATION.TOLERATING FEEDING WELL, FLEXISEAL 275CC OUTPUT. NO ACUTE DISTRESS.VSS,AFEBRILE.
[2016-10-10] MEDS: METOPROLOL TARTRATE 25 MG TABLET GT SCH ×2 (09:00→21:12)
[2016-10-10] MEDS: LEVETIRACETAM SOL (5 ML) 100 MG/ML UDC GT SCH ×2 (09:37→21:11)
[2016-10-10] MEDS: PANTOPRAZOLE 40 MG/PACK PACK GT SCH (09:38)
[2016-10-10] MEDS: VIT B CMPLX 3/FA/VIT C/BIOTIN 1 TAB TABLET GT SCH (09:38)
[2016-10-10] MEDS: FERROUS SULFATE (325 MG) 325 MG/TAB TABLET PO SCH ×3 (09:38→17:00)
[2016-10-10] MEDS: PROSOURCE / PROSTAT (PYXIS) 30 ML UDC GT SCH ×3 (09:41→17:00)
--- NOTE | 2016-10-10 14:54 | NUR ---
RT RECEIVED PT TRACHED WITH SHILEY #8 XLT CUFFED ON VENT WITH SETTINGS PER MD ORDER. PRIZE JACKER DONE. BILAT RHONCHI BREATH SOUNDS ON AUSCULTATION. VENT PLUGGED INTO RED OUTLET. ALARMS ON AND SET PROPERLY. AMBU BAG AT HEAD OF BED. TRACH SECURED AND AIRWAY PATENT. SUCTIONED MOD TO LARGE AMOUNTS OF THICK, YELLOW SECRETIONS. BREATHING TX'S GIVEN ORDERED. NO ADVERSE REACTIONS OBSERVED. NO SIGNS OF DISTRESS NOTED. WILL CONTINUE TO MONITOR THE PATIENT FOR ANY CHANGE OF CONDITION. Addendum: 10/10/16 at 1624 by SCARLETT GAMBLE RT Amended: Links added.
--- NOTE | 2016-10-10 18:00 | NUR ---
EOSS-PT. REMAIN ON VENT. SETTING. HOB ELEVATED. ON GT TUBE FEEDING. NO SIGNS OF ASPIRATION NOTED. TOTAL CARE PT. WILL CONTINUE PLAN OF CARE CARED FOR.
--- NOTE | 2016-10-10 19:47 | NUR ---
PT RCVD ON VENT WITH NOTED SETTINGS. SXN LARGE AMOUNT OF YELLOWISH THICK SECRETIONS. BILATERAL BS NOTED. VENT ALARM CHECKED AND AUDIBLE. VENT PLUGGED INTO RED OUTLET,AMBU BAG AT [facility]. NO RESPIRATORY DISTRESS NOTED, WILL CONTINUE TO MONITOR.
[2016-10-10] MEDS ORDERED: IV SET PRIMARY PUMP SET 1 EA INFUS.SET MC ONE (20:57)
[2016-10-10] MEDS: IV NS 0.9% 250 ML IV PRN (21:10)
[2016-10-11] MEDS: VALPROIC ACID 250 MG/5 ML UDC GT SCH ×3 (00:43→17:02)
[2016-10-11 01:21] VITALS: BP 126/48
[2016-10-11] MEDS: ALBUTEROL FS 2.5 MG/3 ML VIAL.NEB IH SCH ×6 (03:20→23:47)
[2016-10-11] MEDS: IPRATROPIUM NEB FS 0.5 MG/2.5 ML AMPUL.NEB IH SCH ×6 (03:20→23:47)
[2016-10-11] MEDS: ACIDOPHILUS/BULGARICUS 1 EACH TAB.CHEW GT SCH ×3 (04:28→21:14)
[2016-10-11] MEDS: VANCOMYCIN HCL 125 MG/2.5 ML ORAL.SUSP GT SCH ×3 (04:28→21:14)
[2016-10-11 05:00] VITALS: BP 111/45
--- NOTE | 2016-10-11 06:58 | NUR ---
NO SIGNIFICANT CHANGE OVERNIGHT,HAD BEDBATH AND SLEPT WELL,FLEXISEAL IRRIGATED AND DRAIN 100CC OF LIQUID STOOL.,CONTINUE WITH SAME TREATMENT.VSS,AFEBRILE.SUCTIONED WITH VERY THICK YELLOWGREEN SECRETIONS.
--- NOTE | 2016-10-11 07:30 | NUR ---
RN INITIAL NOTE RECEIVED PT FROM [facility] PM SHIFT FOR JEIMY. PT OBTUNDED. MARCK # AC 16 TV 600 [id number] GIOVANY HD AT BEDSIDE WILL HOLD BP MEDICATION. TELE ST. FLEXISEAL INTACT. GTF NOVASOURCE @ 35ML/HR PLACEMENT CK. L CHEST HD CATH WITH PIG TAIL. WILL CONTINUE TO MONITOR.
[2016-10-11 08:00] VITALS: BP 127/48
[2016-10-11] MEDS: VIT B CMPLX 3/FA/VIT C/BIOTIN 1 TAB TABLET GT SCH (08:52)
[2016-10-11] MEDS: PANTOPRAZOLE 40 MG/PACK PACK GT SCH (08:52)
[2016-10-11] MEDS: LEVETIRACETAM SOL (5 ML) 100 MG/ML UDC GT SCH ×2 (08:52→21:12)
[2016-10-11] MEDS: FERROUS SULFATE (325 MG) 325 MG/TAB TABLET PO SCH ×3 (08:53→16:19)
[2016-10-11] MEDS: METOPROLOL TARTRATE 25 MG TABLET GT SCH ×2 (08:53→21:14)
[2016-10-11] MEDS: PROSOURCE / PROSTAT (PYXIS) 30 ML UDC GT SCH ×3 (08:53→16:13)
[2016-10-11] MEDS: Z GUARD REMEDY 4 OZ OINT TP PRN (08:54)
[2016-10-11] MEDS: RENAL NOVASOURCE 1,000 ML BOTTLE GT PRN (10:07)
[2016-10-11 12:00] VITALS: BP 145/50
--- NOTE | 2016-10-11 15:30 | NUR ---
RN NOTE PT B/P 161/69 WILL GIVEN HYDRALAZINE.
[2016-10-11 16:00] VITALS: BP 161/69
[2016-10-11] MEDS: hydrALAZINE HCL 25 MG TABLET PO PRN (16:13)
[2016-10-11] MEDS: HYDROCODONE/APAP 5/325MG 1 EACH TABLET GT PRN ×2 (16:14→21:18)
--- NOTE | 2016-10-11 19:06 | NUR ---
RN CLOSING NOTE REPORT GIVEN TO ALANA PM SHIFT FOR JEIMY. PT OBTUNDED. MARCK # AC 16 TV 600 FI02 30%. TELE ST THROUGH OUT SHIFT. FLEXI SEAL INTACT DI NOT REMOVE DUE TO REOCCURRING DIARRHEA. CHARGE NURSE AWARE. GTF NOVASOURCE @ 35 ML/HR TOLERATED THROUGH OUT SHIFT NO RESIDUAL. L CHEST HD CATH WITH PIG TAIL HD TODAY 1 L OUT. ALL SAFETY MEASURES IN PLACE ALL ORDERS CARRIED OUT.
--- NOTE | 2016-10-11 19:47 | NUR ---
RN INITIAL NOTE RECEIVED PT FROM [facility] PM SHIFT FOR JEIMY. PT OBTUNDED. MARCK # AC 16 TV 600 [id number] GIOVANY HD AT BEDSIDE WILL HOLD BP MEDICATION. TELE ST. FLEXISEAL INTACT,WITH ORDER TO D/C IF DIARRHEA STOPS. GTF NOVASOURCE @ 35ML/HR PLACEMENT CK. L CHEST HD CATH WITH PIG TAIL. WILL CONTINUE TO MONITOR.
--- NOTE | 2016-10-11 19:51 | NUR ---
RN INITIAL NOTE RECEIVED PT FROM PM SHIFT FOR JEIMY. PT OBTUNDED. MARCK # AC 16 TV 600 [id number] GIOVANY HD AT BEDSIDE WILL HOLD BP MEDICATION. TELE ST. FLEXISEAL INTACT,WITH ORDER TO D/C IF DIARRHEA STOPS. GTF NOVASOURCE @ 35ML/HR PLACEMENT CK. L CHEST HD CATH WITH PIG TAIL. WILL CONTINUE TO MONITOR.
[2016-10-11 20:00] VITALS: BP 112/77
[2016-10-12] VITALS: BP 102/47
[2016-10-12] MEDS: VALPROIC ACID 250 MG/5 ML UDC GT SCH ×3 (00:35→16:46)
[2016-10-12 04:00] VITALS: BP 102/47
[2016-10-12] MEDS: IPRATROPIUM NEB FS 0.5 MG/2.5 ML AMPUL.NEB IH SCH ×6 (04:24→22:34)
[2016-10-12] MEDS: ALBUTEROL FS 2.5 MG/3 ML VIAL.NEB IH SCH ×6 (04:24→22:34)
[2016-10-12] MEDS: ACIDOPHILUS/BULGARICUS 1 EACH TAB.CHEW GT SCH ×3 (05:29→21:21)
[2016-10-12] MEDS: VANCOMYCIN HCL 125 MG/2.5 ML ORAL.SUSP GT SCH ×3 (05:30→21:21)
--- NOTE | 2016-10-12 06:16 | NUR ---
RN CLOSING NOTE REPORT GIVEN TO AM SHIFT FOR JEIMY. PT OBTUNDED. MARCK # AC 16 TV 600 FI02 30%. TELE ST THROUGH OUT SHIFT. FLEXI SEAL INTACT DI NOT REMOVE DUE TO REOCCURRING DIARRHEA. CHARGE NURSE AWARE. GTF NOVASOURCE @ 35 ML/HR TOLERATED THROUGH OUT SHIFT NO RESIDUAL. L CHEST HD CATH WITH PIG TAIL HD TODAY 1 L OUT. ALL SAFETY MEASURES IN PLACE ALL ORDERS CARRIED OUT.
--- NOTE | 2016-10-12 07:38 | NUR ---
RN INITIAL NOTE RECEIVED PT, PT OBSERVED RESTING COMFORTABLY IN BED . PT OBTUNDED BUT OPENS EYES TO SOUND AND MOVEMENT .PT HAS SHILEY # AC 16 TV 600 [id number] PT RECEIVED HD ON 10/11/16. TELE SINUS TACH. FLEXISEAL INTACT,WITH ORDER TO D/C IF DIARRHEA STOPS DIARRHEA STILL PRESENT NURSING STAFF WILL CONTINUE TO MONITOR . GTF NOVASOURCE @ 35ML/HR NO RESIDUAL NOTED. PT HAS L CHEST HD CATH WITH PIG TAIL WITH NS AT TKO RUNNING. DRESSING IS CLEAN DRY AND INTACT. NURSING STAFF WILL CONTINUE TO MONITOR. BED LOCKED IN LOWEST POSITION. CALL LIGHT WITHIN REACH ALL NEEDS ATTENDED TO
[2016-10-12 08:00] VITALS: BP 109/60
[2016-10-12] MEDS: PANTOPRAZOLE 40 MG/PACK PACK GT SCH (08:02)
[2016-10-12] MEDS: LEVETIRACETAM SOL (5 ML) 100 MG/ML UDC GT SCH ×2 (08:02→21:21)
[2016-10-12] MEDS: FERROUS SULFATE (325 MG) 325 MG/TAB TABLET PO SCH ×3 (08:02→16:46)
[2016-10-12] MEDS: VIT B CMPLX 3/FA/VIT C/BIOTIN 1 TAB TABLET GT SCH (08:02)
[2016-10-12] MEDS: PROSOURCE / PROSTAT (PYXIS) 30 ML UDC GT SCH ×3 (08:03→16:45)
[2016-10-12] MEDS: METOPROLOL TARTRATE 25 MG TABLET GT SCH ×2 (08:15→21:23)
[2016-10-12 12:00] VITALS: BP 137/67
[2016-10-12] MEDS: HYDROCODONE/APAP 5/325MG 1 EACH TABLET GT PRN (12:21)
--- NOTE | 2016-10-12 12:29 | NUR ---
rn note RN administered PRN PAIN MEDICATION BASED OFF OF PATIENT FACIAL GRIMACING, INCREASED HR AND INCREASED MOVEMENT. NURSING STAFF WILL CONTINUE TO FOLLOW PATIENTS PROGRESS
[2016-10-12 16:00] VITALS: BP 111/66
[2016-10-12] MEDS: ACETAMINOPHEN 325 MG TABLET PO PRN (16:46)
--- NOTE | 2016-10-12 18:26 | NUR ---
RN CLOSING NOTE PT HAS REMAINED WITHOUT ISSUE THROUGHOUT THE DAY. PT HAS BEEN GIVEN PAIN MEDICATION x1 AND TYLENOL x 1 FOR LOW GRADE FEVER . PT IS OBTUNDED.PT HAS SHILEY # AC 16 TV 600 FI02 30%. TELE ST THROUGH OUT SHIFT NO SOB NOTED . FLEXI SEAL INTACT DID NOT REMOVE DUE TO REOCCURRING DIARRHEA. CHARGE NURSE AWARE. GTF NEW BAG AND TUBING HUNG NOVASOURCE @ 35 ML/HR TOLERATED THROUGH OUT SHIFT NO RESIDUAL. L CHEST HD CATH WITH PIG TAIL. ALL SAFETY MEASURES IN PLACE ALL ORDERS CARRIED OUT.
[2016-10-12] MEDS: RENAL NOVASOURCE 1,000 ML BOTTLE GT PRN (18:35)
--- NOTE | 2016-10-12 19:29 | NUR ---
SENIOR RUBY DEVELOPER INITIAL NOTE RECEIVED PT IN BED. OBTUNDED AND ON MECH VENT WITH SETTINGS WELL TOLERATED. ISOLATION PRECAUTIONS FOR C-DIFF OBSERVED. TELE- SINUS TACH. GTUBE FEEDING WELL TOLERATED WITHOUT RESIDUAL NOTED. GTUBE SITE CLEAN AND INTACT. FLEXISEAL IN PLACE. L CHEST HD CATH WITH PIGTAIL CLEAN, DRY AND INTACT. WILL CONTINUE TO MONITOR.
[2016-10-12 20:00] VITALS: BP 121/83
[2016-10-12] MEDS ORDERED: IV NS 0.9% 250 ML IV ONE (20:50)
[2016-10-12] MEDS: TRAMADOL HCL 50 MG TABLET GT PRN (21:24)
[2016-10-13] VITALS (7 sets, daily range): BP systolic 99–158; BP diastolic 33–69
[2016-10-13] MEDS: VALPROIC ACID 250 MG/5 ML UDC GT SCH ×3 (00:42→17:15)
[2016-10-13] MEDS: IPRATROPIUM NEB FS 0.5 MG/2.5 ML AMPUL.NEB IH SCH ×6 (02:58→23:24)
[2016-10-13] MEDS: ALBUTEROL FS 2.5 MG/3 ML VIAL.NEB IH SCH ×6 (02:58→23:24)
[2016-10-13] MEDS: VANCOMYCIN HCL 125 MG/2.5 ML ORAL.SUSP GT SCH ×3 (05:20→21:10)
[2016-10-13] MEDS: ACIDOPHILUS/BULGARICUS 1 EACH TAB.CHEW GT SCH ×3 (05:20→21:10)
[2016-10-13] MEDS: HYDROCODONE/APAP 5/325MG 1 EACH TABLET GT PRN (05:21)
--- NOTE | 2016-10-13 06:44 | NUR ---
WRINGER AND SETTER CLOSING NOTE PT REMAINED STABLE DURING SHIFT. NO ACUTE DISTRESS NOTED. VENT SETTINGS WELL TOLERATED. ISOLATION PRECAUTIONS OBSERVED. PT WOUND TREATMENT AND REPOSITIONING Q2H PERFORMED. GTUBE CLEAN AND INTACT. L CHEST WALL HD CATH INTACT. TELE- SINUS TACH 109. WILL ENDORSE TO NEXT SHIFT FOR JEIMY.
--- NOTE | 2016-10-13 07:00 | NUR ---
RN NOTE RECEIVED PT ON BED , OBTUNDED, OPENS EYES VERBAL STIMULI , PT IS TRACH/ VENT DEPEDENT , TOLERATING CURRENT VENT SETTING WELL MARCK #8 , AC 16 TV 600 FI02 30%. TRCH CARE DONE , ON TELE SINUS IN 100'S FLEXISEAL INTACT,TOLERATING TF NOVASOURCE @ 35ML/HR NO RESIDUAL NOTED. L CHEST HD CATH WITH PIG TAIL, DRESSING IS CLEAN DRY AND INTACT. BED LOCKED AND IN LOWEST POSITION. CALL LIGHT WITHIN REACH, CONTINUE TO MONITOR PT CLOSELY AND NOTIFY MD FOR ANY SIGNIFICANT CHANGES.
[2016-10-13 07:02] LABS: BASOPHILS % (AUTO) 0.1 % (0.0-2.0); EOSINOPHILS # (AUTO) 0.2 /CMM (0.0-0.7); EOSINOPHILS % (AUTO) 1.8 % (0.0-6.0); HEMATOCRIT 24 % (33-45); HEMOGLOBIN 7.9 g/dL (11.5-14.8); LYMPHOCYTES # (AUTO) 2.3 /CMM (0.8-4.8); LYMPHOCYTES % (AUTO) 21.8 % (20.0-44.0); MEAN CORPUSCULAR HEMOGLOBIN 35 PG (26.0-33.0); MEAN CORPUSCULAR HGB CONC 34 g/dl (31.0-36.0); MEAN CORPUSCULAR VOLUME 104 fL (82-100); MONOCYTES % (AUTO) 18.7 % (2.0-12.0); NEUTROPHILS # (AUTO) 6.2 /CMM (1.8-8.9); NEUTROPHILS % (AUTO) 57.6 % (43.0-81.0); PLATELET COUNT (AUTO) 178 /CMM (150-450); RDW COEFFICIENT OF VARIATION 14.9 (11.5-15.0); RED BLOOD CELL COUNT(AUTO) 2.26 MIL/uL (4.0-5.2); WHITE BLOOD COUNT (AUTO) 10.8 K/uL (4.3-11.0)
[2016-10-13 07:22] LABS: CREATININE 5.1 mg/dL (0.6-1.3); POTASSIUM 3.8 mmol/L (3.5-5.1)
[2016-10-13] MEDS: LEVETIRACETAM SOL (5 ML) 100 MG/ML UDC GT SCH ×2 (08:38→21:10)
[2016-10-13] MEDS: PANTOPRAZOLE 40 MG/PACK PACK GT SCH (08:38)
[2016-10-13] MEDS: VIT B CMPLX 3/FA/VIT C/BIOTIN 1 TAB TABLET GT SCH (08:39)
[2016-10-13] MEDS: FERROUS SULFATE (325 MG) 325 MG/TAB TABLET PO SCH ×3 (08:39→17:15)
[2016-10-13] MEDS: METOPROLOL TARTRATE 25 MG TABLET GT SCH ×2 (08:40→21:10)
[2016-10-13] MEDS: PROSOURCE / PROSTAT (PYXIS) 30 ML UDC GT SCH ×3 (08:45→17:15)
[2016-10-13 10:03] LABS: EOSINOPHILS % (MANUAL) 2 % (0-4); LYMPHOCYTES % (MANUAL) 20 % (16-48); MONOCYTES % (MANUAL) 14 % (0-11.0); NEUTROPHILS % (MANUAL) 64 (42-76)
--- NOTE | 2016-10-13 12:00 | NUR ---
RN NOTES VSS STABLE, TRACH CARE DONE, PT TOLERATING TUBE FEEDING WELL. CONTINUE TO MONITOR
--- NOTE | 2016-10-13 18:00 | NUR ---
RN NOTES PT ASLEEP IN BED, VSS STABLE. TRACH SUCTIONING DONE, NO TUBE FEEDING RESIDUAL NOTED. LEFT CHEST CATH DRESSING CDI, TELE HEART RATE 103'S. SIDERAILS UP X4. FLEXISEAL DRAINING DARK, GREENISH SEMI LOOSE STOOL. PT TURNED AND REPOSITIONED. NO SIGNIFICANT CHANGES NOTED
--- NOTE | 2016-10-13 19:14 | NUR ---
MRI TECH INITIAL NOTE RECEIVED PT RESTING IN BED. [facility] WITH SETTINGS WELL TOLERATED AND SATING WELL. ISOLATION PRECAUTIONS OBSERVED. TELE-SINUS TACH. GTUBE PATENT AND FLUSHING WELL WITHOUT RESIDUAL NOTED. L CHEST HD CATH CLEAN AND PATENT. FLEXI SEAL IN PLACE AND DRAINING BY GRAVITY. WILL CONTINUE TO MONITOR.
[2016-10-14] VITALS (8 sets, daily range): BP systolic 78–178; BP diastolic 29–90
[2016-10-14] MEDS: VALPROIC ACID 250 MG/5 ML UDC GT SCH ×3 (00:17→17:28)
[2016-10-14] MEDS: RENAL NOVASOURCE 1,000 ML BOTTLE GT PRN (00:17)
[2016-10-14] MEDS: IPRATROPIUM NEB FS 0.5 MG/2.5 ML AMPUL.NEB IH SCH ×5 (03:09→20:10)
[2016-10-14] MEDS: ALBUTEROL FS 2.5 MG/3 ML VIAL.NEB IH SCH ×5 (03:09→20:10)
[2016-10-14] MEDS: ACIDOPHILUS/BULGARICUS 1 EACH TAB.CHEW GT SCH ×3 (04:36→20:05)
[2016-10-14] MEDS: HYDROCODONE/APAP 5/325MG 1 EACH TABLET GT PRN ×2 (04:36→20:04)
[2016-10-14] MEDS: VANCOMYCIN HCL 125 MG/2.5 ML ORAL.SUSP GT SCH ×3 (04:36→20:15)
--- NOTE | 2016-10-14 06:58 | NUR ---
GRAPHIC DESIGN ASSISTANT CLOSING NOTE PT REMAINED STABLE DURING SHIFT. NO ACUTE DISTRESS NOTED. VENT SETTINGS WELL TOLERATED. ISOLATION PRECAUTIONS OBSERVED. PT WOUND TREATMENT AND REPOSITIONING Q2H PERFORMED. TRACH SUCTIONED NEEDED. GTUBE CLEAN AND INTACT. L CHEST WALL HD CATH INTACT. TELE- SINUS TACH . WILL ENDORSE TO NEXT SHIFT FOR JEIMY.
--- NOTE | 2016-10-14 07:15 | NUR ---
RN INITIAL NOTES: Rec'd pt on bed, not in any distress, obtunded. Pt on mech vent via trach, saturating at 100%. Secretions suctioned. On telemonitor, ST. Pt has patent & intact flexiseal. Has PEG patent & intact, on cont TF of Novasource x 35 cc/hr infusing well, no residual noted upon checking. Has L chest HD cath in place and intact. Provided comfort & safety measures. Call light placed w/in reach. Bed kept low & in locked position. Isolation prec observed. Will continue to monitor.
[2016-10-14] MEDS: PANTOPRAZOLE 40 MG/PACK PACK GT SCH (08:37)
[2016-10-14] MEDS: FERROUS SULFATE (325 MG) 325 MG/TAB TABLET PO SCH ×3 (08:37→17:27)
[2016-10-14] MEDS: VIT B CMPLX 3/FA/VIT C/BIOTIN 1 TAB TABLET GT SCH (08:37)
[2016-10-14] MEDS: LEVETIRACETAM SOL (5 ML) 100 MG/ML UDC GT SCH ×2 (08:37→20:04)
[2016-10-14] MEDS: METOPROLOL TARTRATE 25 MG TABLET GT SCH ×2 (08:40→20:05)
[2016-10-14] MEDS: PROSOURCE / PROSTAT (PYXIS) 30 ML UDC GT SCH ×3 (08:41→17:27)
[2016-10-14] MEDS: HYDROGEL DRESSING 90 GM TUBE TP PRN (08:41)
[2016-10-14] MEDS: Z GUARD REMEDY 4 OZ OINT TP PRN (08:43)
--- NOTE | 2016-10-14 08:49 | NUR ---
RT PATIENT REC'D TRACHED ON [facility] VENT WITH SETTINGS SET BY MD ARENAS TOLERATED WELL. VENT ALARMS CHECKED + AUDIBLE. CUFF PRESSURE CHECKED PARTS SALESPERSON. TRACH SECURE + IN PROPER POSITION. B/S DIM COARSE. SUCTIONED WITH MOD AMT PALE SEMITHICK SECRETIONS. PATIENT NON RESPONSIVE, APPEARS COMFORTABLE AND IN NO DISTRESS AT THIS TIME. AMBU BAG AT HOB. CONT CURRENT PLAN OF RESPIRATORY CARE. Addendum: 10/14/16 at 0849 by KOLE COOK RT Amended: Links added.
--- NOTE | 2016-10-14 19:11 | NUR ---
RN CLOSING NOTES: No acute changes noted w/in shift. Pt tolerated prescribed mech vent settings, saturating at 100%. Secretions suctioned. Flexiseal kept patent & intact, 100 cc output (for removal as per ARLEEN Villatoro at [facility]). PEG kept patent & intact, on cont TF of Novasource x 35 cc/hr infusing well, no residual noted w/in shift. L chest HD cath kept in place and intact. Kept well rested. Wound pictures taken and wound care done. Report given to Shauna at [facility]. Call light placed w/in reach. Bed kept low & in locked position. Isolation prec observed. Endorsed to PM RN for JEIMY & for DC.
[2016-10-14] MEDS: CLONIDINE HCL 0.1 MG TABLET GT PRN (21:43)
--- NOTE | 2016-10-15 00:10 | NUR ---
TELE-1/INSTRUCTIONAL DESIGN CONSULTANT REPORT GIVEN TO EMS. PT OFF THE FLOOR TO TRANSFER TO [facility].
[2016-10-16] MEDS ORDERED: VANCOMYCIN FOR PO/GT USE 500 MG ORAL.SUSP GT SCH (06:00)
[2016-10-16] MEDS ORDERED: VANCOMYCIN HCL 125 MG/2.5 ML ORAL.SUSP GT SCH (09:00)
== END 2016-10-15 00:05 | DRG 280 ==
LOC: ER 12:47 → TELE 16:36 → ICU 09-19 15:50 → TELE1 09-30 15:39 → TELE-TD 09-30 15:44 → TELE1 10-01 13:20
PROVIDERS: ADMIT Nurse Practitioner Acute Care; ATTEND Nurse Practitioner Acute Care
PROC: 5A1955Z Respiratory Ventilation, Greater than 96 Consecutive Hours (ICD-10-PCS; principal; 2016-09-15)
PROC: B548ZZA Ultrasonography of Superior Vena Cava, Guidance (ICD-10-PCS; 2016-09-20)
PROC: 02HV33Z Insertion of Infusion Device into Superior Vena Cava, Percutaneous Approach (ICD-10-PCS; 2016-09-20)
PROC: 30233N1 Transfusion of Nonautologous Red Blood Cells into Peripheral Vein, Percutaneous Approach (ICD-10-PCS; 2016-09-28)
PROC: 05H633Z Insertion of Infusion Device into Left Subclavian Vein, Percutaneous Approach (ICD-10-PCS; 2016-10-10)
DX: T80.211A Bloodstream infection due to central venous catheter, initial encounter (principal); A41.9 Sepsis, unspecified organism; I21.4 Non-ST elevation (NSTEMI) myocardial infarction; E43 Unspecified severe protein-calorie malnutrition; R65.21 Severe sepsis with septic shock; N18.6 End stage renal disease; R53.2 Functional quadriplegia; G92 Toxic encephalopathy; L89.153 Pressure ulcer of sacral region, stage 3; J15.6 Pneumonia due to other Gram-negative bacteria; J15.1 Pneumonia due to Pseudomonas; Z99.11 Dependence on respirator [ventilator] status; A04.7 Enterocolitis due to Clostridium difficile; K92.2 Gastrointestinal hemorrhage, unspecified; D62 Acute posthemorrhagic anemia; D68.59 Other primary thrombophilia; J96.11 Chronic respiratory failure with hypoxia; I13.2 Hypertensive heart and chronic kidney disease with heart failure and with stage 5 chronic kidney disease, or end stage renal disease; K80.10 Calculus of gallbladder with chronic cholecystitis without obstruction; E87.1 Hypo-osmolality and hyponatremia; E87.2 Acidosis; Z68.41 Body mass index [BMI] 40.0-44.9, adult; N39.0 Urinary tract infection, site not specified; J98.11 Atelectasis; I47.1 Supraventricular tachycardia; J44.0 Chronic obstructive pulmonary disease with (acute) lower respiratory infection; J44.1 Chronic obstructive pulmonary disease with (acute) exacerbation; I50.30 Unspecified diastolic (congestive) heart failure; Z99.2 Dependence on renal dialysis; Z93.1 Gastrostomy status; R13.10 Dysphagia, unspecified; Z93.0 Tracheostomy status; Z88.5 Allergy status to narcotic agent; Z88.6 Allergy status to analgesic agent; Z88.1 Allergy status to other antibiotic agents; Z91.011 Allergy to milk products; D69.6 Thrombocytopenia, unspecified; Z86.73 Personal history of transient ischemic attack (TIA), and cerebral infarction without residual deficits; I25.10 Atherosclerotic heart disease of native coronary artery without angina pectoris; I25.2 Old myocardial infarction; E66.01 Morbid (severe) obesity due to excess calories; Z68.36 Body mass index [BMI] 36.0-36.9, adult; G40.909 Epilepsy, unspecified, not intractable, without status epilepticus; E11.22 Type 2 diabetes mellitus with diabetic chronic kidney disease; G89.29 Other chronic pain; F41.9 Anxiety disorder, unspecified; L89.512 Pressure ulcer of right ankle, stage 2; I73.9 Peripheral vascular disease, unspecified; Z74.01 Bed confinement status; E83.42 Hypomagnesemia; F32.9 Major depressive disorder, single episode, unspecified; M21.619 Bunion of unspecified foot; M20.42 Other hammer toe(s) (acquired), left foot; M20.41 Other hammer toe(s) (acquired), right foot; Z90.710 Acquired absence of both cervix and uterus; Z86.14 Personal history of Methicillin resistant Staphylococcus aureus infection; Z79.899 Other long term (current) drug therapy; Z75.1 Person awaiting admission to adequate facility elsewhere; Y95 Nosocomial condition; Y84.8 Other medical procedures as the cause of abnormal reaction of the patient, or of later complication, without mention of misadventure at the time of the procedure; T36.8X5A Adverse effect of other systemic antibiotics, initial encounter; L27.0 Generalized skin eruption due to drugs and medicaments taken internally; B95.62 Methicillin resistant Staphylococcus aureus infection as the cause of diseases classified elsewhere; D64.9 Anemia, unspecified; E87.6 Hypokalemia; I70.0 Atherosclerosis of aorta; K21.9 Gastro-esophageal reflux disease without esophagitis; I67.2 Cerebral atherosclerosis
CPT/HCPCS: 31720; 36415; 36569; 36600; 70450-TC; 71010-TC; 80048-TC; 80053-TC; 80061-TC; 80076-TC; 80150; 80170-TC; 80202-TC; 82140-TC; 82247-TC; 82248-TC; 82272-TC; 82553-TC; 82803-TC; 83605-TC; 83735-TC; 84100-TC; 84443-TC; 84484-TC; 85025-TC; 85396; 85730-TC; 86022; 86850-TC; 86921-TC; 87040-TC; 87070-TC; 87186-TC; 90935-TC; 93307-TC; 93971-TC; 94002-TC; 94003-TC; 94640-TC; 94760-TC; 94762-TC; 99082-TC; A4216; A4606; A4623; A4624; A6248; A6253; A6402; A6403; A7526; A9563; C1750; C1751; G0480; J0278; J0282; J0878; J0885; J1170; J1580; J1953; J1956; J2060; J2185; J2248; J2270; J2370; J2405; J2997; J3370; J3490; J7030; J7040; J7050; J7060; P9016-BL; P9047; Z7610

== ENCOUNTER 2016-10-17 09:14 | Inpatient (IN) | payer MEDICARE, OTHER ==
[~2016-10-17] VITALS: Ht 167.6 cm; Wt 117.9 kg
[~2016-10-17 09:14] MED LIST changes: +DULO30CA2 GT; -ESCI5TAB GT; +HYDR-4075 GT; +HYDR-552 GT; -METR500T GT; +NUT.237L67 GT
--- NOTE | 2016-10-17 09:15 | NUR ---
BIBPA FROM US RENAL DT TACHYCARDIA AND LOW BP. PATIENT IS AWAKE, HOWEVER NON VERBAL. VENT/TRACHE PATIENT--AC 16 TV 600 FIO2 30% AND PEEP 5, SATING 98%. PATIENT WITH GT, CLAMPED, ABDOMEN NON DISTENDED. RCW NOTED WITH HD CATH, NO BLEEDING NOTED. PATIENT DID NOT HAVE HD TODAY, LAST HD THURSDAY. SKIN IS WARM TO TOUCH AND NON DIAPHORETIC. PATIENT IS AFEBRILE. VSS.CONNECTED TO TELE MONITOR. RT AT BEDSIDE,. AWAITING FOR MD EVALUATION
--- NOTE | 2016-10-17 09:20 | NUR ---
MD ALLAN AT BEDSIDE FOR EVAL
[2016-10-17 09:26] VITALS: BP 96/74
--- NOTE | 2016-10-17 09:34 | NUR ---
PT PLACED ON [facility] VENT VIA TRACH SIZE 8 XLT PROXIMAL. BREATH SOUNDS DIMINISHED BILATERAL. VENT SETTINGS BELLOW PER RT TRANSPORTER: AC 16 VT 600ML FIO2 30% PEEP +5 cmH2O ALARMS ON AND AUDIBLE WITH AMBU BAG @ BEDSIDE. Addendum: 10/17/16 at 0937 by DANTE NEGRETE RT Amended: Links added.
[2016-10-17] MEDS ORDERED: LEVOFLOXACIN 750 MG /D5W 150ML 150 ML IV ONE ×2 (10:00→10:40)
[2016-10-17] MEDS ORDERED: IV NS 0.9% 1,000 ML BAG IV ONE ×2 (10:00→14:30)
[2016-10-17 10:22] LABS: BASOPHILS # (AUTO) 0.1 /CMM (0.0-0.2); BASOPHILS % (AUTO) 0.3 % (0.0-2.0); EOSINOPHILS # (AUTO) 0.1 /CMM (0.0-0.7); EOSINOPHILS % (AUTO) 0.3 % (0.0-6.0); HEMATOCRIT 27 % (33-45); HEMOGLOBIN 8.9 g/dL (11.5-14.8); LYMPHOCYTES # (AUTO) 1.2 /CMM (0.8-4.8); LYMPHOCYTES % (AUTO) 4.4 % (20.0-44.0); MEAN CORPUSCULAR HEMOGLOBIN 34 PG (26.0-33.0); MEAN CORPUSCULAR HGB CONC 33 g/dl (31.0-36.0); MEAN CORPUSCULAR VOLUME 101 fL (82-100); MONOCYTES # (AUTO) 1.9 /CMM (0.1-1.30); MONOCYTES % (AUTO) 7.3 % (2.0-12.0); NEUTROPHILS # (AUTO) 23.2 /CMM (1.8-8.9); NEUTROPHILS % (AUTO) 87.7 % (43.0-81.0); PLATELET COUNT (AUTO) 258 /CMM (150-450); RDW COEFFICIENT OF VARIATION 14.7 (11.5-15.0); RED BLOOD CELL COUNT(AUTO) 2.65 MIL/uL (4.0-5.2); WHITE BLOOD COUNT (AUTO) 26.5 K/uL (4.3-11.0)
[2016-10-17 10:35] LABS: ALANINE AMINOTRANSFERASE 8 U/L (12-78); ALBUMIN 1.7 g/dL (3.4-5.0); ALKALINE PHOSPHATASE 357 U/L (46-116); ASPARTATE AMINOTRANSFERASE 30 U/L (15-37); BILIRUBIN,DIRECT 0.2 mg/dL (0.0-0.2); BILIRUBIN,TOTAL 0.5 mg/dL (0.2-1.0); CALCIUM, SERUM 9.7 mg/dL (8.5-10.1); CARBON DIOXIDE 25 mmol/L (21-32); CHLORIDE 100 mmol/L (98-107); CREATININE 4.7 mg/dL (0.6-1.3); GLUCOSE 119 mg/dL (74-106); POTASSIUM 3.3 mmol/L (3.5-5.1); SODIUM SERUM 135 mmol/L (136-145); TOTAL PROTEIN, SERUM 8.7 g/dL (6.4-8.2)
[2016-10-17 10:38] LABS: TROPONIN I < 0.017 ng/mL (0.00-0.056)
[2016-10-17] MEDS ORDERED: IV NS 0.9% 2,000 ML ONE (10:40)
[2016-10-17] MEDS ORDERED: IV SET PRIMARY PUMP SET 1 EA INFUS.SET MC ONE ×3 (10:40→16:20)
[2016-10-17] MEDS ORDERED: SECONDARY IV SET 1 EA INFUS.SET MC ONE ×2 (10:41→16:04)
[2016-10-17 10:47] LABS: INR 1.04 (0.87-1.13); PROTHROMBIN TIME 11.1 SECS (9.5-12.7)
[2016-10-17 10:51] LABS: UREA NITROGEN, BLOOD 76 mg/dL (7-18)
[2016-10-17 12:07] VITALS: BP 124/55
--- NOTE | 2016-10-17 12:33 | NUR ---
CALLED [facility] DIRECTOR OF EXHIBIT DEVELOPMENT DOCTOR WAS PAGED.
--- NOTE | 2016-10-17 13:20 | NUR ---
PATIENT WAS TAKEN TO CT
--- NOTE | 2016-10-17 13:21 | NUR ---
REPORT GIVEN TO NURSE CRAWFORD FOR CONTINUITY OF CARE
--- NOTE | 2016-10-17 13:24 | NUR ---
CAR WASHER CALLED, PATIENT DOES NOT FIT INSIDE CT MACHINE.
[2016-10-17] MEDS ORDERED: HEPARIN INFUSION/D5W 500 ML IV PRN (14:00)
[2016-10-17] MEDS: LEVETIRACETAM SOL (5 ML) 100 MG/ML UDC GT SCH ×2 (14:00→21:48)
--- NOTE | 2016-10-17 14:00 | NUR ---
RECEIVED REPORT FROM ARLEEN SUAZO. WILL CONTINUE TO ASSESS AND MONITOR PATIENT THROUGH OUT MY SHIFT Addendum: 10/17/16 at 1847 by CHERELLE ZARAGOZA RN DISREGARD NOTES.... DIFFERENT PATIENT
--- NOTE | 2016-10-17 14:00 | NUR ---
RECEIVED REPORT FROM MIGUEL ANDREWS RN.
[2016-10-17] MEDS ORDERED: HEPARIN SODIUM, PORCINE 5000 UNITS/1 ML VIAL ONE (14:21)
[2016-10-17] MEDS ORDERED: ALBUTEROL FS 2.5 MG/3 ML VIAL.NEB IH PRN (14:30)
[2016-10-17] MEDS ORDERED: LEVOFLOXACIN 750 MG /D5W 150ML 150 ML IV SCH (14:30)
[2016-10-17] MEDS ORDERED: IPRATROPIUM NEB FS 0.5 MG/2.5 ML AMPUL.NEB IH PRN (14:30)
[2016-10-17] MEDS ORDERED: ONDANSETRON HCL/PF 4 MG/2 ML VIAL IVP PRN (14:30)
[2016-10-17] MEDS ORDERED: MEROPENEM 1 G in IV NS 0.9% 100 ML IV SCH (14:30)
[2016-10-17] MEDS ORDERED: HEPARIN SODIUM, PORCINE 5000 UNITS/1 ML VIAL IV ONE (14:30)
[2016-10-17 14:31] VITALS: BP 160/59
--- NOTE | 2016-10-17 14:31 | NUR ---
HEPARIN BOLUS GIVEN- WITNESSED BY ARLEEN FOWLER. VERIFIED ORDER WITH PHARMACIST. SPOKE WITH TY BACON TO START HEPARIN TRIP. AGREED AND VERBALIZED UNDERSTANDING.
--- NOTE | 2016-10-17 14:35 | NUR ---
PT TRASNFERRED TO 3W [facility] ACLS PROTOCOL. VSS. NEEDS ATTENDED IN ED
--- NOTE | 2016-10-17 15:05 | NUR ---
PT TRANSFERRED FROM ER#3 TO 307 BED 2. PT. USED SAME [facility] VENT, WITH ALARMS ON AND AUDIBLE. VENT PLUGGED ON RED OUTLET, LUIS BAG @ BEDSIDE. Addendum: 10/17/16 at 1507 by DANTE NEGRETE RT Amended: Links added.
[2016-10-17 15:07] LABS: CALCIUM, SERUM 9.5 mg/dL (8.5-10.1); CREATININE 4.5 mg/dL (0.6-1.3); POTASSIUM 3.4 mmol/L (3.5-5.1)
[2016-10-17 15:13] LABS: ALBUMIN 1.7 g/dL (3.4-5.0); BILIRUBIN,DIRECT 0.2 mg/dL (0.0-0.2); BILIRUBIN,TOTAL 0.4 mg/dL (0.2-1.0); TOTAL PROTEIN, SERUM 8.5 g/dL (6.4-8.2)
[2016-10-17] MEDS ORDERED: RENAL NOVASOURCE 1,000 ML BOTTLE GT PRN (15:30)
[2016-10-17] MEDS: METOPROLOL TARTRATE 25 MG TABLET GT SCH ×2 (15:30→21:47)
[2016-10-17 16:00] VITALS: BP 119/56
[2016-10-17] MEDS: MEROPENEM 500 MG in IV NS 0.9% 50 ML IV SCH (16:11)
[2016-10-17] MEDS ORDERED: IV NS 0.9% 250 ML IV ONE (16:20)
[2016-10-17] MEDS: ALBUTEROL FS 2.5 MG/3 ML VIAL.NEB IH SCH ×2 (16:29→20:26)
[2016-10-17] MEDS: IPRATROPIUM NEB FS 0.5 MG/2.5 ML AMPUL.NEB IH SCH ×2 (16:29→20:26)
--- NOTE | 2016-10-17 17:15 | NUR ---
RN ADMITTING NOTES PATIENT ARRIVED TO UNIT AT 1615. PATIENT WAS PLACED ON A VENT MACHINE WITH THE FOLLOWING SETTING: AC 16, TV 600, FiO2 30%, PEEP 5. VITAL SIGNS STABLE, HEART RATE 115. PATIENT WAS CLEANED AND ALL WOUND PICTURES WERE TAKEN AND PLACED IN THE CHART. HOB ELEVATED TO 45 DEGREE. BED IN LOW POSITION, LOCKED AND TWO SIDE RAILS ARE UP. NO SIGNS AND SYMPTOMS OF DISTRESS. IV SITE R. HAND 20G IS INTACT AND PATENT. PATIENT PLACED ON BAKERY DEMONSTRATOR. SINUS TACHY 117 ON THE MONITOR.
[2016-10-17] MEDS: PROSOURCE / PROSTAT (PYXIS) 30 ML UDC GT SCH ×2 (18:00→23:01)
--- NOTE | 2016-10-17 18:15 | NUR ---
DR CARLSON MADE AWARE OF PATIENT ELEVATED LACTIC ACID
--- NOTE | 2016-10-17 18:56 | NUR ---
RN CLOSING NOTES PATIENT IS IN BED. NON VERBAL. IV SITE IS INTACT AND PATENT, IV FLUID BOLUS IS CURRENTLY ADMINISTRATING. PATIENT IS NPO. BED IS IN LOW POSITION, LOCKED AND 2 SIDE RAILS ARE UP. NO SIGNS AND SYMPTOMS OF DISTRESS. WILL ENDORSE TO ROOFING LAYER NURSE FOR JEIMY.
--- NOTE | 2016-10-17 19:45 | NUR ---
telecasting engineer initial notes: received report from ruth carlin, pt in bed, awake, able to mouth words, mech vent trach dependednt with the ff setting ac 16 tv 600 fio2 30% peep 5, ambu bag available at bed side, clinical alarms checked, pt has suction set up secured, pt has right hand iv receiving bolus (3rd bag), currently sinus tach 107, md aware about abnormal labs including tele reading, and hx of chf, per md okay to give bolus. this the the 3rd bag, total of 3l ns bolus. per rn ruth, pt on npo, ble offloaded, pt has gtube in placed, abdomen soft to touch with active bowel sound noted, no gtube residual obtained, safety precautions for fall initiated call light in reach, will continue to monitor.
[2016-10-17 20:00] VITALS: BP 121/55
--- NOTE | 2016-10-17 20:00 | NUR ---
picc line rn: job picc line rn, came to do midline, he stated pt very hard to obtai line, he started left fa g 20, peripheral iv but he stated he will try his best to put a midline in place
[2016-10-17 21:15] VITALS: BP 123/66
--- NOTE | 2016-10-17 21:15 | NUR ---
SEPSIS REASSESSMENT: AT 2014 COMPLETED 1L OF NS BOLUS FROM DAY SHIFT TY, AFTER AN HOUR, REASSESSED PT'S VS, COMPLETED SEPSIS FLUID CHALLENGED, RESULTS OF VS RELAYED TO DR LOPEZ, NO NEW ORDERS RECEIVED
[2016-10-17] MEDS: ACIDOPHILUS/BULGARICUS 1 EACH TAB.CHEW GT SCH (21:47)
[2016-10-17] MEDS: FERROUS SULFATE UDC 300 MG/5 ML UDC GT SCH (21:48)
[2016-10-17] MEDS: DOCUSATE SODIUM LIQ 100 MG/10 ML UDC GT SCH (21:48)
[2016-10-17] MEDS: TRAMADOL HCL 50 MG TABLET GT SCH (21:48)
--- NOTE | 2016-10-17 21:49 | NUR ---
rn notes: relayed to garnett fixerfredi buenrostro about pt on npo but there's a lot of medication scheduled for tonight, per day rn ruth, pt on npo even tube feeding, she stated because of sepsis, pulled out notes from md but doesnt say anything about feeding/diet order, pt has gtube and novasource renal as feeding for the pt, gtube residual was checked and 0 ml obtained, abdomen is soft and active bowel sound heard upon auscultation. per garnett fixerfredi buenrostro, to give all medication via gtube, except for gtube feeding which can cause overload for the pt, as pt received total of 3l ns bolus per sepsis protocol
[2016-10-17] MEDS: HEPARIN SODIUM, PORCINE 5000 UNITS/1 ML VIAL SQ SCH (22:03)
--- NOTE | 2016-10-17 22:18 | NUR ---
accu check: blood sugar check and reveal 80, no insulin coverage per md, will monitor pt for any s/s of hypoglycemia
--- NOTE | 2016-10-17 22:30 | NUR ---
NS TKO: PT ON NPO EXCEPT MEDS, PLACED PT ON NS TKO, ALSO PT WILL RECEIVE PROSTAT SCHEDULED, WILL MONITOR PT FOR ANY S/S OF HYPOGLYCEMIA
[2016-10-17] MEDS: VALPROIC ACID 250 MG/5 ML UDC GT SCH (23:01)
[2016-10-17] MEDS: VANCOMYCIN HCL 125 MG/2.5 ML ORAL.SUSP PO SCH (23:01)
--- NOTE | 2016-10-17 23:02 | NUR ---
GTUBE RESIDUAL CHECK AND PATENCY: CHECKED PATENCY AND RESIDUAL, 0ML RESIDUAL, ABDOMEN REMAINS SOFT TOT OUCH WITH ACTIVE BOWEL SOUND NOTED, DUE MEDS ADMINISTERED ORDERED, PER MD TO KEEP NPO XCEPT MEDS, ALSO STOOL SPECIMEN OBTAINED AND SEND TO LAB
[2016-10-18] VITALS (7 sets, daily range): BP systolic 98–127; BP diastolic 46–87
[2016-10-18] MEDS ORDERED: VANCOMYCIN HCL 125 MG CAPSULE PO SCH
[2016-10-18] MEDS: IPRATROPIUM NEB FS 0.5 MG/2.5 ML AMPUL.NEB IH SCH ×4 (01:38→19:35)
[2016-10-18] MEDS: ALBUTEROL FS 2.5 MG/3 ML VIAL.NEB IH SCH ×4 (01:38→19:35)
--- NOTE | 2016-10-18 02:03 | NUR ---
SUCTION PRN: SUCTION PT ORALLY AND VIA TRACHE OBTAINED THICK FROTHY SECRETIONS MODERATE IN AMOUNT, CHANGED ALL SUCTIONS SET UP TUBING AND IRRIGATION TRAY AT THIS TIME, ORAL CARE PROVIDED EVERY AFTER SUCTION
[2016-10-18] MEDS: VALPROIC ACID 250 MG/5 ML UDC GT SCH ×3 (05:22→23:12)
[2016-10-18] MEDS: PROSOURCE / PROSTAT (PYXIS) 30 ML UDC GT SCH ×4 (05:22→23:11)
[2016-10-18] MEDS: ACIDOPHILUS/BULGARICUS 1 EACH TAB.CHEW GT SCH ×3 (05:22→20:36)
[2016-10-18] MEDS: FERROUS SULFATE UDC 300 MG/5 ML UDC GT SCH ×3 (05:22→20:36)
[2016-10-18] MEDS: VANCOMYCIN HCL 125 MG/2.5 ML ORAL.SUSP PO SCH ×4 (05:22→23:11)
--- NOTE | 2016-10-18 05:23 | NUR ---
RESIDUAL CHECK AND G TUBE PATENCY: RESIDUAL CHECK AND OBTAINED 0ML, ABDOMEN REMAINS SOFT TO TOUCH WITH ACTIVE BOIWEL SOUND HEARD ON ALL QUADRANTS, DUE MEDS ADMINISTERED ORDERED
[2016-10-18] MEDS: BLOOD SUGAR DIAGNOSTIC 1 EACH STRIP IN SCH ×2 (05:34→11:44)
--- NOTE | 2016-10-18 05:45 | NUR ---
ACCU CHECK: BLOOD SUGAR 76, PT ON NS TKO AND PROSTAT AND OTHER MEDS GIVEN ORDERED, WILL CONTINUE MONITORING PT FOR ANY S/S OF HYPOGLYCEMIA
[2016-10-18] MEDS ORDERED: Medication Not On Formulary EA (Omeprazole 40 MG) GT SCH (06:30)
--- NOTE | 2016-10-18 06:40 | NUR ---
CARBON SEQUESTRATION PLANT OPERATOR CLOSING NOTES: PT IN BED, AWAKE, TOLERATED MECH VENT SETTINGS WELL, REMAINS SINUS RHYTHM HR 93, WITH SOME EPISODE OF AFIB PER SOFTBALL UMPIRE, YADIRA MIDLINE REMAINS IN PLACED, ON HL. BLE KEPT OFFLOADED, GTUBE REMAINS CLAMPED, PER MD TO REMAIN NPO EXCEPT MEDICATION. ABDOMEN REMAINS SOFT TO TOUCH, WITH ACTIVE BOWEL SOUND NOTED. LEFT SUBCLAVIAN HD CATH IN PLACED BUT CANNOT BE USED, DRESSING REMAINS C/D/I. VS REMAINS STABLE, NEEDS ATTENDED. WILL ENDORSE TO DAY RN FOR JEIMY.
[2016-10-18 06:47] LABS: BASOPHILS % (AUTO) 0.1 % (0.0-2.0); EOSINOPHILS # (AUTO) 0.1 /CMM (0.0-0.7); EOSINOPHILS % (AUTO) 0.3 % (0.0-6.0); HEMATOCRIT 27 % (33-45); HEMOGLOBIN 8.6 g/dL (11.5-14.8); LYMPHOCYTES # (AUTO) 2.4 /CMM (0.8-4.8); LYMPHOCYTES % (AUTO) 10.5 % (20.0-44.0); MEAN CORPUSCULAR HEMOGLOBIN 34 PG (26.0-33.0); MEAN CORPUSCULAR HGB CONC 32 g/dl (31.0-36.0); MEAN CORPUSCULAR VOLUME 106 fL (82-100); MONOCYTES # (AUTO) 3.1 /CMM (0.1-1.30); MONOCYTES % (AUTO) 13.4 % (2.0-12.0); NEUTROPHILS # (AUTO) 17.3 /CMM (1.8-8.9); NEUTROPHILS % (AUTO) 75.7 % (43.0-81.0); PLATELET COUNT (AUTO) 216 /CMM (150-450); RDW COEFFICIENT OF VARIATION 15.9 (11.5-15.0); RED BLOOD CELL COUNT(AUTO) 2.51 MIL/uL (4.0-5.2); WHITE BLOOD COUNT (AUTO) 22.8 K/uL (4.3-11.0)
[2016-10-18 07:05] LABS: ALBUMIN 1.5 g/dL (3.4-5.0); BILIRUBIN,TOTAL 0.4 mg/dL (0.2-1.0); CALCIUM, SERUM 9.3 mg/dL (8.5-10.1); CREATININE 4.6 mg/dL (0.6-1.3); POTASSIUM 3.6 mmol/L (3.5-5.1); TOTAL PROTEIN, SERUM 7.9 g/dL (6.4-8.2)
--- NOTE | 2016-10-18 07:30 | NUR ---
received pt. awake,mouths words,on vent,settings unchanged.vent alarm on freq. resp. tx called to adjust.
--- NOTE | 2016-10-18 08:00 | NUR ---
bringing up a lot of yellowish tinged sputum.dr. johnson in questioned as to tube feeding being started-md says no for now.meds only.
[2016-10-18 09:52] LABS: BAND % (MANUAL) 4 % (0.0-5.0); EOSINOPHILS % (MANUAL) 1 % (0-4); LYMPHOCYTES % (MANUAL) 11 % (16-48); MONOCYTES % (MANUAL) 14 % (0-11.0); NEUTROPHILS % (MANUAL) 70 (42-76)
[2016-10-18] MEDS: DOCUSATE SODIUM LIQ 100 MG/10 ML UDC GT SCH ×2 (10:30→20:36)
[2016-10-18] MEDS: LEVETIRACETAM SOL (5 ML) 100 MG/ML UDC GT SCH ×2 (10:30→20:36)
[2016-10-18] MEDS: VIT B CMPLX 3/FA/VIT C/BIOTIN 1 TAB TABLET GT SCH (10:31)
[2016-10-18] MEDS: TRAMADOL HCL 50 MG TABLET GT SCH ×2 (10:32→20:36)
[2016-10-18] MEDS: PANTOPRAZOLE 40 MG VIAL IV SCH (10:32)
[2016-10-18] MEDS: HEPARIN SODIUM, PORCINE 5000 UNITS/1 ML VIAL SQ SCH ×2 (10:37→20:38)
[2016-10-18] MEDS: METOPROLOL TARTRATE 25 MG TABLET GT SCH ×2 (11:30→21:00)
[2016-10-18] MEDS ORDERED: Z GUARD REMEDY 2 OZ OINT TP PRN (13:30)
--- NOTE | 2016-10-18 13:30 | NUR ---
called for dextrose iv-iv ordered.
[2016-10-18] MEDS: NYSTATIN CREAM 15 GM TUBE TP SCH ×2 (13:33→17:19)
[2016-10-18] MEDS: IV D5/ 0.9% NACL 1,000 ML IV SCH (13:34)
[2016-10-18] MEDS: HYDROGEL DRESSING 90 GM TUBE TP SCH (15:05)
[2016-10-18] MEDS: Z GUARD REMEDY 2 OZ OINT TP SCH (15:05)
--- NOTE | 2016-10-18 15:36 | NUR ---
Pt has had an uneventful shift. BS are bilaterally equal with some rhonchi requiring tracheal suction. No vent changes ordered by MD. Endotracheal tube inline suction via morel tolerated well. HHN tx given Q6 inline. Placed new HME. Addendum: 10/18/16 at 1536 by JAVAN GUTIERRES RT Amended: Links added.
[2016-10-18] MEDS: MEROPENEM 500 MG in IV NS 0.9% 50 ML IV SCH (17:19)
--- NOTE | 2016-10-18 18:00 | NUR ---
inf, special loan officer in and wound care ordered.pt. on isoflex bed.
--- NOTE | 2016-10-18 19:30 | NUR ---
telegraphic service dispatcher initial notes: received report from gavin carlin, pt in bed awake, facial grimace noted, on sinus tach 110, mech vent trach dependent with the ff setting ac 16 tv 600 fio2 30% peep 5, ambu bag available at bed side, clinical alarms checked, pt has suction set up secured, pt has right hand iv with ongoing d5ns at 40cc/hr, left hand iv access patent and flushing well, on hl, also pt has rupper arm midline in placed, tape coming off so i decided to reinforced the dressing, pt on npo except meds per dr johnson, no feeding this time, due to possible gi problem, pty s/p hd today with 2l output, subclavian hd cath dressing c/d/i, no redness or active bleeding noted. pt has gtube in placed, abdomen soft to touch with hyperactive bowel sound noted, ble kept offloaded, safety precautions for fall initiated call light in reach, will continue to monitor. Addendum: 10/19/16 at 0416 by CALOS STEVENS RN correction of entry: left ij temporary hd cath per dr melo's note, not subclavian cath
--- NOTE | 2016-10-18 20:38 | NUR ---
rn notes: checked gtube patency and residual prior to giving the medications, abdomen soft to touch with hyper active bowel sound heard upon auscultation, no residual obtained, all due meds administered as ordered,
--- NOTE | 2016-10-18 22:00 | NUR ---
ACCU CHECK: BLOOD SUGAR AND REVEAL 80, NO INSULIN COVERAGE GIVEN
--- NOTE | 2016-10-18 22:25 | NUR ---
lopressor not administered: pt's lopressor not administered due to low bp, recheck 117/66 hr 105, at 1999 pt's bp is 110/65 hr 110, informed apparel pattern maker yvonne, stated do not give lopressor, also s/p hd today
[2016-10-19] VITALS: BP 131/78
[2016-10-19] MEDS: IPRATROPIUM NEB FS 0.5 MG/2.5 ML AMPUL.NEB IH SCH ×4 (01:34→19:34)
[2016-10-19] MEDS: ALBUTEROL FS 2.5 MG/3 ML VIAL.NEB IH SCH ×4 (01:34→19:35)
--- NOTE | 2016-10-19 02:16 | NUR ---
suction: suction pt secretions orally and via trache, thick frothy sputum obtained, whitish secretions, suction set up was changed too, new tubing container and Yankauer placed, oral care provided after suctioning the pt
--- NOTE | 2016-10-19 02:58 | NUR ---
am care and wound care: assisted wire dropper in providing bed bath to the pt, also wound care done as ordered, there's an order for kci but per carbon furnace operator isoflex is okay for the pt, pt already on isoflex bed,
[2016-10-19 04:00] VITALS: BP 124/56
[2016-10-19] MEDS: PROSOURCE / PROSTAT (PYXIS) 30 ML UDC GT SCH ×3 (05:10→17:29)
[2016-10-19] MEDS: VANCOMYCIN HCL 125 MG/2.5 ML ORAL.SUSP PO SCH ×3 (05:10→17:29)
[2016-10-19] MEDS: VALPROIC ACID 250 MG/5 ML UDC GT SCH ×2 (05:10→12:36)
[2016-10-19] MEDS: FERROUS SULFATE UDC 300 MG/5 ML UDC GT SCH ×3 (05:10→21:26)
[2016-10-19] MEDS: ACIDOPHILUS/BULGARICUS 1 EACH TAB.CHEW GT SCH ×3 (05:11→21:28)
[2016-10-19] MEDS: BLOOD SUGAR DIAGNOSTIC 1 EACH STRIP IN SCH (05:32)
--- NOTE | 2016-10-19 05:35 | NUR ---
ACCU CHECK: BLOOD SUGAR CHECK AND REVEAL 75, PT ON NPO, BUT RECEIVING D5NS AT 40ML/HR, WILL CONTINUE MONITORING FOR S/S OF HYPOGLYCEMIA
[2016-10-19 05:44] LABS: CALCIUM, SERUM 8.8 mg/dL (8.5-10.1); CREATININE 3.7 mg/dL (0.6-1.3); MAGNESIUM 1.7 mg/dL (1.8-2.4); PHOSPHORUS 2.2 mg/dL (2.5-4.9); POTASSIUM 3.4 mmol/L (3.5-5.1)
--- NOTE | 2016-10-19 07:05 | NUR ---
WOUND SPECIALIST CLOSING NOTES: PT IN BED, NO FACIAL GRIMACE NOTED, APPEARS CALM AND COMFORTABLE, YADIRA MIDLINE REMAINS IN PLACED, RIGHT HAND IV REMAINS PATENT AND FLUSHING WELL, INFUSING WITH D5NS AT 40ML/HR. GTUBE REMAINS CLAMPED, ABDOMEN REMAINS SOFT TO TOUCH WITH HYPER ACTIVE BOWEL SOUND HEARD ON 4QUADRANTS. REMAINS SINUS TACHY HR 115. VS REMAINS STABLE, NEEDS ATTENDED, WILL ENDOSE TO DAY RN FOR JEIMY.
--- NOTE | 2016-10-19 07:51 | NUR ---
PLASTER MACHINE OPERATOR OPEN NOTES RECEIVED REPORT FROM RN MILITARY NURSE. PATIENT IS IN BED WITH HER EYES OPEN, NO NON VERBAL. PATIENT IS VENT DEPENDENT WITH AC 16, TV 500, FIO2 30%, PEEP 5. PATIENT IS NPO EXCEPT MEDICATION. BED IN LOW POSITION, LOCKED AND 2 SIDE RAILS ARE UP. WILL CONTINUE TO MONITOR AND ASSESS PATIENT THROUGH OUT MY SHIFT.
[2016-10-19 08:00] VITALS: BP 122/61
[2016-10-19] MEDS: VIT B CMPLX 3/FA/VIT C/BIOTIN 1 TAB TABLET GT SCH (09:19)
[2016-10-19] MEDS: LEVETIRACETAM SOL (5 ML) 100 MG/ML UDC GT SCH ×2 (09:19→21:28)
[2016-10-19] MEDS: DOCUSATE SODIUM LIQ 100 MG/10 ML UDC GT SCH ×2 (09:19→21:00)
[2016-10-19] MEDS: METOPROLOL TARTRATE 25 MG TABLET GT SCH ×2 (09:19→21:00)
[2016-10-19] MEDS: TRAMADOL HCL 50 MG TABLET GT SCH ×2 (09:20→21:27)
[2016-10-19] MEDS: PANTOPRAZOLE 40 MG VIAL IV SCH (09:20)
[2016-10-19] MEDS: NYSTATIN CREAM 15 GM TUBE TP SCH ×2 (09:21→17:29)
[2016-10-19] MEDS: HYDROGEL DRESSING 90 GM TUBE TP SCH (09:21)
[2016-10-19] MEDS: Z GUARD REMEDY 2 OZ OINT TP SCH (09:21)
[2016-10-19] MEDS: HEPARIN SODIUM, PORCINE 5000 UNITS/1 ML VIAL SQ SCH ×2 (09:28→21:31)
[2016-10-19 09:39] LABS: BASOPHILS % (AUTO) 0.3 % (0.0-2.0); EOSINOPHILS # (AUTO) 0.1 /CMM (0.0-0.7); EOSINOPHILS % (AUTO) 0.7 % (0.0-6.0); HEMATOCRIT 24 % (33-45); HEMOGLOBIN 7.9 g/dL (11.5-14.8); LYMPHOCYTES # (AUTO) 2.1 /CMM (0.8-4.8); LYMPHOCYTES % (AUTO) 14.6 % (20.0-44.0); MEAN CORPUSCULAR HEMOGLOBIN 34 PG (26.0-33.0); MEAN CORPUSCULAR HGB CONC 33 g/dl (31.0-36.0); MEAN CORPUSCULAR VOLUME 103 fL (82-100); MONOCYTES # (AUTO) 2.8 /CMM (0.1-1.30); MONOCYTES % (AUTO) 19.4 % (2.0-12.0); NEUTROPHILS # (AUTO) 9.2 /CMM (1.8-8.9); PLATELET COUNT (AUTO) 214 /CMM (150-450); RDW COEFFICIENT OF VARIATION 15.7 (11.5-15.0); WHITE BLOOD COUNT (AUTO) 14.2 K/uL (4.3-11.0)
[2016-10-19] MEDS: LEVOFLOXACIN 500 MG /D5W 100ML 500 MG in PREMIX 1 EA IV SCH (11:07)
[2016-10-19 12:00] VITALS: BP 144/87
[2016-10-19] MEDS: IV D5/ 0.9% NACL 1,000 ML IV SCH (12:37)
[2016-10-19 13:20] LABS: BAND % (MANUAL) 1 % (0.0-5.0); LYMPHOCYTES % (MANUAL) 17 % (16-48); MONOCYTES % (MANUAL) 17 % (0-11.0); NEUTROPHILS % (MANUAL) 65 (42-76)
[2016-10-19] MEDS: MEROPENEM 500 MG in IV NS 0.9% 50 ML IV SCH (15:02)
[2016-10-19 16:00] VITALS: BP 127/71
--- NOTE | 2016-10-19 18:27 | NUR ---
RN CLOSING NOTED PATIENT IS IN BED WITH HER EYES OPEN. NON VERBAL, VENT DEPENDANT. PATIENT KEPT CLEAN AND DRY. ALL NEEDS ANTICIPATED. IV SITE IS INTACT AND PATENT, CURRENTLY RUNNING NS AT 40ML/HR. ORAL CARE PROVIDED, DRESSING CHANGED. PATIENT WAS SUCTIONED MULTIPLE TIMES TODAY DUE TO THICK SECRETION. VITAL SIGNS ARE STABLE. BED IN LOW POSITION ,LOCKED AND TWO SIDE RAILS ARE UP. WILL ENDORSE TO SHEET METAL LAY OUT WORKER NURSE.
--- NOTE | 2016-10-19 19:39 | NUR ---
PUBLIC INFORMATION RELATIONS MANAGER OPENING NOTES: PATIENT IN BED, OPENS EYES SPONTANEOUSLY, ABLE TO TRACK WITH EYES. ON MECH VENT WITH THE FF SETTINGS: AC: 16, TV: 600, FIO2: 30%, PEEP:5. AUSCULTATED RHONCHI OVER UPPER LUNG CORDERO. SUCTIONED THICK WHITISH YELLOWISH SECRETIONS, OF MODERATE AMOUNT FROM TRACH. ON CONT TELE MONITORING: SINUS TACHY 115/ MIN. PIV OVER R HAND G20 INTACT AND INFUSING WELL WITH D5NS RUNNING AT 40 CC/HR. PIV OVER LFA G 20 INTACT AND PATENT TO FLUSH. NOTED GENERALIZED EDEMA OVER UPPER ND LOWER EXTREMITIES, NON PITTING. PROVIDED FOR COMFORT AND SAFETY, SUCTIONED PRN. KEPT HOB ELEVATED. WILL CONT TO MONITOR.
[2016-10-19 20:00] VITALS: BP 116/67
--- NOTE | 2016-10-19 20:30 | NUR ---
RN NOTES: PT'S TEMP AT 100.4, HR: 115, SINUS TACHY. BP 116/67. COOLING MEASURES INITIATED, WILL ADMINISTER TYLENOL. PATIENT AWAKE, SPONTANEOUSLY OPENS EYES. WILL CONT TO MONITOR,.
[2016-10-19] MEDS: ACETAMINOPHEN 650 MG/20.3 ML UDC GT PRN (21:26)
--- NOTE | 2016-10-19 22:19 | NUR ---
RN NOTES: TEMP RECHECKED AT 99.2, BP: 115/67, HR: 119. WILL CONT TO MONITOR.
--- NOTE | 2016-10-19 23:00 | NUR ---
RN NOTES: SPOKE TO DR LOPEZ RE PT'S TACHYCARDIA AND RECENT FEVER : 100.4 AT 2000 PM THAT WENT DOWN TO 99.2 AT 2200 PM, ALSO THAT PATIENT'S GT FEEDING STILL BEING HELD, AND THAT DR CARLSON EARLIER ORDERED FOR CT ABDOMEN AND PELVIS, BUT THAT PATIENT IS UNABLE TO FIT THROUGH MACHINE. ASKED MD AT THIS TIME IF THERE IS AN ALTERNATIVE TO THE CT SCAN, PER MD, THE CT SCAN IS THE DIAGNOSTIC PROCEDURE THAT WILL CHECK IF THERE IS FLUID IN ABDOMEN. NNO GIVEN REGARDING PT'S TACHYCARDIA/ RECURRENCE OF FEVERS. WILL CONT TO MONITOR.
[2016-10-20] VITALS (7 sets, daily range): BP systolic 109–144; BP diastolic 53–69
[2016-10-20] MEDS ORDERED: VANCOMYCIN HCL 125 MG/2.5 ML ORAL.SUSP ONE (00:42)
[2016-10-20] MEDS: IPRATROPIUM NEB FS 0.5 MG/2.5 ML AMPUL.NEB IH SCH ×4 (00:52→19:30)
[2016-10-20] MEDS: ALBUTEROL FS 2.5 MG/3 ML VIAL.NEB IH SCH ×4 (00:53→19:30)
[2016-10-20] MEDS: VANCOMYCIN HCL 125 MG/2.5 ML ORAL.SUSP PO SCH ×4 (00:54→17:28)
[2016-10-20] MEDS: VALPROIC ACID 250 MG/5 ML UDC GT SCH ×3 (00:54→12:12)
[2016-10-20] MEDS: PROSOURCE / PROSTAT (PYXIS) 30 ML UDC GT SCH ×4 (00:56→17:27)
--- NOTE | 2016-10-20 01:00 | NUR ---
NOTIFIED BY RN THAT RESPIRATORY CULTURE NOT TAKEN DURING DAYSHIFT 16:00. SUCTIONED PATIENT AT THIS TIME. GIVEN TO RN TO NOTIFY LAB.
[2016-10-20] MEDS: FERROUS SULFATE UDC 300 MG/5 ML UDC GT SCH ×3 (05:12→21:23)
[2016-10-20] MEDS: ACIDOPHILUS/BULGARICUS 1 EACH TAB.CHEW GT SCH ×3 (05:12→21:22)
[2016-10-20] MEDS: BLOOD SUGAR DIAGNOSTIC 1 EACH STRIP IN SCH (06:17)
--- NOTE | 2016-10-20 07:00 | NUR ---
LAWN MOWER SHARPENER CLOSING NOTES: PATIENT IN BED, AWAKE, OPENS EYES SPONTANEOUSLY. [facility] WITH THE FF SETTINGS: AC: 16, TV: 600, FIO2: 30% PEEP: 5, SUCTIONED PATIENT FOR THICK SECRETIONS PRN. MAINTAINED HOB ELEVATED, MORNING CARE RENDERED, TURNED AND REPOSITIONED PATIENT. WOUND CARE DONE. PROVIDED FOR COMFORT AND SAFETY. BLOOD SUGAR CHECKED AT 93 MG/DL AT 0630 AM. PATIENT REMAINED AFEBRILE AFTER MIDNIGHT. ENDORSED TO AM RN FOR JEIMY
--- NOTE | 2016-10-20 07:25 | NUR ---
GENERAL OFFICE DISPATCHER OPEN NOTES RECEIVED REPORT FROM ROTOR PILOT NURSE. PATIENT IS IN BED WITH HER EYES OPEN, NON VERBAL. PATIENT IS VENT DEPENDENT WITH AC 16, TV 500, FIO2 30%, PEEP 5. PATIENT IS NPO EXCEPT MEDICATION. BED IN LOW POSITION, LOCKED AND 2 SIDE RAILS ARE UP. WILL CONTINUE TO MONITOR AND ASSESS PATIENT THROUGH OUT MY SHIFT.
--- NOTE | 2016-10-20 07:45 | NUR ---
DIALYSIS AT BEDSIDE
--- NOTE | 2016-10-20 08:26 | NUR ---
WOUND CARE CONSULT: PT NOT SEEN FOR SKIN ASSESSMENT YET DUE TO PT HAVING DIALYSIS AT THIS TIME. WILL SEE PT PT CONDITION PERMITS.
[2016-10-20] MEDS: DOCUSATE SODIUM LIQ 100 MG/10 ML UDC GT SCH ×2 (09:00→21:00)
--- NOTE | 2016-10-20 09:30 | NUR ---
CURRENT MIDLINE DOESN'T WORK. CHARGE NURSE MADE AWARE
[2016-10-20] MEDS: VIT B CMPLX 3/FA/VIT C/BIOTIN 1 TAB TABLET GT SCH (09:36)
[2016-10-20] MEDS: TRAMADOL HCL 50 MG TABLET GT SCH ×2 (09:36→21:23)
[2016-10-20] MEDS: METOPROLOL TARTRATE 25 MG TABLET GT SCH ×2 (09:36→21:00)
[2016-10-20] MEDS: PANTOPRAZOLE 40 MG VIAL IV SCH (09:37)
[2016-10-20] MEDS: LEVETIRACETAM SOL (5 ML) 100 MG/ML UDC GT SCH ×2 (09:37→21:23)
[2016-10-20] MEDS: NYSTATIN CREAM 15 GM TUBE TP SCH ×2 (09:37→17:28)
[2016-10-20] MEDS: HYDROGEL DRESSING 90 GM TUBE TP SCH (09:38)
[2016-10-20] MEDS: Z GUARD REMEDY 2 OZ OINT TP SCH (09:38)
--- NOTE | 2016-10-20 09:40 | NUR ---
DIALYSIS COMPELTED. 2L OUT. BLOOD [id number]. HR 118.
[2016-10-20] MEDS: HEPARIN SODIUM, PORCINE 5000 UNITS/1 ML VIAL SQ SCH ×2 (09:41→21:26)
--- NOTE | 2016-10-20 10:02 | NUR ---
RESPIRATORY THERAPY AT BEDSIDE
--- NOTE | 2016-10-20 10:13 | NUR ---
CT ABDOMEN CANCELED. RADIOLOGY ASSESSES THE PATIENT AND THE PATIENT DOESN'T FIT THE CT SCAN MACHINE
--- NOTE | 2016-10-20 11:15 | NUR ---
TRACH CARE COMPLETED. TRACH SHIELY 8 REPLACED. TRACH SITE CLEANED AND COLLAR REPLACED. STERILE TECHNIQUE COMPLETED. PATIENT WAS TOLERATE PROCEDURE WELL. RESPIRATORY THERAPIST AT BEDSIDE TO ASSIST IF NEEDED.
--- NOTE | 2016-10-20 11:31 | NUR ---
DR SEAMAN AT BEDSIDE. PER DR SEAMAN ORDER, RESUME FEEDING. START SLOW AND ADVANCE TOLERATED BY PATIENT.
[2016-10-20 12:14] LABS: BASOPHILS % (AUTO) 0.4 % (0.0-2.0); EOSINOPHILS # (AUTO) 0.1 /CMM (0.0-0.7); EOSINOPHILS % (AUTO) 1.1 % (0.0-6.0); HEMATOCRIT 25 % (33-45); HEMOGLOBIN 8.3 g/dL (11.5-14.8); LYMPHOCYTES # (AUTO) 1.3 /CMM (0.8-4.8); LYMPHOCYTES % (AUTO) 13.7 % (20.0-44.0); MEAN CORPUSCULAR HEMOGLOBIN 35 PG (26.0-33.0); MEAN CORPUSCULAR HGB CONC 33 g/dl (31.0-36.0); MEAN CORPUSCULAR VOLUME 105 fL (82-100); MONOCYTES # (AUTO) 2.1 /CMM (0.1-1.30); MONOCYTES % (AUTO) 22.3 % (2.0-12.0); NEUTROPHILS # (AUTO) 5.8 /CMM (1.8-8.9); NEUTROPHILS % (AUTO) 62.5 % (43.0-81.0); PLATELET COUNT (AUTO) 203 /CMM (150-450); RDW COEFFICIENT OF VARIATION 15.8 (11.5-15.0); WHITE BLOOD COUNT (AUTO) 9.3 K/uL (4.3-11.0)
[2016-10-20 12:26] LABS: CALCIUM, SERUM 8.6 mg/dL (8.5-10.1); CREATININE 3.2 mg/dL (0.6-1.3); MAGNESIUM 1.7 mg/dL (1.8-2.4); POTASSIUM 3.2 mmol/L (3.5-5.1)
[2016-10-20 12:52] LABS: BAND % (MANUAL) 1 % (0.0-5.0); LYMPHOCYTES % (MANUAL) 14 % (16-48); MONOCYTES % (MANUAL) 12 % (0-11.0); NEUTROPHILS % (MANUAL) 73 (42-76)
--- NOTE | 2016-10-20 13:01 | NUR ---
WOUND CARE: PT HAVING PROCEDURE AT THIS TIME. WILL SEE PT FOR SKIN ASSESSMENT PT CONDITION PERMITS. BARIMAX BED WITH ETS AIR ORDERED TO ACCOMODATE PT'S GIRTH. DISCUSSED WITH NURSING STAFF.
--- NOTE | 2016-10-20 13:30 | NUR ---
MIDLINE NURSE AT BED SIDE TO START A NEW MIDLINE.
[2016-10-20] MEDS: IV D5/ 0.9% NACL 1,000 ML IV SCH (14:28)
--- NOTE | 2016-10-20 14:45 | NUR ---
FEEDING TUBE STARTED AT 10ML.HR. WILL CONTINUE TO ADVANCE DIET IF TOLERATED BY PATIENT. Addendum: 10/20/16 at 1547 by CHERELLE ZARAGOZA RN DIET ADVANCED TO 15 ML/HR TARGET DIET IS 65ML/HR Addendum: 10/20/16 at 1734 by CHERELLE ZARAGOZA RN DIET ADVANCED TO 25 ML/HR. WILL CONTINUE TO MONITOR AND ASSESS PATIENT TOLERATION TO ADVANCING TUBE FEEDING Addendum: 10/20/16 at 1846 by CHERELLE ZARAGOZA RN DIET ADVANCED TO 35 ML/HR
[2016-10-20] MEDS: MEROPENEM 500 MG in IV NS 0.9% 50 ML IV SCH (15:41)
--- NOTE | 2016-10-20 16:45 | NUR ---
CHANGED BED TO BARIMAXX BED.
--- NOTE | 2016-10-20 18:46 | NUR ---
RN CLOSING NOTES PATIENT IS AWAKE WITH HER EYES OPEN. NON VERBAL. SINUS TACHYCARDIA 100 - 120 BPM ON THE MONITOR. NEW MIDLINE INSERTED TODAY AND WORKING FINE. TWO PERIPHERAL IV SITES ARE INTACT AND PATENT. BED WAS CHANGED TODAY TO FIT THE PATIENT SIZE AND FOR A BETTER COMFORT LEVEL. BED IN LOW POSITION, LOCKED AND 2 SIDE RAILS ARE UP. WILL ENDORSE TO MACHINE PULLER AND LASTER NURSE
--- NOTE | 2016-10-20 19:38 | NUR ---
tele/rn opening notes patient in bed hob elevated. tele reading of sinus tachy at 110.monitoring for s/s of sob or distress. can open eyes. alertx1/ on vent. received endorsement from am rn regarding potassium at 3.2 l and magnesium 1.7 l md was made aware., patient on dialysistoday with output at 2l. require extensive assistance. on gtube feeding that was started 1430today for 18 hrs. started at 35 ml/hr will increase feeding as tolerated at 65. monitoring for residual/ monitoring for any diarrhea and still on contact isolation. with multiple wounds. will continue to monitor.
--- NOTE | 2016-10-20 19:44 | NUR ---
RT Found trached patient with settings of AC16 600 30% +5. Saturation 100% HR:110. Secretions are moderate, think, walton. Alarms are set and audible. Ambu bag is at bedside. Addendum: 10/20/16 at 2201 by HAWA HARRIS RT Amended: Links added.
[2016-10-21] MEDS: PROSOURCE / PROSTAT (PYXIS) 30 ML UDC GT SCH ×4 (01:51→16:40)
[2016-10-21] MEDS: VANCOMYCIN HCL 125 MG/2.5 ML ORAL.SUSP PO SCH ×5 (01:52→23:09)
[2016-10-21] MEDS: VALPROIC ACID 250 MG/5 ML UDC GT SCH ×4 (01:52→23:09)
[2016-10-21] MEDS: IPRATROPIUM NEB FS 0.5 MG/2.5 ML AMPUL.NEB IH SCH ×4 (02:05→19:39)
[2016-10-21] MEDS: ALBUTEROL FS 2.5 MG/3 ML VIAL.NEB IH SCH ×4 (02:05→19:39)
[2016-10-21 04:00] VITALS: BP 104/55
[2016-10-21] MEDS: NYSTATIN CREAM 15 GM TUBE TP SCH ×2 (04:56→16:41)
[2016-10-21] MEDS: FERROUS SULFATE UDC 300 MG/5 ML UDC GT SCH ×3 (05:33→23:00)
[2016-10-21] MEDS: ACIDOPHILUS/BULGARICUS 1 EACH TAB.CHEW GT SCH ×3 (05:33→23:00)
[2016-10-21] MEDS: ACETAMINOPHEN 650 MG/20.3 ML UDC GT PRN (05:36)
--- NOTE | 2016-10-21 05:40 | NUR ---
RT Patient continues on settings of AC16 600 30% +5 . Patient is coughing small to moderate amounts of thick yellow/walton secretions. Ambu bag is at bedside. Alarms are set and audible. Addendum: 10/21/16 at 0605 by HAWA HARRIS RT Amended: Links added.
[2016-10-21] MEDS: BLOOD SUGAR DIAGNOSTIC 1 EACH STRIP IN SCH (05:59)
--- NOTE | 2016-10-21 07:00 | NUR ---
tele/rn notes patient in bed hob elevated, monitoring for s/s of sob or distress. will endorse to am rn for vikas. bed in lock position,
[2016-10-21 07:25] LABS: BASOPHILS % (AUTO) 0.2 % (0.0-2.0); EOSINOPHILS # (AUTO) 0.2 /CMM (0.0-0.7); EOSINOPHILS % (AUTO) 1.6 % (0.0-6.0); HEMATOCRIT 25 % (33-45); HEMOGLOBIN 8.1 g/dL (11.5-14.8); LYMPHOCYTES # (AUTO) 3.3 /CMM (0.8-4.8); LYMPHOCYTES % (AUTO) 24.8 % (20.0-44.0); MEAN CORPUSCULAR HEMOGLOBIN 35 PG (26.0-33.0); MEAN CORPUSCULAR HGB CONC 33 g/dl (31.0-36.0); MEAN CORPUSCULAR VOLUME 105 fL (82-100); MONOCYTES # (AUTO) 3.1 /CMM (0.1-1.30); MONOCYTES % (AUTO) 22.7 % (2.0-12.0); NEUTROPHILS # (AUTO) 6.8 /CMM (1.8-8.9); NEUTROPHILS % (AUTO) 50.7 % (43.0-81.0); PLATELET COUNT (AUTO) 199 /CMM (150-450); RDW COEFFICIENT OF VARIATION 15.5 (11.5-15.0); RED BLOOD CELL COUNT(AUTO) 2.34 MIL/uL (4.0-5.2); WHITE BLOOD COUNT (AUTO) 13.5 K/uL (4.3-11.0)
--- NOTE | 2016-10-21 07:40 | NUR ---
RN NOTES RECEIVED PATIENT RESTING COMFORTABLY IN BED,NON VERBAL, RESPIRATIONS EVEN AND UNLABORED ON CURRENT VENT SETTINGS TOLERATED WELL WITH OCCASIONAL COUGH.IN NO APPARENT PAIN OR DISCOMFORT, KEPT CLEAN DRY AND COMFORTABLE, CALL LIGHT WITHIN EASY REACH. SIDERAILS UP X2 FOR SAFETY, ISOLATION PRECAUTIONS OBSERVED, WILL CONTINUE TO MONITOR
[2016-10-21 07:51] LABS: CALCIUM, SERUM 8.7 mg/dL (8.5-10.1); CREATININE 3.9 mg/dL (0.6-1.3); MAGNESIUM 1.7 mg/dL (1.8-2.4); POTASSIUM 3.5 mmol/L (3.5-5.1)
[2016-10-21 08:00] VITALS: BP 113/57
[2016-10-21] MEDS: LEVETIRACETAM SOL (5 ML) 100 MG/ML UDC GT SCH ×2 (08:51→23:00)
[2016-10-21] MEDS: PANTOPRAZOLE 40 MG VIAL IV SCH (08:51)
[2016-10-21] MEDS: DOCUSATE SODIUM LIQ 100 MG/10 ML UDC GT SCH ×2 (08:51→23:00)
[2016-10-21] MEDS: VIT B CMPLX 3/FA/VIT C/BIOTIN 1 TAB TABLET GT SCH (08:52)
[2016-10-21] MEDS: TRAMADOL HCL 50 MG TABLET GT SCH ×2 (08:52→23:01)
[2016-10-21] MEDS: METOPROLOL TARTRATE 25 MG TABLET GT SCH ×2 (08:53→23:00)
[2016-10-21] MEDS: HEPARIN SODIUM, PORCINE 5000 UNITS/1 ML VIAL SQ SCH ×2 (08:53→23:04)
[2016-10-21] MEDS: HYDROGEL DRESSING 90 GM TUBE TP SCH (08:54)
[2016-10-21] MEDS: Z GUARD REMEDY 2 OZ OINT TP SCH (08:54)
[2016-10-21 09:24] LABS: BAND % (MANUAL) 3 % (0.0-5.0); EOSINOPHILS % (MANUAL) 1 % (0-4); LYMPHOCYTES % (MANUAL) 24 % (16-48); METAMYELOCYTES % 1 % (0-0); MONOCYTES % (MANUAL) 16 % (0-11.0); MYELOCYTES % 2 % (0-0); NEUTROPHILS % (MANUAL) 53 (42-76)
[2016-10-21] MEDS: LEVOFLOXACIN 500 MG /D5W 100ML 500 MG in PREMIX 1 EA IV SCH (11:49)
[2016-10-21 12:00] VITALS: BP 105/55
[2016-10-21] MEDS ORDERED: Magnesium 1GM/D5W 100ML PREMIX 100 ML IV SCH (12:30)
[2016-10-21] MEDS ORDERED: SECONDARY IV SET 1 EA INFUS.SET MC ONE (14:32)
[2016-10-21] MEDS: IV D5/ 0.9% NACL 1,000 ML IV SCH (14:49)
[2016-10-21] MEDS: RENAL NOVASOURCE 1,000 ML BOTTLE GT PRN (15:19)
[2016-10-21 16:00] VITALS: BP 118/70
[2016-10-21] MEDS ORDERED: IV SET PRIMARY PUMP SET 1 EA INFUS.SET MC ONE (16:34)
[2016-10-21] MEDS: MEROPENEM 500 MG in IV NS 0.9% 50 ML IV SCH (16:43)
--- NOTE | 2016-10-21 17:45 | NUR ---
RN NOTES ALL DUE MEDICATIONS GIVEN WITH NO ASE NOTED, WILL CONTINUE TO MONITOR AND CONTINUE PLAN OF CARE ORDERED
--- NOTE | 2016-10-21 19:24 | NUR ---
RN NOTES PATIENT RESTING COMFORTABLY IN BED,NON VERBAL, RESPIRATIONS EVEN AND UNLABORED ON CURRENT VENT SETTINGS TOLERATED WELL WITH OCCASIONAL COUGH.IN NO APPARENT PAIN OR DISCOMFORT, KEPT CLEAN DRY AND COMFORTABLE, CALL LIGHT WITHIN EASY REACH. SIDERAILS UP X2 FOR SAFETY, WILL CONTINUE TO MONITOR AND ENDORSE TO NEXT SHIFT FOR CONTINUITY OF CARE
--- NOTE | 2016-10-21 19:30 | NUR ---
RN OPENING NOTES RECEIVED REPORT FROM GINA RNJERMAIN. Pt IS NON-VERBAL, VENT Pt. VENT SETTINGS: SHILEY #8, AC 16, TV 600, PEEP 5, FIO2 30%. TELE READING ST 100-118. GTF: NOVASOURCE @40ML/HR. CONTINUOUS FEED FOR ONLY 18HRS. FOUND Pt IN AWAKE IN BED. NO S/S OF ACUTE DISTRESS OR SOB NOTED. EQUAL CHEST RISE AND FALL. SAFETY MEASURES IN PLACE. BED LOW, LOCKED, HOB ELEVATED, SIDE RAILS UP, CALL LIGHT AND BEDSIDE TABLE WITHIN REACH. WILL CONTINUE TO MONITOR Pt THROUGHOUT THE NIGHT FOR SAFETY.
--- NOTE | 2016-10-21 19:40 | NUR ---
RT Found trached patient on settings of AC16 600 30% +5 . Saturation 100% HR: 108bpm. Secretions are moderate thick and yellow. Ventilator alarms are set and audible, ambu bag is at bedside. Addendum: 10/21/16 at 2110 by HAWA HARRIS RT Amended: Links added.
[2016-10-21 20:00] VITALS: BP 117/71
[2016-10-22] VITALS (7 sets, daily range): BP systolic 89–141; BP diastolic 32–117
[2016-10-22] MEDS: IPRATROPIUM NEB FS 0.5 MG/2.5 ML AMPUL.NEB IH SCH ×4 (01:38→19:23)
[2016-10-22] MEDS: ALBUTEROL FS 2.5 MG/3 ML VIAL.NEB IH SCH ×4 (01:38→19:23)
--- NOTE | 2016-10-22 05:24 | NUR ---
Patient continues on ventilator settings AC16 600 30% +5 . Sat: 100% HR:96 . Ventilator alarms are set and audible, ambu bag is at beside. Addendum: 10/22/16 at 0538 by HAWA HARRIS RT Amended: Links added.
[2016-10-22] MEDS: VALPROIC ACID 250 MG/5 ML UDC GT SCH ×3 (05:44→23:01)
[2016-10-22] MEDS: ACIDOPHILUS/BULGARICUS 1 EACH TAB.CHEW GT SCH ×3 (05:44→22:53)
[2016-10-22] MEDS: FERROUS SULFATE UDC 300 MG/5 ML UDC GT SCH ×3 (05:44→22:54)
[2016-10-22] MEDS: BLOOD SUGAR DIAGNOSTIC 1 EACH STRIP IN SCH (05:45)
[2016-10-22] MEDS: VANCOMYCIN HCL 125 MG/2.5 ML ORAL.SUSP PO SCH ×4 (05:45→23:01)
--- NOTE | 2016-10-22 06:03 | NUR ---
RN NOTES ACCUCHECK, BG 115. NO INSULIN COVERAGE NEEDED AT THIS TIME. ON CONTINUOUS GT FEEDING NOVASOURCE @40ML/HR.
[2016-10-22 06:18] LABS: BASOPHILS % (AUTO) 0.2 % (0.0-2.0); EOSINOPHILS # (AUTO) 0.3 /CMM (0.0-0.7); EOSINOPHILS % (AUTO) 2.1 % (0.0-6.0); HEMATOCRIT 24 % (33-45); HEMOGLOBIN 8.1 g/dL (11.5-14.8); LYMPHOCYTES # (AUTO) 2.7 /CMM (0.8-4.8); MEAN CORPUSCULAR HEMOGLOBIN 35 PG (26.0-33.0); MEAN CORPUSCULAR HGB CONC 34 g/dl (31.0-36.0); MEAN CORPUSCULAR VOLUME 104 fL (82-100); MONOCYTES # (AUTO) 2.4 /CMM (0.1-1.30); MONOCYTES % (AUTO) 19.3 % (2.0-12.0); NEUTROPHILS # (AUTO) 6.9 /CMM (1.8-8.9); NEUTROPHILS % (AUTO) 56.4 % (43.0-81.0); PLATELET COUNT (AUTO) 216 /CMM (150-450); RDW COEFFICIENT OF VARIATION 15.6 (11.5-15.0); RED BLOOD CELL COUNT(AUTO) 2.31 MIL/uL (4.0-5.2); WHITE BLOOD COUNT (AUTO) 12.2 K/uL (4.3-11.0)
[2016-10-22 06:35] LABS: CREATININE 4.3 mg/dL (0.6-1.3); POTASSIUM 3.3 mmol/L (3.5-5.1)
--- NOTE | 2016-10-22 06:46 | NUR ---
RN CLOSING NOTES NO SIGNIFICANT CHANGES IN Pt's CONDITION. NO S/S OF ACUTE DISTRESS OR SOB NOTED. ALL NEEDS MET AND ATTENDED TO. SAFETY MEASURES IN PLACE. WILL ENDORSE TO GINA RN FOR Pt's JEIMY. Addendum: 10/22/16 at 0652 by NIKOLAI CHEUNG RN TELE READING SR 80's - ST 110
[2016-10-22 06:49] LABS: PHOSPHORUS 2.4 mg/dL (2.5-4.9)
[2016-10-22 07:13] LABS: EOSINOPHILS % (MANUAL) 2 % (0-4); LYMPHOCYTES % (MANUAL) 13 % (16-48); MONOCYTES % (MANUAL) 21 % (0-11.0); NEUTROPHILS % (MANUAL) 64 (42-76)
--- NOTE | 2016-10-22 07:35 | NUR ---
ANALYSIS EVALUATOR OPENING NOTE PATIENT IS ALERT x1. NON-VERBAL. NO FACIAL GRIMACING NOTED FOR PAIN. SAFETY MEASURES IMPLEMENTED. IV INTACT AND PATENT NO REDNESS OR SWELLING NOTED. G-TUBE INTACT AND PATENT, TUBE FEEDING RUNNING AT 40 ML/HR, NO CLOGGING PRESENT. WILL CONTINUE TO MONITOR
[2016-10-22] MEDS: PANTOPRAZOLE 40 MG VIAL IV SCH (08:37)
[2016-10-22] MEDS: PROSOURCE / PROSTAT (PYXIS) 30 ML UDC GT SCH ×3 (08:37→16:05)
[2016-10-22] MEDS: TRAMADOL HCL 50 MG TABLET GT SCH ×2 (08:37→22:54)
[2016-10-22] MEDS: LEVETIRACETAM SOL (5 ML) 100 MG/ML UDC GT SCH ×2 (08:37→22:53)
[2016-10-22] MEDS: VIT B CMPLX 3/FA/VIT C/BIOTIN 1 TAB TABLET GT SCH (08:37)
[2016-10-22] MEDS: DOCUSATE SODIUM LIQ 100 MG/10 ML UDC GT SCH ×2 (08:37→22:54)
[2016-10-22] MEDS: METOPROLOL TARTRATE 25 MG TABLET GT SCH ×2 (08:38→21:00)
[2016-10-22] MEDS: HEPARIN SODIUM, PORCINE 5000 UNITS/1 ML VIAL SQ SCH ×2 (08:38→22:58)
[2016-10-22] MEDS: Z GUARD REMEDY 2 OZ OINT TP SCH (08:39)
[2016-10-22] MEDS: NYSTATIN CREAM 15 GM TUBE TP SCH ×2 (08:39→16:05)
--- NOTE | 2016-10-22 09:00 | NUR ---
RN NOTE NOTIFIED PHARMACY THAT PATIENT WAS OUT OF HYDROGEL. AWAITING UNTIL ORDER COMES UP
[2016-10-22] MEDS ORDERED: EPOETIN ALFA (10,000 UNIT) 10,000 UNIT/ML VIAL SQ ONE (11:00)
[2016-10-22] MEDS ORDERED: ALBUMIN 25% 25 GM in PREMIX 1 EA IV PRN (13:00)
[2016-10-22] MEDS: MEROPENEM 500 MG in IV NS 0.9% 50 ML IV SCH (15:52)
[2016-10-22] MEDS: IV D5/ 0.9% NACL 1,000 ML IV SCH (15:52)
[2016-10-22] MEDS: RENAL NOVASOURCE 1,000 ML BOTTLE GT PRN (15:53)
[2016-10-22] MEDS: HYDROGEL DRESSING 90 GM TUBE TP SCH (16:04)
--- NOTE | 2016-10-22 18:31 | NUR ---
ACCESS SPEC CLOSING NOTE PATIENT IS ALERT AND [id number]. ALL DUE MEDICATION GIVEN ORDERED. NO FACIAL GRIMACING NOTED FOR PAIN. NO SOB OR DISTRESS NOTED. CALL LIGHT WITHIN REACH AT ALL TIMES. WOUND TREATMENT DONE. SAFETY MEASURES IMPLEMENTED. SPUTUM CULTURE COLLECTED. IV INTACT AND PATENT NO REDNESS OR SWELLING NOTED. HD DONE TODAY. WILL ENDORSE TO PLANT SCIENTIST NURSE
--- NOTE | 2016-10-22 19:30 | NUR ---
RN OPENING NOTES RECEIVED REPORT FROM JOSE FUENTES RN. VENT Pt. NON-VERBAL. VENT SETTINGS: AC 16, TV 600, PEEP 5, FIO2 30%, SHILEY #8. TELE READING SR 94. GT FEED NOVASOURCE @40ML/HR. IV ACCESS ON LFA, R HAND #20G, IVF D5NS @40ML/HR. NO S/S OF ACUTE DISTRESS OR SOB NOTED. SAFETY MEASURES IN PLACE. BED LOW, LOCKED, HOB ELEVATED, SIDE RAILS UP, CALL LIGHT AND BEDSIDE TABLE WITHIN REACH. WILL CONTINUE TO MONITOR Pt THROUGHOUT THE NIGHT FOR SAFETY.
[2016-10-23] VITALS: BP 140/68
[2016-10-23] MEDS: ALBUTEROL FS 2.5 MG/3 ML VIAL.NEB IH SCH ×4 (00:58→20:05)
[2016-10-23] MEDS: IPRATROPIUM NEB FS 0.5 MG/2.5 ML AMPUL.NEB IH SCH ×4 (00:58→20:05)
[2016-10-23] MEDS: VANCOMYCIN HCL 125 MG/2.5 ML ORAL.SUSP PO SCH ×3 (05:21→17:27)
[2016-10-23] MEDS: FERROUS SULFATE UDC 300 MG/5 ML UDC GT SCH ×3 (05:21→21:23)
[2016-10-23] MEDS: VALPROIC ACID 250 MG/5 ML UDC GT SCH ×2 (05:21→12:17)
[2016-10-23] MEDS: ACIDOPHILUS/BULGARICUS 1 EACH TAB.CHEW GT SCH ×3 (05:21→21:24)
[2016-10-23] MEDS: BLOOD SUGAR DIAGNOSTIC 1 EACH STRIP IN SCH (05:30)
--- NOTE | 2016-10-23 05:31 | NUR ---
RN NOTES ACCUCHECK BG 129. NO INSULIN COVERAGE NEEDED.
--- NOTE | 2016-10-23 06:30 | NUR ---
RN CLOSING NOTES NO SIGNIFICANT CHANGES TO Pt's CONDITION. ALL NEEDS MET AND ATTENDED TO. NO S/S OF ACUTE DISTRESS OR SOB NOTED. SAFETY MEASURES IN PLACE. WILL ENDORSE TO DAYSHIFT RN FOR Pt's JEIMY. TELE READING SR 90's - ST 110.
[2016-10-23 07:23] VITALS: BP 105/73
--- NOTE | 2016-10-23 07:38 | NUR ---
LEGAL EXAMINER OPENING NOTE PATIENT IS ALERT x1. NO FACIAL GRIMACING NOTED FOR PAIN. NO SOB OR DISTRESS NOTED. CALL LIGHT WITHIN REACH. SAFETY MEASURES IMPLEMENTED. G-TUBE INTACT AND PATENT, NO REDNESS OR SWELLING NOTED AROUND SITE. G-TUBE FEEDING RUNNING AT 40 ML/HR. IV INTACT AND PATENT NO REDNESS OR SWELLING NOTED. IV FLUIDS RUNNING AT 40 ML/HR. POSSIBLE DISCHARGE PLANNING. WOUND TREATMENT TO BE DONE. WILL CONTINUE TO MONITOR
[2016-10-23] MEDS: PROSOURCE / PROSTAT (PYXIS) 30 ML UDC GT SCH ×3 (08:30→17:27)
[2016-10-23] MEDS: DOCUSATE SODIUM LIQ 100 MG/10 ML UDC GT SCH ×2 (08:31→21:23)
[2016-10-23] MEDS: LEVETIRACETAM SOL (5 ML) 100 MG/ML UDC GT SCH ×2 (08:31→21:23)
[2016-10-23] MEDS: TRAMADOL HCL 50 MG TABLET GT SCH ×2 (08:32→21:24)
[2016-10-23] MEDS: METOPROLOL TARTRATE 25 MG TABLET GT SCH ×2 (08:32→21:24)
[2016-10-23] MEDS: VIT B CMPLX 3/FA/VIT C/BIOTIN 1 TAB TABLET GT SCH (08:32)
[2016-10-23] MEDS: PANTOPRAZOLE 40 MG VIAL IV SCH (08:32)
[2016-10-23] MEDS: NYSTATIN CREAM 15 GM TUBE TP SCH ×2 (08:33→17:27)
[2016-10-23] MEDS: Z GUARD REMEDY 2 OZ OINT TP SCH (08:33)
[2016-10-23] MEDS: HYDROGEL DRESSING 90 GM TUBE TP SCH (08:33)
[2016-10-23] MEDS: HEPARIN SODIUM, PORCINE 5000 UNITS/1 ML VIAL SQ SCH ×2 (08:41→21:26)
[2016-10-23] MEDS: LEVOFLOXACIN 500 MG /D5W 100ML 500 MG in PREMIX 1 EA IV SCH (11:34)
[2016-10-23 12:00] VITALS: BP 122/59
[2016-10-23] MEDS: IV D5/ 0.9% NACL 1,000 ML IV SCH (14:02)
[2016-10-23 16:00] VITALS: BP 117/89
[2016-10-23] MEDS: MEROPENEM 500 MG in IV NS 0.9% 50 ML IV SCH (16:28)
[2016-10-23] MEDS ORDERED: SECONDARY IV SET 1 EA INFUS.SET MC ONE (18:01)
[2016-10-23] MEDS ORDERED: FEE PK DOSING 1 MIN EA MC ONE (18:20)
[2016-10-23] MEDS ORDERED: GENTAMICIN 160 MG in IV D5W 100 ML IV ONE (18:30)
--- NOTE | 2016-10-23 18:32 | NUR ---
WILDLIFE PHOTOGRAPHER CLOSING NOTE PATIENT IS ALERT AND NON-VERBAL. G-TUBE INTACT AND PATENT NO REDNESS OR SWELLING NOTED. IV INTACT AND PATENT NO REDNESS OR SWELLING NOTED. CALL LIGHT WITHIN REACH AT ALL TIMES. SAFETY MEASURES IMPLEMENTED. ALL DUE MEDICATIONS GIVEN ORDERED. NPO STARTING AT MIDNIGHT FOR PERMACATH INSERTION ON 10/24 AT 0800. WILL ENDORSE TO WIND TECHNICIAN NURSE
[2016-10-23 20:00] VITALS: BP 144/66
[2016-10-24] VITALS: BP 142/66
[2016-10-24] MEDS: VALPROIC ACID 250 MG/5 ML UDC GT SCH ×3 (01:27→12:35)
[2016-10-24] MEDS: VANCOMYCIN HCL 125 MG/2.5 ML ORAL.SUSP PO SCH ×4 (01:27→17:19)
[2016-10-24] MEDS: ALBUTEROL FS 2.5 MG/3 ML VIAL.NEB IH SCH ×4 (01:38→19:11)
[2016-10-24] MEDS: IPRATROPIUM NEB FS 0.5 MG/2.5 ML AMPUL.NEB IH SCH ×4 (01:38→19:11)
[2016-10-24] MEDS: IV D5/ 0.9% NACL 1,000 ML IV SCH (01:40)
[2016-10-24 04:00] VITALS: BP 146/62
[2016-10-24] MEDS: ACIDOPHILUS/BULGARICUS 1 EACH TAB.CHEW GT SCH ×3 (04:58→21:56)
[2016-10-24] MEDS: FERROUS SULFATE UDC 300 MG/5 ML UDC GT SCH ×3 (04:58→21:56)
[2016-10-24] MEDS: BLOOD SUGAR DIAGNOSTIC 1 EACH STRIP IN SCH (06:31)
--- NOTE | 2016-10-24 06:39 | NUR ---
CARBON COATING MACHINE OPERATOR NOTES AWAKE & ALERT. NOT IN ANY DISTRESS. NO SOB NOTED. WITH SAME VENT SETTINGS. NO S/SX OF PAIN OR DISCOMFORT AT THIS TIME. ON TELE SR @ 94 WITH IVF INFUSING WELL. AM CARE DONE. MONITORED ACCORDINGLY. CALL LIGHT WITHIN REACH. BED IN LOWEST POSITION. SR UP X 3 FOR SAFETY. WILL ENDORSE TO NEXT SHIFT.
--- NOTE | 2016-10-24 06:42 | NUR ---
RT PT RECEIVED ON [facility] VENT WITH NOTED SETTING. VENT PLUGGED IN TO RED OUTLET. ALARM SET AND AUDIBLE. . SX SMALL AMOUNT OF THIN GREEN SECRETIONS. NO SOB OR RESP DISTRESS NOTED ON SHIFT. C CONTINUE CURRENT CARE PLAN AND MONITOR FOR ANY CHANGES. Addendum: 10/24/16 at 0643 by BALAJI LINK RT Amended: Links added.
[2016-10-24] MEDS ORDERED: LIDOCAINE HCL/PF 1% 30 ML SDV ONE (06:53)
[2016-10-24] MEDS ORDERED: HEPARIN SODIUM, PORCINE 1,000 UNIT/ML VIAL ONE (06:53)
--- NOTE | 2016-10-24 07:15 | NUR ---
PERIODONTIST OPEN NOTES RECEIVED REPORT FROM FLUE LINING DIPPER NURSE. PATIENT IS IN BED WITH HER EYES OPEN. NON VERBAL. VENT PATIENT. PERMACATH PLACEMENT IS SCHEDULE FOR THIS MORNING AT 0730. VENT SETTING AC 16, TV 600, FIO2 30%, PEEP 5, SHILEY 8 XL. NO SIGNS AND SYMPTOMS OF DISTRESS. SUCTIONING COMPLETED, PATIENT HAS HIGH AMOUNT OF SECRETION. PER ID MD, PATIENT NEEDS TO BE ON ISOLATION FOR HX OF C/. DIFF AND CURRENT DIARRHEA. VITAL SIGNS ARE STABLE. SINUS RHYTHM ON THE MONITOR AT 97 HEART RATE. WILL CONTINUE TO MONITOR AND ASSESS PATIENT THROUGH OUT MY SHIFT
[2016-10-24 07:19] VITALS: BP 136/72
[2016-10-24] MEDS ORDERED: GENTAMICIN 120 MG in IV D5W 100 ML IV PRN (07:30)
--- NOTE | 2016-10-24 07:34 | NUR ---
PATIENT IS OFF THE FLOOR FOR PERMACATH PLACEMENT
--- NOTE | 2016-10-24 08:30 | NUR ---
PATIENT RETURNED TO FLOOR. TRACH BLEEDING NOTICED, SUCTIONED PATIENT AND CALLED RT. RT AT BEDSIDE. PACU NURSE AT BEDSIDE
[2016-10-24] MEDS: HYDROGEL DRESSING 90 GM TUBE TP SCH ×2 (09:00→10:39)
[2016-10-24] MEDS: DOCUSATE SODIUM LIQ 100 MG/10 ML UDC GT SCH ×2 (09:00→21:56)
[2016-10-24] MEDS: RENAL NOVASOURCE 1,000 ML BOTTLE GT PRN (09:47)
[2016-10-24] MEDS: VIT B CMPLX 3/FA/VIT C/BIOTIN 1 TAB TABLET GT SCH (09:48)
[2016-10-24] MEDS: LEVETIRACETAM SOL (5 ML) 100 MG/ML UDC GT SCH ×2 (09:48→21:56)
[2016-10-24] MEDS: PANTOPRAZOLE 40 MG VIAL IV SCH (09:48)
[2016-10-24] MEDS: TRAMADOL HCL 50 MG TABLET GT SCH ×2 (09:48→21:57)
[2016-10-24] MEDS: PROSOURCE / PROSTAT (PYXIS) 30 ML UDC GT SCH ×3 (09:48→17:19)
[2016-10-24] MEDS: METOPROLOL TARTRATE 25 MG TABLET GT SCH ×2 (09:48→21:57)
[2016-10-24] MEDS: NYSTATIN CREAM 15 GM TUBE TP SCH ×2 (09:49→17:20)
[2016-10-24] MEDS: HEPARIN SODIUM, PORCINE 5000 UNITS/1 ML VIAL SQ SCH (09:51)
[2016-10-24] MEDS: Z GUARD REMEDY 2 OZ OINT TP SCH (10:22)
--- NOTE | 2016-10-24 10:23 | NUR ---
NO HYDROGEN AT BEDSIDE. PHARMACY NOTIFIED.
--- NOTE | 2016-10-24 11:02 | NUR ---
DIALYSIS NURSE AT BED SIDE TO START DIALYSIS
[2016-10-24 12:00] VITALS: BP 124/67
--- NOTE | 2016-10-24 14:00 | NUR ---
DIALYSIS COMPLETED. NO FLUID REMOVED. CLEANED ONLY
[2016-10-24 16:00] VITALS: BP 136/82
[2016-10-24] MEDS ORDERED: SECONDARY IV SET 1 EA INFUS.SET MC ONE (17:15)
[2016-10-24] MEDS: MEROPENEM 500 MG in IV NS 0.9% 50 ML IV SCH (17:15)
--- NOTE | 2016-10-24 18:51 | NUR ---
RN CLOSING NOTES PATIENT IS IN BED WITH HER EYES OPEN. NO SIGNS AND SYMPTOMS OF DISTRESS. PATIENT IS VENT DEPENDANT. EVEN AND UNLABORED VENTILATION. CHEST RISE BILATERALLY. ALL NURSING NEEDS ANTICIPATED. PATIENT KEPT CLEAN AND DRY. TRACH CARE COMPLETED. BED IN LOW POSITION, LOCKED AND TWO SIDE RAILS ARE UP. IV SITES ARE INTACT AND PATENT. WILL ENDORSE TO [employer] DEVELOPER NURSE
--- NOTE | 2016-10-24 19:15 | NUR ---
TELE/RN NOTES RECEIVED PT. LYING IN BED WITH HER EYES OPEN. PT. IS NONVERBAL AND IS TRACH/VENT DEPENDENT. BREATHING EVEN AND UNLABORED. NO SOB, RESPIRATORY DISTRESS OR S/S OF PAIN NOTED AT THIS TIME. PT. WITH EXTERNAL DIRECTOR OF CHANNEL MARKETING PRESENT AND INTACT. CURRENT RHYTHM = SINUS TACHYCARDIA WITH BBB HR 123. PT. IS S/P PERMACATH INSERTION. SLIGHT BLEEDING NOTED ON DRESSING. PER DAYSHIFT NURSE AWARE. WILL CONTINUE TO MONITOR FOR FURTHER BLEEDING OR S/S OF INFECTION. PT. WITH RIGHT HAND 20 GAUGE PERIPHERAL IV PRESENT, PATENT AND INTACT ADMINISTERING TO PT. D5 NS @ 40ML/HR. PT. WITH LEFT FOREARM 20 GAUGE IV SALINE LOCK PRESENT, PATENT AND INTACT. PT. WITH G-TUBE PRESENT, PATENT AND INTACT ADMINISTERING TO PT. NOVASOURCE @ 40ML/HR. PT. TOLERATING FEEDING WELL. NO RESIDUAL NOTED. BED IN LOWEST POSITION, SIDE RAILS UP X3, CALL LIGHT WITHIN REACH, WILL CONTINUE TO MONITOR.
[2016-10-24 20:00] VITALS: BP 124/79
[2016-10-25] VITALS (7 sets, daily range): BP systolic 92–164; BP diastolic 53–92
[2016-10-25] MEDS: VALPROIC ACID 250 MG/5 ML UDC GT SCH ×4 (00:51→23:11)
[2016-10-25] MEDS: VANCOMYCIN HCL 125 MG/2.5 ML ORAL.SUSP PO SCH ×5 (00:52→23:11)
[2016-10-25] MEDS: IPRATROPIUM NEB FS 0.5 MG/2.5 ML AMPUL.NEB IH SCH ×4 (01:13→19:49)
[2016-10-25] MEDS: ALBUTEROL FS 2.5 MG/3 ML VIAL.NEB IH SCH ×4 (01:13→19:50)
[2016-10-25] MEDS: FERROUS SULFATE UDC 300 MG/5 ML UDC GT SCH ×3 (05:53→20:49)
[2016-10-25] MEDS: ACIDOPHILUS/BULGARICUS 1 EACH TAB.CHEW GT SCH ×3 (05:54→20:49)
[2016-10-25] MEDS: BLOOD SUGAR DIAGNOSTIC 1 EACH STRIP IN SCH (06:15)
--- NOTE | 2016-10-25 06:23 | NUR ---
TELE/RN NOTES PT. LYING IN BED RESTING. PT. IS NONVERBAL AND IS TRACH/VENT DEPENDENT. BREATHING EVEN AND UNLABORED. NO SOB, RESPIRATORY DISTRESS OR S/S OF PAIN NOTED AT THIS TIME. PT. WITH EXTERNAL CHIMNEY BUILDER PRESENT AND INTACT. CURRENT RHYTHM = SINUS TACHYCARDIA WITH BBB HR 111. PT. WITH RIGHT HAND 20 GAUGE IV SALINE LOCK PRESENT, PATENT AND INTACT. PT. WITH LEFT FOREARM 20 GAUGE PERIPHERAL IV PRESENT, PATENT AND INTACT ADMINISTERING TO PT. D5 NS @ 40ML/HR. PT. WITH G-TUBE PRESENT, PATENT AND INTACT ADMINISTERING TO PT. NOVASOURCE @ 40ML/HR. PT. TOLERATING FEEDING WELL. NO RESIDUAL NOTED. ALL PT. NEEDS MET. PT. OFFLOADED. TURNED AND REPOSITIONED. BED IN LOWEST POSITION, SIDE RAILS UP X3, CALL LIGHT WITHIN REACH, WILL ENDORSE TO DAYSNJFT NURSE FOR CONTINUITY OF CARE.
--- NOTE | 2016-10-25 07:15 | NUR ---
STRAINER MILL OPERATOR NOTES RECEIVED PATIENT IN BED, TRACH INTACT, ON MECH VENT WITH SETTINGS AC 16 TV 600 PEEP 5 Fio2 30% SATING 100%, NO SOB. ABDOMEN PRESENCE OF GTUBE, ON FIBERSOURCE AT 4OML/HR. LEFT CHEST WALL PERMA CATH INTACT, DRESSING IN PLACE. PATIENT APPEARS COMFORTABLE IN BED. WILL CONT TO MONITOR.
[2016-10-25] MEDS: LEVETIRACETAM SOL (5 ML) 100 MG/ML UDC GT SCH ×2 (08:56→20:49)
[2016-10-25] MEDS: DOCUSATE SODIUM LIQ 100 MG/10 ML UDC GT SCH ×2 (08:56→20:49)
[2016-10-25] MEDS: VIT B CMPLX 3/FA/VIT C/BIOTIN 1 TAB TABLET GT SCH (08:58)
[2016-10-25] MEDS: METOPROLOL TARTRATE 25 MG TABLET GT SCH ×2 (08:58→20:49)
[2016-10-25] MEDS: TRAMADOL HCL 50 MG TABLET GT SCH ×2 (08:58→20:50)
[2016-10-25] MEDS: PANTOPRAZOLE 40 MG VIAL IV SCH (08:59)
[2016-10-25] MEDS: PROSOURCE / PROSTAT (PYXIS) 30 ML UDC GT SCH ×3 (09:24→17:04)
[2016-10-25] MEDS: NYSTATIN CREAM 15 GM TUBE TP SCH ×2 (09:30→16:51)
[2016-10-25] MEDS: HYDROGEL DRESSING 90 GM TUBE TP SCH (09:30)
[2016-10-25] MEDS: Z GUARD REMEDY 2 OZ OINT TP SCH (09:30)
--- NOTE | 2016-10-25 09:51 | NUR ---
Patient received trached on mechanical vent. Breath sounds equal bilateral. Breathing treatment given as ordered and tolerated well. No adverse reactions noted. Vent plugged into red outlet and alarms set and functioning. Ambu bag at the bed side.
--- NOTE | 2016-10-25 11:18 | NUR ---
DIALYSIS PATIENT. ON IVF D5 NS AT 40ML/HR. PATIENT IS ON FIBERSOURCE AT 40ML/HR. REVIEWED WITH DR. PAEZ, ORDERED TO DC IVF, NOTED AND ACKNOWLEDGED.
[2016-10-25] MEDS: RENAL NOVASOURCE 1,000 ML BOTTLE GT PRN (16:56)
--- NOTE | 2016-10-25 18:46 | NUR ---
STORAGE MANAGEMENT ARCHITECT NOTES PATIENT IN BED, NOT IN DISTRESS. ON MECH VENT, WITH THE SAME SETTINGS, TOLERATING WELL. SINUS RHYTHM HR 93 ON THE MONITOR. SUCTION PRN. BREATHING TREATMENT GIVEN BY RT. ON GTUBE FEEDING FIBERSOURCE AT 40ML/HR, TOLERATING WELL. NO VOMITING. MAINTAIN HOB ELEVATED. GTUBE FEEDING X18 HOURS/DAY ORDERED. HD IN AM. DRESSING CHANGED TO SACRAL, BUTTOCKS WOUND. REPOSITION Q 2HOURS AND PRN. WILL ENDORSE TO BATTERY CONTAINER FINISHING HAND RN FOR CONTINUITY OF CARE.
--- NOTE | 2016-10-25 19:57 | NUR ---
RECEIVED PATIENT IN BED, AWAKE, NON-VERBAL, DEPENDENT ON [facility] VENTILATOR. NO SOB, NO RESPIRATORY DISTRESS, 02 SAT 100%, NOT IN APPARENT PAIN, NO FACIAL GRIMACING, KEPT HOB ELEVATED, LEFT FA #20 SALINE LOCK, IS PATENT, LCW PERMACATH IS PATENT, DRESSING IS INTACT. ON GT FEEDING, GT SITE CLEAN, FEEDING TOLERATED WELL AT 40 CC/HR, KEPT SAFE AND COMFORTABLE, CALL LIGHT WITHIN REACH.
--- NOTE | 2016-10-25 21:19 | NUR ---
PT RECEIVED TRACHED ON MECHANICAL VENT W/ SETTINGS PER MD. VENT IN RED OUTLET, AMBUBAG AT BEDSIDE, VENT ALARMS CHECKED AND AUDIBLE. TRACH TUBE SECURE, PATENT. PT SX'ED AND LAVAGED PRN. NO RESP DISTRESS NOTED. PLAN IS TO CONTINUE CARE W/ CURRENT MD ORDERS AND MONITOR FOR CHANGES Addendum: 10/25/16 at 2119 by ADRIANA KAMARA RT Amended: Links added.
[2016-10-26] VITALS (11 sets, daily range): BP systolic 102–139; BP diastolic 38–81
[2016-10-26] MEDS: ALBUTEROL FS 2.5 MG/3 ML VIAL.NEB IH SCH ×4 (01:07→19:38)
[2016-10-26] MEDS: IPRATROPIUM NEB FS 0.5 MG/2.5 ML AMPUL.NEB IH SCH ×4 (01:07→19:38)
[2016-10-26] MEDS: ACETAMINOPHEN 650 MG/20.3 ML UDC GT PRN (01:13)
--- NOTE | 2016-10-26 01:17 | NUR ---
GIVEN TYLENOL 650 MG VIA GT, TEMP 99.6F, MADE COMFORTABLE, WILL CONTINUE TO MONITOR
--- NOTE | 2016-10-26 02:30 | NUR ---
TEMPERATURE TAKEN AFTER TYLENOL 98.9F
[2016-10-26] MEDS: ACIDOPHILUS/BULGARICUS 1 EACH TAB.CHEW GT SCH ×3 (04:35→20:29)
[2016-10-26] MEDS: FERROUS SULFATE UDC 300 MG/5 ML UDC GT SCH ×3 (04:35→20:36)
[2016-10-26] MEDS: VANCOMYCIN HCL 125 MG/2.5 ML ORAL.SUSP PO SCH ×4 (05:48→23:26)
[2016-10-26] MEDS: VALPROIC ACID 250 MG/5 ML UDC GT SCH ×3 (05:48→23:27)
[2016-10-26] MEDS: BLOOD SUGAR DIAGNOSTIC 1 EACH STRIP IN SCH (05:48)
--- NOTE | 2016-10-26 06:03 | NUR ---
BG 109 NO INSULIN COVERAGE, ONLY MONITORING
[2016-10-26 06:41] LABS: BASOPHILS % (AUTO) 0.2 % (0.0-2.0); EOSINOPHILS # (AUTO) 0.2 /CMM (0.0-0.7); EOSINOPHILS % (AUTO) 1.2 % (0.0-6.0); HEMATOCRIT 21 % (33-45); LYMPHOCYTES # (AUTO) 2.5 /CMM (0.8-4.8); LYMPHOCYTES % (AUTO) 17.8 % (20.0-44.0); MEAN CORPUSCULAR HEMOGLOBIN 36 PG (26.0-33.0); MEAN CORPUSCULAR HGB CONC 34 g/dl (31.0-36.0); MEAN CORPUSCULAR VOLUME 106 fL (82-100); MONOCYTES # (AUTO) 1.6 /CMM (0.1-1.30); MONOCYTES % (AUTO) 11.6 % (2.0-12.0); NEUTROPHILS # (AUTO) 9.8 /CMM (1.8-8.9); NEUTROPHILS % (AUTO) 69.2 % (43.0-81.0); PLATELET COUNT (AUTO) 247 /CMM (150-450); RDW COEFFICIENT OF VARIATION 16.2 (11.5-15.0); WHITE BLOOD COUNT (AUTO) 14.2 K/uL (4.3-11.0)
[2016-10-26 06:54] LABS: CALCIUM, SERUM 8.7 mg/dL (8.5-10.1); CREATININE 4.5 mg/dL (0.6-1.3); POTASSIUM 2.9 mmol/L (3.5-5.1)
--- NOTE | 2016-10-26 06:57 | NUR ---
PATIENT AWAKE, NON-VERBAL, NO RESPIRATORY DISTRESS, VENTILATOR IN GOOD WORKING CONDITION, SUCTIONED NEEDED, NO ADVERSE CHANGE OF CONDITION DURING SHIFT, GT FEEDING TURNED OFF AT 05:00 SCHEDULED, WOUND CARE PERFORMED, GOOD PERINEAL CARE RENDERED, ALL DUE MEDICATIONS GIVEN, KEPT COMFORTABLE AND SAFE, CALL LIGHT WITHIN REACH.
--- NOTE | 2016-10-26 07:00 | NUR ---
RECEIVED PT IN BED, AWAKE, NON-VERBAL. PT IS IN NO RESPIRATORY DISTRESS AND VENTILATOR IN GOOD WORKING CONDITION. BED IS LOCKED AND SIDE RAILS UP X 2.
[2016-10-26 07:08] LABS: RED BLOOD CELL COUNT(AUTO) 1.95 MIL/uL (4.0-5.2)
[2016-10-26 08:01] LABS: GENTAMICIN,TROUGH 2.3 ug/ml (0.2-2.0)
[2016-10-26] MEDS: PANTOPRAZOLE 40 MG VIAL IV SCH (08:27)
[2016-10-26] MEDS: METOPROLOL TARTRATE 25 MG TABLET GT SCH ×2 (08:28→21:00)
[2016-10-26] MEDS: DOCUSATE SODIUM LIQ 100 MG/10 ML UDC GT SCH ×2 (08:28→20:29)
[2016-10-26] MEDS: VIT B CMPLX 3/FA/VIT C/BIOTIN 1 TAB TABLET GT SCH (08:28)
[2016-10-26] MEDS: PROSOURCE / PROSTAT (PYXIS) 30 ML UDC GT SCH ×3 (08:29→17:09)
[2016-10-26] MEDS: TRAMADOL HCL 50 MG TABLET GT SCH ×2 (08:30→20:30)
[2016-10-26] MEDS: Z GUARD REMEDY 2 OZ OINT TP SCH (08:42)
[2016-10-26] MEDS: NYSTATIN CREAM 15 GM TUBE TP SCH ×2 (08:43→17:09)
[2016-10-26] MEDS: HYDROGEL DRESSING 90 GM TUBE TP SCH (08:44)
--- NOTE | 2016-10-26 08:51 | NUR ---
LOW HEMOGLOBIN 7.[address] CARLSON ORDERED TO GIVE 2 UNITS PRBC WITH HD. WILL INFORMED FAMILY.
[2016-10-26] MEDS ORDERED: POTASSIUM CHLORIDE 20 MEQ POWDER PACKET GT ONE (09:00)
[2016-10-26] MEDS: LEVETIRACETAM SOL (5 ML) 100 MG/ML UDC GT SCH ×2 (09:00→20:29)
[2016-10-26 09:44] LABS: BAND % (MANUAL) 9 % (0.0-5.0); EOSINOPHILS % (MANUAL) 1 % (0-4); LYMPHOCYTES % (MANUAL) 24 % (16-48); MONOCYTES % (MANUAL) 3 % (0-11.0); NEUTROPHILS % (MANUAL) 63 (42-76)
[2016-10-26] MEDS: RENAL NOVASOURCE 1,000 ML BOTTLE GT PRN (11:08)
--- NOTE | 2016-10-26 13:07 | NUR ---
2ND DRAW FOR TYPE AND SCREEN. PER MICHELA-LAB, HEMOLYZED AGAIN. RE DRAW BLOOD FOR TS IN 30 MINUTES PER MICHELA. CHARGE NURSE IS AWARE.
--- NOTE | 2016-10-26 13:49 | NUR ---
DIALYSIS TREATMENT STARTED. DIALYSIS NURSE AT THE BEDSIDE.
[2016-10-26] MEDS ORDERED: SECONDARY IV SET 1 EA INFUS.SET MC ONE ×2 (13:59→16:20)
--- NOTE | 2016-10-26 14:06 | NUR ---
LOW BP 99/40 ALBUMIN 25% IV GIVEN BY DIALYSIS NURSE FOR BP SUPPORT. DIALYSIS NURSE AT THE BEDSIDE.
--- NOTE | 2016-10-26 14:28 | NUR ---
GENTAMICIN THROUGH 2.3 SPOKE TO RHIANNA-RX, GENTAMICIN 120MG IV PER LEVEL DOSE ORDERED.
--- NOTE | 2016-10-26 14:35 | NUR ---
RECHECK BP 117/56 DIALYSIS NURSE AT THE BEDSIDE.
--- NOTE | 2016-10-26 15:08 | NUR ---
CALLED LAB SPOKE TO JONATHAN, TYPE AND SCREEN NOT RESULTED. WILL FOLLOW UP.
[2016-10-26] MEDS ORDERED: BLOOD IV SET 1 EA INFUS.SET MC ONE (15:20)
--- NOTE | 2016-10-26 16:01 | NUR ---
VITAL SIGNS TAKEN AND RECORDED PRIOR TO BLOOD TRANSFUSION, FIRST UNIT. BLOOD TRANSFUSION WAS STARTED BY DIALYSIS NURSE. WILL MONITOR PT CLOSELY.
--- NOTE | 2016-10-26 16:14 | NUR ---
FIRST UNIT OF PRBC INFUSED WITH DIALYSIS WITH NO ADVERSE SYMPTOMS.
--- NOTE | 2016-10-26 16:18 | NUR ---
SECOND UNIT OF BLOOD STARTED BY DIALYSIS NURSE. VITALS SIGNS WERE TAKEN AND RECORDED. WILL CONTINUE TO MONITOR FOR ADVERSE REACTION.
--- NOTE | 2016-10-26 16:30 | NUR ---
SECOND UNIT OF PACKED RBCS INFUSED BY DIALYSIS NURSE. VITAL SIGNS WERE TAKEN AND RECORDED. NO ADVERSE REACTIONS OCCURRED. WILL CONTINUE TO MONITOR.
--- NOTE | 2016-10-26 17:57 | NUR ---
PATIENT IS ON NOVASOURCE 40ML/HR X18 HOURS, CHANGED TO 30ML/HR CONTINUOUS PER RD RECOMMENDATION. IS AWARE.
--- NOTE | 2016-10-26 18:41 | NUR ---
PATIENT AWAKE, NON-VERBAL, NO RESPIRATORY DISTRESS, VENTILATOR IN GOOD WORKING CONDITION, SUCTIONED NEEDED. POST BLOOD TRANSFUSION WITH NO ADVERSE AFFECTS. TOLERATED HEMODIALYSIS, 2.6 LITER OUTPUT. ALL MEDICATIONS WERE GIVEN ORDERED. NO CHANGE OF CONDITION DURING SHIFT. ATTEMPTED STRAIGHT CATHETER X2, UNABLE TO COLLECT URINE FOR SAMPLE. WILL ENDORSE TO GLAZING MACHINE OPERATOR NURSE FOR CONTINUITY OF CARE. .
--- NOTE | 2016-10-26 19:30 | NUR ---
RN NOTES RECEIVED PATIENT IN BED WITH EYES CLOSED, EASILY AROUSABLE BY TOUCH. OBTUNDED. NO ACUTE DISTRESS NOTED. NO SIGNS OF PAIN NOTED. TELE READING SR WITH OCCASIONAL PAC HR 100. TRACH INTACT; VENT SETTINGS ORDERED. GT PATENT, INTACT; IN PLACE VIA AUSCULTATION. GTF RUNNING ORDERED. PATIENT TOLERATING GTF. HOB RAISED. ON LOW BED WITH BILATERAL UPPER SIDE RAILS UP. WILL CONTINUE TO MONITOR. CONTACT ISOLATION MAINTAINED.
[2016-10-27] VITALS (9 sets, daily range): BP systolic 102–129; BP diastolic 44–86
[2016-10-27] MEDS: ALBUTEROL FS 2.5 MG/3 ML VIAL.NEB IH SCH ×4 (01:32→19:30)
[2016-10-27] MEDS: IPRATROPIUM NEB FS 0.5 MG/2.5 ML AMPUL.NEB IH SCH ×4 (01:32→19:30)
[2016-10-27] MEDS: FERROUS SULFATE UDC 300 MG/5 ML UDC GT SCH ×3 (04:12→21:05)
[2016-10-27] MEDS: ACIDOPHILUS/BULGARICUS 1 EACH TAB.CHEW GT SCH ×3 (04:13→21:06)
[2016-10-27] MEDS: BLOOD SUGAR DIAGNOSTIC 1 EACH STRIP IN SCH (05:30)
[2016-10-27] MEDS: VALPROIC ACID 250 MG/5 ML UDC GT SCH ×2 (05:53→12:05)
[2016-10-27] MEDS: VANCOMYCIN HCL 125 MG/2.5 ML ORAL.SUSP PO SCH ×3 (05:54→17:12)
--- NOTE | 2016-10-27 06:08 | NUR ---
RN NOTES PATIENT AWAKE. RESPIRATIONS EVEN. NO SIGNS OF PAIN NOTED. DUE MEDS GIVEN WITH NO ASE NOTED. NEEDS ATTENDED. REPOSITIONED Q 2 HOURS. BED BATH GIVEN. SAFETY PRECAUTIONS AND COMFORT MEASURES IN PLACE. WILL GIVE REPORT TO DAY SHIFT FOR CONTINUITY OF CARE.
--- NOTE | 2016-10-27 07:10 | NUR ---
RECEIVED PT IN BED, SLEEPING. PT IS NON-VERBAL, ON VENT. NO SIGNS OF RESPIRATORY DISTRESS. SAFETY MEASURES ARE IN PLACE.
[2016-10-27 07:56] LABS: CALCIUM, SERUM 8.7 mg/dL (8.5-10.1); CREATININE 3.3 mg/dL (0.6-1.3); POTASSIUM 3.4 mmol/L (3.5-5.1)
[2016-10-27] MEDS: NYSTATIN CREAM 15 GM TUBE TP SCH ×2 (08:16→17:12)
[2016-10-27] MEDS: Z GUARD REMEDY 2 OZ OINT TP SCH (08:17)
[2016-10-27] MEDS: PANTOPRAZOLE 40 MG VIAL IV SCH (08:18)
[2016-10-27] MEDS: HYDROGEL DRESSING 90 GM TUBE TP SCH (08:18)
[2016-10-27] MEDS: PROSOURCE / PROSTAT (PYXIS) 30 ML UDC GT SCH ×3 (08:18→17:12)
[2016-10-27] MEDS: TRAMADOL HCL 50 MG TABLET GT SCH ×2 (08:19→21:06)
[2016-10-27] MEDS: VIT B CMPLX 3/FA/VIT C/BIOTIN 1 TAB TABLET GT SCH (08:20)
[2016-10-27] MEDS: DOCUSATE SODIUM LIQ 100 MG/10 ML UDC GT SCH ×2 (08:20→21:05)
[2016-10-27] MEDS: METOPROLOL TARTRATE 25 MG TABLET GT SCH ×2 (08:20→21:00)
[2016-10-27] MEDS: LEVETIRACETAM SOL (5 ML) 100 MG/ML UDC GT SCH ×2 (08:20→21:05)
--- NOTE | 2016-10-27 08:37 | NUR ---
Patient received trached on mechanical vent. Breath sounds equal bilateral. Breathing tx given as ordered and tolerated well. No adverse reactions noted. Vent plugged into red outlet and alarms set and functioning. Ambu bag at the bed side.
--- NOTE | 2016-10-27 11:28 | NUR ---
LOW POTASSIUM 3.4 INFORMED WADE SALVADOR WITH NO NEW ORDERS AT THIS TIME.
[2016-10-27 15:28] LABS: BASOPHILS % (AUTO) 0.2 % (0.0-2.0); EOSINOPHILS # (AUTO) 0.2 /CMM (0.0-0.7); EOSINOPHILS % (AUTO) 1.2 % (0.0-6.0); HEMATOCRIT 29 % (33-45); HEMOGLOBIN 9.6 g/dL (11.5-14.8); LYMPHOCYTES # (AUTO) 2.5 /CMM (0.8-4.8); LYMPHOCYTES % (AUTO) 16.6 % (20.0-44.0); MEAN CORPUSCULAR HEMOGLOBIN 33 PG (26.0-33.0); MEAN CORPUSCULAR HGB CONC 33 g/dl (31.0-36.0); MEAN CORPUSCULAR VOLUME 99 fL (82-100); MONOCYTES # (AUTO) 1.5 /CMM (0.1-1.30); MONOCYTES % (AUTO) 9.9 % (2.0-12.0); NEUTROPHILS # (AUTO) 10.7 /CMM (1.8-8.9); NEUTROPHILS % (AUTO) 72.1 % (43.0-81.0); PLATELET COUNT (AUTO) 237 /CMM (150-450); RED BLOOD CELL COUNT(AUTO) 2.93 MIL/uL (4.0-5.2); WHITE BLOOD COUNT (AUTO) 14.9 K/uL (4.3-11.0)
--- NOTE | 2016-10-27 18:14 | NUR ---
PATIENT IS IN BED AND AWAKE. NO SIGNS OF RESPIRATORY DISTRESS OR DISCOMFORT. ALL MEDICATIONS GIVEN ORDERED, GT FEEDING ON AT 30 ML/HR. BED IS LOCKED AND IN LOW POSITION, SIDE RAILS UP, BED ALARM IS ON. WILL ENDORSE TO SHAREPOINT APPLICATION DEVELOPER NURSE FOR CONTINUITY OF CARE. Addendum: 10/27/16 at 1837 by GISELA BALES RN URINE SPECIMEN WAS SENT TO THE LAB.
--- NOTE | 2016-10-27 19:25 | NUR ---
RN NOTES RECEIVED PT IN BED, EYES OPEN, NONVERBAL AND IS TRACH/VENT DEPENDENT WITH SETTINGS IN PLACE. BREATHING EVEN AND UNLABORED. NO SOB, NO SIGNS OF DISTRESS AND DISCOMFORT NOTED AT THIS TIME. WITH TELE MONITOR, RHYTHM = SINUS TACHYCARDIA WITH HR 106.PERMA CATH ON LEFT UPPER CHEST INTACT WITH DRESSING CLEAN, DRY AND INTACT. IV ACCESS ON LEFT FORE ARM PATENT AND INTACT. PT WITH G-TUBE , PATENT AND INTACT WITH ONGOING NOVASOURCE @ 30ML/HR. PT. TOLERATING FEEDING WELL. NO RESIDUAL NOTED. BED IN LOWEST POSITION, SIDE RAILS UP, KEPT PT CLEAN AND DRY. WILL CONTINUE TO MONITOR.
--- NOTE | 2016-10-27 21:12 | NUR ---
RN NOTES BLOOD PRESSURE 108/49, LOPRESSOR 25 MG TAB NOT GIVEN PER BP PARAMETER. WILL CONTINUE TO MONITOR PT.
[2016-10-28] VITALS (7 sets, daily range): BP systolic 100–151; BP diastolic 52–70
[2016-10-28] MEDS: VALPROIC ACID 250 MG/5 ML UDC GT SCH ×4 (00:08→23:51)
[2016-10-28] MEDS: VANCOMYCIN HCL 125 MG/2.5 ML ORAL.SUSP PO SCH ×5 (00:08→23:51)
[2016-10-28] MEDS: ALBUTEROL FS 2.5 MG/3 ML VIAL.NEB IH SCH ×4 (00:40→19:30)
[2016-10-28] MEDS: IPRATROPIUM NEB FS 0.5 MG/2.5 ML AMPUL.NEB IH SCH ×4 (00:40→19:30)
[2016-10-28] MEDS: FERROUS SULFATE UDC 300 MG/5 ML UDC GT SCH ×3 (04:33→21:09)
[2016-10-28] MEDS: RENAL NOVASOURCE 1,000 ML BOTTLE GT SCH (04:33)
[2016-10-28] MEDS: ACIDOPHILUS/BULGARICUS 1 EACH TAB.CHEW GT SCH ×3 (04:33→21:10)
--- NOTE | 2016-10-28 05:27 | NUR ---
IN THE LAST ROUND OF VENT CHECK , I SUCTIONED PT COUPLE TIMES SHE HAD TOO MUCH YELLOW THICK SECRETION. PT'S PIP WAS HIGH EVEN AFTER SUCTION HER, JUST LITTLE CHANGE .
[2016-10-28] MEDS: BLOOD SUGAR DIAGNOSTIC 1 EACH STRIP IN SCH (05:47)
--- NOTE | 2016-10-28 05:59 | NUR ---
BG 90 MG/DL, NO INSULIN COVERAGE, ONLY MONITORING
[2016-10-28 06:26] LABS: BASOPHILS % (AUTO) 0.1 % (0.0-2.0); EOSINOPHILS # (AUTO) 0.2 /CMM (0.0-0.7); EOSINOPHILS % (AUTO) 1.4 % (0.0-6.0); HEMATOCRIT 30 % (33-45); HEMOGLOBIN 9.8 g/dL (11.5-14.8); LYMPHOCYTES # (AUTO) 2.9 /CMM (0.8-4.8); LYMPHOCYTES % (AUTO) 17.6 % (20.0-44.0); MEAN CORPUSCULAR HEMOGLOBIN 34 PG (26.0-33.0); MEAN CORPUSCULAR HGB CONC 33 g/dl (31.0-36.0); MEAN CORPUSCULAR VOLUME 101 fL (82-100); MONOCYTES # (AUTO) 1.6 /CMM (0.1-1.30); MONOCYTES % (AUTO) 9.7 % (2.0-12.0); NEUTROPHILS # (AUTO) 11.7 /CMM (1.8-8.9); NEUTROPHILS % (AUTO) 71.2 % (43.0-81.0); PLATELET COUNT (AUTO) 226 /CMM (150-450); RDW COEFFICIENT OF VARIATION 18.7 (11.5-15.0); RED BLOOD CELL COUNT(AUTO) 2.92 MIL/uL (4.0-5.2); WHITE BLOOD COUNT (AUTO) 16.4 K/uL (4.3-11.0)
[2016-10-28 07:13] LABS: CALCIUM, SERUM 9.1 mg/dL (8.5-10.1); CREATININE 3.9 mg/dL (0.6-1.3); MAGNESIUM 1.9 mg/dL (1.8-2.4); PHOSPHORUS 2.6 mg/dL (2.5-4.9); POTASSIUM 3.4 mmol/L (3.5-5.1)
--- NOTE | 2016-10-28 07:30 | NUR ---
RN NOTES PATIENT AWAKE, HOB ELEVATED, BREATHING REGULAR AND UNLABORED, TOLERATED MECHANICAL VENT WELL. VITAL SIGNS STABLE, AFEBRILE. TELE MONITOR READS SINUS RHYTHM WITH PVC AT 94. NO SIGNS OF PAIN AND DISCOMFORT NOTED. ALL DUE MEDS GIVEN. KEPT CLEAN AND DRY, REPOSITIONED Q 2 HOURS. SKIN CARE AND WOUND CARE DONE. SAFETY PRECAUTIONS AND COMFORT MEASURES IN PLACE. ENDORSED TO MORNING RN FOR CONTINUITY OF CARE.
--- NOTE | 2016-10-28 08:00 | NUR ---
METAL MODEL MAKER AM NOTES RECEIVED PT IN BED, EYES OPEN, NONVERBAL AND IS TRACH/VENT DEPENDENT WITH SETTINGS IN PLACE. BREATHING EVEN AND UNLABORED. NO SOB, NO SIGNS OF DISTRESS AND DISCOMFORT NOTED AT THIS TIME. WITH TELE MONITOR, RHYTHM = SINUS TACHYCARDIA WITH HR 103.PERMA CATH ON LEFT UPPER CHEST INTACT WITH DRESSING CLEAN, DRY AND INTACT. IV ACCESS ON LEFT FORE ARM PATENT AND INTACT. PT WITH G-TUBE , PATENT AND INTACT WITH ONGOING NOVASOURCE @ 30ML/HR. PT. TOLERATING FEEDING WELL. NO RESIDUAL NOTED.HOB ELEVATED. BED IN LOWEST POSITION, SIDE RAILS UP, KEPT PT CLEAN AND DRY. WILL CONTINUE TO MONITOR.
[2016-10-28] MEDS: METOPROLOL TARTRATE 25 MG TABLET GT SCH ×2 (09:00→21:00)
[2016-10-28 09:04] LABS: LYMPHOCYTES % (MANUAL) 16 % (16-48); MONOCYTES % (MANUAL) 11 % (0-11.0); NEUTROPHILS % (MANUAL) 73 (42-76)
[2016-10-28] MEDS: VIT B CMPLX 3/FA/VIT C/BIOTIN 1 TAB TABLET GT SCH (09:21)
[2016-10-28] MEDS: LEVETIRACETAM SOL (5 ML) 100 MG/ML UDC GT SCH ×2 (09:21→21:10)
[2016-10-28] MEDS: TRAMADOL HCL 50 MG TABLET GT SCH ×2 (09:21→21:11)
[2016-10-28] MEDS: DOCUSATE SODIUM LIQ 100 MG/10 ML UDC GT SCH ×2 (09:21→21:09)
[2016-10-28] MEDS: PANTOPRAZOLE 40 MG VIAL IV SCH (09:21)
[2016-10-28] MEDS: PROSOURCE / PROSTAT (PYXIS) 30 ML UDC GT SCH ×3 (09:26→17:31)
[2016-10-28] MEDS: Z GUARD REMEDY 2 OZ OINT TP SCH (09:27)
[2016-10-28] MEDS: HYDROGEL DRESSING 90 GM TUBE TP SCH (09:27)
[2016-10-28] MEDS: NYSTATIN CREAM 15 GM TUBE TP SCH ×2 (09:28→17:32)
[2016-10-28] MEDS ORDERED: EPOETIN ALFA (10,000 UNIT) 10,000 UNIT/ML VIAL SQ ONE (15:00)
--- NOTE | 2016-10-28 18:00 | NUR ---
DURING TURNING AND REPOSITIONING,WOUND TX AND PERICARE,NOTED THE GT OUT-WITH THE BALLOON MALFUNCTION NOTED(POPPED).INSERTED VASQUEZ CATHETER FR 16/10 ML ON THE GT SITE.KEPT CLEAN AND DRY.NOTIFIED KATHRYN HARVEY NP WITH ORDERS FOR STAT XR ABD WITH KUB AND CARRIED OUT.
[2016-10-28] MEDS ORDERED: DIATR MEGLU/DIATRIZOATE SODIUM 30 ML BOTTLE (GASTROGRAPHIN) ONE (18:20)
--- NOTE | 2016-10-28 18:25 | NUR ---
telephone repairer notes Spoke to Sarthak WEATHER STRIP INSTALLER regarding patient GT came out and ordered to insert heredia to keep site open and ordered KUB stat with Gastrografin to check placement and if in place okay to start feeding tubes. All orders carried out and noted. Will continue to monitor patient accordingly.
[2016-10-28] MEDS ORDERED: IV NS 0.9% 1,000 ML BAG IV PRN (18:30)
[2016-10-28] MEDS ORDERED: IV NS 0.9% 1,000 ML IV PRN (19:00)
--- NOTE | 2016-10-28 19:25 | NUR ---
RN NOTES RECEIVED PT AWAKE, ALERT, HOB ELEVATED, NON VERBAL, NO SOB, NOT IN DISTRESS. TRACHE INTACT, VENT DEPENDENT WITH SETTINGS IN PLACE. NO SIGNS OF DISTRESS AND DISCOMFORT NOTED AT THIS TIME. TELE MONITOR READS SINUS TACHYCARDIA WITH HR 101. PERMA CATH ON LEFT UPPER CHEST INTACT WITH DRESSING CLEAN AND DRY. IV ACCESS ON LEFT FORE ARM PATENT AND INTACT, FLUSHES WELL, NO SIGNS OF INFILTRATE NOTED. PER REPORT G-TUBE WAS PULLED OUT AND VASQUEZ CATH WAS REINSERTED TO KEEP GT SITE OPEN, AND AWAITING FOR THE KUB RESULT TO CONFIRM PLACEMENT TO RESTART FEEDING. BED IN LOWEST POSITION, SIDE RAILS UP, KEPT PT CLEAN AND DRY. WILL CONTINUE TO MONITOR.
--- NOTE | 2016-10-28 20:30 | NUR ---
RN NOTES RECEIVED KUB RESULT AND CONFIRMS PLACEMENT OF FC. FEEDING RESUMED ORDERED. WILL CONTINUE TO MONITOR.
[2016-10-29] VITALS (8 sets, daily range): BP systolic 103–128; BP diastolic 39–71
[2016-10-29] MEDS: ALBUTEROL FS 2.5 MG/3 ML VIAL.NEB IH SCH ×4 (01:16→19:04)
[2016-10-29] MEDS: IPRATROPIUM NEB FS 0.5 MG/2.5 ML AMPUL.NEB IH SCH ×4 (01:16→19:04)
[2016-10-29] MEDS: FERROUS SULFATE UDC 300 MG/5 ML UDC GT SCH ×3 (05:20→21:23)
[2016-10-29] MEDS: ACIDOPHILUS/BULGARICUS 1 EACH TAB.CHEW GT SCH ×3 (05:20→21:23)
[2016-10-29] MEDS: VALPROIC ACID 250 MG/5 ML UDC GT SCH ×2 (05:21→12:10)
[2016-10-29] MEDS: VANCOMYCIN HCL 125 MG/2.5 ML ORAL.SUSP PO SCH ×3 (05:51→17:08)
[2016-10-29] MEDS: BLOOD SUGAR DIAGNOSTIC 1 EACH STRIP IN SCH (05:51)
--- NOTE | 2016-10-29 05:51 | NUR ---
RN NOTES BLOOD SUGAR CHECKED 88 MG/DL, NO INSULIN COVERAGE, ONLY FOR MONITORING. NO SIGNS OF HYPOGLYCEMIA NOTED. PT ON G-TUBE FEEDING. WILL CONTINUE TO MONITOR PT.
--- NOTE | 2016-10-29 06:52 | NUR ---
RN NOTES PATIENT AWAKE, HOB ELEVATED, BREATHING REGULAR AND UNLABORED, TOLERATED MECHANICAL VENT WELL. VITAL SIGNS STABLE, AFEBRILE. TELE MONITOR READS SINUS RHYTHM WITH HEART RATE AT 94. NO SIGNS OF PAIN AND DISCOMFORT NOTED. GT INTACT WITH FEEDING TOLERATED WELL. ALL DUE MEDS GIVEN. SUCTION SECRETIONS NEEDED. KEPT CLEAN AND DRY, REPOSITIONED Q 2 HOURS. SKIN CARE AND WOUND CARE DONE. SAFETY PRECAUTIONS AND COMFORT MEASURES IN PLACE. WILL ENDORSE TO MORNING RN FOR CONTINUITY OF CARE.
[2016-10-29 07:17] LABS: CALCIUM, SERUM 8.8 mg/dL (8.5-10.1); CREATININE 3.7 mg/dL (0.6-1.3); MAGNESIUM 1.8 mg/dL (1.8-2.4); POTASSIUM 3.7 mmol/L (3.5-5.1)
--- NOTE | 2016-10-29 08:00 | NUR ---
RN NOTE RECEIVED PT. PT STABLE AND SLEEPING. HOB ELEVATED. NO S/S OF DISTRESS OR PAIN. PT IS VENT DEPENDENT, VENT SETTINGS IN PLACE. PT IS TELE MONITORED, READING SINUS TACH RATE OF 112. IV SITE ON LEFT FOREARM, INTACT. PERMA CATH ON LEFT CHEST WALL, INTACT. PER REPORT, VASQUEZ CATH INSERTED INTO G TUBE SITE IN ORDER TO KEEP SITE VIABLE AFTER GT WAS PULLED OUT. WILL CONTINUE TO MONITOR.
[2016-10-29 08:21] LABS: BASOPHILS % (AUTO) 0.1 % (0.0-2.0); EOSINOPHILS # (AUTO) 0.3 /CMM (0.0-0.7); EOSINOPHILS % (AUTO) 1.2 % (0.0-6.0); HEMATOCRIT 29 % (33-45); HEMOGLOBIN 9.7 g/dL (11.5-14.8); LYMPHOCYTES # (AUTO) 3.2 /CMM (0.8-4.8); LYMPHOCYTES % (AUTO) 13.9 % (20.0-44.0); MEAN CORPUSCULAR HEMOGLOBIN 33 PG (26.0-33.0); MEAN CORPUSCULAR HGB CONC 34 g/dl (31.0-36.0); MEAN CORPUSCULAR VOLUME 99 fL (82-100); MONOCYTES # (AUTO) 1.8 /CMM (0.1-1.30); MONOCYTES % (AUTO) 7.9 % (2.0-12.0); NEUTROPHILS # (AUTO) 17.4 /CMM (1.8-8.9); NEUTROPHILS % (AUTO) 76.9 % (43.0-81.0); PLATELET COUNT (AUTO) 299 /CMM (150-450); RDW COEFFICIENT OF VARIATION 18.6 (11.5-15.0); RED BLOOD CELL COUNT(AUTO) 2.92 MIL/uL (4.0-5.2); WHITE BLOOD COUNT (AUTO) 22.7 K/uL (4.3-11.0)
[2016-10-29] MEDS: VIT B CMPLX 3/FA/VIT C/BIOTIN 1 TAB TABLET GT SCH (08:48)
[2016-10-29] MEDS: DOCUSATE SODIUM LIQ 100 MG/10 ML UDC GT SCH ×2 (08:48→21:00)
[2016-10-29] MEDS: PANTOPRAZOLE 40 MG VIAL IV SCH (08:48)
[2016-10-29] MEDS: LEVETIRACETAM SOL (5 ML) 100 MG/ML UDC GT SCH ×2 (08:48→21:23)
[2016-10-29] MEDS: METOPROLOL TARTRATE 25 MG TABLET GT SCH ×2 (09:00→21:00)
--- NOTE | 2016-10-29 09:00 | NUR ---
RN NOTE SCHEDULED LOPRESSOR HELD DUE TO BP OF 83/53.
[2016-10-29] MEDS: TRAMADOL HCL 50 MG TABLET GT SCH ×2 (09:14→21:25)
[2016-10-29] MEDS: HYDROGEL DRESSING 90 GM TUBE TP SCH (09:18)
[2016-10-29] MEDS: NYSTATIN CREAM 15 GM TUBE TP SCH ×2 (09:18→16:04)
[2016-10-29] MEDS: PROSOURCE / PROSTAT (PYXIS) 30 ML UDC GT SCH ×3 (09:28→16:04)
[2016-10-29 09:57] LABS: EOSINOPHILS % (MANUAL) 1 % (0-4); LYMPHOCYTES % (MANUAL) 8 % (16-48); MONOCYTES % (MANUAL) 14 % (0-11.0); NEUTROPHILS % (MANUAL) 77 (42-76)
[2016-10-29] MEDS: Z GUARD REMEDY 2 OZ OINT TP SCH (12:11)
[2016-10-29] MEDS: CADEXOMER IODINE 40 GM TUBE TP SCH (13:27)
--- NOTE | 2016-10-29 15:33 | NUR ---
RN NOTES RECEIVED PT IN BED, EYES OPEN, NONVERBAL AND TRACH/VENT DEPENDENT WITH SETTINGS IN PLACE. BREATHING EVEN AND UNLABORED. NO SOB, NO SIGNS OF DISTRESS AND DISCOMFORT NOTED AT THIS TIME. WITH TELE MONITOR, RHYTHM SINUS TACHYCARDIA WITH HR 126.PERMA CATH ON LEFT UPPER CHEST INTACT WITH DRESSING CLEAN, DRY AND INTACT. IV ACCESS ON LEFT FORE ARM PATENT AND INTACT. PT WITH VASQUEZ CATH IN G-TUBE SITE, PATENT AND INTACT WITH ONGOING NOVASOURCE @ 30ML/HR. PT. TOLERATING FEEDING WELL. NO RESIDUAL NOTED. BED IN LOWEST POSITION, SIDE RAILS UP, KEPT PT CLEAN AND DRY. WILL CONTINUE TO MONITOR.
--- NOTE | 2016-10-29 18:30 | NUR ---
RN CLOSING NOTE. PT IS ASLEEP AND STABLE. UNLABORED BREATHING ASSISTED BY MECHANICAL VENT, WELL TOLERATED. TELE MONITOR READS SINUS TACHY WITH HR OF 110. GT SITE INTACT AND REMAINS VIABLE VIA VASQUEZ CATH, REMAINS PATENT. FEEDING RUNNING AT 30CC/HR. PT REQUIRES FREQUENT SUCTIONING TO MAINTAIN AIRWAY. SKIN AND WOUND CARE COMPLETED. SAFETY MEASURES IN PLACE. WILL ENDORSE TO NIGHTSHI FOR CONTINUITY OF CARE.
--- NOTE | 2016-10-29 21:00 | NUR ---
RN NOTES LOPRESSOR 25 MG TAB NOT GIVEN, BP 106/68 HR 128. WILL CONTINUE TO MONITOR.
[2016-10-29] MEDS ORDERED: SECONDARY IV SET 1 EA INFUS.SET MC ONE (21:13)
[2016-10-29] MEDS ORDERED: IV NS 0.9% 250 ML IV ONE (21:14)
[2016-10-29] MEDS ORDERED: IV SET PRIMARY PUMP SET 1 EA INFUS.SET MC ONE (21:15)
[2016-10-29] MEDS: METRONIDAZOLE 500MG/ NS 100ML 500 MG in PREMIX 1 EA IV SCH (21:25)
[2016-10-29] MEDS: RENAL NOVASOURCE 1,000 ML BOTTLE GT SCH (22:59)
[2016-10-30] VITALS (8 sets, daily range): BP systolic 91–125; BP diastolic 5–69
[2016-10-30] MEDS: VALPROIC ACID 250 MG/5 ML UDC GT SCH ×3 (00:15→12:18)
[2016-10-30] MEDS: VANCOMYCIN HCL 125 MG/2.5 ML ORAL.SUSP PO SCH ×4 (00:15→17:26)
[2016-10-30] MEDS: IPRATROPIUM NEB FS 0.5 MG/2.5 ML AMPUL.NEB IH SCH ×4 (01:13→19:33)
[2016-10-30] MEDS: ALBUTEROL FS 2.5 MG/3 ML VIAL.NEB IH SCH ×4 (01:13→19:33)
[2016-10-30] MEDS: FERROUS SULFATE UDC 300 MG/5 ML UDC GT SCH ×3 (05:42→22:12)
[2016-10-30] MEDS: METRONIDAZOLE 500MG/ NS 100ML 500 MG in PREMIX 1 EA IV SCH ×3 (05:43→22:27)
[2016-10-30] MEDS: ACIDOPHILUS/BULGARICUS 1 EACH TAB.CHEW GT SCH ×3 (05:43→22:13)
--- NOTE | 2016-10-30 05:44 | NUR ---
RN NOTES RECEIVED A CALL FROM LABORATORY PT IS POSITIVE FOR BLOOD CULTURE, [facility] POSITIVE COCCI WITH CLUSTERS SEEN. CHARGE NURSE MADE AWARE, WILL PAGE THE DOCTOR NATIONAL SERVICE OFFICER.
[2016-10-30] MEDS: BLOOD SUGAR DIAGNOSTIC 1 EACH STRIP IN SCH (06:15)
--- NOTE | 2016-10-30 06:15 | NUR ---
RN NOTES BLOOD SUGAR CHECKED 90 MG/DL, NO INSULIN COVERAGE ONLY FOR MONITORING.
[2016-10-30 06:38] LABS: BASOPHILS % (AUTO) 0.2 % (0.0-2.0); EOSINOPHILS # (AUTO) 0.2 /CMM (0.0-0.7); EOSINOPHILS % (AUTO) 1.1 % (0.0-6.0); HEMATOCRIT 29 % (33-45); HEMOGLOBIN 9.5 g/dL (11.5-14.8); LYMPHOCYTES % (AUTO) 17.4 % (20.0-44.0); MEAN CORPUSCULAR HEMOGLOBIN 33 PG (26.0-33.0); MEAN CORPUSCULAR HGB CONC 33 g/dl (31.0-36.0); MEAN CORPUSCULAR VOLUME 99 fL (82-100); MONOCYTES # (AUTO) 1.4 /CMM (0.1-1.30); NEUTROPHILS # (AUTO) 12.6 /CMM (1.8-8.9); NEUTROPHILS % (AUTO) 73.3 % (43.0-81.0); PLATELET COUNT (AUTO) 211 /CMM (150-450); RDW COEFFICIENT OF VARIATION 18.3 (11.5-15.0); WHITE BLOOD COUNT (AUTO) 17.2 K/uL (4.3-11.0)
--- NOTE | 2016-10-30 06:59 | NUR ---
RN NOTES PATIENT AWAKE, HOB ELEVATED, BREATHING REGULAR AND UNLABORED, TOLERATED MECHANICAL VENT WELL. VITAL SIGNS STABLE, AFEBRILE. TELE MONITOR READS SINUS RHYTHM WITH HEART RATE AT 109. NO SIGNS OF PAIN AND DISCOMFORT NOTED. VASQUEZ CATH AT GT SITE INTACT WITH FEEDING TOLERATED WELL. ALL DUE MEDS GIVEN. SUCTION SECRETIONS NEEDED. KEPT CLEAN AND DRY, REPOSITIONED Q 2 HOURS. SKIN CARE AND WOUND CARE DONE. SAFETY PRECAUTIONS AND COMFORT MEASURES IN PLACE. PT FOR HEMODIALYSIS THIS MORNING. WILL ENDORSE TO MORNING RN FOR CONTINUITY OF CARE.
--- NOTE | 2016-10-30 07:05 | NUR ---
NUMERICAL TOOL PROGRAMMER OPENING NOTES RECEIVED PT. FROM NIGHTSHIFT NURSE IN STABLE CONDITION. PT. IS OBTUNDED. NO SOB OR SIGNS OF DISTRESS NOTED. BREATHING IS EVEN AND UNLABORED. ON FULL VENTILATOR SUPPORT. VENTILATOR SETTINGS ARE ORDERED: SHILEY #8, AC 16, FI02 30%, TV 600, PEEP 5. PT IS SINUS TACHY ON THE TELE MONITOR WITH BBB. HAS A HR OF 109. VASQUEZ CATHETER IN PLACE OF GTUBE. CATHETER IN PLACE AND PATENT. PT. IS RECEIVING NOVASOURCE @ 300ML. NO RESIDUALS AT THIS TIME. IV PRESENT ON ON LEFT FA 22G PATENT AND INTACT. LEFT CHEST WALL PERMACATH ALSO PRESENT AND PATENT. NO REDNESS OR SIGNS OF INFILTRATION NOTED TO EACH. BED IN LOW LOCKED POSITION, SIDE RAILS UP X3, CALL LIGHT WITHIN REACH. PT. IS SCHEDULED FOR HEMODIALYSES TODAY. WILL CONTINUE TO MONITOR.
[2016-10-30 07:18] LABS: CREATININE 4.3 mg/dL (0.6-1.3); MAGNESIUM 1.9 mg/dL (1.8-2.4); PHOSPHORUS 2.9 mg/dL (2.5-4.9); POTASSIUM 4.4 mmol/L (3.5-5.1)
[2016-10-30] MEDS: METOPROLOL TARTRATE 25 MG TABLET GT SCH ×2 (09:00→21:00)
[2016-10-30] MEDS: TRAMADOL HCL 50 MG TABLET GT SCH ×2 (09:17→22:13)
[2016-10-30] MEDS: DOCUSATE SODIUM LIQ 100 MG/10 ML UDC GT SCH ×2 (09:17→22:13)
[2016-10-30] MEDS: PROSOURCE / PROSTAT (PYXIS) 30 ML UDC GT SCH ×3 (09:18→17:26)
[2016-10-30] MEDS: PANTOPRAZOLE 40 MG VIAL IV SCH (09:18)
[2016-10-30] MEDS: NYSTATIN CREAM 15 GM TUBE TP SCH ×2 (09:20→17:26)
[2016-10-30] MEDS: Z GUARD REMEDY 2 OZ OINT TP SCH (09:20)
[2016-10-30] MEDS: HYDROGEL DRESSING 90 GM TUBE TP SCH (09:21)
[2016-10-30] MEDS: CADEXOMER IODINE 40 GM TUBE TP SCH (09:21)
[2016-10-30] MEDS: LEVETIRACETAM SOL (5 ML) 100 MG/ML UDC GT SCH ×2 (09:22→22:12)
[2016-10-30] MEDS: VIT B CMPLX 3/FA/VIT C/BIOTIN 1 TAB TABLET GT SCH (09:23)
[2016-10-30] MEDS ORDERED: EPOETIN ALFA (10,000 UNIT) 10,000 UNIT/ML VIAL SQ ONE (11:00)
--- NOTE | 2016-10-30 17:36 | NUR ---
RT RCV'D PATIENT TRACH'D WITH SHILEY # 8XLT CUFFED ON [facility] VENT WITH SETTINGS PER MD ORDER. QUALITY CONTROL LAB TECH DONE. BILAT RHONCHI BREATH SOUNDS ON AUSCULTATION. SUCTIONED LARGE AMOUNTS OF THICK, BARRETO/YELLOW SECRETIONS. ALARMS ON AND WORKING PROPERLY. TRACH SECURED AND AIRWAY PATENT. VENT PLUGGED INTO RED OUTLET. AMBU BAG AT BEDSIDE. BREATHING TX'S GIVEN ORDERED. NO ADVERSE EFFECTS OBSERVED. NO SIGNS OF DISTRESS NOTED AT THIS TIME. WILL CONTINUE TO MONITOR THE PATIENT FOR ANY CHANGE OF CONDITION. Addendum: 10/30/16 at 1815 by SCARLETT GAMBLE RT Amended: Links added.
--- NOTE | 2016-10-30 18:44 | NUR ---
MANAGEMENT TRAINEE CLOSING NOTES PT. REMAINS IN STABLE CONDITION. VITALS SIGNS STABLE DURING SHIFT AND SCHEDULED DIALYSIS TREATMENT, PT. REMAINED AFEBRILE. NO SOB OR SIGNS OF DISTRESS NOTED. BREATHING REMAINS EVEN AND UNLABORED. PT. WAS SUCTIONED NEEDED AND RECEIVED BREATHING TREATMENTS ORDERED. VENT SETTINGS REMAIN IN PLACE ORDERED BY . VASQUEZ CATHETER IN PLACE OF GTUBE. PT. CONTINUES TO RECEIVE GTUBE FEEDING FROM CATHETER. PT. HAS TOLERATED HER FEEDING WELL. LITTLE NO NO RESIDUAL THROUGHOUT SHIFT. HOB ELEVATED. PT. WAS CLEANED AND KEPT DRY THROUGHOUT SHIFT AND REPOSITIONED Q2HRS. WOUND CARE PERFORMED ORDERED. ALL SAFETY MEASURES REMAIN IN PLACE. WILL ENDORSE TO NIGHTSHIFT NURSE FOR JEIMY
--- NOTE | 2016-10-30 19:49 | NUR ---
TELE/RN RECEIVE PATIENT APPEAR SLEEPING, APPEAR COMFORTABLE, NO SIGNS OF DISTRESS NOTED, MECH VENT WORKING WELL, GT FEEDING INFUSING, NO RESIDUAL NOTED, HOB ELEVATED. WILL MONITOR.
[2016-10-31] VITALS (7 sets, daily range): BP systolic 102–139; BP diastolic 55–69
[2016-10-31] MEDS: VANCOMYCIN HCL 125 MG/2.5 ML ORAL.SUSP PO SCH ×4 (00:34→17:06)
[2016-10-31] MEDS: VALPROIC ACID 250 MG/5 ML UDC GT SCH ×3 (00:35→12:24)
[2016-10-31] MEDS: ALBUTEROL FS 2.5 MG/3 ML VIAL.NEB IH SCH ×4 (01:27→19:52)
[2016-10-31] MEDS: IPRATROPIUM NEB FS 0.5 MG/2.5 ML AMPUL.NEB IH SCH ×4 (01:27→19:52)
[2016-10-31] MEDS: METRONIDAZOLE 500MG/ NS 100ML 500 MG in PREMIX 1 EA IV SCH ×3 (04:29→20:52)
[2016-10-31] MEDS: ACIDOPHILUS/BULGARICUS 1 EACH TAB.CHEW GT SCH ×3 (04:29→20:53)
[2016-10-31] MEDS: RENAL NOVASOURCE 1,000 ML BOTTLE GT SCH (04:29)
[2016-10-31] MEDS: FERROUS SULFATE UDC 300 MG/5 ML UDC GT SCH ×3 (04:29→20:52)
--- NOTE | 2016-10-31 05:44 | NUR ---
TELE/RN MORNING CARE WAS DONE AT 04:00, TOTAL LINEN CHANGE RENDERED, WOUND CARE DONE PER ORDER, TRACH CARE DONE, TOLERATED WELL. REPOSITIONED TO COMFORT. HOB ELEVATED. WILL CONTINUE TO MONITOR.
[2016-10-31] MEDS: BLOOD SUGAR DIAGNOSTIC 1 EACH STRIP IN SCH (06:15)
[2016-10-31 06:38] LABS: POTASSIUM 3.8 mmol/L (3.5-5.1)
--- NOTE | 2016-10-31 07:05 | NUR ---
SPORTS APPAREL INTERNSHIP OPENING NOTES RECEIVED PT. FROM NIGHTSHIFT NURSE IN STABLE CONDITION. PT. IS OBTUNDED. NO SOB OR SIGNS OF DISTRESS NOTED. BREATHING IS EVEN AND UNLABORED. ON FULL VENTILATOR SUPPORT. VENTILATOR SETTINGS ARE ORDERED: SHILEY #8, AC 16, FI02 30%, TV 600, PEEP 5. PT IS SINUS TACHY ON THE TELE MONITOR WITH BBB. HAS A HR OF 109. VASQUEZ CATHETER IN PLACE OF GTUBE. CATHETER INTACT AND PATENT. PT. IS RECEIVING NOVASOURCE @ 30ML/HR AND TOLERATING IT WELL. NO RESIDUALS AT THIS TIME. IV PRESENT ON ON LEFT FA 22G PATENT AND INTACT. LEFT CHEST WALL PERMACATH ALSO PRESENT AND PATENT. NO REDNESS OR SIGNS OF INFILTRATION NOTED TO EACH. BED IN LOW LOCKED POSITION, SIDE RAILS UP X3, CALL LIGHT WITHIN REACH. WILL CONTINUE TO MONITOR.
[2016-10-31] MEDS: PANTOPRAZOLE 40 MG VIAL IV SCH (08:44)
[2016-10-31] MEDS: DOCUSATE SODIUM LIQ 100 MG/10 ML UDC GT SCH ×2 (08:44→20:52)
[2016-10-31] MEDS: LEVETIRACETAM SOL (5 ML) 100 MG/ML UDC GT SCH ×2 (08:44→20:53)
[2016-10-31] MEDS: VIT B CMPLX 3/FA/VIT C/BIOTIN 1 TAB TABLET GT SCH (08:45)
[2016-10-31] MEDS: METOPROLOL TARTRATE 25 MG TABLET GT SCH ×2 (08:45→20:54)
[2016-10-31] MEDS: TRAMADOL HCL 50 MG TABLET GT SCH ×2 (08:45→20:53)
[2016-10-31] MEDS: Z GUARD REMEDY 2 OZ OINT TP SCH (08:46)
[2016-10-31] MEDS: CADEXOMER IODINE 40 GM TUBE TP SCH (08:46)
[2016-10-31] MEDS: NYSTATIN CREAM 15 GM TUBE TP SCH ×2 (08:47→17:07)
[2016-10-31 08:57] LABS: BASOPHILS % (AUTO) 0.1 % (0.0-2.0); EOSINOPHILS # (AUTO) 0.1 /CMM (0.0-0.7); EOSINOPHILS % (AUTO) 0.7 % (0.0-6.0); HEMATOCRIT 29 % (33-45); HEMOGLOBIN 9.6 g/dL (11.5-14.8); LYMPHOCYTES # (AUTO) 2.1 /CMM (0.8-4.8); LYMPHOCYTES % (AUTO) 12.1 % (20.0-44.0); MEAN CORPUSCULAR HEMOGLOBIN 34 PG (26.0-33.0); MEAN CORPUSCULAR HGB CONC 33 g/dl (31.0-36.0); MEAN CORPUSCULAR VOLUME 100 fL (82-100); MONOCYTES # (AUTO) 1.8 /CMM (0.1-1.30); MONOCYTES % (AUTO) 10.7 % (2.0-12.0); NEUTROPHILS # (AUTO) 13.1 /CMM (1.8-8.9); NEUTROPHILS % (AUTO) 76.4 % (43.0-81.0); PLATELET COUNT (AUTO) 225 /CMM (150-450); RDW COEFFICIENT OF VARIATION 18.6 (11.5-15.0); RED BLOOD CELL COUNT(AUTO) 2.88 MIL/uL (4.0-5.2); WHITE BLOOD COUNT (AUTO) 17.1 K/uL (4.3-11.0)
[2016-10-31] MEDS: PROSOURCE / PROSTAT (PYXIS) 30 ML UDC GT SCH ×3 (08:57→17:07)
[2016-10-31] MEDS: HYDROGEL DRESSING 90 GM TUBE TP SCH (08:57)
--- NOTE | 2016-10-31 14:57 | NUR ---
RT PATIENT TRACH'D WITH SHILEY # 8XLT CUFFED ON [facility] VENT WITH SETTINGS PER MD ORDER. BLEND TECHNICIAN DONE. BILAT RHONCHI BREATH SOUNDS ON AUSCULTATION. AIRWAY PATENT AND TRACH SECURED. SUCTIONED LARGE AMOUNTS OF THICK, BARRETO/YELLOW SECRETIONS. ALARMS ON AND FUNCTIONING PROPERLY. VENT PLUGGED INTO RED OUTLET. AMBU BAG AT BEDSIDE. TX'S GIVEN ORDERED. NO ADVERSE EFFECTS OBSERVED. NO SOB NOTED AT THIS TIME. WILL CONTINUE TO MONITOR THE PATIENT FOR ANY CHANGES. Addendum: 10/31/16 at 1503 by SCARLETT GAMBLE RT Amended: Links added.
[2016-10-31] MEDS ORDERED: SECONDARY IV SET 1 EA INFUS.SET MC ONE (16:04)
[2016-10-31] MEDS: DAPTOMYCIN 500 MG in IV NS 0.9% 50 ML IV SCH (16:14)
--- NOTE | 2016-10-31 16:35 | NUR ---
SOIL CONSERVATION AIDE NOTES KIRBY SAUNDERS PUT IN A NEW ORDER FOR BLOOD CULTURES WHICH WERE TAKEN. LAB CALLED REPORTING POSITIVE C-DIFF IN THE PT'S BLOOD. KATHRYN HARVEY WAS INFORMED. CUBICIN WAS ORDERED. INFUSION STARTED. WILL CONTINUE TO MONITOR PT.
--- NOTE | 2016-10-31 18:20 | NUR ---
ASSISTANT CUSTOMER SERVICE MANAGER CLOSING NOTES PT. REMAINS IN STABLE CONDITION. VITALS SIGNS REMAIN STABLE, AND PT. REMAINED AFEBRILE. NO SOB OR SIGNS OF DISTRESS NOTED. BREATHING REMAINS EVEN AND UNLABORED. PT. WAS SUCTIONED NEEDED AND RECEIVED BREATHING TREATMENTS ORDERED. VENT SETTINGS REMAIN IN PLACE ORDERED BY . VASQUEZ CATHETER IN PLACE OF GTUBE. PT. CONTINUES TO RECEIVE GTUBE FEEDING FROM CATHETER. PT. HAS TOLERATED HER FEEDING WELL. LITTLE NO NO RESIDUAL THROUGHOUT SHIFT. HOB ELEVATED. PT. WAS CLEANED AND KEPT DRY THROUGHOUT SHIFT AND REPOSITIONED Q2HRS. WOUND CARE PERFORMED ORDERED. ALL SAFETY MEASURES REMAIN IN PLACE. ISOLATION PRECAUTIONS MAINTAINED AND VISIBLY NOTED AT ROOM ENTRANCE. WILL ENDORSE TO NIGHTSHIFT NURSE FOR JEIMY
--- NOTE | 2016-10-31 19:10 | NUR ---
RN OPEN NOTES RECEIVED PATIENT IN BED. OBTUNDED. NO SIGNS OF DISTRESS OR DISCOMFORT. BREATHING EVEN AND UNLABORED. ON MECH VENT WITH SETTINGS ORDERED. ON TELE MONITORING WITH SR 90'S NOTED. IV ACCESS IN LAC PATENT AND INTACT, NO SIGNS OF REDNESS OR INFILTRATION. ALSO HAS LEFT UPPER CHEST WALL PERMACATH INTACT. HAS VASQUEZ CATH IN PLACE OF G-TUBE WITH FEEDING RUNNING, PATIENT TOLERATING WELL. BED IN LOW LOCKED POSITION WITH SIDE RAILS X3. CALL LIGHT WITHIN REACH. WILL CONTINUE TO MONITOR.
[2016-11-01] VITALS (8 sets, daily range): BP systolic 95–147; BP diastolic 52–92
[2016-11-01] MEDS: VALPROIC ACID 250 MG/5 ML UDC GT SCH ×4 (00:36→23:12)
[2016-11-01] MEDS: VANCOMYCIN HCL 125 MG/2.5 ML ORAL.SUSP PO SCH ×5 (00:36→23:12)
[2016-11-01] MEDS: ALBUTEROL FS 2.5 MG/3 ML VIAL.NEB IH SCH ×4 (01:12→20:13)
[2016-11-01] MEDS: IPRATROPIUM NEB FS 0.5 MG/2.5 ML AMPUL.NEB IH SCH ×4 (01:12→20:13)
[2016-11-01] MEDS ORDERED: IV NS 0.9% 250 ML IV ONE (05:01)
[2016-11-01] MEDS: METRONIDAZOLE 500MG/ NS 100ML 500 MG in PREMIX 1 EA IV SCH ×3 (05:08→21:15)
[2016-11-01] MEDS: ACIDOPHILUS/BULGARICUS 1 EACH TAB.CHEW GT SCH ×3 (05:09→21:15)
[2016-11-01] MEDS: FERROUS SULFATE UDC 300 MG/5 ML UDC GT SCH ×3 (05:09→21:15)
[2016-11-01] MEDS: RENAL NOVASOURCE 1,000 ML BOTTLE GT SCH (05:43)
[2016-11-01] MEDS: BLOOD SUGAR DIAGNOSTIC 1 EACH STRIP IN SCH (05:56)
[2016-11-01 07:10] LABS: BASOPHILS % (AUTO) 0.1 % (0.0-2.0); EOSINOPHILS # (AUTO) 0.1 /CMM (0.0-0.7); EOSINOPHILS % (AUTO) 0.6 % (0.0-6.0); HEMATOCRIT 26 % (33-45); HEMOGLOBIN 8.8 g/dL (11.5-14.8); LYMPHOCYTES # (AUTO) 2.5 /CMM (0.8-4.8); LYMPHOCYTES % (AUTO) 13.2 % (20.0-44.0); MEAN CORPUSCULAR HEMOGLOBIN 33 PG (26.0-33.0); MEAN CORPUSCULAR HGB CONC 33 g/dl (31.0-36.0); MEAN CORPUSCULAR VOLUME 100 fL (82-100); MONOCYTES # (AUTO) 2.2 /CMM (0.1-1.30); MONOCYTES % (AUTO) 11.8 % (2.0-12.0); NEUTROPHILS # (AUTO) 13.9 /CMM (1.8-8.9); NEUTROPHILS % (AUTO) 74.3 % (43.0-81.0); PLATELET COUNT (AUTO) 227 /CMM (150-450); RED BLOOD CELL COUNT(AUTO) 2.64 MIL/uL (4.0-5.2); WHITE BLOOD COUNT (AUTO) 18.7 K/uL (4.3-11.0)
[2016-11-01 07:25] LABS: CALCIUM, SERUM 8.6 mg/dL (8.5-10.1); CREATININE 4.5 mg/dL (0.6-1.3); MAGNESIUM 1.8 mg/dL (1.8-2.4); POTASSIUM 3.1 mmol/L (3.5-5.1)
--- NOTE | 2016-11-01 07:30 | NUR ---
RN MS NOTES PT IN BED, AWAKE, NON-VERBAL, NO FACIAL GRIMACING OR MOANING, VENT IN PLACE, GT FEEDING INFUSING WELL, CALL LIGHT WITHIN REACH, NO BLEEDING NOTED AT LEFT CHEST WALL PERMACATH, KEPT COMFORTABLE IN BED.
--- NOTE | 2016-11-01 07:44 | NUR ---
RN CLOSING NOTES PATIENT RESTING IN BED. OBTUNDED. NO SIGNS OF DISTRESS OR DISCOMFORT. BREATHING EVEN AND UNLABORED. ON MECH VENT WITH SETTINGS ORDERED. ON TELE MONITORING WITH SR 90'S NOTED. IV ACCESS IN LAC PATENT AND INTACT, NO SIGNS OF REDNESS OR INFILTRATION. ALSO HAS LEFT UPPER CHEST WALL PERMACATH INTACT. HAS VASQUEZ CATH IN PLACE OF G-TUBE WITH FEEDING RUNNING, PATIENT TOLERATING WELL. ALL NEEDS MET. NO SIGNIFICANT CHANGES THROUGH THE NIGHT. PATIENT KEPT CLEAN DRY AND COMFORTABLE. REPOSITIONED Q2H. BED IN LOW LOCKED POSITION WITH SIDE RAILS X3. CALL LIGHT WITHIN REACH. ENDORSED TO AM SHIFT FOR JEIMY.
[2016-11-01] MEDS: METOPROLOL TARTRATE 25 MG TABLET GT SCH ×2 (09:00→21:00)
--- NOTE | 2016-11-01 09:51 | NUR ---
Patient received trached on mechanical vent. Breath sounds equal bilateral. Breathing tretment given as ordered and tolerated well. No adverse reactions noted. Vent plugged into red outlet and alarms set and functioning. Ambu bag at the bed side.
[2016-11-01] MEDS ORDERED: ALTEPLASE CATHFLO 2 MG/VIAL IV ONE (10:30)
[2016-11-01] MEDS ORDERED: POTASSIUM CL. PREMIX PERIPHER. 50 ML IV SCH (11:00)
--- NOTE | 2016-11-01 11:30 | NUR ---
RAND CEMENTER PT IN BED, SLEEPING INTERMITTENTLY, NOT IN PAIN OR DISTRESS, DIALYSIS STARTED BUT UNABLE TO COMPLETE DUE TO ACCESS NOT WORKING WELL, DR. FELIPE AWARE, ACTIVASE GIVEN. PT SEEN BY KATHRYN ORR, TURNED AND REPOSITIONED PT Q2 HRS, KEPT HOB ELEVATED.
[2016-11-01] MEDS: LEVETIRACETAM SOL (5 ML) 100 MG/ML UDC GT SCH ×2 (12:06→23:12)
[2016-11-01] MEDS: PANTOPRAZOLE 40 MG VIAL IV SCH (12:06)
[2016-11-01] MEDS: VIT B CMPLX 3/FA/VIT C/BIOTIN 1 TAB TABLET GT SCH (12:07)
[2016-11-01] MEDS: TRAMADOL HCL 50 MG TABLET GT SCH ×2 (12:07→23:11)
[2016-11-01] MEDS: NYSTATIN CREAM 15 GM TUBE TP SCH ×2 (12:08→16:55)
[2016-11-01] MEDS: HYDROGEL DRESSING 90 GM TUBE TP SCH (12:08)
[2016-11-01] MEDS: CADEXOMER IODINE 40 GM TUBE TP SCH (12:08)
[2016-11-01] MEDS: Z GUARD REMEDY 2 OZ OINT TP SCH (12:09)
[2016-11-01] MEDS: DOCUSATE SODIUM LIQ 100 MG/10 ML UDC GT SCH ×2 (12:10→23:12)
[2016-11-01] MEDS: PROSOURCE / PROSTAT (PYXIS) 30 ML UDC GT SCH ×3 (12:12→16:55)
[2016-11-01] MEDS ORDERED: SECONDARY IV SET 1 EA INFUS.SET MC ONE (13:16)
[2016-11-01] MEDS: DAPTOMYCIN 500 MG in IV NS 0.9% 50 ML IV SCH (16:55)
--- NOTE | 2016-11-01 18:38 | NUR ---
SUBMARINE OPERATOR NOTES RECEIVED ORDER FROM DR. ALICEA, PT WILL HAVE EGD WITH PEG PLACEMENT TOMORROW AT 0730, PROCEDURE EXPLAINED TO SISTER CONSTANTINO CANNON, VERBALIZED UNDERSTANDING AND GAVE TELEPHONE CONSENT, CO-SIGNED WITH ANOTHER NURSE.
--- NOTE | 2016-11-01 18:57 | NUR ---
DIRECTOR OF ROTC NOTES PT IN BED, AWAKE, NO SIGN OF PAIN OR DISTRESS, PM MEDS GIVEN, PM CARE RENDERED, SKIN TREATMENTS DONE ORDERED, TURNED AND REPOSITIONED Q2 HRS, ALL NEEDS ATTENDED.
--- NOTE | 2016-11-01 19:30 | NUR ---
TELE/RN NOTES PT RECEIVED OBTUNDED, OPENS EYES. VENT DEPENDENT. BREATHING EVEN AND UNLABORED, NO S/S OF DISTRESS NOTED. ON TELE MONITOR, ST WITH HEART RATE AT 111. PT HAS LCW PERMACATH IN PLACE. IV TO LEFT FOREARM IN PLACE. BUE SWOLLEN. GTF WITH NOVASOURCE RUNNING AT 30ML/HR. PT TO HAVE EGD WITH PEG PLACEMENT TOMORROW MORNING. CONSENTS SIGNED AND FLAGGED IN THE CHART. BED IN LOW/LOCKED POSITION WITH CALL LIGHT IN REACH. SIDE RAILS UPX3. WILL CONTINUE TO MONITOR
--- NOTE | 2016-11-01 23:22 | NUR ---
TELE/RN NOTES ADMINISTERED SOME SCHEDULED PM MEDICATIONS LATE DUE TO PREVIOUS LATE ADMINISTRATION. NOTIFIED DANIEL BILLY LGSW ABOUT PT'S SWOLLEN UPPER EXTREMITIES AND IV SITE NOT SHOWING BLOOD RETURN. ASKED ICU AND ER IF THEY WERE ABLE TO INSERT NEW IV BUT THEY ARE BUSY AT THIS TIME. MARIAJOSE MADE AWARE. HE SAID NO ONE WILL BE ABLE TO COME UNTIL TOMORROW MORNING TO INSERT MIDLINE UNLESS ICU GETS AN ADMISSION THEN HE WILL STOP BY AND INSERT. FOR NOW I WILL CONTINUE TO ASK ICU/ER IF THEY CAN TRY TO INSERT IF THEY HAVE TIME. BALE STACKER IS ALSO AWARE
[2016-11-02] VITALS (9 sets, daily range): BP systolic 95–167; BP diastolic 42–83
[2016-11-02] MEDS: ALBUTEROL FS 2.5 MG/3 ML VIAL.NEB IH SCH ×4 (01:45→19:33)
[2016-11-02] MEDS: IPRATROPIUM NEB FS 0.5 MG/2.5 ML AMPUL.NEB IH SCH ×4 (01:45→19:33)
--- NOTE | 2016-11-02 02:37 | NUR ---
TELE/RN NOTES COUPON AND BOND COLLECTION CLERK CAME UP TO FLOOR AND INSERTED NEW IV TO LEFT FOREARM #20. BLOOD RETURN NOTED. FLUSHES WELL.
[2016-11-02] MEDS: METRONIDAZOLE 500MG/ NS 100ML 500 MG in PREMIX 1 EA IV SCH ×3 (04:51→21:49)
[2016-11-02] MEDS: FERROUS SULFATE UDC 300 MG/5 ML UDC GT SCH ×3 (05:00→21:49)
[2016-11-02] MEDS: ACIDOPHILUS/BULGARICUS 1 EACH TAB.CHEW GT SCH ×3 (05:00→21:49)
[2016-11-02] MEDS: VANCOMYCIN HCL 125 MG/2.5 ML ORAL.SUSP PO SCH ×4 (06:00→23:43)
[2016-11-02] MEDS: VALPROIC ACID 250 MG/5 ML UDC GT SCH ×3 (06:00→23:43)
[2016-11-02] MEDS: BLOOD SUGAR DIAGNOSTIC 1 EACH STRIP IN SCH (06:22)
--- NOTE | 2016-11-02 06:32 | NUR ---
TELE/RN NOTES BLOOD SUGAR=68. PT NPO FOR EGD WITH PEG PLACEMENT THIS AM. RT NOTIFIED OF PT'S SCHEDULED PROCEDURE. ASKED IF AN RT COULD BE AVAILABLE TO ACCOMPANY PT DOWN. RT WILL ENDORSE TO ONCOMING SHIFT Addendum: 11/02/16 at 0642 by GODFREY MEJIA RN PAGED DANIEL BILLY TO SEE IF HE WOULD LIKE TO ADMINISTER D50 BEFORE PT GOES DOWN FOR PROCEDURE. IF NOT, WILL ASK FOR AN ORDER FOR D50 JUST IN CASE OF AN EMERGENCY. AWAITING CALL BACK.
--- NOTE | 2016-11-02 06:58 | NUR ---
TELE/RN NOTES PT IN BED, EASILY AROUSABLE. OPENS EYES, OBTUNDED. VENT DEPENDENT. NPO SINCE MIDNIGHT FOR EGD WITH PEG PLACEMENT THIS AM. CONSENTS/CHECKLIST SIGNED AND FLAGGED IN THE CHART. ON TELE MONITOR, SR/ST HEART RATE CURRENTLY 97. BREATHING EVEN AND UNLABORED. SUCTIONED PRN. WOUND CARE PROVIDED. TURNED/REPOSITIONED Q2H AND OFFLOADED EXTREMITIES. IV TO LEFT FA PATENT AND INTACT. BED IN LOW/LOCKED POSITION WITH CALL LIGHT IN REACH. SIDE RAILS UPX3. WILL ENDORSE TO AM SHIFT JEIMY.
[2016-11-02 07:09] LABS: BASOPHILS % (AUTO) 0.1 % (0.0-2.0); EOSINOPHILS # (AUTO) 0.1 /CMM (0.0-0.7); EOSINOPHILS % (AUTO) 0.6 % (0.0-6.0); HEMATOCRIT 28 % (33-45); HEMOGLOBIN 9.2 g/dL (11.5-14.8); LYMPHOCYTES # (AUTO) 2.1 /CMM (0.8-4.8); MEAN CORPUSCULAR HEMOGLOBIN 33 PG (26.0-33.0); MEAN CORPUSCULAR HGB CONC 33 g/dl (31.0-36.0); MEAN CORPUSCULAR VOLUME 100 fL (82-100); MONOCYTES # (AUTO) 1.9 /CMM (0.1-1.30); MONOCYTES % (AUTO) 11.2 % (2.0-12.0); NEUTROPHILS # (AUTO) 13.2 /CMM (1.8-8.9); NEUTROPHILS % (AUTO) 76.1 % (43.0-81.0); PLATELET COUNT (AUTO) 236 /CMM (150-450); RDW COEFFICIENT OF VARIATION 19.3 (11.5-15.0); RED BLOOD CELL COUNT(AUTO) 2.78 MIL/uL (4.0-5.2); WHITE BLOOD COUNT (AUTO) 17.3 K/uL (4.3-11.0)
[2016-11-02] MEDS ORDERED: MIDAZOLAM HCL 2 MG/2ML VIAL ONE (07:16)
[2016-11-02 07:17] LABS: INR 1.24 (0.87-1.13); PROTHROMBIN TIME 13.4 SECS (9.5-12.7)
--- NOTE | 2016-11-02 07:27 | NUR ---
TELE/RN NOTES NOTIFIED KATHRYN HARVEY DIAMOND EXPERT ABOUT PT'S BLOOD SUGAR=68. ASKED IF HE WOULD LIKE TO GIVE D50 SINCE PT IS NPO FOR PROCEDURE THIS AM. RECEIVED ORDERED TO ADMINISTER 1 AMP OF D50 AND RECHECK IN 1-2 HOURS. PRN ORDERED FOR 1 AMP OF D50 FOR BLOOD SUGAR<60. ORDERS NOTED AND CARRIED OUT. DAY SHIFT RN MADE AWARE
[2016-11-02] MEDS ORDERED: DEXTROSE 50%-WATER 50 ML DISP.SYRIN IVP PRN (07:30)
[2016-11-02] MEDS ORDERED: DEXTROSE 50%-WATER 50 ML DISP.SYRIN IVP ONE (07:30)
--- NOTE | 2016-11-02 07:39 | NUR ---
RN MS NOTES PT IN BED, NO SIGN OF PAIN OR DISTRESS, VENT IN PLACE, PT BEING PREPARED FOR BEDSIDE EGD WITH PEG PLACEMENT, ISOLATION PRECAUTIONS OBSERVED.
[2016-11-02 07:41] LABS: CALCIUM, SERUM 8.9 mg/dL (8.5-10.1); CREATININE 4.7 mg/dL (0.6-1.3); MAGNESIUM 1.8 mg/dL (1.8-2.4); POTASSIUM 3.7 mmol/L (3.5-5.1)
[2016-11-02] MEDS: PROSOURCE / PROSTAT (PYXIS) 30 ML UDC GT SCH ×3 (08:27→17:40)
[2016-11-02] MEDS: VIT B CMPLX 3/FA/VIT C/BIOTIN 1 TAB TABLET GT SCH (08:28)
[2016-11-02] MEDS: TRAMADOL HCL 50 MG TABLET GT SCH ×2 (08:28→21:49)
[2016-11-02] MEDS: LEVETIRACETAM SOL (5 ML) 100 MG/ML UDC GT SCH ×2 (08:28→21:49)
[2016-11-02] MEDS: DOCUSATE SODIUM LIQ 100 MG/10 ML UDC GT SCH ×2 (08:28→21:00)
[2016-11-02] MEDS: CADEXOMER IODINE 40 GM TUBE TP SCH (08:30)
[2016-11-02] MEDS: HYDROGEL DRESSING 90 GM TUBE TP SCH (08:30)
[2016-11-02] MEDS: Z GUARD REMEDY 2 OZ OINT TP SCH (08:30)
[2016-11-02] MEDS: NYSTATIN CREAM 15 GM TUBE TP SCH ×2 (08:30→17:40)
[2016-11-02] MEDS: PANTOPRAZOLE 40 MG VIAL IV SCH (08:33)
[2016-11-02] MEDS: METOPROLOL TARTRATE 25 MG TABLET GT SCH ×2 (09:00→21:00)
--- NOTE | 2016-11-02 09:00 | NUR ---
CAN CUTTER NOTES PT S/P EGD WITH PEG PLACEMENT BY DR. ALICEA, DONE AT BEDSIDE, TOLERATED PROCEDURE WELL, VITAL SIGNS STABLE, RECEIVED ORDERS TO RESUME ALL PRE-OP ORDERS.
[2016-11-02] MEDS: RENAL NOVASOURCE 1,000 ML BOTTLE GT SCH (10:36)
--- NOTE | 2016-11-02 13:00 | NUR ---
TANK CHARGER NOTES PT IN BED, AWAKE, NO SIGN OF PAIN OR DISTRESS, COMPLETED DIALYSIS TODAY, NO FLUID OUT, SEEN BY KATHRYN ORR, TURNED AND REPOSITIONED Q2 HRS, KEPT WARM AND COMFORTABLE.
[2016-11-02] MEDS: DAPTOMYCIN 500 MG in IV NS 0.9% 50 ML IV SCH (17:40)
--- NOTE | 2016-11-02 18:36 | NUR ---
CHIEF CRNA NOTES PT IN BED, AWAKE, NO FACIAL GRIMACING OR MOANING, RESPIRATIONS NORMAL, GT FEEDING INFUSING WELL, TOLERATING WELL, NO BLEEDING NOTED TO NEW GT SITE, TURNED AND REPOSITIONED Q2 HRS, SKIN TREATMENT DONE ORDERED, ISOLATION PRECAUTIONS OBSERVED.
--- NOTE | 2016-11-02 19:30 | NUR ---
TELE/RN NOTES PT RECEIVED RESTING IN BED. AWAKE, OBTUNDED, NONVERBAL BUT OPENS EYES. ON TELE MONITOR, SINUS TACH WITH BBB, HR 111. ON VENT, BREATHING EVEN AND UNLABORED. NO S/S OF DISTRESS. NO FACIAL GRIMACING OR OTHER SIGNS OF PAIN NOTED. S/P PEG PLACEMENT TODAY, GT FEEDING RESUMED RUNNING NOVASOURCE AT 30ML/HR. IV TO LEFT FA PATENT AND INTACT. BED IN LOW/LOCKED POSITION WITH CALL LIGHT IN REACH. SIDE RAILS UPX3. WILL CONTINUE TO MONITOR
[2016-11-03] VITALS (10 sets, daily range): BP systolic 90–133; BP diastolic 46–75
[2016-11-03] MEDS: ALBUTEROL FS 2.5 MG/3 ML VIAL.NEB IH SCH ×4 (01:29→19:20)
[2016-11-03] MEDS: IPRATROPIUM NEB FS 0.5 MG/2.5 ML AMPUL.NEB IH SCH ×4 (01:29→19:20)
[2016-11-03] MEDS: VANCOMYCIN HCL 125 MG/2.5 ML ORAL.SUSP PO SCH ×3 (05:41→17:09)
[2016-11-03] MEDS: METRONIDAZOLE 500MG/ NS 100ML 500 MG in PREMIX 1 EA IV SCH ×3 (05:41→21:55)
[2016-11-03] MEDS: BLOOD SUGAR DIAGNOSTIC 1 EACH STRIP IN SCH (05:41)
[2016-11-03] MEDS: VALPROIC ACID 250 MG/5 ML UDC GT SCH ×2 (05:43→12:32)
[2016-11-03] MEDS: FERROUS SULFATE UDC 300 MG/5 ML UDC GT SCH ×3 (05:43→20:40)
[2016-11-03] MEDS: ACIDOPHILUS/BULGARICUS 1 EACH TAB.CHEW GT SCH ×3 (05:43→20:40)
--- NOTE | 2016-11-03 06:00 | NUR ---
TELE/RN NOTES BLOOD CKXBP=266. RECEIVING GT FEEDING AT 30 CC/HR. NO COVERAGE NEEDED. WILL MONITOR FOR S/S OF HYPOGLYCEMIA
--- NOTE | 2016-11-03 07:28 | NUR ---
APPLICATIONS SUPPORT SPECIALIST OPENING NOTES RECEIVED PATIENT IN BED, AWAKE, OBTUNDED, NONVERBAL BUT OPENS EYE TO STIMULI. TELEMETRY ST 105 WITH BBB. NO ACUTE DISTRESS NOTED. NO S/S OF PAIN, NO FACIAL GRIMACING. PATIENT ON GTUBE FEEDING, NOVASOURCE RUNNING AT 30ML/HR. IV SITE INTACT AND PATENT. KEPT PATIENT SAFE. CALL LIGHT WITHIN REACH. WILL CONTINUE TO MONITOR
--- NOTE | 2016-11-03 07:30 | NUR ---
TELE/RN NOTES PT IN BED, NON VERBAL, OBTUNDED. MOANS OCCASIONALLY. ON TELE MONITOR DISPLAYING SINUS TACH WITH HEART RATE 100S. IV TO LFA PATENT AND INTACT. VENT DEPENDENT, BREATHING EVEN AND UNLABORED. NO S/S OF DISTRESS NOTED. NO FACIAL GRIMACING OR S/S OF PAIN. SUCTIONED PT PRN. WOUND TREATMENT PROVIDED. TURNED/REPOSITIONED Q2H, EXTREMITIES OFFLOADED. ALL DUE MEDS ADMINISTERED. MADE PT COMFORTABLE THROUGHOUT SHIFT. BED IN LOW/LOCKED POSITION WITH CALL LIGHT IN REACH. SIDE RAILS UPX3. ENDORSED TO AM SHIFT JEIMY.
[2016-11-03 07:39] LABS: BASOPHILS % (AUTO) 0.2 % (0.0-2.0); EOSINOPHILS # (AUTO) 0.2 /CMM (0.0-0.7); EOSINOPHILS % (AUTO) 1.7 % (0.0-6.0); HEMATOCRIT 26 % (33-45); HEMOGLOBIN 8.8 g/dL (11.5-14.8); LYMPHOCYTES # (AUTO) 1.8 /CMM (0.8-4.8); LYMPHOCYTES % (AUTO) 13.9 % (20.0-44.0); MEAN CORPUSCULAR HEMOGLOBIN 34 PG (26.0-33.0); MEAN CORPUSCULAR HGB CONC 34 g/dl (31.0-36.0); MEAN CORPUSCULAR VOLUME 101 fL (82-100); MONOCYTES # (AUTO) 1.8 /CMM (0.1-1.30); MONOCYTES % (AUTO) 13.6 % (2.0-12.0); NEUTROPHILS # (AUTO) 9.3 /CMM (1.8-8.9); NEUTROPHILS % (AUTO) 70.6 % (43.0-81.0); PLATELET COUNT (AUTO) 205 /CMM (150-450); RDW COEFFICIENT OF VARIATION 19.5 (11.5-15.0); RED BLOOD CELL COUNT(AUTO) 2.59 MIL/uL (4.0-5.2); WHITE BLOOD COUNT (AUTO) 13.2 K/uL (4.3-11.0)
[2016-11-03 07:51] LABS: CALCIUM, SERUM 8.6 mg/dL (8.5-10.1); POTASSIUM 3.3 mmol/L (3.5-5.1)
--- NOTE | 2016-11-03 07:57 | NUR ---
Patient received trached on mechanical vent. Breathing treatmnet given as ordered. No adverse reactions noted. Breath sounds equal bilateral. Vent plugged into red outlet and alarms set and functioning. Ambu bag at the bed side
[2016-11-03] MEDS: VIT B CMPLX 3/FA/VIT C/BIOTIN 1 TAB TABLET GT SCH (08:59)
[2016-11-03] MEDS: TRAMADOL HCL 50 MG TABLET GT SCH ×2 (08:59→20:41)
[2016-11-03] MEDS: LEVETIRACETAM SOL (5 ML) 100 MG/ML UDC GT SCH ×2 (09:00→20:40)
[2016-11-03] MEDS: METOPROLOL TARTRATE 25 MG TABLET GT SCH ×2 (09:00→22:51)
[2016-11-03] MEDS: DOCUSATE SODIUM LIQ 100 MG/10 ML UDC GT SCH ×2 (09:00→20:42)
[2016-11-03] MEDS: PROSOURCE / PROSTAT (PYXIS) 30 ML UDC GT SCH ×3 (09:01→17:10)
[2016-11-03] MEDS: PANTOPRAZOLE 40 MG VIAL IV SCH (09:01)
[2016-11-03] MEDS: CADEXOMER IODINE 40 GM TUBE TP SCH (09:02)
[2016-11-03] MEDS: NYSTATIN CREAM 15 GM TUBE TP SCH ×2 (09:02→17:10)
[2016-11-03] MEDS: Z GUARD REMEDY 2 OZ OINT TP SCH (09:03)
[2016-11-03] MEDS: HYDROGEL DRESSING 90 GM TUBE TP SCH (10:50)
--- NOTE | 2016-11-03 13:00 | NUR ---
board catcher notes Prostat given at this time. Barcode unable to scan. Will continue to monitor patient accordingly.
[2016-11-03] MEDS ORDERED: SECONDARY IV SET 1 EA INFUS.SET MC ONE (16:31)
[2016-11-03] MEDS: DAPTOMYCIN 500 MG in IV NS 0.9% 50 ML IV SCH (17:06)
--- NOTE | 2016-11-03 18:30 | NUR ---
RN CLOSING NOTES. PATIENT RESTING IN BED. NO ACUTE DISTRESS, NO SOB NOTED. IV SITE INTACT AND PATENT. GTUBE IN PLACE. ALL NEEDS ATTENDED AND PROVIDED. BED IN LOWEST POSITION. HOB ELEVATED. KEPT PATIENT CLEAN AND COMFORTABLE. WILL ENDORSED TO GLAZE MAKER RN FOR CONTINUITY OF CARE.
--- NOTE | 2016-11-03 19:00 | NUR ---
ENDORSED TO CONCILIATOR RN FOR CONTINUITY OF CARE
[2016-11-03] MEDS: RENAL NOVASOURCE 1,000 ML BOTTLE GT SCH (19:30)
--- NOTE | 2016-11-03 19:30 | NUR ---
TELE/RN NOTES PT RECEIVED IN BED, VENT DEPENDENT, OBTUNDED, OPENS EYES. BREATHING EVEN AND UNLABORED. NO S/S OF DISTRESS NOTED. ON TELE MONITOR, SINUS TACH WITH BBB, HR 128. GT FEEDING RUNNING NOVASOURCE AT 30ML/HR. IV TO LFA PATENT AND INTACT. LCW PERMACATH NOTED. BED IN LOW/LOCKED POSITION WITH CALL LIGHT IN REACH. SIDE RAILS UPX2. EXTREMITIES OFFLOADED. WILL CONTINUE TO MONITOR
[2016-11-03] MEDS ORDERED: IV NS 0.9% 250 ML IV ONE (20:32)
--- NOTE | 2016-11-03 21:35 | NUR ---
TELE/RN NOTES SPOKE TO DANIEL BILLY REGARDING PT'S ELEVATED PE=562'S AND K=3.3 WHICH WAS NOT REPLACED. ALSO NOTIFIED HIM OF PT'S EKG RESULTS FROM 0 SHOWING V-TACH FOR APPROX 3 SECS. HE ORDERED 40MG OF POTASSIUM GT ONE TIME. INFORMED HIM THAT I WILL BE ADMINISTERING LOPRESSOR 25MG WELL. WOOD INSPECTOR GILL AND SCAGLIOLA MECHANIC CHANTEL MADE AWARE. PT'S SBP TENDS TO BE IN THE 90'S, CHANTEL SAID OKAY TO GIVE LOPRESSOR FOR ELEVATED HR SINCE PT USUALLY HAS LOW BP AND MONITOR. ORDERS NOTED AND CARRIED OUT. Addendum: 11/03/16 at 2219 by GODFREY MEJIA RN CHECKED BP X3- 81/54, 101/61, 98/62 HEART RATE REMAINS IN THE 120'S. NOTIFIED WOOD INSPECTOR GILL. WILL HOLD LOPRESSOR FOR NOW, RECHECK BP IN 1 HOUR.
[2016-11-03] MEDS ORDERED: POTASSIUM CHLORIDE 20 MEQ POWDER PACKET GT ONE (22:00)
--- NOTE | 2016-11-03 22:30 | NUR ---
TELE/RN NOTES NOTIFIED DANIEL BILLY ABOUT PT'S DECREASED BP. HE SAID OKAY TO GIVE LOPRESSOR ANYWAY AND MONITOR BP. ALSO ASKED TO CHECK RECTAL TEMP WHICH WAS 98.1F
[2016-11-04] VITALS: BP 133/71
[2016-11-04] MEDS: VANCOMYCIN HCL 125 MG/2.5 ML ORAL.SUSP PO SCH ×4 (00:03→17:14)
[2016-11-04] MEDS: VALPROIC ACID 250 MG/5 ML UDC GT SCH ×3 (00:03→12:25)
[2016-11-04] MEDS: IPRATROPIUM NEB FS 0.5 MG/2.5 ML AMPUL.NEB IH SCH ×4 (01:15→19:45)
[2016-11-04] MEDS: ALBUTEROL FS 2.5 MG/3 ML VIAL.NEB IH SCH ×4 (01:15→19:45)
[2016-11-04 04:00] VITALS: BP 117/49
[2016-11-04] MEDS: METRONIDAZOLE 500MG/ NS 100ML 500 MG in PREMIX 1 EA IV SCH ×3 (05:34→20:55)
[2016-11-04] MEDS: ACIDOPHILUS/BULGARICUS 1 EACH TAB.CHEW GT SCH ×3 (05:34→20:46)
[2016-11-04] MEDS: FERROUS SULFATE UDC 300 MG/5 ML UDC GT SCH ×3 (05:35→20:46)
[2016-11-04] MEDS: BLOOD SUGAR DIAGNOSTIC 1 EACH STRIP IN SCH (05:51)
--- NOTE | 2016-11-04 06:04 | NUR ---
TELE/RN NOTES BLOOD SUGAR=75. PT RECEIVING NOVASOURCE AT 30ML/HR. WILL CONTINUE TO MONITOR FOR S/S OF HYPOGLYCEMIA.
--- NOTE | 2016-11-04 06:52 | NUR ---
TELE/RN NOTES PT IN BED, HOB ELEVATED. OPENS EYES, OBTUNDED. BREATHING EVEN AND UNLABORED, NO S/S OF DISTRESS, NO FACIAL GRIMACING OR S/S OF PAIN NOTED. SUCTIONED PT PRN. ON TELE MONITOR, SINUS RHYTHM WITH BBB, HR=96. GT FEEDING RUNNING NOVASOURCE @ 30ML/HR. IV TO LFA PATENT AND INTACT. WOUND CARE PROVIDED, TURNED/REPOSITIONED Q2H, EXTREMITIES OFFLOADED. PT SCHEDULED FOR HD TODAY. LAB WANTS RN TO CALL WHEN HD NURSE ARRIVES FOR BLOOD CULTURE. BED IN LOW/LOCKED POSITION, CALL LIGHT IN REACH. SIDE RAILS UPX3. WILL ENDORSE TO AM SHIFT JEIMY.
[2016-11-04 06:59] VITALS: BP 108/57
[2016-11-04 07:20] LABS: CALCIUM, SERUM 8.8 mg/dL (8.5-10.1); CREATININE 4.6 mg/dL (0.6-1.3); POTASSIUM 4.8 mmol/L (3.5-5.1)
--- NOTE | 2016-11-04 08:00 | NUR ---
MS RN NOTES PATIENT IN BED RESTING NO SOB OR ACUTE DISTRESS NOTED. VENT SETTINGS NOTED. PERIPHERAL IV ON RIGHT FOREARM INTACT PATENT. BED IN LOW LOCKED POSITION.CALL LIGHT WITHIN REACH. WILL CONTINUE TO MONITOR.
[2016-11-04 08:19] LABS: BASOPHILS % (AUTO) 0.3 % (0.0-2.0); EOSINOPHILS # (AUTO) 0.2 /CMM (0.0-0.7); EOSINOPHILS % (AUTO) 1.3 % (0.0-6.0); HEMATOCRIT 27 % (33-45); HEMOGLOBIN 8.8 g/dL (11.5-14.8); LYMPHOCYTES # (AUTO) 2.4 /CMM (0.8-4.8); LYMPHOCYTES % (AUTO) 17.8 % (20.0-44.0); MEAN CORPUSCULAR HEMOGLOBIN 33 PG (26.0-33.0); MEAN CORPUSCULAR HGB CONC 33 g/dl (31.0-36.0); MEAN CORPUSCULAR VOLUME 101 fL (82-100); MONOCYTES # (AUTO) 2.2 /CMM (0.1-1.30); NEUTROPHILS # (AUTO) 8.8 /CMM (1.8-8.9); NEUTROPHILS % (AUTO) 64.6 % (43.0-81.0); PLATELET COUNT (AUTO) 211 /CMM (150-450); RDW COEFFICIENT OF VARIATION 19.5 (11.5-15.0); RED BLOOD CELL COUNT(AUTO) 2.63 MIL/uL (4.0-5.2); WHITE BLOOD COUNT (AUTO) 13.6 K/uL (4.3-11.0)
[2016-11-04] MEDS: PANTOPRAZOLE 40 MG VIAL IV SCH (09:00)
[2016-11-04] MEDS: DOCUSATE SODIUM LIQ 100 MG/10 ML UDC GT SCH ×2 (09:00→20:46)
[2016-11-04] MEDS: TRAMADOL HCL 50 MG TABLET GT SCH ×2 (09:02→20:47)
[2016-11-04] MEDS: VIT B CMPLX 3/FA/VIT C/BIOTIN 1 TAB TABLET GT SCH (09:02)
[2016-11-04] MEDS: LEVETIRACETAM SOL (5 ML) 100 MG/ML UDC GT SCH ×2 (09:02→20:46)
[2016-11-04] MEDS: METOPROLOL TARTRATE 25 MG TABLET GT SCH ×2 (09:08→20:45)
[2016-11-04] MEDS: PROSOURCE / PROSTAT (PYXIS) 30 ML UDC GT SCH ×3 (09:09→17:11)
[2016-11-04] MEDS: CADEXOMER IODINE 40 GM TUBE TP SCH (09:18)
[2016-11-04] MEDS: Z GUARD REMEDY 2 OZ OINT TP SCH (09:19)
[2016-11-04] MEDS: NYSTATIN CREAM 15 GM TUBE TP SCH ×2 (09:19→17:07)
--- NOTE | 2016-11-04 10:00 | NUR ---
MS RN NOTES PATIENT SEEN AND EVALUATED BY DR. CARLSON ORDERS NOTED AND CARRIED OUT.
[2016-11-04 10:54] LABS: BAND % (MANUAL) 1 % (0.0-5.0); EOSINOPHILS % (MANUAL) 1 % (0-4); LYMPHOCYTES % (MANUAL) 10 % (16-48); MONOCYTES % (MANUAL) 11 % (0-11.0); NEUTROPHILS % (MANUAL) 77 (42-76)
[2016-11-04 12:00] VITALS: BP 113/48
[2016-11-04] MEDS ORDERED: EPOETIN ALFA (10,000 UNIT) 10,000 UNIT/ML VIAL IV ONE (12:00)
[2016-11-04] MEDS: HYDROGEL DRESSING 90 GM TUBE TP SCH (12:21)
[2016-11-04 16:00] VITALS: BP 110/70
[2016-11-04] MEDS ORDERED: SECONDARY IV SET 1 EA INFUS.SET MC ONE (17:05)
[2016-11-04] MEDS: DAPTOMYCIN 500 MG in IV NS 0.9% 50 ML IV SCH (17:06)
--- NOTE | 2016-11-04 18:39 | NUR ---
JAMMER HOOKER NOTES PATIENT IN BED RESTING NO SOB OR ACUTE DISTRESS NOTED. VENT SETTINGS NOTED. ALL DUE MEDICATIONS ADMINISTERED. ALL NEEDS MET. PERIHPERAL IV ON LEFT FOREARM INTACT PATENT. WILL ENDORSE CARE TO PM SHIFT.
--- NOTE | 2016-11-04 19:15 | NUR ---
TELE/RN NOTES RECEIVED PT. LYING IN BED. PT. IS NON-VERBAL, OPENS EYES AND IS VENT/TRACH DEPENDENT. PT. HAS SHILEY #8 TRACH. CURRENT VENT SETTINGS: AC 16, TV 600, FIO2 30%, PEEP 5. BREATHING EVEN AND UNLABORED. NO SOB, RESPIRATORY DISTRESS OR S/S OF PAIN NOTED AT THIS TIME. PT. WITH EXTERNAL HYDROLOGIST PRESENT AND INTACT. CURRENT RHYTHM = SINUS RHYTHM WITH BBB HR 98. PT. WITH LEFT FOREARM 20 GAUGE IV SALINE LOCK PRESENT, PATENT AND INTACT. PT. WITH LEFT CHEST WALL PERMACATH PRESENT AND INTACT. PT. WITH G-TUBE PRESENT, PATENT AND INTACT ADMINISTERING TO PT. NOVASOURCE @ 30ML/HR. PT. TOLERATING WELL. NO RESIDUAL NOTED. BED IN LOWEST POSITION, SIDE RAILS UP X3, BED ALARM ON, WILL CONTINUE TO MONITOR.
[2016-11-04 20:00] VITALS: BP 106/50
[2016-11-05] VITALS: BP 109/55
[2016-11-05] MEDS: VALPROIC ACID 250 MG/5 ML UDC GT SCH ×4 (00:33→23:39)
[2016-11-05] MEDS: VANCOMYCIN HCL 125 MG/2.5 ML ORAL.SUSP PO SCH ×5 (00:33→23:39)
[2016-11-05] MEDS: ALBUTEROL FS 2.5 MG/3 ML VIAL.NEB IH SCH ×4 (00:52→19:48)
[2016-11-05] MEDS: IPRATROPIUM NEB FS 0.5 MG/2.5 ML AMPUL.NEB IH SCH ×4 (00:52→19:48)
[2016-11-05 04:00] VITALS: BP 105/46
[2016-11-05] MEDS: FERROUS SULFATE UDC 300 MG/5 ML UDC GT SCH ×3 (05:24→21:11)
[2016-11-05] MEDS: RENAL NOVASOURCE 1,000 ML BOTTLE GT SCH (05:24)
[2016-11-05] MEDS: METRONIDAZOLE 500MG/ NS 100ML 500 MG in PREMIX 1 EA IV SCH ×3 (05:24→21:11)
[2016-11-05] MEDS: ACIDOPHILUS/BULGARICUS 1 EACH TAB.CHEW GT SCH ×3 (05:24→21:11)
[2016-11-05] MEDS ORDERED: DAPTOMYCIN 500 MG in IV NS 0.9% 50 ML IV SCH (06:00)
[2016-11-05] MEDS: BLOOD SUGAR DIAGNOSTIC 1 EACH STRIP IN SCH (06:11)
--- NOTE | 2016-11-05 06:21 | NUR ---
TELE/RN NOTES PT. LYING IN BED RESTING, BREATHING EVEN AND UNLABORED. NO SOB, RESPIRATORY DISTRESS OR S/S OF PAIN NOTED AT THIS TIME. PT. WITH EXTERNAL LAUNDRY SUPERVISOR PRESENT AND INTACT. CURRENT RHYTHM = SINUS RHYTHM WITH BBB HR 96. PT. WITH LEFT FOREARM 20 GAUGE IV SALINE LOCK PRESENT, PATENT AND INTACT. PT. WITH LEFT CHEST WALL PERMACATH PRESENT AND INTACT. PT. WITH G-TUBE PRESENT, PATENT AND INTACT ADMINISTERING TO PT. NOVASOURCE @ 30ML/HR. PT. TOLERATING WELL. NO RESIDUAL NOTED THROUGHOUT SHIFT. ALL PT. NEEDS MET. WOUND CARE PROVIDED. PT. TURNED AND REPOSITIONED Q2H AND NEEDED. BED IN LOWEST POSITION, SIDE RAILS UP X3, BED ALARM ON, WILL ENDORSE TO DAYSHIFT NURSE FOR CONTINUITY OF CARE.
[2016-11-05 06:38] LABS: BASOPHILS % (AUTO) 0.2 % (0.0-2.0); EOSINOPHILS # (AUTO) 0.2 /CMM (0.0-0.7); EOSINOPHILS % (AUTO) 1.1 % (0.0-6.0); HEMATOCRIT 28 % (33-45); HEMOGLOBIN 9.4 g/dL (11.5-14.8); LYMPHOCYTES # (AUTO) 2.3 /CMM (0.8-4.8); LYMPHOCYTES % (AUTO) 16.8 % (20.0-44.0); MEAN CORPUSCULAR HEMOGLOBIN 35 PG (26.0-33.0); MEAN CORPUSCULAR HGB CONC 34 g/dl (31.0-36.0); MEAN CORPUSCULAR VOLUME 102 fL (82-100); MONOCYTES # (AUTO) 2.4 /CMM (0.1-1.30); MONOCYTES % (AUTO) 17.5 % (2.0-12.0); NEUTROPHILS # (AUTO) 8.8 /CMM (1.8-8.9); NEUTROPHILS % (AUTO) 64.4 % (43.0-81.0); PLATELET COUNT (AUTO) 205 /CMM (150-450); RDW COEFFICIENT OF VARIATION 19.5 (11.5-15.0); RED BLOOD CELL COUNT(AUTO) 2.71 MIL/uL (4.0-5.2); WHITE BLOOD COUNT (AUTO) 13.7 K/uL (4.3-11.0)
[2016-11-05 06:51] LABS: CALCIUM, SERUM 8.7 mg/dL (8.5-10.1); CREATININE 3.9 mg/dL (0.6-1.3); MAGNESIUM 1.7 mg/dL (1.8-2.4); PHOSPHORUS 1.8 mg/dL (2.5-4.9); POTASSIUM 3.9 mmol/L (3.5-5.1)
[2016-11-05 08:00] VITALS: BP 106/66
--- NOTE | 2016-11-05 08:11 | NUR ---
RN OPENING NOTES RECEIVED PT. LYING IN BED. PT. IS NON-VERBAL, OBTUNDED, OPENS EYES AND IS VENT/TRACH DEPENDENT. PT. HAS SHILEY #8 TRACH. CURRENT VENT SETTINGS: AC 16, TV 600, FIO2 30%, PEEP 5. BREATHING EVEN AND UNLABORED. NO SOB, RESPIRATORY DISTRESS OR S/S OF PAIN NOTED AT THIS TIME. PT. WITH EXTERNAL CHEMICAL EQUIPMENT CONTROLLER PRESENT AND INTACT. CURRENT RHYTHM = SINUS RHYTHM WITH BBB HR 102. PT. WITH LEFT FOREARM 20 GAUGE IV SALINE LOCK PRESENT, PATENT AND INTACT. PT. WITH LEFT CHEST WALL PERMACATH PRESENT AND INTACT USED FOR HD. PT. WITH G-TUBE PRESENT, PATENT AND INTACT ADMINISTERING TO PT. NOVASOURCE @ 30ML/HR. PT. TOLERATING WELL. NO RESIDUAL NOTED. BED IN LOWEST POSITION, SIDE RAILS UP X3, BED ALARM ON, WILL CONTINUE TO MONITOR.
[2016-11-05 08:25] LABS: BAND % (MANUAL) 6 % (0.0-5.0); EOSINOPHILS % (MANUAL) 1 % (0-4); LYMPHOCYTES % (MANUAL) 24 % (16-48); MONOCYTES % (MANUAL) 8 % (0-11.0); NEUTROPHILS % (MANUAL) 61 (42-76)
[2016-11-05] MEDS: METOPROLOL TARTRATE 25 MG TABLET GT SCH ×2 (09:00→21:00)
[2016-11-05] MEDS: PANTOPRAZOLE 40 MG/PACK PACK GT SCH (09:13)
[2016-11-05] MEDS: TRAMADOL HCL 50 MG TABLET GT SCH ×2 (09:14→21:11)
[2016-11-05] MEDS: DOCUSATE SODIUM LIQ 100 MG/10 ML UDC GT SCH ×2 (09:15→21:11)
[2016-11-05] MEDS: PROSOURCE / PROSTAT (PYXIS) 30 ML UDC GT SCH ×3 (09:15→18:35)
[2016-11-05] MEDS: LEVETIRACETAM SOL (5 ML) 100 MG/ML UDC GT SCH ×2 (09:15→21:11)
[2016-11-05] MEDS: VIT B CMPLX 3/FA/VIT C/BIOTIN 1 TAB TABLET GT SCH (09:15)
[2016-11-05] MEDS: NYSTATIN CREAM 15 GM TUBE TP SCH ×2 (09:17→18:33)
[2016-11-05] MEDS: HYDROGEL DRESSING 90 GM TUBE TP SCH (09:18)
[2016-11-05] MEDS: Z GUARD REMEDY 2 OZ OINT TP SCH (09:19)
[2016-11-05] MEDS: CADEXOMER IODINE 40 GM TUBE TP SCH (09:19)
--- NOTE | 2016-11-05 09:22 | NUR ---
ORDER FOR LOPRESSOR 25 MG HELD. PT BP 106/66 HR 97. WILL CONTINUE TO MONITOR BLOOD PRESSURE.
[2016-11-05] MEDS ORDERED: SECONDARY IV SET 1 EA INFUS.SET MC ONE (11:54)
[2016-11-05] MEDS: Magnesium 1GM/D5W 100ML PREMIX 100 ML IV SCH ×2 (11:59→13:07)
--- NOTE | 2016-11-05 14:45 | NUR ---
PATIENT CLEANED WITH CREDIT COLLECTIONS CLERK. DRESSING CHANGE TO PRESSURE ULCER AND EXCORIATED SKIN. PATIENT TOLERATED PROCEDURE WILL. PATIENT NOW RESTING IN BED. WILL CONTINUE TO MONITOR.
[2016-11-05 16:00] VITALS: BP 116/58
[2016-11-05] MEDS ORDERED: NEUTRA PHOS 1 POWD.PACKET PO ONE (16:30)
--- NOTE | 2016-11-05 19:25 | NUR ---
TELE/RN NOTES RECEIVED PT. LYING IN BED. PT. IS NON-VERBAL, OPENS EYES AND IS VENT/TRACH DEPENDENT. PT. HAS SHILEY #8 TRACH. CURRENT VENT SETTINGS: AC 16, TV 600, FIO2 30%, PEEP 5. BREATHING EVEN AND UNLABORED. NO SOB, RESPIRATORY DISTRESS OR S/S OF PAIN NOTED AT THIS TIME. PT. WITH EXTERNAL INFORMATION SYSTEMS ADMINISTRATOR PRESENT AND INTACT. CURRENT RHYTHM = SINUS RHYTHM WITH BBB HR 85. PT. WITH LEFT FOREARM 20 GAUGE IV SALINE LOCK PRESENT, PATENT AND INTACT. PT. WITH LEFT CHEST WALL PERMACATH PRESENT AND INTACT. PT. WITH G-TUBE PRESENT, PATENT AND INTACT ADMINISTERING TO PT. NOVASOURCE @ 30ML/HR. PT. TOLERATING WELL. NO RESIDUAL NOTED AT THIS TIME. BED IN LOWEST POSITION, SIDE RAILS UP X3, BED ALARM ON, WILL CONTINUE TO MONITOR.
[2016-11-05 20:00] VITALS: BP 112/61
[2016-11-06] VITALS: BP 90/45
[2016-11-06] MEDS: ALBUTEROL FS 2.5 MG/3 ML VIAL.NEB IH SCH ×4 (01:30→19:53)
[2016-11-06] MEDS: IPRATROPIUM NEB FS 0.5 MG/2.5 ML AMPUL.NEB IH SCH ×4 (01:30→19:53)
[2016-11-06 04:00] VITALS: BP 101/44
[2016-11-06] MEDS: FERROUS SULFATE UDC 300 MG/5 ML UDC GT SCH ×3 (05:55→22:47)
[2016-11-06] MEDS: VALPROIC ACID 250 MG/5 ML UDC GT SCH ×2 (05:56→12:06)
[2016-11-06] MEDS: VANCOMYCIN HCL 125 MG/2.5 ML ORAL.SUSP PO SCH (05:56)
[2016-11-06] MEDS: METRONIDAZOLE 500MG/ NS 100ML 500 MG in PREMIX 1 EA IV SCH (05:56)
[2016-11-06] MEDS: ACIDOPHILUS/BULGARICUS 1 EACH TAB.CHEW GT SCH ×3 (05:56→22:33)
[2016-11-06] MEDS: BLOOD SUGAR DIAGNOSTIC 1 EACH STRIP IN SCH (06:23)
--- NOTE | 2016-11-06 06:47 | NUR ---
TELE/RN NOTES PT. LYING IN BED RESTING. BREATHING EVEN AND UNLABORED. NO SOB, RESPIRATORY DISTRESS OR S/S OF PAIN NOTED AT THIS TIME. PT. WITH EXTERNAL BLEACH LIQUOR MAKER PRESENT AND INTACT. CURRENT RHYTHM = SINUS RHYTHM WITH BBB HR 92. PT. WITH LEFT FOREARM 20 GAUGE IV SALINE LOCK PRESENT, PATENT AND INTACT. PT. WITH LEFT CHEST WALL PERMACATH PRESENT AND INTACT. PT. WITH G-TUBE PRESENT, PATENT AND INTACT ADMINISTERING TO PT. NOVASOURCE @ 30ML/HR. PT. TOLERATING WELL. NO RESIDUAL NOTED AT THIS TIME AND THROUGHOUT SHIFT. ALL PT. NEEDS MET. WOUND CARE PROVIDED. PT. TURNED AND REPOSITIONED Q2H AND NEEDED. BED IN LOWEST POSITION, SIDE RAILS UP X3, BED ALARM ON, WILL ENDORSE TO DAYSHIFT NURSE FOR CONTINUITY OF CARE.
[2016-11-06 06:51] VITALS: BP 102/61
--- NOTE | 2016-11-06 07:49 | NUR ---
RN OPENING NOTES RECEIVED PT. LYING IN BED. PT. IS NON-VERBAL, OBTUNDED, OPENS EYES AND IS VENT/TRACH DEPENDENT. PT. HAS SHILEY #8 TRACH. CURRENT VENT SETTINGS: AC 16, TV 600, FIO2 30%, PEEP 5. BREATHING EVEN AND UNLABORED. NO SOB, RESPIRATORY DISTRESS OR S/S OF PAIN NOTED AT THIS TIME. PT. WITH EXTERNAL EVENT PLANNING MANAGER PRESENT AND INTACT. CURRENT RHYTHM = SINUS RHYTHM WITH BBB HR 102. PT. WITH LEFT FOREARM 20 GAUGE IV SALINE LOCK PRESENT, PATENT AND INTACT. PT. WITH LEFT CHEST WALL PERMACATH PRESENT AND INTACT USED FOR HD. PT. WITH G-TUBE PRESENT, PATENT AND INTACT ADMINISTERING TO PT. NOVASOURCE @ 30ML/HR. PT. TOLERATING WELL. NO RESIDUAL NOTED. BED IN LOWEST POSITION, SIDE RAILS UP X3, BED ALARM ON, WILL CONTINUE TO MONITOR.
[2016-11-06] MEDS: LEVETIRACETAM SOL (5 ML) 100 MG/ML UDC GT SCH ×2 (08:29→22:33)
[2016-11-06] MEDS: DOCUSATE SODIUM LIQ 100 MG/10 ML UDC GT SCH ×2 (08:29→21:00)
[2016-11-06] MEDS: PANTOPRAZOLE 40 MG/PACK PACK GT SCH (08:29)
[2016-11-06] MEDS: VIT B CMPLX 3/FA/VIT C/BIOTIN 1 TAB TABLET GT SCH (08:29)
[2016-11-06] MEDS: TRAMADOL HCL 50 MG TABLET GT SCH ×2 (08:30→21:00)
[2016-11-06] MEDS: CADEXOMER IODINE 40 GM TUBE TP SCH (08:31)
[2016-11-06] MEDS: NYSTATIN CREAM 15 GM TUBE TP SCH ×2 (08:31→16:28)
[2016-11-06] MEDS: HYDROGEL DRESSING 90 GM TUBE TP SCH (08:31)
[2016-11-06] MEDS: Z GUARD REMEDY 2 OZ OINT TP SCH (08:32)
[2016-11-06] MEDS: PROSOURCE / PROSTAT (PYXIS) 30 ML UDC GT SCH ×3 (08:33→16:28)
[2016-11-06] MEDS: METOPROLOL TARTRATE 25 MG TABLET GT SCH ×2 (08:51→21:00)
--- NOTE | 2016-11-06 08:52 | NUR ---
ORDER FOR LOPRESSOR 25 MG HELD. PT BP 102/61 HR 97. WILL CONTINUE TO MONITOR BLOOD PRESSURE.
--- NOTE | 2016-11-06 09:22 | NUR ---
HD RN AT BEDSIDE AT THIS TIME. WILL CONTINUE TO MONITOR PT DURING HD.
--- NOTE | 2016-11-06 10:28 | NUR ---
HD RN REPORTED PT BP 91/38 AT THIS TIME. HD RN SPOKE WITH DR. GREEN ABOUT BP. HD RN GAVE 1000ML NS BOLUS. WILL CONTINUE TO MONITOR PATIENT. Addendum: 11/06/16 at 1031 by MADELIN DOTY RN HD RN REPORTED PT BP 91/38 AT THIS TIME. HD RN SPOKE WITH DR. GREEN ABOUT BP. HD RN GAVE 1000ML NS BOLUSPER DR. GREEN. WILL CONTINUE TO MONITOR PATIENT.
--- NOTE | 2016-11-06 11:31 | NUR ---
PATIENT CLEANED WITH INGRIS CARDOZA. DRESSING CHANGE DONE TO SACRUM AND BUTTOCK. HYDROGEL AND MEPLIEX APPLIED. PATIENT TOLERATED DRESSING CHANGE WELL. WILL CONTINUE TO MONITOR PATIENT.
[2016-11-06 12:00] VITALS: BP 109/67
[2016-11-06] MEDS ORDERED: VANCOMYCIN HCL 125 MG/2.5 ML ORAL.SUSP GT SCH (12:00)
[2016-11-06] MEDS: VANCOMYCIN HCL 125 MG/2.5 ML ORAL.SUSP GT SCH ×2 (13:13→22:32)
[2016-11-06 16:00] VITALS: BP 118/65
[2016-11-06] MEDS ORDERED: IV NS 0.9% 250 ML IV ONE (16:05)
[2016-11-06] MEDS: DAPTOMYCIN 500 MG in IV NS 0.9% 50 ML IV SCH (16:18)
--- NOTE | 2016-11-06 16:19 | NUR ---
DR. GREEN AT BEDSIDE FOR LEFT CHEST WALL PERMACATH REMOVAL. PATIENT TOLERATING PROCEDURE WELL WILL CONTINUE TO MONITOR PATIENT.
--- NOTE | 2016-11-06 16:28 | NUR ---
PATIENT LEFT CHEST WALL PERMACATH REMOVED PER DR. GREEN.
--- NOTE | 2016-11-06 19:12 | NUR ---
RN CLOSING NOTES. PATIENT RESTING IN BED. NO ACUTE DISTRESS, NO SOB NOTED. IV SITE INTACT AND PATENT. GTUBE IN PLACE. DRESSING APPLIED TO LEFT UPPER CHEST AFTER PERMACATH REMOVAL. ALL NEEDS ATTENDED AND PROVIDED. BED IN LOWEST POSITION. HOB ELEVATED. KEPT PATIENT CLEAN AND COMFORTABLE. WILL ENDORSED TO BLANKMAKER RN FOR CONTINUITY OF CARE.
--- NOTE | 2016-11-06 19:30 | NUR ---
HUMAN RESOURCES DEPARTMENT SUPERVISOR NOTES RECEIVED ON BED,OBTUNDED,ON TRACH TO VENT. SHILEY #8,TV-600,AC-16,FIO2-30%,PEEP-5 TOLERATED WELL.WITH GT FEEDING OF NOVASOURCE 30ML/HR RATE,TOLERATED WELL,WITH 20CC RESIDUAL NOTED.WITH LFA SALINE LOCK FOR MEDS INTACT AND PATENT.GT SITE CLEAN AND DRY.ON BARIMAXX BED FOR SKIN MANAGEMENT.ISOLATION PRECAUTION FOR HX OF C-DIFF,COLITIS AND PSEUDOMONAS SPUTUM.REPOSITION PER PROTOCOL WILL CONTINUE TO MONITOR STATUS.
[2016-11-06 20:00] VITALS: BP 103/57
--- NOTE | 2016-11-06 22:00 | NUR ---
SEAFOOD FISHERMAN NOTES WITH DISCHARGE ORDER TODAY BY DR CARLSON.CLEANED AND PICTURES TAKEN ON WOUND.
--- NOTE | 2016-11-06 22:30 | NUR ---
MS RN NOTES PER CHARGE NURSE,[facility] CANT FIND RN FOR TRANSPORT.WILL FIND NURSE TOMORROW AND POSSIBLY TRANSFER AT 1300.ERIC ADAM MARYJANE MADE AWARE OF THE PLAN.BED STILL AVAILABLE 335-A
[2016-11-07] VITALS: BP 126/71
[2016-11-07] MEDS: VALPROIC ACID 250 MG/5 ML UDC GT SCH ×3 (00:20→14:24)
[2016-11-07] MEDS: IPRATROPIUM NEB FS 0.5 MG/2.5 ML AMPUL.NEB IH SCH ×4 (01:33→19:29)
[2016-11-07] MEDS: ALBUTEROL FS 2.5 MG/3 ML VIAL.NEB IH SCH ×4 (01:33→19:29)
[2016-11-07 04:00] VITALS: BP 114/47
[2016-11-07] MEDS: ACIDOPHILUS/BULGARICUS 1 EACH TAB.CHEW GT SCH ×3 (05:10→20:37)
[2016-11-07] MEDS: VANCOMYCIN HCL 125 MG/2.5 ML ORAL.SUSP GT SCH ×3 (05:10→20:35)
[2016-11-07] MEDS: FERROUS SULFATE UDC 300 MG/5 ML UDC GT SCH ×3 (05:10→20:38)
--- NOTE | 2016-11-07 05:30 | NUR ---
CHIEF COMPRESSOR STATION ENGINEER NOTES ACCU-CHECK BLOOD SUGAR CHECK 59,ASYMPTOMATIC FOR HYPOGLYCEMIA.GT FEEDING IN PROGRESS.D50 1 AMPULE ADMINISTERED IVP.WILL RECHECK BLOOD SUGAR IN AN HOUR.
[2016-11-07] MEDS: BLOOD SUGAR DIAGNOSTIC 1 EACH STRIP IN SCH (05:40)
--- NOTE | 2016-11-07 07:03 | NUR ---
TAPE RECORDER MECHANIC NOTES LATEST BLOOD SUGAR CHECK 97.MUCOID STOOL NOTED,GT FEEDING HELD FOR AWHILE.
--- NOTE | 2016-11-07 07:13 | NUR ---
POLE FRAME CONSTRUCTION WORKER NOTES FOR TRANSFER TO [facility] WITH RT THIS MORNING.ENDORSED TO JL BACON FOR JEIMY.
--- NOTE | 2016-11-07 07:30 | NUR ---
ms rn received on bed, awake,non verbal, vent dependent patient, not in any form of distress, respirations even and unlabored, g tube intact w/ feeding off at this time, patient to go to [facility] today, all needs attended.
[2016-11-07 08:00] VITALS: BP 102/60
--- NOTE | 2016-11-07 08:30 | NUR ---
ms rn transportation came, patient has no hd access, was taken off by dr. melo yesterday, paged dr. melo to notify discharge.
[2016-11-07] MEDS: PROSOURCE / PROSTAT (PYXIS) 30 ML UDC GT SCH ×3 (09:00→17:50)
--- NOTE | 2016-11-07 09:20 | NUR ---
ms rn dr. melo called, patient needs katie have an hd access before discharge, he will notify dr. franco.
[2016-11-07] MEDS: LEVETIRACETAM SOL (5 ML) 100 MG/ML UDC GT SCH ×2 (09:22→20:37)
[2016-11-07] MEDS: VIT B CMPLX 3/FA/VIT C/BIOTIN 1 TAB TABLET GT SCH (09:22)
[2016-11-07] MEDS: DOCUSATE SODIUM LIQ 100 MG/10 ML UDC GT SCH ×2 (09:22→20:38)
[2016-11-07] MEDS: TRAMADOL HCL 50 MG TABLET GT SCH ×2 (09:22→20:36)
[2016-11-07] MEDS: PANTOPRAZOLE 40 MG/PACK PACK GT SCH (09:22)
[2016-11-07] MEDS: METOPROLOL TARTRATE 25 MG TABLET GT SCH ×2 (09:23→20:37)
[2016-11-07] MEDS: HYDROGEL DRESSING 90 GM TUBE TP SCH (09:25)
[2016-11-07] MEDS: CADEXOMER IODINE 40 GM TUBE TP SCH (09:25)
[2016-11-07] MEDS: Z GUARD REMEDY 2 OZ OINT TP SCH (09:26)
[2016-11-07] MEDS: NYSTATIN CREAM 15 GM TUBE TP SCH ×2 (09:27→17:51)
--- NOTE | 2016-11-07 10:00 | NUR ---
ms rn called dr. franco and was aware of the case, will do insertion in am, not today, cn notified.
--- NOTE | 2016-11-07 11:00 | NUR ---
ms case management rn cancelled at this time,all needs attended.
[2016-11-07 16:00] VITALS: BP 100/62
--- NOTE | 2016-11-07 16:00 | NUR ---
ms rn pm care done,no distress,all needs attended.
--- NOTE | 2016-11-07 19:00 | NUR ---
ms rn on bed, all needs attended.
--- NOTE | 2016-11-07 19:30 | NUR ---
COMPUTER LANGUAGE CODER NOTES RECEIVED PT IN BED, OBTUNDED , OPENS EYES. ON TRACH WITH VENT INTACT AND PATENT, SUCTIONED PRN. ABDOMEN IS SOFT AND NON DISTENDED. GTF DEVIN WELL. ON ASPIRATION PRECAUTION. NO IV SITE NOTED, ATTEMPTED TO INSERT IV ON LFA X 3, UNSUCCESSFUL. WILL TRY AGAIN. NO S/S OF PAIN OR DISCOMFORT AT THIS TIME. ALL NEEDS ATTENDED AND MET. NO S/S OF HYPER/ HYPOGLYCEMIA NOTED. WILL CONTINUE TO MONITOR.
[2016-11-07 20:27] VITALS: BP 134/78
[2016-11-07 22:00] VITALS: BP 134/78
[2016-11-08] MEDS: VALPROIC ACID 250 MG/5 ML UDC GT SCH ×3 (00:53→12:03)
[2016-11-08] MEDS: ALBUTEROL FS 2.5 MG/3 ML VIAL.NEB IH SCH ×3 (01:15→13:42)
[2016-11-08] MEDS: IPRATROPIUM NEB FS 0.5 MG/2.5 ML AMPUL.NEB IH SCH ×3 (01:15→13:42)
[2016-11-08 04:11] VITALS: BP 96/44
--- NOTE | 2016-11-08 04:17 | NUR ---
PT'S BP : 85/44, HR : 84, O2 SAT : 100 %. PT AROUSABLE , OPENS EYES AND MAKES EYE CONTACT. PT IS A DIALYSIS PT AND FOR POSSIBLE PERMA CATH PLACEMENT TODAY. KIRBY KO AWARE WITH NEW ORDER FOR MID LINE INSERTION. CHARGE NURSE AWARE. WILL ENDORSE TO NEXT SHIFT ACCORDINGLY.
--- NOTE | 2016-11-08 04:17 | NUR ---
PT'S BP : 85/44, HR : 84, O2 SAT : 100 %. PT AROUSABLE , OPENS EYES AND MAKES EYE CONTACT. PT IS A DIALYSIS PT AND FOR POSSIBLE PERMA CATH PLACEMENT TODAY. KIRBY KO AWARE WITH NEW ORDER FOR MID LINE INSERTION. WILL ENDORSE TO NEXT SHIFT ACCORDINGLY.
--- NOTE | 2016-11-08 04:30 | NUR ---
MIDLINE WILL NOT BE INSERTED UNTIL 7 AM, CHARGE NURSE AWARE AND STEFANI OUTPATIENT ADMITTING CLERK INFORMED.
[2016-11-08] MEDS: ACIDOPHILUS/BULGARICUS 1 EACH TAB.CHEW GT SCH ×2 (05:27→12:03)
[2016-11-08] MEDS: FERROUS SULFATE UDC 300 MG/5 ML UDC GT SCH ×2 (05:27→12:03)
[2016-11-08] MEDS: VANCOMYCIN HCL 125 MG/2.5 ML ORAL.SUSP GT SCH ×2 (05:28→12:03)
[2016-11-08] MEDS: RENAL NOVASOURCE 1,000 ML BOTTLE GT SCH (05:41)
[2016-11-08] MEDS: BLOOD SUGAR DIAGNOSTIC 1 EACH STRIP IN SCH (05:52)
--- NOTE | 2016-11-08 06:31 | NUR ---
CHARTER REPRESENTATIVE NOTES PT IN BED, OBTUNDED , OPENS EYES. ON TRACH WITH VENT INTACT AND PATENT, SUCTIONED PRN. ABDOMEN IS SOFT AND NON DISTENDED. GTF DEVIN WELL. ON ASPIRATION PRECAUTION. NO S/S OF PAIN OR DISCOMFORT AT THIS TIME. ALL NEEDS ATTENDED AND MET. GOOD SKIN CARE RENDERED. TURNED AND REPOSITIONED PER HOSPITAL PROTOCOL. NO S/S OF HYPER/ HYPOGLYCEMIA NOTED. SAFETY PRECAUTIONS OBSERVED. WILL ENDORSE TO NEXT SHIFT FOR JEIMY.
--- NOTE | 2016-11-08 07:37 | NUR ---
RN NOTES RECEIVED PT. PT IS STABLE AND SLEEPING. NO S/S OF PAIN OR DISTRESS. PT IS OBTUNDED, NON VERBAL. NO IV ACCESS OR HD ACCESS NOTED. MIDLINE INSERTION ORDERED. TELE READING OF SINUS RHYTHM AT 86 BPM. SAFETY MEASURES IN PLACE. WILL CONTINUE TO MONITOR.
[2016-11-08 08:00] VITALS: BP 87/45
[2016-11-08] MEDS: METOPROLOL TARTRATE 25 MG TABLET GT SCH (09:00)
[2016-11-08] MEDS: PROSOURCE / PROSTAT (PYXIS) 30 ML UDC GT SCH ×2 (09:02→12:03)
[2016-11-08] MEDS: VIT B CMPLX 3/FA/VIT C/BIOTIN 1 TAB TABLET GT SCH (09:02)
[2016-11-08] MEDS: DOCUSATE SODIUM LIQ 100 MG/10 ML UDC GT SCH (09:02)
[2016-11-08] MEDS: PANTOPRAZOLE 40 MG/PACK PACK GT SCH (09:02)
[2016-11-08] MEDS: TRAMADOL HCL 50 MG TABLET GT SCH (09:03)
[2016-11-08] MEDS: NYSTATIN CREAM 15 GM TUBE TP SCH (09:04)
[2016-11-08] MEDS: HYDROGEL DRESSING 90 GM TUBE TP SCH (09:05)
[2016-11-08] MEDS: CADEXOMER IODINE 40 GM TUBE TP SCH (09:06)
[2016-11-08] MEDS: Z GUARD REMEDY 2 OZ OINT TP SCH (09:20)
--- NOTE | 2016-11-08 09:23 | NUR ---
RN NOTE AM LOPRESSOR HELD DUE TO LOW BP OF 87/45.
[2016-11-08] MEDS: LEVETIRACETAM SOL (5 ML) 100 MG/ML UDC GT SCH (09:32)
--- NOTE | 2016-11-08 09:48 | NUR ---
Patient received trached on mechanical vent. Breath sounds equal bilateral. Breathing treatment given as ordered and tolerated very well. No adverse reactions noted. Ambu bag at the bed side.
--- NOTE | 2016-11-08 11:34 | NUR ---
telephone service adviser notes Dr. Lockhart came and procedure done s/p left chest wall permacath placement. Consent signed. stat chest x-ray ordered to confirm placement. All orders carried out and noted. Will continue to monitor accordingly.
[2016-11-08 12:00] VITALS: BP 106/55
[2016-11-08] MEDS ORDERED: IV SET PRIMARY PUMP SET 1 EA INFUS.SET MC ONE (16:09)
[2016-11-08] MEDS: DAPTOMYCIN 500 MG in IV NS 0.9% 50 ML IV SCH (16:15)
--- NOTE | 2016-11-08 16:58 | NUR ---
RN NOTE DISCHARGE NOTE DISCHARGE INSTRUCTIONS GIVEN TO PARAMEDICS. REPORT GIVEN TO [facility]. FLU VACCINE NOT GIVEN DUE TO OUT OF SEASON. PARAMEDICS CAME TO CANCELING MACHINE OPERATOR PATIENT. PT LEFT IN STABLE CONDITION. NO S/S OF PAIN, DISCOMFORT, OR SOB. PT DISCHARGED WITH PERMA CATH ON LEFT CHEST WALL AND MIDLINE ON LEFT UPPER ARM. VITAL SIGNS CHECKED AND RECORDED. MD AND CHARGE NURSE MADE AWARE. Addendum: 11/08/16 at 1710 by LILLIAM YANES pictures taken and filed in the chart. Spoke to Miguelito (RN) from [facility]. Informed regarding isolation and antibiotic (daptomycin) given already. Pneumonia vaccine not given due to patient unable to say. Patient left in stable condition accompanied by 2 EMT's and RT.
== END 2016-11-08 16:45 | DRG 870 ==
LOC: ER 09:15 → TELE 12:50
PROVIDERS: ADMIT Internal Medicine; ATTEND Internal Medicine
PROC: 5A1955Z Respiratory Ventilation, Greater than 96 Consecutive Hours (ICD-10-PCS; principal; 2016-10-17)
PROC: 5A1D60Z (ICD-10-PCS; 2016-10-20)
PROC: 05H633Z Insertion of Infusion Device into Left Subclavian Vein, Percutaneous Approach (ICD-10-PCS; 2016-10-24)
PROC: B517YZA Fluoroscopy of Left Subclavian Vein using Other Contrast, Guidance (ICD-10-PCS; 2016-10-24)
PROC: 30233N1 Transfusion of Nonautologous Red Blood Cells into Peripheral Vein, Percutaneous Approach (ICD-10-PCS; 2016-10-26)
PROC: 0DH63UZ Insertion of Feeding Device into Stomach, Percutaneous Approach (ICD-10-PCS; 2016-11-02)
DX: A41.02 Sepsis due to Methicillin resistant Staphylococcus aureus (principal); N18.6 End stage renal disease; J69.0 Pneumonitis due to inhalation of food and vomit; R65.21 Severe sepsis with septic shock; J15.1 Pneumonia due to Pseudomonas; L89.153 Pressure ulcer of sacral region, stage 3; G93.40 Encephalopathy, unspecified; R53.2 Functional quadriplegia; L89.524 Pressure ulcer of left ankle, stage 4; D68.59 Other primary thrombophilia; I13.2 Hypertensive heart and chronic kidney disease with heart failure and with stage 5 chronic kidney disease, or end stage renal disease; G93.1 Anoxic brain damage, not elsewhere classified; Z99.11 Dependence on respirator [ventilator] status; Z68.41 Body mass index [BMI] 40.0-44.9, adult; K80.10 Calculus of gallbladder with chronic cholecystitis without obstruction; I47.1 Supraventricular tachycardia; A04.7 Enterocolitis due to Clostridium difficile; J96.11 Chronic respiratory failure with hypoxia; I50.32 Chronic diastolic (congestive) heart failure; A41.9 Sepsis, unspecified organism; Z86.73 Personal history of transient ischemic attack (TIA), and cerebral infarction without residual deficits; D63.8 Anemia in other chronic diseases classified elsewhere; E11.22 Type 2 diabetes mellitus with diabetic chronic kidney disease; E66.01 Morbid (severe) obesity due to excess calories; Z99.2 Dependence on renal dialysis; G40.909 Epilepsy, unspecified, not intractable, without status epilepticus; I25.10 Atherosclerotic heart disease of native coronary artery without angina pectoris; Z93.0 Tracheostomy status; Z93.1 Gastrostomy status; R13.10 Dysphagia, unspecified; Z88.5 Allergy status to narcotic agent; Z88.6 Allergy status to analgesic agent; Z88.1 Allergy status to other antibiotic agents; Z91.011 Allergy to milk products; K21.9 Gastro-esophageal reflux disease without esophagitis; M54.5 Low back pain; F32.9 Major depressive disorder, single episode, unspecified; Z74.01 Bed confinement status; R23.4 Changes in skin texture; Z90.710 Acquired absence of both cervix and uterus; I25.2 Old myocardial infarction; L30.4 Erythema intertrigo; I73.9 Peripheral vascular disease, unspecified; M20.42 Other hammer toe(s) (acquired), left foot; M20.41 Other hammer toe(s) (acquired), right foot; M21.612 Bunion of left foot; M21.611 Bunion of right foot
CPT/HCPCS: 31720; 36415; 36569; 71010-TC; 74000-TC; 80048-TC; 80053-TC; 80076-TC; 80170-TC; 82550-TC; 82962-TC; 83605-TC; 83735-TC; 84100-TC; 84484-TC; 85025-TC; 85610-TC; 85730-TC; 86850-TC; 86921-TC; 87040-TC; 87070-TC; 87081-TC; 87086-TC; 87186-TC; 90935-TC; 93307-TC; 93971-TC; 94002-TC; 94003-TC; 94640-TC; 94760-TC; 94762-TC; A4216; A4606; A4623; A6248; A6253; A6402; A6403; A7526; C1750; C9113; J0878; J0885; J1580; J1644; J1953; J1956; J2185; J2250; J2370; J2704; J2997; J3475; J3480; J3490; J7030; J7042; J7050; J7060; P9016-BL; P9047; Q9963; Z7610

== ENCOUNTER 2016-11-10 08:29 | Inpatient (IN) | payer MEDICARE, OTHER ==
[2016-11-10] VITALS (45 sets, daily range): BP systolic 65–186; BP diastolic 38–110
[~2016-11-10] VITALS: Ht 167.6 cm; Wt 127.0 kg
[~2016-11-10 08:29] MED LIST changes: -DULO30CA2 GT
--- NOTE | 2016-11-10 08:35 | NUR ---
PATIENT BIB RA D/T LOW BP AT [facility]. PATIENT IS VENT TRACH DEPENDENT. A/OX 1. NO SOB. SBP IN THE 60'S. MD AWARE. SAFETY AND COMFORT MEASURES IN PLACE. AWAITING MD ORDERS.
--- NOTE | 2016-11-10 08:40 | NUR ---
PT RECEIVED BY PARAMEDICS TRACHED W/ MARCK 8XLT, PLACED ON HOSPITAL VENT W/ SETTING AC 16 600 50% PEEP 0. BP 65/45, SPO2 @ 92-94%. TRACH TUBE INTACT, CLEAN AND PATENT. VENT IN RED OUTLET, VENT ALARMS CHECKED AND AUDIBLE. PT SX'ED AND LAVAGED PRN TO MODERATE AMOUNTS OF THICK PALE YELLOW SECRETIONS. Addendum: 11/10/16 at 0858 by SHOAIB PERDUE RT Amended: Links added.
[2016-11-10] MEDS ORDERED: IV SET PRIMARY 1 EA INFUS.SET MC ONE ×3 (08:45→10:17)
[2016-11-10] MEDS ORDERED: IV NS 0.9% 1,000 ML ONE (08:45)
[2016-11-10] MEDS ORDERED: IV NS 0.9% 1,000 ML BAG IV ONE ×2 (09:00→09:30)
[2016-11-10 09:01] LABS: BASOPHILS % (AUTO) 0.3 % (0.0-2.0); EOSINOPHILS # (AUTO) 0.2 /CMM (0.0-0.7); EOSINOPHILS % (AUTO) 1.4 % (0.0-6.0); HEMATOCRIT 32 % (33-45); HEMOGLOBIN 10.3 g/dL (11.5-14.8); LYMPHOCYTES # (AUTO) 2.4 /CMM (0.8-4.8); MEAN CORPUSCULAR HEMOGLOBIN 33 PG (26.0-33.0); MEAN CORPUSCULAR HGB CONC 33 g/dl (31.0-36.0); MEAN CORPUSCULAR VOLUME 102 fL (82-100); MONOCYTES # (AUTO) 1.5 /CMM (0.1-1.30); MONOCYTES % (AUTO) 11.4 % (2.0-12.0); NEUTROPHILS # (AUTO) 9.1 /CMM (1.8-8.9); NEUTROPHILS % (AUTO) 68.9 % (43.0-81.0); PLATELET COUNT (AUTO) 121 /CMM (150-450); RDW COEFFICIENT OF VARIATION 19.3 (11.5-15.0); RED BLOOD CELL COUNT(AUTO) 3.09 MIL/uL (4.0-5.2); WHITE BLOOD COUNT (AUTO) 13.2 K/uL (4.3-11.0)
[2016-11-10 09:15] LABS: INR 1.82 (0.87-1.13); PROTHROMBIN TIME 19.5 SECS (9.5-12.7)
[2016-11-10] MEDS ORDERED: DEXTROSE 50%-WATER 50 ML DISP.SYRIN ONE (09:18)
[2016-11-10 09:19] LABS: ALKALINE PHOSPHATASE 283 U/L (46-116); ASPARTATE AMINOTRANSFERASE 24 U/L (15-37); BILIRUBIN,DIRECT 0.3 mg/dL (0.0-0.2); BILIRUBIN,TOTAL 0.6 mg/dL (0.2-1.0); CALCIUM, SERUM 9.8 mg/dL (8.5-10.1); CARBON DIOXIDE 22 mmol/L (21-32); CHLORIDE 105 mmol/L (98-107); CREATININE 5.2 mg/dL (0.6-1.3); POTASSIUM 3.6 mmol/L (3.5-5.1); SODIUM SERUM 138 mmol/L (136-145); TOTAL PROTEIN, SERUM 6.7 g/dL (6.4-8.2); TROPONIN I < 0.017 ng/mL (0.00-0.056); UREA NITROGEN, BLOOD 74 mg/dL (7-18)
--- NOTE | 2016-11-10 09:19 | NUR ---
Paged Dr. Manzano for consult
--- NOTE | 2016-11-10 09:20 | NUR ---
paged Dr. Pinto for admission
[2016-11-10 09:21] LABS: ALBUMIN 1.1 g/dL (3.4-5.0); GLUCOSE 39 mg/dL (74-106)
[2016-11-10] MEDS ORDERED: IV D5/ 0.9% NACL 1,000 ML IV ONE ×2 (09:25→09:32)
--- NOTE | 2016-11-10 09:25 | NUR ---
BLOOD SUGAR 25, MD AWARE. D50 ADMINISTERED.
[2016-11-10] MEDS ORDERED: GENTAMICIN 80 MG in IV D5W 50 ML IV ONE (09:30)
[2016-11-10] MEDS ORDERED: LEVOFLOXACIN 750 MG /D5W 150ML 150 ML IV ONE ×2 (09:30→09:32)
[2016-11-10] MEDS ORDERED: CLINDAMYCIN 600 MG in IV D5W 100 ML IV ONE (09:30)
[2016-11-10] MEDS ORDERED: NOREPINEPHRINE 8 MG in IV D5W 500 ML IV PRN (09:30)
[2016-11-10] MEDS ORDERED: DEXTROSE 50%-WATER 50 ML DISP.SYRIN IVP ONE (09:30)
[2016-11-10] MEDS ORDERED: IV NS 0.9% 2,000 ML ONE (09:32)
[2016-11-10] MEDS ORDERED: IV SET PRIMARY PUMP SET 1 EA INFUS.SET MC ONE ×4 (09:33→12:02)
[2016-11-10 09:34] LABS: ALANINE AMINOTRANSFERASE < 6 U/L (12-78)
--- NOTE | 2016-11-10 09:52 | NUR ---
DR. TRACYE INFORMED OF PATIENT'S BP AND HAS ORDERED TO HOLD LEVOPHED AT THIS TIME.
[2016-11-10] MEDS ORDERED: CLINDAMYCIN IV RTU IN D5W 600 MG/50 ML PIGGYBACK IV ONE (10:00)
[2016-11-10] MEDS ORDERED: GENTAMICIN 160 MG in IV D5W 100 ML IV ONE (10:30)
[2016-11-10] MEDS ORDERED: CLINDAMYCIN 600 MG in IV D5W 50 ML IV ONE (10:30)
[2016-11-10] MEDS ORDERED: HYDR-4075 GT (10:37)
[2016-11-10] MEDS ORDERED: HYDR-552 GT (10:37)
[2016-11-10] MEDS ORDERED: HEPA50008 SQ (10:37)
--- NOTE | 2016-11-10 10:58 | NUR ---
REPORT GIVEN TO ZHANE. PATIENT TO BE ADMITTED TO [facility].
--- NOTE | 2016-11-10 11:22 | NUR ---
PATIENT TRANSPORTED TO ICU, 104 VIA STRETCHER WITH EMT AND RN FOR ADMISSION.
[2016-11-10] MEDS ORDERED: IV NS 0.9% 1,000 ML IV PRN (11:29)
--- NOTE | 2016-11-10 11:29 | NUR ---
PERIPHERAL VASCULAR TECH RECEIVED PATIENT FROM THE PREVIOUS SHIFT. OBTUNDED NEURO STATUS. HYPOTENSIVE AT THIS TIME. TEMP 95.8. LENARD HUGGER PLACED. SINUS RHYTHM WITH BBB NOTED. WOUND CARE PROVIDED. TURNED AND REPOSITIONED FOR COMFORT AND WOUND PREVENTION. WILL CONTINUE TO MONITOR AND PROVIDE CARE.
[2016-11-10] MEDS ORDERED: ZOLPIDEM TARTRATE 5 MG TABLET PO PRN (11:30)
[2016-11-10] MEDS ORDERED: ONDANSETRON HCL/PF 4 MG/2 ML VIAL IVP PRN (11:30)
[2016-11-10] MEDS ORDERED: Z GUARD REMEDY 2 OZ OINT TP PRN (11:30)
[2016-11-10] MEDS ORDERED: PANTOPRAZOLE 40 MG VIAL IV SCH (11:30)
[2016-11-10] MEDS ORDERED: ACETAMINOPHEN 325 MG TABLET PO PRN (11:30)
[2016-11-10] MEDS ORDERED: GLYTROL 1,000 ML BAG GT PRN ×2 (12:00→12:30)
[2016-11-10] MEDS ORDERED: PANTOPRAZOLE 40 MG TABLET.DR PO SCH (12:00)
[2016-11-10] MEDS ORDERED: SECONDARY IV SET 1 EA INFUS.SET MC ONE (12:02)
[2016-11-10] MEDS ORDERED: IV 10% DEXTROSE 1,000 ML IV PRN (12:30)
[2016-11-10] MEDS: PANTOPRAZOLE 40 MG/PACK PACK GT SCH (12:37)
[2016-11-10] MEDS ORDERED: DAPTOMYCIN 500 MG in IV NS 0.9% 50 ML IV ONE (13:00)
[2016-11-10] MEDS: NOREPINEPHRINE 16 MG in IV D5W 500 ML IV PRN (13:15)
[2016-11-10] MEDS: BLOOD SUGAR DIAGNOSTIC 1 EACH STRIP IN SCH ×3 (13:44→21:08)
[2016-11-10] MEDS: VANCOMYCIN HCL 125 MG/2.5 ML ORAL.SUSP PO SCH ×2 (15:52→16:41)
[2016-11-10] MEDS: HYDROGEL DRESSING 90 GM TUBE TP SCH (16:02)
--- NOTE | 2016-11-10 18:53 | NUR ---
DIRECTOR DAY CARE CENTER REPORT GIVEN TO RECEIVING RN FOR CONTINUITY OF CARE.
[2016-11-10] MEDS ORDERED: ALTEPLASE CATHFLO 2 MG/VIAL XX STA (19:29)
--- NOTE | 2016-11-10 20:00 | NUR ---
DEHORNER NOTES RECEIVED PT IN BED, AWAKE BUT NOT ALERT. OPENS EYES SPONTANEOUSLY BUT DOES NOT TRACK. ON VENT VIA TRACH AT ORDERED SETTINGS, DEVIN WELL. TELE READS SR WITH BBB. GLYTROL FEEDING RUNNING AT 30 ML/HR WITH GOAL OF 60 ML/HR. LUP MIDLINE 20G AND YADIRA TLC MIDLINE RUNNING LEVO AT 24 MCG/MIN WHILE ON DIALYSIS AND D10W AT 40 ML/HR. MULTIPLE WOUNDS. HOB ELEVATED, SIDE RAILS X3, TURNED AND REPOSITIONED.
--- NOTE | 2016-11-10 22:00 | NUR ---
CINEMA OR THEATRE MANAGER NOTES PT HAS GASTRIC RESIDUAL OF 400 ML. FEEDING PLACED ON HOLD.
[2016-11-10] MEDS ORDERED: METOCLOPRAMIDE HCL 5 MG/5 ML UDC GT SCH (22:30)
[2016-11-11] VITALS (86 sets, daily range): BP systolic 48–124; BP diastolic 26–85
[2016-11-11] MEDS ORDERED: METOCLOPRAMIDE HCL 5 MG/5 ML UDC GT SCH
[2016-11-11] MEDS ORDERED: METOCLOPRAMIDE HCL 10 MG TABLET GT SCH
--- NOTE | 2016-11-11 | NUR ---
CONVENIENCE STORE MANAGER NOTES PT CONTINUES TO HAVE GASTRIC RESIDUAL >400 ML. STEFANI CONTACTED AND ORDER RECEIVED FOR REGLAN. FEEDING REMAINS ON HOLD.
[2016-11-11] MEDS: METOCLOPRAMIDE HCL 10 MG/10 ML UDC GT SCH ×2 (00:16→05:00)
[2016-11-11] MEDS: BLOOD SUGAR DIAGNOSTIC 1 EACH STRIP IN SCH ×3 (00:28→09:04)
[2016-11-11] MEDS ORDERED: IV NS 0.9% 500 ML IV ONE (02:00)
--- NOTE | 2016-11-11 02:00 | NUR ---
BLOOD BANK LABORATORY TECHNICIAN NOTES 0130 PT BECOME HYPOTENSIVE WITH SBP IN 60's. LEVOPHED AT 40 MCG/MIN. STEFANI CONTACTED. NEW ORDERS RECEIVED FOR NS 500 ML BOLUS, SECOND PRESSOR OF NEOSYNEPHRINE AND THIRD PRESSOR OF DOPAMINE IF NEEDED. 0200 NS 500 ML BOLUS GIVEN AND NEOSYNEPHRINE STARTED. PT REMAINS HYPOTENSIVE.
[2016-11-11] MEDS ORDERED: PHENYLEPHRINE 10 MG/ML VIAL ONE (02:11)
[2016-11-11] MEDS: PHENYLEPHRINE 40 MG in IV D5W 250 ML IV PRN ×2 (02:26→07:20)
[2016-11-11] MEDS ORDERED: PHENYLEPHRINE 40 MG in IV D5W 250 ML IV PRN (02:30)
[2016-11-11] MEDS ORDERED: DOPamine 400MG/D5W 250ML RTU 250 ML IV ONE (02:41)
[2016-11-11] MEDS ORDERED: DOPamine 800 MG in IV D5W 250 ML IV PRN (03:00)
--- NOTE | 2016-11-11 03:00 | NUR ---
MANAGEMENT TRAINEE MARKETING NOTES PT IS ON MAX RATE ON LEVOPHED AND NEOSYNEPHRINE. BP REMAINS IN 50-60's. DOPAMINE STARTED.
[2016-11-11] MEDS: DOPamine 400 MG in IV D5W 250 ML IV PRN ×3 (03:05→11:30)
--- NOTE | 2016-11-11 04:15 | NUR ---
DROP WIRE ALIGNER NOTES PT'S BP STARTED TO RISE SHARPLY. SBP JUMPED FROM 60s TO 110s. DOPAMINE AND NEOSYNEPHRINE PLACED ON HOLD. LEVOPHED REMAINS AT 40 MCG/MIN.
[2016-11-11] MEDS ORDERED: NOREPINEPHRINE 4 MG/4 ML AMPUL IV ONE (04:58)
[2016-11-11 05:11] LABS: EOSINOPHILS # (AUTO) 0.1 /CMM (0.0-0.7); HEMOGLOBIN 11.2 g/dL (11.5-14.8); NEUTROPHILS # (AUTO) 10.1 /CMM (1.8-8.9); PLATELET COUNT (AUTO) 117 /CMM (150-450)
[2016-11-11] MEDS: NOREPINEPHRINE 16 MG in IV D5W 500 ML IV PRN ×2 (05:16→11:31)
[2016-11-11 05:18] LABS: BASOPHILS % (AUTO) 0.3 % (0.0-2.0); EOSINOPHILS % (AUTO) 0.6 % (0.0-6.0); HEMATOCRIT 35 % (33-45); LYMPHOCYTES # (AUTO) 2.1 /CMM (0.8-4.8); LYMPHOCYTES % (AUTO) 14.8 % (20.0-44.0); MEAN CORPUSCULAR HEMOGLOBIN 33 PG (26.0-33.0); MEAN CORPUSCULAR HGB CONC 33 g/dl (31.0-36.0); MEAN CORPUSCULAR VOLUME 102 fL (82-100); MONOCYTES % (AUTO) 14.2 % (2.0-12.0); NEUTROPHILS % (AUTO) 70.1 % (43.0-81.0); RDW COEFFICIENT OF VARIATION 21.4 (11.5-15.0); RED BLOOD CELL COUNT(AUTO) 3.39 MIL/uL (4.0-5.2); WHITE BLOOD COUNT (AUTO) 14.3 K/uL (4.3-11.0)
[2016-11-11 05:35] LABS: ALANINE AMINOTRANSFERASE < 6 U/L (12-78); ALKALINE PHOSPHATASE 268 U/L (46-116); ASPARTATE AMINOTRANSFERASE 27 U/L (15-37); BILIRUBIN,TOTAL 0.6 mg/dL (0.2-1.0); CALCIUM, SERUM 9.7 mg/dL (8.5-10.1); CARBON DIOXIDE 20 mmol/L (21-32); CHLORIDE 103 mmol/L (98-107); CREATININE 4.6 mg/dL (0.6-1.3); GLUCOSE 64 mg/dL (74-106); POTASSIUM 3.9 mmol/L (3.5-5.1); SODIUM SERUM 134 mmol/L (136-145); TOTAL PROTEIN, SERUM 6.8 g/dL (6.4-8.2); UREA NITROGEN, BLOOD 67 mg/dL (7-18)
[2016-11-11 05:37] LABS: TROPONIN I < 0.017 ng/mL (0.00-0.056)
[2016-11-11 05:51] LABS: LYMPHOCYTES % (MANUAL) 11 % (16-48); MONOCYTES % (MANUAL) 12 % (0-11.0); NEUTROPHILS % (MANUAL) 77 (42-76)
[2016-11-11] MEDS: VANCOMYCIN HCL 125 MG/2.5 ML ORAL.SUSP PO SCH ×2 (06:19)
[2016-11-11 06:27] LABS: CHOLESTEROL 50 mg/dL (<200); HDL CHOLESTEROL 8 mg/dL (40-60); LDL 16 mg/dL (0-99); TRIGLYCERIDES 54 mg/dL (30-150)
[2016-11-11] MEDS ORDERED: RENAL NOVASOURCE 1,000 ML BOTTLE GT PRN (07:00)
--- NOTE | 2016-11-11 07:30 | NUR ---
FIRER BOILER RECEIVED PATIENT FROM THE PREVIOUS SHIFT. PATIENT IS IN BED. RESTING COMFORTABLY. ON 3 PRESSORS MAXED OUT. VENT SETTINGS REVIEWED AND VERIFIED. HYPOTENSIVE AND TACHYCARDIC. NO 4TH PRESSOR PER MD. WILL CONTINUE TO MONITOR.
--- NOTE | 2016-11-11 08:10 | NUR ---
WOUND CARE CONSULT: PT NOT SEEN FOR SKIN ASSESSMENT YET DUE TO PT VERY UNSTABLE AT THIS TIME AND UNABLE TO BE TURNED PER NURSING STAFF. BARIMAX BED ON ORDER. RECOMMENDATIONS FOR WOUND AND SKIN PROTECTION MADE BASED ON PHOTO DOCUMENTATION. WILL SEE PT PT CONDITION PERMITS. MD IN AGREEMENT WITH PLAN OF CARE.
--- NOTE | 2016-11-11 08:15 | NUR ---
ORDER MANAGEMENT SPECIALIST UNABLE TO TURN AND REPOSITION THE PATIENT AT THIS TIME DUE TO HEMODYNAMIC INSTABILITY. WILL CONTINUE TO MONITOR.
[2016-11-11] MEDS ORDERED: HYDROGEL DRESSING 90 GM TUBE TP PRN (08:30)
[2016-11-11] MEDS: HYDROGEL DRESSING 90 GM TUBE TP SCH (08:38)
[2016-11-11] MEDS ORDERED: HYDROGEL DRESSING 90 GM TUBE TP SCH (09:00)
[2016-11-11] MEDS: PANTOPRAZOLE 40 MG/PACK PACK GT SCH (09:07)
[2016-11-11] MEDS ORDERED: DEXTROSE 50%-WATER 50 ML DISP.SYRIN IVP ONE (09:30)
[2016-11-11] MEDS ORDERED: PHENYLEPHRINE 80 MG in IV NS 0.9% 250 ML IV PRN (09:30)
--- NOTE | 2016-11-11 10:05 | NUR ---
RN SOCIAL WORK UNABLE TO TURN AND REPOSITION THE PATIENT AT THIS TIME DUE TO HEMODYNAMIC INSTABILITY. WILL CONTINUE TO MONITOR.
--- NOTE | 2016-11-11 10:06 | NUR ---
BAKERY SUPERVISOR RN SPOKE TO PATIENT'S SISTER CONSTANTINO OVER THE PHONE. DNR STATUS CONFIRMED WITH PATIENT'S SISTER. RN EDUCATED THE PATIENT'S FAMILY REGARDING PATIENT'S CURRENT HEALTH STATUS. RN CONFIRMED WITH THE FAMILY THAT NO ADDITIONAL MEASURES WILL BE TAKEN AT THIS TIME. WILL CONTINUE TO MONITOR AND PROVIDE CARE.
--- NOTE | 2016-11-11 10:17 | NUR ---
PERSONAL LINES AGENT - [facility]. RN CALLED [facility]. SPOKE TO STUART. CASE NUMBER RECEIVED [id number].
--- NOTE | 2016-11-11 12:18 | NUR ---
CAFETERIA WORKER UNABLE TO TURN AND REPOSITION THE PATIENT AT THIS TIME DUE TO HEMODYNAMIC INSTABILITY. WILL CONTINUE TO MONITOR.
--- NOTE | 2016-11-11 12:25 | NUR ---
LIFTER NOTE PT DNR, ON TRIPLE PRESSORS AT MAX DOSE. FOUND PT APNEIC, ASYSTOLIC. PUPILS FIXED AND DILATED. PRONOUNCED .
--- NOTE | 2016-11-11 12:58 | NUR ---
HEAD OF GLOBAL STRATEGIC PARTNERSHIPS RN CALLED THE SISTER CONSTANTINO AND [facility] PER FAMILY REQUEST TO INFORM.
[2016-11-11] MEDS ORDERED: DAPTOMYCIN 500 MG in IV NS 0.9% 50 ML IV SCH (13:00)
== END 2016-11-11 15:35 | disposition expired | DRG 871 ==
LOC: ER 08:32 → ICUOV 10:11 → ICU 17:51
PROVIDERS: ADMIT Internal Medicine; ATTEND Internal Medicine
PROC: 5A1945Z Respiratory Ventilation, 24-96 Consecutive Hours (ICD-10-PCS; principal; 2016-11-10)
PROC: 02HV33Z Insertion of Infusion Device into Superior Vena Cava, Percutaneous Approach (ICD-10-PCS; 2016-11-10)
PROC: B548ZZA Ultrasonography of Superior Vena Cava, Guidance (ICD-10-PCS; 2016-11-10)
PROC: 5A1D60Z (ICD-10-PCS; 2016-11-10)
DX: A41.9 Sepsis, unspecified organism (principal); N18.6 End stage renal disease; R53.2 Functional quadriplegia; E43 Unspecified severe protein-calorie malnutrition; R65.21 Severe sepsis with septic shock; J69.0 Pneumonitis due to inhalation of food and vomit; L89.153 Pressure ulcer of sacral region, stage 3; D68.59 Other primary thrombophilia; E87.2 Acidosis; I13.2 Hypertensive heart and chronic kidney disease with heart failure and with stage 5 chronic kidney disease, or end stage renal disease; Z99.11 Dependence on respirator [ventilator] status; G93.1 Anoxic brain damage, not elsewhere classified; Z68.42 Body mass index [BMI] 45.0-49.9, adult; J96.10 Chronic respiratory failure, unspecified whether with hypoxia or hypercapnia; K80.10 Calculus of gallbladder with chronic cholecystitis without obstruction; R65.20 Severe sepsis without septic shock; D63.8 Anemia in other chronic diseases classified elsewhere; E11.22 Type 2 diabetes mellitus with diabetic chronic kidney disease; E11.649 Type 2 diabetes mellitus with hypoglycemia without coma; E66.01 Morbid (severe) obesity due to excess calories; G40.909 Epilepsy, unspecified, not intractable, without status epilepticus; I25.10 Atherosclerotic heart disease of native coronary artery without angina pectoris; I50.9 Heart failure, unspecified; K21.9 Gastro-esophageal reflux disease without esophagitis; R13.10 Dysphagia, unspecified; Z66 Do not resuscitate; Z86.73 Personal history of transient ischemic attack (TIA), and cerebral infarction without residual deficits; Z90.710 Acquired absence of both cervix and uterus; Z99.2 Dependence on renal dialysis; Z93.1 Gastrostomy status; Z86.19 Personal history of other infectious and parasitic diseases; Z93.0 Tracheostomy status; Z74.01 Bed confinement status; I95.3 Hypotension of hemodialysis; E88.09 Other disorders of plasma-protein metabolism, not elsewhere classified
CPT/HCPCS: 31720; 36415; 36569; 71010-TC; 80048-TC; 80053-TC; 80061-TC; 80076-TC; 82962-TC; 83605-TC; 84484-TC; 85025-TC; 85730-TC; 87040-TC; 87081-TC; 90935-TC; 94002-TC; 94003-TC; A4216; A4606; A6248; A6402; J0878; J1265; J1580; J1956; J2370; J2997; J3490; J7030; J7040; J7042; J7050; J7060; J8597; Z7610